=== PATIENT | female | born 1960 | race African-American/Black ===

== ENCOUNTER → 2017-04-01 | Outpatient (CLI) | payer MEDICARE, OTHER ==
--- NOTE | 2017-04-01 13:44 | US ---
EXAMINATION TYPE: US venous doppler duplex LE RT DATE OF EXAM: 04/01/2017 1:20 PM COMPARISON: NONE CLINICAL HISTORY: I82.49 DVT. Right leg cellulitis and swelling, no h/o dvt SIDE PERFORMED: Right TECHNIQUE: The lower extremity deep venous system is examined utilizing real time linear array sonog [place] with graded compression, doppler sonography and color-flow sonography. VESSELS IMAGED: External Iliac Vein (EIV) Common Femoral Vein Deep Femoral Vein Greater Saphenous Vein * Femoral Vein- unable to visualize vessels w/o color Popliteal Vein Small Saphenous Vein * Proximal Calf Veins (* superficial vessels) Right Leg: Appears negative for DVT Grayscale, color doppler, spectral doppler imaging performed of the deep veins of the lower extremiti es. There is normal flow, compressibility, vascular waveforms. tech impression given to office at 1325 IMPRESSION: 1. No sonographic evidence of right lower extremity venous thrombosis with slight limitation of the f emoral vein. 2. Superficial right inguinal adenopathy and lower extremity generalized subcutaneous edema compatibl e with the patient's known history of cellulitis.
== END | disposition home or self-care (01) ==
LOC: RADUSWWP 12:47
PROVIDERS: ATTEND Internal Medicine Infectious Disease
DX: L03.115 Cellulitis of right lower limb (principal); R59.0 Localized enlarged lymph nodes; Z00.00 Encounter for general adult medical examination without abnormal findings

== ENCOUNTER → 2017-05-08 | Outpatient (CLI) | payer MEDICARE, OTHER ==
--- NOTE | 2017-05-14 11:54 | P.ARTDOP ---
Arterial Doppler LOWER EXTREMITY ARTERIAL DOPPLER: DATE OF SERVICE: 05/08/2017 Reason for study: Right leg ulcer. Doppler waveforms: Multiphasic bilaterally throughout. Pulse volume recording: Normal configuration. Pressure gradients: None. Ankle-brachial indices: Greater than 1 bilaterally. Toe pressures: 130 on the right, 130 on the left Impression: normal study.
== END | disposition home or self-care (01) ==
LOC: RADUSWWP 13:07
PROVIDERS: ATTEND Internal Medicine Infectious Disease
DX: I73.9 Peripheral vascular disease, unspecified (principal)
CPT/HCPCS: 93923

== ENCOUNTER → 2017-09-02 | Outpatient (CLI) | payer MEDICARE, OTHER ==
--- NOTE | 2017-09-02 15:02 | MM ---
Reason for exam: clinical finding. Last mammogram was performed 2 years and 10 months ago. History: Patient is postmenopausal. Took hormonal contraceptives for 10 years beginning at age 15. Physical Findings: Nurse did not find any significant physical abnormalities on exam. MG 3D Diag Mammo W/Cad STAN Bilateral CC and MLO view(s) were taken. Prior study comparison: November 01, 2014, bilateral MG screening mammo w CAD. September 17, 2012, bilateral digital screening mammo w/CAD. There are scattered fibroglandular densities. There is no discrete abnormality. No significant new findings when compared with previous films. These results were verbally communicated with the patient and result sheet given to the patient on 09/02/17. ASSESSMENT: Negative, BI-RAD 1 RECOMMENDATION: Routine screening mammogram of both breasts in 1 year.
== END | disposition home or self-care (01) ==
LOC: RADMAMWWP 13:33
PROVIDERS: ATTEND Surgery
DX: N63.0 Unspecified lump in unspecified breast (principal)
CPT/HCPCS: 77066; G0279

== ENCOUNTER 2019-06-28 15:18 | Inpatient (IN) | payer MEDICARE, OTHER ==
[2019-06-28 17:15] LABS: Basophils % (A) 0 %; Eosinophils # (A) 0.1 k/uL (0-0.7); Eosinophils % (A) 2 %; HCT 36.2 % (34.0-46.0); HGB 11.5 gm/dL (11.4-16.0); Hypochromasia Slight; Lymphocytes # (A) 1.7 k/uL (1.0-4.8); Lymphocytes % (A) 22 %; MCHC 31.9 g/dL (31.0-37.0); MCV 81.5 fL (80.0-100.0); Mean Platelet Volume 7.2; Monocytes # (A) 0.3 k/uL (0-1.0); Monocytes % (A) 4 %; Neutrophils # (A) 5.2 k/uL (1.3-7.7); Neutrophils % (A) 69 %; Platelet Count 275 k/uL (150-450); RBC 4.44 m/uL (3.80-5.40); RDW 14.8 % (11.5-15.5); WBC 7.5 k/uL (3.8-10.6)
--- NOTE | 2019-06-28 17:20 | XR ---
EXAMINATION TYPE: XR foot complete LT DATE OF EXAM: 06/28/2019 COMPARISON: NONE HISTORY: Ulcer at the first metatarsal TECHNIQUE: 3 views FINDINGS: There is moderately severe hallux valgus. There is multiple hammertoe deformity. There is p lantar and Achilles calcaneal spurring. There is large 2 cm soft tissue ulcer crater at the medial pl malgorzata aspect of the proximal phalanx of the big toe. I see no fracture nor dislocation. There is no f ocal bone destruction. IMPRESSION: Hallux valgus. Ulcer defect. No sign of osteomyelitis. Soft tissue swelling.
[2019-06-28 17:27] LABS: Albumin 4.2 g/dL (3.5-5.0); C Reactive Protein 14.4 mg/L (<10.0); Calcium 9.6 mg/dL (8.4-10.2); Potassium 4.1 mmol/L (3.5-5.1); Total Bilirubin 0.7 mg/dL (0.2-1.3); Total Protein 8.4 g/dL (6.3-8.2)
[2019-06-28] MEDS ORDERED: MORPHINE SULFATE 4 MG/ML SYRINGE IVP STA (17:47)
[2019-06-28] MEDS ORDERED: ONDANSETRON 4 MG/2 ML VIAL IVP STA (17:47)
--- NOTE | 2019-06-28 17:48 | ED ---
Lower Extremity Injury HPI - General Source: patient, EMS, RN notes reviewed Mode of arrival: EMS Limitations: physical limitation <Thony Valiente - Last Filed: 06/28/19 19:07> <Chris Guo - Last Filed: 06/28/19 19:17> - General Chief Complaint: Extremity Injury, Lower Stated Complaint: Foot/knee pain Time Seen by Provider: 06/28/19 15:43 - History of Present Illness Initial Comments: 58-year-old female presents emergency Department with chief complaint of left knee pain, left foot pain. Patient states that she injured her leg a few months ago but states that the pain is unbearable feels like a lump in the backs of her leg. Patient states that her legs have an extremely red and she has recurrent cellulitis type issues. Patient also states that she has a wound that is very extensive to her left foot which is now painful. He states that it was debrided by home health care provider. Patient denies any known fever or chills states that she felt that she did. Patient denies other complaints at this time. (Thony Valiente) - Related Data Home Medications Medication Instructions Recorded Confirmed Lisinopril 40 mg PO DAILY 02/16/16 10/30/18 amLODIPine [Norvasc] 10 mg PO DAILY 02/16/16 10/30/18 traMADol HCL [Ultram] 50 mg PO Q6H PRN 02/16/16 10/30/18 Clopidogrel [Plavix] 75 mg PO DAILY 03/01/17 10/30/18 Furosemide [Lasix] 40 mg PO DAILY 03/01/17 10/30/18 Hydrochlorothiazide 25 mg PO DAILY 03/01/17 10/30/18 Latanoprost [Xalatan 0.005%] 1 drop BOTH EYES HS 03/01/17 10/30/18 [place]-3 Fatty Acids/Fish Oil [Fish 1 cap PO DAILY 03/01/17 10/30/18 Oil 1,000 mg Softgel] Pravastatin Sodium [Pravachol] 40 mg PO DAILY 03/01/17 10/30/18 Ranitidine HCl [Zantac] 150 mg PO DAILY 03/01/17 10/30/18 Cyanocobalamin [Vitamin B-12] 500 mcg PO DAILY 05/20/17 10/30/18 Ergocalciferol [Vitamin D2 50,000 unit PO MO 05/20/17 10/30/18 (DRISDOL)] metFORMIN HCL 1,000 mg PO BID 05/20/17 10/30/18 Albuterol Inhaler [Ventolin Hfa 2 puff INHALATION RT-Q6H PRN 10/30/18 10/30/18 Inhaler] Cyclobenzaprine [Flexeril] 10 mg PO HS 10/30/18 10/30/18 Insuln Asp Prt/Insulin Aspart 25 unit SQ AC-SUPPER 10/30/18 10/30/18 [NovoLOG MIX 70-30 VIAL] Insuln Asp Prt/Insulin Aspart 35 unit SQ AC-BRKFST 10/30/18 10/30/18 [NovoLOG MIX 70-30 VIAL] Potassium Chloride [Klor-Con 20] 20 meq PO DAILY 10/30/18 10/30/18 Pregabalin [Lyrica] 75 mg PO BID 10/30/18 10/30/18 Previous Rx's Medication Instructions Recorded Ammonium Lactate Lotion 1 applic TOPICAL BID 7 Days applic 03/06/17 [Lac-Hydrin 12% Lotion] Ferrous Sulfate [Slow Release Iron] 250 mg PO DAILY #30 tablet.er 10/31/18 oxyCODONE-APAP 7.5-325MG [Percocet 2 tab PO Q6HR PRN 3 Days #24 tab 10/31/18 7.5-325 mg] Allergies Allergy/AdvReac Type Severity Reaction Status Date / Time methylprednisolone Allergy Anaphylaxis Verified 10/30/18 08:19 [From Solu-Medrol] venom-honey bee Allergy Anaphylaxis Verified 10/30/18 08:19 [bee venom (honey bee)] Review of Systems ROS Other: All systems not noted in ROS Statement are negative. <Thony Valiente - Last Filed: 06/28/19 19:07> ROS Other: All systems not noted in ROS Statement are negative. <Chris Guo - Last Filed: 06/28/19 19:17> ROS Statement: Those systems with pertinent positive or pertinent negative responses have been documented in the HPI. Past Medical History Past Medical History: Asthma, COPD, Diabetes Mellitus, Eye Disorder, GERD/Reflux, Hyperlipidemia, Hypertension, Neurologic Disorder, Osteoarthritis (OA) Additional Past Medical History / Comment(s): wounds rt leg,multiple sclerosis, glaucoma History of Any Multi-Drug Resistant Organisms: None Reported Past Surgical History: Section, Joint Replacement, Tubal Ligation Additional Past Surgical History / Comment(s): lt hip replacement,rectal surgery,eye proc Past Anesthesia/Blood Transfusion Reactions: No Reported Reaction Past Psychological History: Depression Smoking Status: Former smoker Past Alcohol Use History: None Reported Past Drug Use History: Marijuana - Past Family History Father Family Medical History: Cancer <Thony Valiente - Last Filed: 06/28/19 19:07> General Exam Limitations: physical limitation General appearance: alert, in no apparent distress Head exam: Present: atraumatic, normocephalic, normal inspection Eye exam: Present: normal appearance, PERRL, EOMI. Absent: scleral icterus, conjunctival injection, periorbital swelling ENT exam: Present: normal exam, mucous membranes moist Respiratory exam: Present: normal lung sounds bilaterally. Absent: respiratory distress, wheezes, rales, rhonchi, stridor Cardiovascular Exam: Present: regular rate, normal rhythm, normal heart sounds. Absent: systolic murmur, diastolic murmur, rubs, gallop, clicks Extremities exam: Present: other (Bilateral lower extremity swelling, erythema noted, there is some blistering. Left foot there is a large diabetic foot ulcer noted there is mild surrounding edema there is minimal purulent drainage pulses are 1+ bilaterally) Skin exam: Present: warm, dry, intact, normal color. Absent: rash <Thony Valiente - Last Filed: 06/28/19 19:07> Course <Chris Guo - Last Filed: 06/28/19 19:17> Vital Signs 06/28/19 06/28/19 06/28/19 15:24 18:16 18:45 Temperature 97.4 F L Pulse Rate 78 86 81 Respiratory 19 19 19 Rate Blood Pressure 189/99 177/102 170/95 O2 Sat by Pulse 93 L 96 96 Oximetry - Reevaluation(s) Reevaluation #1: 06/28/19 19:16 PA supervision: I proceeded chat-um-bobe evaluation the patient did discuss the findings with her and her caregiver. Also with Dr. Chappell. H will be admitted with consultation by infectious disease. She does demonstrate a rather deep ulcer to the left first metatarsal phalangeal joint with ascending erythema bi laterally with increased localized temperature also stasis dermatitis noted to both lower extremities. Some blister formation is noted. She does clinically however not appear to be toxic at this time. (Chris Guo) Medical Decision Making - Lab Data Result diagrams: 06/28/19 16:46 06/28/19 16:46 <Thony Valiente - Last Filed: 06/28/19 19:07> - Lab Data Result diagrams: 06/28/19 16:46 06/28/19 16:46 <Chris Guo - Last Filed: 06/28/19 19:17> - Medical Decision Making THE LEG IS NEGATIVE FOR ANY OBVIOUS DVT. PATIENT HAS A LARGE DIABETIC FOOT ULCER, CELLULITIS OF HER LOWER EXTREMITIES. PATIENT WILL BE ADMITTED FOR IV ANTIBIOTICS, INFECTIOUS DISEASE CONSULT AND FURTHER TREATMENT. (Thony Valiente) - Lab Data Lab Results 06/28/19 06/28/19 Range/Units 16:46 16:46 WBC 7.5 (3.8-10.6) k/uL RBC 4.44 (3.80-5.40) m/uL Hgb 11.5 (11.4-16.0) gm/dL Hct 36.2 (34.0-46.0) % MCV 81.5 (80.0-100.0) fL MCH 26.0 (25.0-35.0) pg MCHC 31.9 (31.0-37.0) g/dL RDW 14.8 (11.5-15.5) % Plt Count 275 (150-450) k/uL Neutrophils % 69 % Lymphocytes % 22 % Monocytes % 4 % Eosinophils % 2 % Basophils % 0 % Neutrophils # 5.2 (1.3-7.7) k/uL Lymphocytes # 1.7 (1.0-4.8) k/uL Monocytes # 0.3 (0-1.0) k/uL Eosinophils # 0.1 (0-0.7) k/uL Basophils # 0.0 (0-0.2) k/uL Hypochromasia Slight Sodium 140 (137-145) mmol/L Potassium 4.1 (3.5-5.1) mmol/L Chloride 101 (98-107) mmol/L Carbon Dioxide 31 H (22-30) mmol/L Anion Gap 8 mmol/L BUN 21 H (7-17) mg/dL Creatinine 0.92 (0.52-1.04) mg/dL Est GFR (CKD-EPI)AfAm 80 (>60 ml/min/1.73 sqM) Est GFR (CKD-EPI)NonAf 69 (>60 ml/min/1.73 sqM) Glucose 122 H (74-99) mg/dL Calcium 9.6 (8.4-10.2) mg/dL Total Bilirubin 0.7 (0.2-1.3) mg/dL AST 29 (14-36) U/L ALT 17 (4-34) U/L Alkaline Phosphatase 133 H (38-126) U/L C-Reactive Protein 14.4 H (<10.0) mg/L Total Protein 8.4 H (6.3-8.2) g/dL Albumin 4.2 (3.5-5.0) g/dL Disposition <Thony Valiente - Last Filed: 06/28/19 19:07> <Chris Guo - Last Filed: 06/28/19 19:17> Clinical Impression: Diabetic ulcer of left foot, Bilateral lower leg cellulitis Disposition: ADMITTED IP TO THIS HOSP Condition: Fair Referrals: Mariely Bradford MD [Primary Care Provider] - 1-2 days
--- NOTE | 2019-06-28 18:28 | US ---
EXAMINATION TYPE: US venous doppler duplex LE LT DATE OF EXAM: 06/28/2019 6:10 PM COMPARISON: NONE CLINICAL HISTORY: pain. SIDE PERFORMED: Left TECHNIQUE: The lower extremity deep venous system is examined utilizing real time linear array sonog [place] with graded compression, doppler sonography and color-flow sonography. VESSELS IMAGED: External Iliac Vein (EIV) Common Femoral Vein Deep Femoral Vein Greater Saphenous Vein * Femoral Vein Popliteal Vein Small Saphenous Vein * Proximal Calf Veins (* superficial vessels) Patient of very large body habitus, technically difficult and limited study. Left Leg: Appears negative for DVT in this somewhat limited study, distal femoral vein not seen, pro ximal calf veins not seen due to extensive edema and patient body habitus. IMPRESSION: There is subcutaneous edema. No deep vein thrombosis seen in the left leg.
[2019-06-28] MEDS ORDERED: VANCOMYCIN IV PER PHARMACY 1 EACH MISC MISCELLANE PRN (19:07)
[2019-06-28] MEDS ORDERED: PIPERACILLIN-TAZOBACTAM 3.375 GM in SODIUM CHLORIDE 0.9% 100 ML IVPB STA (19:07)
[2019-06-28] MEDS ORDERED: HYDROcodone/APAP 5-325MG 1 EACH TAB PO PRN (19:08)
[2019-06-28] MEDS ORDERED: ONDANSETRON 4 MG/2 ML VIAL IVP PRN (19:08)
[2019-06-28] MEDS ORDERED: NALOXONE 0.4 MG/ML 1 ML VIAL IV PRN (19:08)
[2019-06-28] MEDS ORDERED: VANCOMYCIN 1,750 MG in SODIUM CHLORIDE 0.9% 500 ML 500 ML IVPB STA (19:10)
[2019-06-28] MEDS: MORPHINE SULFATE 4 MG/ML SYRINGE IV PRN (20:50)
[2019-06-28] MEDS ORDERED: oxyCODONE-APAP 7.5-325MG 1 EACH TAB PO PRN (22:00)
[2019-06-28] MEDS ORDERED: ALBUTEROL NEBULIZED 2.5 MG/3 ML INHALATION PRN (22:00)
[2019-06-28] MEDS: LISINOPRIL 20 MG TAB PO SCH (22:16)
[2019-06-28] MEDS: hydrOXYzine HCL 25 MG TAB PO SCH (22:19)
[2019-06-28] MEDS: LATANOPROST 0.005% OPHTH DROPS 2.5 ML BTL BOTH EYES SCH (22:19)
[2019-06-28] MEDS: ACETAMINOPHEN TAB 325 MG TAB PO PRN (23:43)
[2019-06-28] MEDS: amLODIPine 10 MG TAB PO SCH (23:44)
[2019-06-29] MEDS: PREGABALIN 100 MG CAP PO SCH ×3 (00:58→22:34)
[2019-06-29] MEDS: MORPHINE SULFATE 4 MG/ML SYRINGE IV PRN ×4 (06:33→19:24)
[2019-06-29 07:24] LABS: Glucose,Whole Blood 193 mg/dL (75-99)
[2019-06-29] MEDS: IPRATROPIUM-ALBUTEROL 3 ML NEB INHALATION SCH ×4 (07:58→19:54)
[2019-06-29] MEDS ORDERED: PANTOPRAZOLE 40 MG/10 ML VIAL IV SCH (09:00)
[2019-06-29] MEDS: amLODIPine 10 MG TAB PO SCH (09:30)
[2019-06-29] MEDS: CLOPIDOGREL 75 MG TAB PO SCH (09:30)
[2019-06-29] MEDS: LISINOPRIL 20 MG TAB PO SCH (09:31)
[2019-06-29] MEDS: HYDROCHLOROTHIAZIDE 25 MG TAB PO SCH (09:31)
[2019-06-29] MEDS: INSULN ASP PRT/INSULIN ASPART 100 UNIT/ML 10 ML VIAL SQ SCH ×2 (09:31→22:35)
[2019-06-29] MEDS: FUROSEMIDE 40 MG TAB PO SCH (09:31)
[2019-06-29] MEDS: hydrOXYzine HCL 25 MG TAB PO SCH ×3 (09:31→22:34)
[2019-06-29] MEDS: VANCOMYCIN 1,750 MG in SODIUM CHLORIDE 0.9% 500 ML 500 ML IVPB SCH (09:32)
[2019-06-29] MEDS: PRAVASTATIN SODIUM 20 MG TAB PO SCH (09:32)
[2019-06-29] MEDS: metFORMIN 500 MG TAB PO SCH ×2 (09:32→22:35)
[2019-06-29] MEDS: POTASSIUM CHLORIDE ER 20 MEQ TAB.ER PO SCH (09:32)
[2019-06-29 12:00] LABS: Glucose,Whole Blood 194 mg/dL (75-99)
[2019-06-29 14:36] VITALS: BMI 39.5
[2019-06-29 17:15] LABS: Glucose,Whole Blood 166 mg/dL (75-99)
--- NOTE | 2019-06-29 18:18 | P.CONS ---
History of Present Illness - Reason for Consult Consult date: 06/29/19 Left diabetic foot ulcer and cellulitis Requesting physician: Rey Chappell - Chief Complaint Left foot pain and nonhealing ulcer x days - History of Present Illness Patient is a 58-year-old female who apparently did develop a callus on her left foot that has been debridement by Dr. Ricci from [facility] few weeks ago, patient had been complaining of pain to her left foot since a debridement patient describing the pain to be sharp that has increased in intensity over the last few days to be as high as 10 out of 10, patient did complain of some drainage from her left foot wound, the patient did have some chills but denies high-grade fever with these symptoms the patient was evaluated by the ER physician on arrival to the area the patient has been afebrile, patient white count was normal she did have x-rays of the foot that did not show any bony changes suggestive of Osteomyelitis, patient received her dose of Zosyn in the ER vancomycin was started and continued patient has been admitted to the hospital infectious disease was consulted for further recommendation regarding antibiotic therapy Review of Systems CONSTITUTIONAL: Positive for weakness. Denies high-grade Fever EYES: No complaint. ENT:No complaint. RESPIRATORY: No complaint. CARDIOVASCULAR: No complaint. GENITOURINARY: No complaint. GASTROINTESTINAL: No complaint. MUSCULOSKELETAL: As per history of present illness. INTEGUMENTARY: As per history of present illness. PSYCHOLOGICAL: No complaint. ENDOCRINE: No complaint. NEUROLOGIC: No complaint. Past Medical History Past Medical History: Asthma, COPD, Diabetes Mellitus, Eye Disorder, GERD/Reflux, Hyperlipidemia, Hypertension, Neurologic Disorder, Osteoarthritis (OA) Additional Past Medical History / Comment(s): wounds rt leg,multiple sclerosis, glaucoma History of Any Multi-Drug Resistant Organisms: None Reported Past Surgical History: Section, Joint Replacement, Tubal Ligation Additional Past Surgical History / Comment(s): lt hip replacement,rectal surgery,eye proc Past Anesthesia/Blood Transfusion Reactions: No Reported Reaction Past Psychological History: Depression Additional Psychological History / Comment(s): Stop smoking Jan. No cigarette or alcohol use. Does not work outside of the home. No international travel. No experience. No animal exposures Smoking Status: Never smoker Past Alcohol Use History: None Reported Additional Past Alcohol Use History / Comment(s): smoker 20 years 1ppd Past Drug Use History: Marijuana Additional Drug Use History / Comment(s): daily - Past Family History Father Family Medical History: Cancer Medications and Allergies Home Medications Medication Instructions Recorded Confirmed Type Lisinopril 40 mg PO DAILY 02/16/16 06/28/19 History amLODIPine [Norvasc] 10 mg PO DAILY 02/16/16 06/28/19 History Clopidogrel [Plavix] 75 mg PO DAILY 03/01/17 06/28/19 History Furosemide [Lasix] 40 mg PO DAILY 03/01/17 06/28/19 History Hydrochlorothiazide 25 mg PO DAILY 03/01/17 06/28/19 History Latanoprost [Xalatan 0.005%] 1 drop BOTH EYES HS 03/01/17 06/28/19 History Ergocalciferol [Vitamin D2 50,000 unit PO Q7D 05/20/17 06/28/19 History (DRISDOL)] metFORMIN HCL 1,000 mg PO BID 05/20/17 06/28/19 History Albuterol Inhaler [Ventolin Hfa 2 puff INHALATION RT-Q6H PRN 10/30/18 06/28/19 History Inhaler] Insuln Asp Prt/Insulin Aspart 22 unit SQ HS 10/30/18 06/28/19 History [NovoLOG MIX 70-30 VIAL] Insuln Asp Prt/Insulin Aspart 32 unit SQ DAILY 10/30/18 06/28/19 History [NovoLOG MIX 70-30 VIAL] Potassium Chloride [Klor-Con 20] 20 meq PO DAILY 10/30/18 06/28/19 History Ipratropium-Albuterol Nebulize 3 ml INHALATION RT-QID 06/28/19 06/28/19 History [Duoneb 0.5 mg-3 mg/3 ml Soln] Pravastatin Sodium [Pravachol] 10 mg PO DAILY 06/28/19 06/28/19 History Pregabalin [Lyrica] 100 mg PO BID 06/28/19 06/28/19 History SILVER sulfADIAZINE Cream 1 applic TOPICAL DAILY 06/28/19 06/28/19 History [Silvadene 1% Cream] hydrOXYzine HCL [Atarax] 50 mg PO TID 06/28/19 06/28/19 History oxyCODONE-APAP 7.5-325MG [Percocet 1 tab PO Q6HR PRN 06/28/19 06/28/19 History 7.5-325 mg] Allergies Allergy/AdvReac Type Severity Reaction Status Date / Time methylprednisolone Allergy Anaphylaxis Verified 10/30/18 08:19 [From Solu-Medrol] venom-honey bee Allergy Anaphylaxis Verified 10/30/18 08:19 [bee venom (honey bee)] Physical Exam Vitals: Vital Signs Temp Pulse Pulse Resp BP BP Pulse Ox 06/29/19 16:00 96 18 06/29/19 15:00 98.5 F 96 18 169/81 92 L 06/29/19 08:25 86 16 06/29/19 08:11 84 06/29/19 08:01 88 06/29/19 07:00 98.2 F 86 16 189/83 91 L 06/29/19 04:28 88 18 92 L 06/29/19 03:13 78 20 161/83 95 06/28/19 22:14 90 18 176/95 94 L 06/28/19 20:55 97.4 F L 80 18 181/94 94 L 06/28/19 18:45 81 19 170/95 96 06/28/19 18:16 86 19 177/102 96 Intake and Output 06/29/19 06/29/19 06/29/19 06:59 14:59 22:59 Output Total 500 550 850 Balance -500 -550 -850 Output: Urine 500 550 850 Other: Voiding Method Indwelling Catheter Indwelling Catheter Indwelling Catheter Weight 111.13 kg 111.13 kg GENERAL DESCRIPTION: Middle-aged female lying in bed, no distress. No tachypnea or accessory muscle of respiration use. HEENT: Shows Pallor , no scleral icterus. Oral mucous membrane is dry. No pharyngeal erythema or thrush NECK: Trachea central, no thyromegaly. LUNGS: Unlabored breathing. Clear to auscultation anteriorly. No wheeze or crackle. HEART: S1, S2, regular rate and rhythm. No loud murmur ABDOMEN: Soft, no tenderness , guarding or rigidity, no organomegaly EXTREMITIES: Left foot plantar wound at the base of first metatarsal head no significant slough tissue did some surrounding swelling and minimal drainage was noticed SKIN: No rash, no masses palpable. NEUROLOGICAL: The patient is awake, alert, oriented x3, mood and affect normal. Results CBC & Chem 7: 06/28/19 16:46 06/29/19 06:26 Labs: Abnormal Lab Results - Last 24 Hours (Table) 06/29/19 06/29/19 06/29/19 Range/Units 07:19 11:58 17:13 POC Glucose (mg/dL) 193 H 194 H 166 H (75-99) mg/dL Microbiology - Last 24 Hours (Table) 06/28/19 18:19 Gram Stain - Preliminary Foot - Left Wound Culture - Preliminary Assessment and Plan Assessment: 1-patient with left diabetic foot ulcer with secondary infection in this patient who did have a wound on the plantar aspect of the left foot started a fter patient did have left foot callus debridement now with worsening pain swelling and drainage will need to cover for both gram-positive as well as gram- negative pathogen in view of patient underlying diabetes mellitus (1) Cellulitis of left foot Current Visit: Yes Status: Acute Code(s): L03.116 - CELLULITIS OF LEFT LOWER LIMB SNOMED Code(s): 917182361 (2) Diabetic ulcer of left foot Current Visit: Yes Status: Acute Code(s): E11.621 - TYPE 2 DIABETES MELLITUS WITH FOOT ULCER; L97.529 - NON-PRESSURE CHRONIC ULCER OTH PRT LEFT FOOT W UNSP SEVERITY SNOMED Code(s): 059684905 Plan: 1-Vancomycin pharmacy to dose target trough of 15 while watching his kidney function and Vanco trough closely 2- cefepime 2 g every 12 hours to cover for the gram-negative seen on the Gram stain 3-local wound care to the left foot plantar wound with Aquacel silver dressing to be changed daily 4-we'll check a sed rate and also check a bone scan to rule out Osteomyelitis We will follow on clinical condition and cultures to further adjust medication if needed Thank you for this consultation will follow this patient with you Time with Patient: Greater than 30
[2019-06-29] MEDS: ACETAMINOPHEN TAB 325 MG TAB PO PRN (19:58)
[2019-06-29 20:22] LABS: Glucose,Whole Blood 196 mg/dL (75-99)
[2019-06-29] MEDS: CEFEPIME 2 GM in SODIUM CHLORIDE 0.9% 100 ML IVPB SCH (22:35)
[2019-06-30] MEDS: VANCOMYCIN 1,750 MG in SODIUM CHLORIDE 0.9% 500 ML 500 ML IVPB SCH ×2 (00:29→17:01)
[2019-06-30] MEDS: LATANOPROST 0.005% OPHTH DROPS 2.5 ML BTL BOTH EYES SCH ×2 (00:30→20:59)
[2019-06-30] MEDS: IPRATROPIUM-ALBUTEROL 3 ML NEB INHALATION SCH ×4 (07:28→20:24)
[2019-06-30 07:59] LABS: Glucose,Whole Blood 161 mg/dL (75-99)
[2019-06-30] MEDS: PRAVASTATIN SODIUM 20 MG TAB PO SCH (09:33)
[2019-06-30] MEDS: CLOPIDOGREL 75 MG TAB PO SCH (09:34)
[2019-06-30] MEDS: amLODIPine 10 MG TAB PO SCH (09:34)
[2019-06-30] MEDS: metFORMIN 500 MG TAB PO SCH ×2 (09:34→20:56)
[2019-06-30] MEDS: POTASSIUM CHLORIDE ER 20 MEQ TAB.ER PO SCH (09:34)
[2019-06-30] MEDS: FUROSEMIDE 40 MG TAB PO SCH (09:35)
[2019-06-30] MEDS: PREGABALIN 100 MG CAP PO SCH ×2 (09:35→20:56)
[2019-06-30] MEDS: INSULN ASP PRT/INSULIN ASPART 100 UNIT/ML 10 ML VIAL SQ SCH ×2 (09:35→20:53)
[2019-06-30] MEDS: HYDROCHLOROTHIAZIDE 25 MG TAB PO SCH (09:35)
[2019-06-30] MEDS: PANTOPRAZOLE 40 MG TABLET PO SCH (09:35)
[2019-06-30] MEDS: hydrOXYzine HCL 25 MG TAB PO SCH ×3 (09:36→20:56)
[2019-06-30] MEDS: CEFEPIME 2 GM in SODIUM CHLORIDE 0.9% 100 ML IVPB SCH ×2 (09:37→20:57)
[2019-06-30 09:41] LABS: Basophils % (A) 0 %; Eosinophils # (A) 0.1 k/uL (0-0.7); Eosinophils % (A) 1 %; HCT 37.4 % (34.0-46.0); HGB 12.3 gm/dL (11.4-16.0); Lymphocytes # (A) 1.4 k/uL (1.0-4.8); Lymphocytes % (A) 21 %; MCH 26.4 pg (25.0-35.0); MCHC 32.9 g/dL (31.0-37.0); MCV 80.3 fL (80.0-100.0); Mean Platelet Volume 7.4; Monocytes # (A) 0.4 k/uL (0-1.0); Monocytes % (A) 6 %; Neutrophils # (A) 4.9 k/uL (1.3-7.7); Neutrophils % (A) 70 %; Platelet Count 249 k/uL (150-450); RBC 4.65 m/uL (3.80-5.40); RDW 14.7 % (11.5-15.5)
[2019-06-30 09:54] LABS: Albumin 3.8 g/dL (3.5-5.0); Calcium 9.5 mg/dL (8.4-10.2); Potassium 3.7 mmol/L (3.5-5.1); Total Bilirubin 0.7 mg/dL (0.2-1.3); Total Protein 7.6 g/dL (6.3-8.2)
[2019-06-30 11:51] LABS: Glucose,Whole Blood 172 mg/dL (75-99)
[2019-06-30] MEDS: LISINOPRIL 20 MG TAB PO SCH (11:56)
[2019-06-30] MEDS: MORPHINE SULFATE 4 MG/ML SYRINGE IV PRN (11:56)
--- NOTE | 2019-06-30 13:46 | P.HPPUL ---
History of Present Illness H&P Date: 06/29/19 Chief Complaint: Pain and some drainage in the left foot This is a 58-year-old female seen eval reexamined, patient has a callus in her left foot developed some discharge posterior fragment has been progressive for several weeks started having pain pain to be sharp that has increased in intensity over the last few days to be as high as 10 out of 10, patient did complain of some drainage from her left foot wound, the patient did have some chills but denies high-grade fever with these symptoms the patient was evaluated by the ER physician on arrival to the area the patient has been afebrile, patient white count was normal she did have x-rays of the foot that did not show any bony changes suggestive of Osteomyelitis, patient received her dose of Zosyn in the ER vancomycin was started and continued patient has been admitted to the hospital, patient has seen Dr. Hamm from infectious disease was consulted for further recommendation regarding Review of Systems All systems: negative Past Medical History Past Medical History: Asthma, COPD, Diabetes Mellitus, Eye Disorder, GERD/Reflux, Hyperlipidemia, Hypertension, Neurologic Disorder, Osteoarthritis (OA) Additional Past Medical History / Comment(s): wounds rt leg,multiple sclerosis, glaucoma History of Any Multi-Drug Resistant Organisms: None Reported Past Surgical History: Section, Joint Replacement, Tubal Ligation Additional Past Surgical History / Comment(s): lt hip replacement,rectal surgery,eye proc Past Anesthesia/Blood Transfusion Reactions: No Reported Reaction Past Psychological History: Depression Additional Psychological History / Comment(s): Stop smoking Jan. No cigarette or alcohol use. Does not work outside of the home. No international travel. No experience. No animal exposures Smoking Status: Never smoker Past Alcohol Use History: None Reported Additional Past Alcohol Use History / Comment(s): smoker 20 years 1ppd Past Drug Use History: Marijuana Additional Drug Use History / Comment(s): daily - Past Family History Father Family Medical History: Cancer Medications and Allergies Home Medications Medication Instructions Recorded Confirmed Type Lisinopril 40 mg PO DAILY 02/16/16 06/28/19 History amLODIPine [Norvasc] 10 mg PO DAILY 02/16/16 06/28/19 History Clopidogrel [Plavix] 75 mg PO DAILY 03/01/17 06/28/19 History Furosemide [Lasix] 40 mg PO DAILY 03/01/17 06/28/19 History Hydrochlorothiazide 25 mg PO DAILY 03/01/17 06/28/19 History Latanoprost [Xalatan 0.005%] 1 drop BOTH EYES HS 03/01/17 06/28/19 History Ergocalciferol [Vitamin D2 50,000 unit PO Q7D 05/20/17 06/28/19 History (DRISDOL)] metFORMIN HCL 1,000 mg PO BID 05/20/17 06/28/19 History Albuterol Inhaler [Ventolin Hfa 2 puff INHALATION RT-Q6H PRN 10/30/18 06/28/19 History Inhaler] Insuln Asp Prt/Insulin Aspart 22 unit SQ HS 10/30/18 06/28/19 History [NovoLOG MIX 70-30 VIAL] Insuln Asp Prt/Insulin Aspart 32 unit SQ DAILY 10/30/18 06/28/19 History [NovoLOG MIX 70-30 VIAL] Potassium Chloride [Klor-Con 20] 20 meq PO DAILY 10/30/18 06/28/19 History Ipratropium-Albuterol Nebulize 3 ml INHALATION RT-QID 06/28/19 06/28/19 History [Duoneb 0.5 mg-3 mg/3 ml Soln] Pravastatin Sodium [Pravachol] 10 mg PO DAILY 06/28/19 06/28/19 History Pregabalin [Lyrica] 100 mg PO BID 06/28/19 06/28/19 History SILVER sulfADIAZINE Cream 1 applic TOPICAL DAILY 06/28/19 06/28/19 History [Silvadene 1% Cream] hydrOXYzine HCL [Atarax] 50 mg PO TID 06/28/19 06/28/19 History oxyCODONE-APAP 7.5-325MG [Percocet 1 tab PO Q6HR PRN 06/28/19 06/28/19 History 7.5-325 mg] Allergies Allergy/AdvReac Type Severity Reaction Status Date / Time methylprednisolone Allergy Anaphylaxis Verified 10/30/18 08:19 [From Solu-Medrol] venom-honey bee Allergy Anaphylaxis Verified 10/30/18 08:19 [bee venom (honey bee)] Physical Examination Vital signs: Vital Signs Temp Pulse Resp BP Pulse Ox 97.4 F L 78 19 189/99 93 L 06/28/19 15:24 06/28/19 15:24 06/28/19 15:24 06/28/19 15:24 06/28/19 15:24 Vital Signs Comment(s): GENERAL DESCRIPTION: Middle-aged female lying in bed, no distress. No tachypnea or accessory muscle of respiration use. HEENT: Shows Pallor , no scleral icterus. Oral mucous membrane is dry. No pharyngeal erythema or thrush NECK: Trachea central, no thyromegaly. LUNGS: Unlabored breathing. Clear to auscultation anteriorly. No wheeze or crackle. HEART: S1, S2, regular rate and rhythm. No loud murmur ABDOMEN: Soft, no tenderness , guarding or rigidity, no organomegaly EXTREMITIES: Left foot plantar wound at the base of first metatarsal head no significant slough tissue did some surrounding swelling and minimal drainage was noticed SKIN: No rash, no masses palpable. NEUROLOGICAL: The patient is awake, alert, oriented x3, mood and affect normal. Results - Laboratory Findings CBC and BMP: 06/30/19 09:15 06/30/19 09:15 Abnormal lab findings: Abnormal Labs 06/28/19 06/29/19 06/29/19 16:46 07:19 11:58 Carbon Dioxide 31 H BUN 21 H Glucose 122 H POC Glucose (mg/dL) 193 H 194 H Alkaline Phosphatase 133 H C-Reactive Protein 14.4 H Total Protein 8.4 H Assessment and Plan Assessment: Cellulitis of the left foot Left foot pain Diabetic foot ulcer COPD Hypertension hypertensive cardiovascular disease Peripheral vascular disease Congestive heart failure diastolic heart failure Insulin-dependent/requiring diabetes mellitus Dyslipidemia Peripheral neuropathy Plan: Continue home medications Infectious disease recommendation reviewed recommendation appreciated Patient is being started on broad-spectrum antibiotics Further recommendations pending plan of care as per clinical response of patient Time with Patient: Greater than 30
--- NOTE | 2019-06-30 15:24 | P.PN ---
Subjective Progress Note Date: 06/30/19 This is a 58-year-old female seen eval reexamined, patient has a callus in her left foot developed some discharge posterior fragment has been progressive for several weeks started having pain pain to be sharp that has increased in intensity over the last few days to be as high as 10 out of 10, patient did complain of some drainage from her left foot wound, the patient did have some chills but denies high-grade fever with these symptoms the patient was evaluated by the ER physician on arrival to the area the patient has been afebrile, patient white count was normal she did have x-rays of the foot that did not show any bony changes suggestive of Osteomyelitis, patient received her dose of Zosyn in the ER vancomycin was started and continued patient has been admitted to the hospital, patient has seen Dr. Hamm from infectious disease was consulted for further recommendation regarding Dr. Chappell covering for 06/29/2019 On 06/30/2019 patient is alert and oriented 3. Patient remains on vancomycin and cefepime per infectious disease. One cultures are currently pending growing gram-negative bacilli strep group B. Bone scan has been completed results pending per ID. Discharge planning in progress to possible rehab. At this time patient denies chest pain or shortness breath. Patient denies nausea vomiting or diarrhea. Patient denies any urinary burning or frequency Objective - Vital Signs Vital signs: Vital Signs Temp 98.2 F 06/30/19 07:00 Pulse 82 06/30/19 07:00 Resp 18 06/30/19 07:00 BP 181/81 06/30/19 07:00 Pulse Ox 93 L 06/30/19 07:00 Intake & Output 06/29/19 06/30/19 06/30/19 18:59 06:59 18:59 Output Total 1400 1550 Balance -1400 -1550 Weight 111.13 kg Output: Urine 1400 1550 Other: Voiding Method Indwelling Catheter Indwelling Catheter Indwelling Catheter - Exam Head normocephalic Neck supple Lungs clear to auscultation bilaterally no wheezing or crackles Heart regular rate and rhythm S1-S2, no rub or gallop Abdomen is soft nontender nondistended positive bowel sounds no hepatosplenomegaly Extremities no edema. Left foot dressing is clean dry and intact Neuro alert and orientated to 3 - Labs CBC & Chem 7: 06/30/19 09:15 06/30/19 09:15 Labs: Abnormal Lab Results - Last 24 Hours (Table) 06/29/19 06/29/19 06/30/19 Range/Units 17:13 20:21 07:56 Carbon Dioxide (22-30) mmol/L BUN (7-17) mg/dL Glucose (74-99) mg/dL POC Glucose (mg/dL) 166 H 196 H 161 H (75-99) mg/dL 06/30/19 06/30/19 Range/Units 09:15 11:49 Carbon Dioxide 31 H (22-30) mmol/L BUN 20 H (7-17) mg/dL Glucose 216 H (74-99) mg/dL POC Glucose (mg/dL) 172 H (75-99) mg/dL Microbiology - Last 24 Hours (Table) 06/28/19 16:46 Blood Culture - Preliminary Blood No Growth after 24 hours 06/28/19 18:19 Gram Stain - Preliminary Foot - Left Wound Culture - Preliminary Gram Neg Bacilli Strep agalactiae - (group b) Assessment and Plan Assessment: 1. Cellulitis to left foot secondary to diabetic foot ulcer with prior history of debridement. Venous Doppler negative for DVT. Dr. Majano is following for infectious disease bone scan has been ordered. Patient remains on vancomycin and cefepime cultures pending 2. History of COPD. No exacerbation at this time 3. Essential hypertension. Home meds resumed 4. Diabetes mellitus type 2. Home meds resumed hemoglobin A1c will be ordered 5. History of peripheral vascular disease 6. History of chronic diastolic congestive heart failure 7. History of peripheral neuropathy DVT prophylaxis Lovenox. GI prophylaxis Pepcid Patient will likely need ECF upon discharge social work consulted I performed an examination of the patient and discussed their management with the Nurse Practitioner. I have reviewed the Nurse Practitioner's notes and agree with the documented findings and plan of care
--- NOTE | 2019-06-30 15:28 | NM ---
EXAMINATION TYPE: NM bone 3 phase DATE OF EXAM: 06/30/2019 COMPARISON: NONE HISTORY: Left foot plantar wound Triple phase bone scintigraphy was performed following the injection of 24.4 mCi Tc 99m MDP. Immedia te images and 3.75 hours post injection images acquired. FINDINGS: Blood flow: There is symmetrical blood flow to the lower extremities. Blood pool: There is slight increased radiotracer within the distal left first digit region compared to the right. Static images: There is increased radiotracer accumulation within the first right metatarsal phalange al joint region. Slightly less radiotracer is within the left first metatarsophalangeal joint space. There is increased radiotracer accumulation within the bilateral ankles. Increased radiotracer is wit hin the distal interphalangeal joint spaces of the bilateral feet. IMPRESSION: 1. No triple phase uptake to suggest acute osteomyelitis. 2. Degenerative changes are present bilaterally. 3. Some mild cellulitis is not excluded within the distal medial left foot. Correlate with location o f the patient's plantar wound.
[2019-06-30] MEDS: oxyCODONE-APAP 7.5-325MG 1 EACH TAB PO SCH ×2 (17:00→23:17)
[2019-06-30 17:42] LABS: Glucose,Whole Blood 168 mg/dL (75-99)
--- NOTE | 2019-06-30 18:27 | PN ---
PROGRESS NOTE DATE OF SERVICE: 06/30/2019 REASON FOR FOLLOWUP: Left diabetic foot infection. INTERVAL HISTORY: The patient is currently afebrile. She has been breathing comfortably. The patient denies having any chest pain or shortness of breath or cough. No nausea. No abdominal pain or any worsening pain to the left foot area. PHYSICAL EXAMINATION: Blood pressure is 151/90 with a pulse of 90, temperature 98.2. She is 95% on room air. General description is a middle-aged female up in the bed in no distress. Respiratory system: Unlabored breathing. Clear to auscultation anteriorly. Heart S1, S2. Regular rate and rhythm. Abdomen soft, no tenderness. Left foot is currently dressed up. LABS: Wound culture with Pseudomonas and gram-negative. Bone scan has been completed which shows no osteomyelitis. DIAGNOSTIC IMPRESSION AND PLAN: Patient with left diabetic foot infection, wound culture predominantly . Continue cefepime. If no Gram positive, vancomycin will be discontinued. Local wound care with dry Aquacel silver dressing to keep the area off the pressure. Continue supportive care. MMODL / IJN: [id number] /
[2019-06-30 18:30] LABS: Hemoglobin A1C 7.3 % (4.0-6.0)
[2019-06-30 20:28] LABS: Glucose,Whole Blood 196 mg/dL (75-99)
[2019-06-30] MEDS: ACETAMINOPHEN TAB 325 MG TAB PO PRN (20:55)
[2019-07-01] MEDS: oxyCODONE-APAP 7.5-325MG 1 EACH TAB PO SCH ×4 (05:35→23:51)
[2019-07-01 07:12] LABS: Glucose,Whole Blood 191 mg/dL (75-99)
[2019-07-01 07:19] LABS: Basophils % (A) 0 %; Eosinophils # (A) 0.1 k/uL (0-0.7); Eosinophils % (A) 1 %; HCT 38.6 % (34.0-46.0); HGB 12.4 gm/dL (11.4-16.0); Lymphocytes # (A) 1.6 k/uL (1.0-4.8); Lymphocytes % (A) 22 %; MCH 25.7 pg (25.0-35.0); MCHC 32.1 g/dL (31.0-37.0); Mean Platelet Volume 7.3; Monocytes # (A) 0.5 k/uL (0-1.0); Monocytes % (A) 6 %; Neutrophils % (A) 68 %; Platelet Count 281 k/uL (150-450); RBC 4.82 m/uL (3.80-5.40); RDW 14.7 % (11.5-15.5); WBC 7.4 k/uL (3.8-10.6)
[2019-07-01 07:36] LABS: Albumin 3.8 g/dL (3.5-5.0); Calcium 9.5 mg/dL (8.4-10.2); Potassium 3.4 mmol/L (3.5-5.1); Total Bilirubin 0.7 mg/dL (0.2-1.3); Total Protein 7.6 g/dL (6.3-8.2)
[2019-07-01] MEDS ORDERED: Potassium Replacement Protocol 1 EACH MISC MISCELLANE PRN (08:47)
[2019-07-01] MEDS: IPRATROPIUM-ALBUTEROL 3 ML NEB INHALATION SCH ×4 (08:55→21:49)
[2019-07-01] MEDS ORDERED: ERGOCALCIFEROL 50,000 UNIT CAP PO SCH (09:00)
[2019-07-01] MEDS: CEFEPIME 2 GM in SODIUM CHLORIDE 0.9% 100 ML IVPB SCH ×2 (09:30→20:41)
[2019-07-01] MEDS: MORPHINE SULFATE 4 MG/ML SYRINGE IV PRN ×2 (09:30→20:41)
[2019-07-01] MEDS: ENOXAPARIN 40 MG/0.4 ML SYRINGE SQ SCH (09:30)
[2019-07-01] MEDS: PREGABALIN 100 MG CAP PO SCH ×2 (09:31→20:42)
[2019-07-01] MEDS: PRAVASTATIN SODIUM 20 MG TAB PO SCH (09:31)
[2019-07-01] MEDS: POTASSIUM CHLORIDE ER 20 MEQ TAB.ER PO SCH ×3 (09:31→11:06)
[2019-07-01] MEDS: hydrOXYzine HCL 25 MG TAB PO SCH ×3 (09:31→22:52)
[2019-07-01] MEDS: PANTOPRAZOLE 40 MG TABLET PO SCH (09:31)
[2019-07-01] MEDS: CLOPIDOGREL 75 MG TAB PO SCH (09:32)
[2019-07-01] MEDS: FUROSEMIDE 40 MG TAB PO SCH (09:32)
[2019-07-01] MEDS: metFORMIN 500 MG TAB PO SCH ×2 (09:32→20:42)
[2019-07-01] MEDS: amLODIPine 10 MG TAB PO SCH (09:32)
[2019-07-01] MEDS: HYDROCHLOROTHIAZIDE 25 MG TAB PO SCH (09:32)
[2019-07-01] MEDS: INSULN ASP PRT/INSULIN ASPART 100 UNIT/ML 10 ML VIAL SQ SCH ×2 (09:32→20:42)
[2019-07-01] MEDS: LISINOPRIL 20 MG TAB PO SCH (09:33)
--- NOTE | 2019-07-01 11:04 | P.PN ---
Subjective Progress Note Date: 07/01/19 This is a 58-year-old female seen eval reexamined, patient has a callus in her left foot developed some discharge posterior fragment has been progressive for several weeks started having pain pain to be sharp that has increased in intensity over the last few days to be as high as 10 out of 10, patient did complain of some drainage from her left foot wound, the patient did have some chills but denies high-grade fever with these symptoms the patient was evaluated by the ER physician on arrival to the area the patient has been afebrile, patient white count was normal she did have x-rays of the foot that did not show any bony changes suggestive of Osteomyelitis, patient received her dose of Zosyn in the ER vancomycin was started and continued patient has been admitted to the hospital, patient has seen Dr. Hamm from infectious disease was consulted for further recommendation regarding Dr. Chappell covering for 06/29/2019 On 06/30/2019 patient is alert and oriented 3. Patient remains on vancomycin and cefepime per infectious disease. One cultures are currently pending growing gram-negative bacilli strep group B. Bone scan has been completed results pending per ID. Discharge planning in progress to possible rehab. At this time patient denies chest pain or shortness breath. Patient denies nausea vomiting or diarrhea. Patient denies any urinary burning or frequency On 07/01/2019 patient is alert and oriented 3. Bone scan completed showing no triple phase uptake to suggest acute osteomyelitis. Wound cultures to finalize. Patient remains on IV vancomycin and cefepime infectious disease following. Patient having increased pain. Percocets changed to schedule plus morphine for breakthrough pain. Patient denies chest pain. Patient denies nausea vomiting or diarrhea. Patient denies any urinary burning or frequency Objective - Vital Signs Vital signs: Vital Signs Temp 97.9 F 07/01/19 07:00 Pulse 79 07/01/19 07:00 Resp 16 07/01/19 07:00 BP 149/88 07/01/19 07:00 Pulse Ox 95 07/01/19 07:00 Intake & Output 06/30/19 07/01/19 07/01/19 18:59 06:59 18:59 Intake Total 200 Output Total 2600 1400 Balance -2600 -1200 Intake: Oral 200 Output: Urine 2600 1400 Other: Voiding Method Indwelling Catheter Indwelling Catheter - Exam Head normocephalic Neck supple Lungs clear to auscultation bilaterally no wheezing or crackles Heart regular rate and rhythm S1-S2, no rub or gallop Abdomen is soft nontender nondistended positive bowel sounds no hepatosplenomegaly Extremities no edema. Left foot dressing is clean dry and intact Neuro alert and orientated to 3 - Labs CBC & Chem 7: 07/01/19 06:19 07/01/19 06:19 Labs: Abnormal Lab Results - Last 24 Hours (Table) 06/30/19 06/30/19 06/30/19 Range/Units 09:15 11:49 17:37 Potassium (3.5-5.1) mmol/L Carbon Dioxide (22-30) mmol/L BUN (7-17) mg/dL Glucose (74-99) mg/dL POC Glucose (mg/dL) 172 H 168 H (75-99) mg/dL Hemoglobin A1c 7.3 H (4.0-6.0) % 06/30/19 07/01/19 07/01/19 Range/Units 20:25 06:19 07:10 Potassium 3.4 L (3.5-5.1) mmol/L Carbon Dioxide 32 H (22-30) mmol/L BUN 23 H (7-17) mg/dL Glucose 144 H (74-99) mg/dL POC Glucose (mg/dL) 196 H 191 H (75-99) mg/dL Hemoglobin A1c (4.0-6.0) % Microbiology - Last 24 Hours (Table) 06/28/19 16:46 Blood Culture - Preliminary Blood No Growth after 48 hours 06/28/19 18:19 Gram Stain - Preliminary Foot - Left Wound Culture - Preliminary Pseudomonas aeruginosa Strep agalactiae - (group b) Gram Neg Bacilli Assessment and Plan Assessment: 1. Cellulitis to left foot secondary to diabetic foot ulcer with prior history of debridement. Venous Doppler negative for DVT. Dr. Majano is following for infectious disease bone scan has been ordered. Patient remains on vancomycin and cefepime cultures pending. Bone scan completed showing phase uptake to suggest acute posterior mellitus. Degenerative changes are present bilaterally some mild cellulitis is not excluded within the distal medial left foot. 2. History of COPD. No exacerbation at this time 3. Essential hypertension. Home meds resumed 4. Diabetes mellitus type 2. Home meds resumed. A1c 7.3 5. History of peripheral vascular disease 6. History of chronic diastolic congestive heart failure 7. History of peripheral neuropathy 8. Hypokalemia. Replace per protocol DVT prophylaxis Lovenox. GI prophylaxis Pepcid Patient will likely need ECF upon discharge social work consulted I performed an examination of the patient and discussed their management with deena orozco Nurse Practitioner. I have reviewed the Nurse Practitioner's notes and agree with the documented findings and plan of care
[2019-07-01] MEDS: VANCOMYCIN 1,750 MG in SODIUM CHLORIDE 0.9% 500 ML 500 ML IVPB SCH (11:06)
[2019-07-01 12:04] LABS: Glucose,Whole Blood 180 mg/dL (75-99)
[2019-07-01 17:14] LABS: Glucose,Whole Blood 190 mg/dL (75-99)
[2019-07-01 20:24] LABS: Glucose,Whole Blood 140 mg/dL (75-99)
[2019-07-01] MEDS ORDERED: POTASSIUM CHLORIDE ER 20 MEQ TAB.ER PO STA (20:33)
[2019-07-01] MEDS: LATANOPROST 0.005% OPHTH DROPS 2.5 ML BTL BOTH EYES SCH (20:43)
--- NOTE | 2019-07-01 23:57 | PN ---
PROGRESS NOTE DATE OF SERVICE: 07/01/2019. REASON FOR FOLLOWUP: Left diabetic foot wound with secondary cellulitis. INTERVAL HISTORY: The patient is currently afebrile, has been breathing comfortably. The patient denies having any chest pain or shortness of breath or cough. No nausea, no vomiting. No abdominal pain. No worsening pain to the left foot. PHYSICAL EXAMINATION: Blood pressure 145/72 with a pulse of 89, temperature 99.2. She is 95% on room air. General description is a middle-aged female up in the chair in no distress. RESPIRATORY SYSTEM: Unlabored breathing. Clear to auscultation anteriorly. HEART: S1, S2. Regular rate and rhythm. ABDOMEN: Soft. No tenderness. Left foot is currently dressed up. No obvious drainage on the dressing. LABS: BUN of 23, creatinine 0.98. Wound culture with Streptococcus agalactiae, enterobacter and Pseudomonas aeruginosa. DIAGNOSTIC IMPRESSION AND PLAN: Patient with left diabetic foot wound and secondary cellulitis. Bone scan negative for any osteomyelitis. Culture has been predominantly strep and Gram-negative, sensitive to ciprofloxacin, which can be used for discharge as long as the patient is not on Atarax, which is interacting with this medication. Keep the patient on cefepime while inpatient. Local care with Aquacel Silver packing of the wound and discontinue the vancomycin. MMODL / IJN: [id number] /
[2019-07-02] MEDS ORDERED: VANCOMYCIN TROUGH DUE 1 EACH MISC MISCELLANE ONE
[2019-07-02] MEDS: oxyCODONE-APAP 7.5-325MG 1 EACH TAB PO SCH ×3 (05:39→17:28)
[2019-07-02 06:27] LABS: Basophils % (A) 1 %; Eosinophils # (A) 0.2 k/uL (0-0.7); Eosinophils % (A) 2 %; HGB 12.7 gm/dL (11.4-16.0); Lymphocytes # (A) 1.9 k/uL (1.0-4.8); Lymphocytes % (A) 25 %; MCH 25.7 pg (25.0-35.0); MCHC 31.8 g/dL (31.0-37.0); Mean Platelet Volume 7.1; Monocytes # (A) 0.5 k/uL (0-1.0); Monocytes % (A) 7 %; Neutrophils # (A) 4.7 k/uL (1.3-7.7); Neutrophils % (A) 63 %; Platelet Count 251 k/uL (150-450); RBC 4.94 m/uL (3.80-5.40); RDW 14.9 % (11.5-15.5); WBC 7.4 k/uL (3.8-10.6)
[2019-07-02 06:36] LABS: Albumin 3.9 g/dL (3.5-5.0); Calcium 9.8 mg/dL (8.4-10.2); Potassium 3.6 mmol/L (3.5-5.1); Total Bilirubin 0.7 mg/dL (0.2-1.3); Total Protein 7.8 g/dL (6.3-8.2)
[2019-07-02 06:57] LABS: Glucose,Whole Blood 144 mg/dL (75-99)
[2019-07-02] MEDS: IPRATROPIUM-ALBUTEROL 3 ML NEB INHALATION SCH ×4 (08:20→20:46)
[2019-07-02] MEDS: ENOXAPARIN 40 MG/0.4 ML SYRINGE SQ SCH (09:31)
[2019-07-02] MEDS: FUROSEMIDE 40 MG TAB PO SCH (09:31)
[2019-07-02] MEDS: PRAVASTATIN SODIUM 20 MG TAB PO SCH (09:32)
[2019-07-02] MEDS: POTASSIUM CHLORIDE ER 20 MEQ TAB.ER PO SCH (09:32)
[2019-07-02] MEDS: metFORMIN 500 MG TAB PO SCH ×2 (09:32→21:11)
[2019-07-02] MEDS: PANTOPRAZOLE 40 MG TABLET PO SCH (09:32)
[2019-07-02] MEDS: amLODIPine 10 MG TAB PO SCH (09:33)
[2019-07-02] MEDS: PREGABALIN 100 MG CAP PO SCH ×2 (09:33→21:11)
[2019-07-02] MEDS: CLOPIDOGREL 75 MG TAB PO SCH (09:33)
[2019-07-02] MEDS: hydrOXYzine HCL 25 MG TAB PO SCH ×3 (09:34→21:23)
[2019-07-02] MEDS: INSULN ASP PRT/INSULIN ASPART 100 UNIT/ML 10 ML VIAL SQ SCH ×2 (09:36→21:12)
[2019-07-02] MEDS: CEFEPIME 2 GM in SODIUM CHLORIDE 0.9% 100 ML IVPB SCH (10:12)
--- NOTE | 2019-07-02 11:25 | P.PN ---
Subjective Progress Note Date: 07/02/19 This is a 58-year-old female seen eval reexamined, patient has a callus in her left foot developed some discharge posterior fragment has been progressive for several weeks started having pain pain to be sharp that has increased in intensity over the last few days to be as high as 10 out of 10, patient did complain of some drainage from her left foot wound, the patient did have some chills but denies high-grade fever with these symptoms the patient was evaluated by the ER physician on arrival to the area the patient has been afebrile, patient white count was normal she did have x-rays of the foot that did not show any bony changes suggestive of Osteomyelitis, patient received her dose of Zosyn in the ER vancomycin was started and continued patient has been admitted to the hospital, patient has seen Dr. Hamm from infectious disease was consulted for further recommendation regarding Dr. Chappell covering for 06/29/2019 On 06/30/2019 patient is alert and oriented 3. Patient remains on vancomycin and cefepime per infectious disease. One cultures are currently pending growing gram-negative bacilli strep group B. Bone scan has been completed results pending per ID. Discharge planning in progress to possible rehab. At this time patient denies chest pain or shortness breath. Patient denies nausea vomiting or diarrhea. Patient denies any urinary burning or frequency On 07/01/2019 patient is alert and oriented 3. Bone scan completed showing no triple phase uptake to suggest acute osteomyelitis. Wound cultures to finalize. Patient remains on IV vancomycin and cefepime infectious disease following. Patient having increased pain. Percocets changed to schedule plus morphine for breakthrough pain. Patient denies chest pain. Patient denies nausea vomiting or diarrhea. Patient denies any urinary burning or frequency On 07/02/2019 patient is alert and oriented 3. Patient is currently up to chair. Complains of left knee swelling orthopedic services have been consulted for possible aspiration. Per infectious disease patient remains on cefepime wound cultures finalizing. Vancomycin has been DC'd. Patient's creatinine this a.m. 1.22 and bun 31. Patient's lisinopril and hydrochlorothiazide currently on hold. We'll continue to monitor. This time patient denies chest pain or shortness of breath. Patient denies nausea vomiting or diarrhea. Patient denies any urinary burning or frequency Objective - Vital Signs Vital signs: Vital Signs Temp 97.8 F 07/02/19 07:20 Pulse 82 07/02/19 07:20 Resp 16 07/02/19 07:20 BP 115/77 07/02/19 07:20 Pulse Ox 99 07/02/19 07:20 Intake & Output 07/01/19 07/02/19 07/02/19 18:59 06:59 18:59 Intake Total 200 Output Total 950 Balance 200 -950 Intake: Oral 200 Output: Urine 950 Other: Voiding Method Indwelling Catheter Indwelling Catheter # Voids 3 - Exam Head normocephalic Neck supple Lungs clear to auscultation bilaterally no wheezing or crackles Heart regular rate and rhythm S1-S2, no rub or gallop Abdomen is soft nontender nondistended positive bowel sounds no hepatosplenomegaly Extremities no edema. Left foot dressing is clean dry and intact Neuro alert and orientated to 3 - Labs CBC & Chem 7: 07/02/19 06:06 07/02/19 06:06 Labs: Abnormal Lab Results - Last 24 Hours (Table) 07/01/19 07/01/19 07/01/19 Range/Units 12:03 17:13 20:22 Carbon Dioxide (22-30) mmol/L BUN (7-17) mg/dL Creatinine (0.52-1.04) mg/dL Glucose (74-99) mg/dL POC Glucose (mg/dL) 180 H 190 H 140 H (75-99) mg/dL 07/02/19 07/02/19 Range/Units 06:06 06:55 Carbon Dioxide 32 H (22-30) mmol/L BUN 31 H (7-17) mg/dL Creatinine 1.22 H (0.52-1.04) mg/dL Glucose 123 H (74-99) mg/dL POC Glucose (mg/dL) 144 H (75-99) mg/dL Microbiology - Last 24 Hours (Table) 06/28/19 16:46 Blood Culture - Preliminary Blood No Growth after 72 hours 06/28/19 18:19 Gram Stain - Final Foot - Left Wound Culture - Final Pseudomonas aeruginosa Strep agalactiae - (group b) Enterobacter cloacae Assessment and Plan Assessment: 1. Cellulitis to left foot secondary to diabetic foot ulcer with prior history of debridement. Venous Doppler negative for DVT. Dr. Majano is following for infectious disease bone scan has been ordered. Patient remains on vancomycin and cefepime cultures pending. Bone scan completed showing phase uptake to suggest acute posterior mellitus. Degenerative changes are present bilaterally some mild cellulitis is not excluded within the distal medial left foot. Per infectious disease patient remains on cefepime vancomycin has been DC'd. Wound cultures finalize 2. History of COPD. No exacerbation at this time 3. Essential hypertension. Home meds resumed 4. Diabetes mellitus type 2. Home meds resumed. A1c 7.3 5. History of peripheral vascular disease 6. History of chronic diastolic congestive heart failure 7. History of peripheral neuropathy 8. Hypokalemia. Replace per protocol 9. Acute kidney injury. Creatinine slightly elevated at 1.2 and bun 31. Patient's lisinopril and hydrochlorothiazide currently on hold. We'll continue to monitor 10. Increased edema to left knee. Orthopedic services have been consulted DVT prophylaxis Lovenox. GI prophylaxis Pepcid Patient will likely need ECF upon discharge social work consulted I performed an examination of the patient and discussed their management with the Nurse Practitioner. I have reviewed the Nurse Practitioner's notes and agree with the documented findings and plan of care
--- NOTE | 2019-07-02 11:49 | XR ---
Left knee HISTORY: Knee effusion 2 views of the left knee correlated to prior left knee dated 10/30/2018 Soft tissue swelling is suspected. Bone mineralization is reduced. Joint space loss is present tricom partmentally with marginal spurring. Suprapatellar increased attenuation is present. Probable vascula r calcifications noted. IMPRESSION: Osteoarthritis, joint effusion, osteopenia, soft tissue swelling
[2019-07-02 12:21] LABS: Glucose,Whole Blood 137 mg/dL (75-99)
[2019-07-02 16:58] LABS: Glucose,Whole Blood 162 mg/dL (75-99)
--- NOTE | 2019-07-02 17:49 | P.CNOR ---
<Mekhi Arora - Last Filed: 07/02/19 17:49> History of Present Illness - HPI Consult date: 07/02/19 History of present illness: This patient is a 58-year-old female with past medical history of diabetes, obesity, hypertension, and hyperlipidemia that presented to [facility] emergency department on 06/28/19 with complaints of left foot pain. The patient was found to have a diabetic foot ulcer and bilateral lower extremity cellulitis. Therefore, the patient was admitted under the care of internal medicine with a consult placed to infectious disease for IV antibiotics. Orthopedics was consulted this morning due to left knee pain and effusion. Patient states she's been experiencing left knee pain since October or November. She states there was an injury in October, when she fell and twisted her knee. She states she was admitted to this hospital at that time. The patient was examined by Dr. Dior during this admission, the patient was diagnosed with a left knee sprain and osteoarthritis at that time. Patient states she has noticed increasing knee pain for the past 2 months. There is no recent injury. She denies significant swelling or erythema of the knee. The pain is exacerbated with ambulation, she uses a walker at baseline. She denies hip pain. Patient has a history of a left hip hemiarthroplasty by Dr. Herbert. There are no additional complaints at the time of my exam. Vital signs stable. Past Medical History Past Medical History: Asthma, COPD, Diabetes Mellitus, Eye Disorder, GERD/Reflux, Hyperlipidemia, Hypertension, Neurologic Disorder, Osteoarthritis (OA) Additional Past Medical History / Comment(s): wounds rt leg,multiple sclerosis, glaucoma History of Any Multi-Drug Resistant Organisms: None Reported Past Surgical History: Section, Joint Replacement, Tubal Ligation Additional Past Surgical History / Comment(s): lt hip replacement,rectal surgery,eye proc Past Anesthesia/Blood Transfusion Reactions: No Reported Reaction Past Psychological History: Depression Additional Psychological History / Comment(s): Stop smoking Jan. No cigarette or alcohol use. Does not work outside of the home. No international travel. No experience. No animal exposures Smoking Status: Never smoker Past Alcohol Use History: None Reported Additional Past Alcohol Use History / Comment(s): smoker 20 years 1ppd Past Drug Use History: Marijuana Additional Drug Use History / Comment(s): daily - Past Family History Father Family Medical History: Cancer Medications and Allergies Home Medications Medication Instructions Recorded Confirmed Type amLODIPine [Norvasc] 10 mg PO DAILY 02/16/16 06/28/19 History Clopidogrel [Plavix] 75 mg PO DAILY 03/01/17 06/28/19 History Furosemide [Lasix] 40 mg PO DAILY 03/01/17 06/28/19 History Latanoprost [Xalatan 0.005%] 1 drop BOTH EYES HS 03/01/17 06/28/19 History Ergocalciferol [Vitamin D2 50,000 unit PO Q7D 05/20/17 06/28/19 History (DRISDOL)] metFORMIN HCL 1,000 mg PO BID 05/20/17 06/28/19 History Albuterol Inhaler [Ventolin Hfa 2 puff INHALATION RT-Q6H PRN 10/30/18 06/28/19 History Inhaler] Insuln Asp Prt/Insulin Aspart 22 unit SQ HS 10/30/18 06/28/19 History [NovoLOG MIX 70-30 VIAL] Insuln Asp Prt/Insulin Aspart 32 unit SQ DAILY 10/30/18 06/28/19 History [NovoLOG MIX 70-30 VIAL] Potassium Chloride [Klor-Con 20] 20 meq PO DAILY 10/30/18 06/28/19 History Ipratropium-Albuterol Nebulize 3 ml INHALATION RT-QID 06/28/19 06/28/19 History [Duoneb 0.5 mg-3 mg/3 ml Soln] Pravastatin Sodium [Pravachol] 10 mg PO DAILY 06/28/19 06/28/19 History SILVER sulfADIAZINE Cream 1 applic TOPICAL DAILY 06/28/19 06/28/19 History [Silvadene 1% Cream] oxyCODONE-APAP 7.5-325MG [Percocet 1 tab PO Q6HR PRN 06/28/19 06/28/19 History 7.5-325 mg] Ciprofloxacin HCl [Cipro] 500 mg PO Q12H 14 Days #28 tab 07/05/19 Rx Enoxaparin [Lovenox] 40 mg SQ DAILY syringe 07/05/19 Rx Pregabalin [Lyrica] 100 mg PO BID 30 Days #60 cap 07/05/19 Rx traMADol HCl [Ultram] 50 mg PO QID PRN tab 07/05/19 Rx Allergies Allergy/AdvReac Type Severity Reaction Status Date / Time methylprednisolone Allergy Anaphylaxis Verified 10/30/18 08:19 [From Solu-Medrol] venom-honey bee Allergy Anaphylaxis Verified 10/30/18 08:19 [bee venom (honey bee)] Physical Examination On examination, the patient is lying in bed in no apparent distress. She is alert and oriented 3. Patient is obese. Her head appears normocephalic and atraumatic. Her breathing appears nonlabored. On inspection of the left lower extremity, there is stasis dermatitis of the lower leg present. There is an Isaías bandage around the left foot. On inspection of the left knee, there is no overlying erythema, warmth, skin discoloration. There are no open wounds or lacerations. There is trace knee effusion. There is diffuse tenderness to palpation of the lateral joint line, medial joint line, anterior knee. There is mild pain with passive range of motion of the knee. No instability noted. Crepitus on motion of the knee. There is no pain with log rolling of the hip. Calf is soft and nontender to palpation. Motor and sensory function appear intact of the left lower extremity. Results Left knee x-ray 07/02/2019: There is evidence of osteoarthritis, most advanced at the medial compartment and the patellofemoral joint. No acute fractures or dislocations. - Labs Labs: Abnormal Lab Results - Last 24 Hours (Table) 07/01/19 07/01/19 07/02/19 Range/Units 17:13 20:22 06:06 Carbon Dioxide 32 H (22-30) mmol/L BUN 31 H (7-17) mg/dL Creatinine 1.22 H (0.52-1.04) mg/dL Glucose 123 H (74-99) mg/dL POC Glucose (mg/dL) 190 H 140 H (75-99) mg/dL 07/02/19 07/02/19 07/02/19 Range/Units 06:55 12:07 16:57 Carbon Dioxide (22-30) mmol/L BUN (7-17) mg/dL Creatinine (0.52-1.04) mg/dL Glucose (74-99) mg/dL POC Glucose (mg/dL) 144 H 137 H 162 H (75-99) mg/dL Microbiology - Last 24 Hours (Table) 06/28/19 16:46 Blood Culture - Preliminary Blood No Growth after 72 hours 06/28/19 18:19 Gram Stain - Final Foot - Left Wound Culture - Final Pseudomonas aeruginosa Strep agalactiae - (group b) Enterobacter cloacae H & H 06/28/19 06/30/19 07/01/19 Range/Units 16:46 09:15 06:19 Hgb 11.5 12.3 12.4 (11.4-16.0) gm/dL Hct 36.2 37.4 38.6 (34.0-46.0) % 07/02/19 Range/Units 06:06 Hgb 12.7 (11.4-16.0) gm/dL Hct 40.0 (34.0-46.0) % Result Diagrams: 07/02/19 06:06 07/02/19 06:06 Assessment and Plan Assessment: Chronic left knee pain. Osteoarthritis left knee. Obesity. Plan: I discussed the clinical and imaging findings with the patient. The patient was discussed with Dr. Dior. I explained to patient that her pain is most likely related to her underlying osteoarthritis. We do not recommend an aspiration of the left knee at this time. I explained she may be experiencing an acute exacerbation of her osteoarthritis, as the patient has had issues with ambulating due to her plantar left foot diabetic ulcer. At this time, we are recommending conservative treatment. Recommended starting physical therapy and progressing weightbearing as tolerated with the use of her walker. She may benefit from rehab placement on discharge, per her admitting team. We will follow this patient and make recommendations as needed. <Prasanna Dior - Last Filed: 07/06/19 11:09> Results - Labs Labs: Abnormal Lab Results - Last 24 Hours (Table) 07/05/19 Range/Units 11:44 POC Glucose (mg/dL) 127 H (75-99) mg/dL H & H 06/28/19 06/30/19 07/01/19 Range/Units 16:46 09:15 06:19 Hgb 11.5 12.3 12.4 (11.4-16.0) gm/dL Hct 36.2 37.4 38.6 (34.0-46.0) % 02/21/20 02/22/20 02/24/20 Range/Units 06:06 06:27 06:39 Hgb 12.7 12.1 11.7 (11.4-16.0) gm/dL Hct 40.0 38.8 37.4 (34.0-46.0) % Result Diagrams: 07/05/19 06:39 07/05/19 06:39 Assessment and Plan Plan: Discussed with RUBIA Arora. Reviewed and agree with above (add itions/amendments/corrections noted below). I saw and examined the patient as well. S: The knee has been hurting for about two months. She denies any recent injuries. She has been having progressive difficulty ambulating due to the ulcer on her foot. O: No erythema or focal edema around the left knee or leg. Chronic venous stasis changes are noted. Diffuse tenderness to palpation, most prominent on the joint lines. She demonstrates some discomfort with passive motion, which is quite limited. A: Acute on chronic left knee pain with underlying osteoarthritis Morbid obesity P: The exacerbation of her knee pain is likely the result of her attempting to modify her ambulation to avoid pressure on the ulcer. I recommended symptomatic treatment with topical or oral analgesics and weightbearing as tolerated. We will have therapy work with her as well. Further recommendations to follow. Parsanna Dior D.O. [facility]
--- NOTE | 2019-07-02 18:34 | PN ---
PROGRESS NOTE DATE OF SERVICE: 07/02/2019 REASON FOR FOLLOWUP: Left diabetic foot infection. INTERVAL HISTORY: The patient is currently afebrile. She is breathing comfortably. The patient denies having any chest pain or shortness of breath or cough. No nausea, vomiting, abdominal pain or any worsening pain to the left foot area. PHYSICAL EXAMINATION: Blood pressure 115/77 with a pulse of 82, temperature 97.8. She is 99% on room air. General description is a middle-aged female up in the chair in no distress. RESPIRATORY SYSTEM: Unlabored breathing. Clear to auscultation anteriorly. HEART: S1, S2. Regular rate and rhythm. ABDOMEN: Soft. No tenderness. LABS: Hemoglobin is 12.7, white count 7.4 with a BUN of 31, creatinine 1.22. DIAGNOSTIC IMPRESSION AND PLAN: Patient with left diabetic foot infection in this patient whose wound cultures have been positive, mostly Gram-negative. Bone scan was negative for any osteomyelitis. Patient is currently covered with cefepime. Plan will be to finish therapy with oral Cipro, local wound care with Aquacel Silver dressing and offloading. Continue with supportive care. MMODL / IJN: [id number] /
[2019-07-02 20:28] LABS: Glucose,Whole Blood 203 mg/dL (75-99)
[2019-07-02] MEDS: MORPHINE SULFATE 4 MG/ML SYRINGE IV PRN (21:12)
[2019-07-02] MEDS: LATANOPROST 0.005% OPHTH DROPS 2.5 ML BTL BOTH EYES SCH (21:52)
[2019-07-03] MEDS: oxyCODONE-APAP 7.5-325MG 1 EACH TAB PO SCH ×4 (00:17→17:15)
[2019-07-03 06:51] LABS: Glucose,Whole Blood 152 mg/dL (75-99)
[2019-07-03 07:15] LABS: Basophils % (A) 1 %; Eosinophils # (A) 0.1 k/uL (0-0.7); Eosinophils % (A) 2 %; HCT 38.8 % (34.0-46.0); HGB 12.1 gm/dL (11.4-16.0); Lymphocytes # (A) 1.9 k/uL (1.0-4.8); Lymphocytes % (A) 28 %; MCH 25.3 pg (25.0-35.0); MCHC 31.2 g/dL (31.0-37.0); MCV 81.1 fL (80.0-100.0); Mean Platelet Volume 6.8; Monocytes # (A) 0.5 k/uL (0-1.0); Monocytes % (A) 7 %; Neutrophils % (A) 59 %; Platelet Count 263 k/uL (150-450); RBC 4.79 m/uL (3.80-5.40); WBC 6.8 k/uL (3.8-10.6)
[2019-07-03 07:29] LABS: Albumin 3.8 g/dL (3.5-5.0); Calcium 9.6 mg/dL (8.4-10.2); Potassium 3.9 mmol/L (3.5-5.1); Total Bilirubin 0.5 mg/dL (0.2-1.3); Total Protein 7.5 g/dL (6.3-8.2)
[2019-07-03] MEDS: INSULN ASP PRT/INSULIN ASPART 100 UNIT/ML 10 ML VIAL SQ SCH ×2 (08:32→20:23)
[2019-07-03] MEDS: ENOXAPARIN 40 MG/0.4 ML SYRINGE SQ SCH (08:32)
[2019-07-03] MEDS: CEFEPIME 2 GM in SODIUM CHLORIDE 0.9% 100 ML IVPB SCH (08:33)
[2019-07-03] MEDS: MORPHINE SULFATE 4 MG/ML SYRINGE IV PRN ×3 (08:34→20:22)
[2019-07-03] MEDS: PRAVASTATIN SODIUM 20 MG TAB PO SCH (08:39)
[2019-07-03] MEDS: hydrOXYzine HCL 25 MG TAB PO SCH ×3 (08:39→20:20)
[2019-07-03] MEDS: PREGABALIN 100 MG CAP PO SCH ×2 (08:39→20:49)
[2019-07-03] MEDS: CLOPIDOGREL 75 MG TAB PO SCH (08:39)
[2019-07-03] MEDS: PANTOPRAZOLE 40 MG TABLET PO SCH (08:39)
[2019-07-03] MEDS: FUROSEMIDE 40 MG TAB PO SCH (08:39)
[2019-07-03] MEDS: POTASSIUM CHLORIDE ER 20 MEQ TAB.ER PO SCH (08:39)
[2019-07-03] MEDS: amLODIPine 10 MG TAB PO SCH (08:39)
[2019-07-03] MEDS: metFORMIN 500 MG TAB PO SCH ×2 (08:41→20:20)
[2019-07-03] MEDS: IPRATROPIUM-ALBUTEROL 3 ML NEB INHALATION SCH ×4 (09:17→19:16)
[2019-07-03 11:20] LABS: Glucose,Whole Blood 147 mg/dL (75-99)
--- NOTE | 2019-07-03 13:14 | P.PN ---
Subjective Progress Note Date: 07/03/19 This is a 58-year-old female seen eval reexamined, patient has a callus in her left foot developed some discharge posterior fragment has been progressive for several weeks started having pain pain to be sharp that has increased in intensity over the last few days to be as high as 10 out of 10, patient did complain of some drainage from her left foot wound, the patient did have some chills but denies high-grade fever with these symptoms the patient was evaluated by the ER physician on arrival to the area the patient has been afebrile, patient white count was normal she did have x-rays of the foot that did not show any bony changes suggestive of Osteomyelitis, patient received her dose of Zosyn in the ER vancomycin was started and continued patient has been admitted to the hospital, patient has seen Dr. Hamm from infectious disease was consulted for further recommendation regarding Dr. Chappell covering for 06/29/2019 On 06/30/2019 patient is alert and oriented 3. Patient remains on vancomycin and cefepime per infectious disease. One cultures are currently pending growing gram-negative bacilli strep group B. Bone scan has been completed results pending per ID. Discharge planning in progress to possible rehab. At this time patient denies chest pain or shortness breath. Patient denies nausea vomiting or diarrhea. Patient denies any urinary burning or frequency On 07/01/2019 patient is alert and oriented 3. Bone scan completed showing no triple phase uptake to suggest acute osteomyelitis. Wound cultures to finalize. Patient remains on IV vancomycin and cefepime infectious disease following. Patient having increased pain. Percocets changed to schedule plus morphine for breakthrough pain. Patient denies chest pain. Patient denies nausea vomiting or diarrhea. Patient denies any urinary burning or frequency On 07/02/2019 patient is alert and oriented 3. Patient is currently up to chair. Complains of left knee swelling orthopedic services have been consulted for possible aspiration. Per infectious disease patient remains on cefepime wound cultures finalizing. Vancomycin has been DC'd. Patient's creatinine this a.m. 1.22 and bun 31. Patient's lisinopril and hydrochlorothiazide currently on hold. We'll continue to monitor. This time patient denies chest pain or shortness of breath. Patient denies nausea vomiting or diarrhea. Patient denies any urinary burning or frequency On 07/03/2019 patient was seen and examined on the medical floor is alert and oriented 3 in no apparent distress she is complaining of left knee pain and swelling otherwise she denies any complaints at this time there is no fever or chills no headache or dizziness no chest pain no shortness of breath no cough no nausea or vomiting no abdominal pain no diarrhea no burning with urination no frequency or urgency and no hematuria Objective - Vital Signs Vital signs: Vital Signs Temp 98.3 F 07/03/19 07:00 Pulse 80 07/03/19 08:00 Resp 12 07/03/19 08:00 BP 111/69 07/03/19 07:00 Pulse Ox 93 L 07/03/19 07:00 Intake & Output 07/02/19 07/03/19 07/03/19 18:59 06:59 18:59 Intake Total 960 Output Total 850 1500 Balance -850 -540 Intake: Oral 960 Output: Urine 850 1500 Other: Voiding Method Indwelling Catheter Indwelling Catheter - Exam HEENT head normocephalic and atraumatic Neck is supple no JVD no goiter no lymphadenopathy Chest exam reveals a few scattered crackles bilaterally no wheezing Cardiac exam reveals regular heart sounds no gallops no murmurs Abdomen is soft nontender no organomegaly with normal bowel sounds Extremity exam reveals mild edema bilaterally there is erythema and 2 open ulcers on the left lower extremity Neurological examination reveals no gross focal deficit patient is alert and oriented 3 - Labs CBC & Chem 7: 07/03/19 06:27 07/03/19 06:27 Labs: Abnormal Lab Results - Last 24 Hours (Table) 07/02/19 07/02/19 07/03/19 Range/Units 16:57 20:26 06:27 BUN 39 H (7-17) mg/dL Creatinine 1.34 H (0.52-1.04) mg/dL Glucose 132 H (74-99) mg/dL POC Glucose (mg/dL) 162 H 203 H (75-99) mg/dL 07/03/19 07/03/19 Range/Units 06:50 11:19 BUN (7-17) mg/dL Creatinine (0.52-1.04) mg/dL Glucose (74-99) mg/dL POC Glucose (mg/dL) 152 H 147 H (75-99) mg/dL Microbiology - Last 24 Hours (Table) 06/28/19 16:46 Blood Culture - Preliminary Blood No Growth after 96 hours Assessment and Plan Plan: 1. Cellulitis to left foot secondary to diabetic foot ulcer with prior history of debridement. Venous Doppler negative for DVT. Dr. Majano is following for infectious disease bone scan has been ordered. Patient remains on vancomycin and cefepime cultures pending. Bone scan completed showing phase uptake to suggest acute posterior mellitus. Degenerative changes are present bilaterally some mild cellulitis is not excluded within the distal medial left foot. Per infectious disease patient remains on cefepime vancomycin has been DC'd. Wound cultures finalize 2. History of COPD. No exacerbation at this time 3. Essential hypertension. Home meds resumed 4. Diabetes mellitus type 2. Home meds resumed. A1c 7.3 5. History of peripheral vascular disease 6. History of chronic diastolic congestive heart failure 7. History of peripheral neuropathy 8. Hypokalemia. Replace per protocol 9. Acute kidney injury. Creatinine slightly elevated at 1.2 and bun 31. Patient's lisinopril and hydrochlorothiazide currently on hold. We'll continue to monitor 10. Increased edema to left knee. Orthopedic services have been consulted DVT prophylaxis Lovenox. GI prophylaxis Pepcid Patient will likely need ECF upon discharge social work consulted
--- NOTE | 2019-07-03 16:31 | PN ---
PROGRESS NOTE DATE OF SERVICE: 07/03/2019 REASON FOR FOLLOWUP: Left foot wound with secondary cellulitis. INTERVAL HISTORY: The patient is currently afebrile. She has been breathing comfortably. The patient denies having any chest pain or shortness of breath or cough. Denies pain to the left foot wound area and no diarrhea. PHYSICAL EXAMINATION: Blood pressure is 111/69 with pulse of 80, temperature 98.3. She is 93% on room air. General description is a middle-aged female up in the bed in no distress. RESPIRATORY SYSTEM: Unlabored breathing. Clear to auscultation anteriorly. HEART: S1, S2. Regular rate and rhythm. ABDOMEN: Soft. No tenderness. LABS: Hemoglobin is 12.1, white count 6.8 with BUN of 39, creatinine 1.34. DIAGNOSTIC IMPRESSION AND PLAN: Patient with a left foot diabetic foot infection with secondary cellulitis. Culture has been positive for Pseudomonas, strep, enterobacter. The patient is covered with cefepime, finishing therapy with oral Cipro. Local wound care with Aquacel Silver dressing and monitor clinical course closely. MMODL / IJN: [id number] /
[2019-07-03 17:02] LABS: Glucose,Whole Blood 126 mg/dL (75-99)
[2019-07-03] MEDS: traMADol 50 MG TAB PO PRN (17:58)
[2019-07-03 20:17] LABS: Glucose,Whole Blood 205 mg/dL (75-99)
[2019-07-03] MEDS: LATANOPROST 0.005% OPHTH DROPS 2.5 ML BTL BOTH EYES SCH (20:24)
[2019-07-04] MEDS: oxyCODONE-APAP 7.5-325MG 1 EACH TAB PO SCH ×4 (01:05→18:18)
[2019-07-04] MEDS: MORPHINE SULFATE 4 MG/ML SYRINGE IV PRN ×2 (03:02→21:51)
[2019-07-04] MEDS: IPRATROPIUM-ALBUTEROL 3 ML NEB INHALATION SCH ×4 (06:55→21:48)
[2019-07-04 07:00] LABS: Glucose,Whole Blood 180 mg/dL (75-99)
[2019-07-04] MEDS: ENOXAPARIN 40 MG/0.4 ML SYRINGE SQ SCH (08:51)
[2019-07-04] MEDS: amLODIPine 10 MG TAB PO SCH (08:52)
[2019-07-04] MEDS: POTASSIUM CHLORIDE ER 20 MEQ TAB.ER PO SCH (08:52)
[2019-07-04] MEDS: PREGABALIN 100 MG CAP PO SCH ×2 (08:52→21:12)
[2019-07-04] MEDS: CEFEPIME 2 GM in SODIUM CHLORIDE 0.9% 100 ML IVPB SCH (08:52)
[2019-07-04] MEDS: CLOPIDOGREL 75 MG TAB PO SCH (08:52)
[2019-07-04] MEDS: hydrOXYzine HCL 25 MG TAB PO SCH ×3 (08:52→21:05)
[2019-07-04] MEDS: FUROSEMIDE 40 MG TAB PO SCH (08:52)
[2019-07-04] MEDS: metFORMIN 500 MG TAB PO SCH ×2 (08:52→21:04)
[2019-07-04] MEDS: PANTOPRAZOLE 40 MG TABLET PO SCH (08:53)
[2019-07-04] MEDS: PRAVASTATIN SODIUM 20 MG TAB PO SCH (08:53)
[2019-07-04] MEDS: INSULN ASP PRT/INSULIN ASPART 100 UNIT/ML 10 ML VIAL SQ SCH ×2 (08:53→21:06)
--- NOTE | 2019-07-04 10:18 | P.PN ---
Subjective Progress Note Date: 07/04/19 This patient is a 58-year-old female with past medical history of diabetes, obesity, hypertension, and hyperlipidemia that presented to [facility] emergency department on 06/28/19 with complaints of left foot pain. The patient was found to have a diabetic foot ulcer and bilateral lower extremity ce llulitis. Therefore, the patient was admitted under the care of internal medicine with a consult placed to infectious disease for IV antibiotics. Orthopedics was consulted this morning due to left knee pain and effusion. Patient states she's been experiencing left knee pain since October or November. She states there was an injury in October, when she fell and twisted her knee. She states she was admitted to this hospital at that time. The patient was examined by Dr. Dior during this admission, the patient was diagnosed with a left knee sprain and osteoarthritis at that time. Patient states she has noticed increasing knee pain for the past 2 months. There is no recent injury. She denies significant swelling or erythema of the knee. The pain is exacerbated with ambulation, she uses a walker at baseline. She denies hip pain. Patient has a history of a left hip hemiarthroplasty by Dr. Herbert. 07/04/19: Patient is examined bedside this morning. She states her left knee feels about the same as Friday. She states the pain has not worsened. Patient has been working with physical therapy. She believes she has improved her mobilization while working with physical therapy. Per nursing, her transfers have been improving. No additional complaints today. Objective - Vital Signs Vital signs: Vital Signs Temp 98.2 F 07/04/19 07:00 Pulse 83 07/04/19 07:00 Resp 16 07/04/19 07:00 BP 127/90 07/04/19 07:00 Pulse Ox 93 L 07/04/19 07:00 Intake & Output 07/03/19 07/04/19 07/04/19 18:59 06:59 18:59 Intake Total 1060 Output Total 400 500 Balance -400 560 Intake: Intake, IV Titration 100 Amount Cefepime 2 gm In Sodium 100 Chloride 0.9% 100 ml @ 200 mls/hr IVPB Q24HR [facility] Rx#:[id number] Oral 960 Output: Urine 400 500 Other: Voiding Method Indwelling Catheter - Exam On examination, the patient is lying in bed in no apparent distress. She is alert and oriented 3. Patient is obese. On inspection of the left lower extremity, there is stasis dermatitis of the lower leg present. There is an Isaías bandage around the left foot. On inspection of the left knee, there is no o verlying erythema, warmth, skin discoloration. There are no open wounds or lacerations. There is trace knee effusion. There is mild tenderness to palpation of the medial joint line. No tenderness to palpation of the lateral joint line. There is no pain with passive range of motion of the knee or hip. No instability noted. Crepitus on motion of the knee. There is no pain with log rolling of the hip. Calf is soft and nontender to palpation. Motor and sensory function appear intact of the left lower extremity. - Labs CBC & Chem 7: 07/03/19 06:27 07/03/19 06:27 Labs: Abnormal Lab Results - Last 24 Hours (Table) 07/03/19 07/03/19 07/03/19 Range/Units 11:19 17:01 20:16 POC Glucose (mg/dL) 147 H 126 H 205 H (75-99) mg/dL 07/04/19 Range/Units 06:59 POC Glucose (mg/dL) 180 H (75-99) mg/dL Microbiology - Last 24 Hours (Table) 06/28/19 16:46 Blood Culture - Preliminary Blood No Growth after 120 hours Assessment and Plan Assessment: Chronic left knee pain. Osteoarthritis left knee. Obesity. Plan: Recommended continuing conservative treatment at this time. Recommended continuing physical therapy and progressing weightbearing as tolerated with the use of her walker. Increase mobilization as tolerated. Patient is planning to discharge to rehab tomorrow. Patient may follow-up in the office on an as-needed basis.
--- NOTE | 2019-07-04 10:37 | P.PN ---
Subjective Progress Note Date: 07/04/19 This is a 58-year-old female seen eval reexamined, patient has a callus in her left foot developed some discharge posterior fragment has been progressive for several weeks started having pain pain to be sharp that has increased in intensity over the last few days to be as high as 10 out of 10, patient did complain of some drainage from her left foot wound, the patient did have some chills but denies high-grade fever with these symptoms the patient was evaluated by the ER physician on arrival to the area the patient has been afebrile, patient white count was normal she did have x-rays of the foot that did not show any bony changes suggestive of Osteomyelitis, patient received her dose of Zosyn in the ER vancomycin was started and continued patient has been admitted to the hospital, patient has seen Dr. Hamm from infectious disease was consulted for further recommendation regarding Dr. Chappell covering for 06/29/2019 On 06/30/2019 patient is alert and oriented 3. Patient remains on vancomycin and cefepime per infectious disease. One cultures are currently pending growing gram-negative bacilli strep group B. Bone scan has been completed results pending per ID. Discharge planning in progress to possible rehab. At this time patient denies chest pain or shortness breath. Patient denies nausea vomiting or diarrhea. Patient denies any urinary burning or frequency On 07/01/2019 patient is alert and oriented 3. Bone scan completed showing no triple phase uptake to suggest acute osteomyelitis. Wound cultures to finalize. Patient remains on IV vancomycin and cefepime infectious disease following. Patient having increased pain. Percocets changed to schedule plus morphine for breakthrough pain. Patient denies chest pain. Patient denies nausea vomiting or diarrhea. Patient denies any urinary burning or frequency On 07/02/2019 patient is alert and oriented 3. Patient is currently up to chair. Complains of left knee swelling orthopedic services have been consulted for possible aspiration. Per infectious disease patient remains on cefepime wound cultures finalizing. Vancomycin has been DC'd. Patient's creatinine this a.m. 1.22 and bun 31. Patient's lisinopril and hydrochlorothiazide currently on hold. We'll continue to monitor. This time patient denies chest pain or shortness of breath. Patient denies nausea vomiting or diarrhea. Patient denies any urinary burning or frequency On 07/03/2019 patient was seen and examined on the medical floor is alert and oriented 3 in no apparent distress she is complaining of left knee pain and swelling otherwise she denies any complaints at this time there is no fever or chills no headache or dizziness no chest pain no shortness of breath no cough no nausea or vomiting no abdominal pain no diarrhea no burning with urination no frequency or urgency and no hematuria On 07/04/2019 patient is alert and oriented 3 in no apparent distress she is still complaining of pain in her left foot and her left knee otherwise she denies any complaints there is no fever or chills no headache or dizziness no chest pain no shortness of breath no cough no nausea or vomiting no abdominal pain no diarrhea no burning with urination no frequency or urgency and no hematuria Objective - Vital Signs Vital signs: Vital Signs Temp 98.0 F 07/04/19 01:32 Pulse 84 07/04/19 01:32 Resp 16 07/04/19 01:32 BP 129/71 07/04/19 01:32 Pulse Ox 94 L 07/04/19 01:32 Intake & Output 07/03/19 07/04/19 07/04/19 18:59 06:59 18:59 Intake Total 1060 Output Total 400 500 Balance -400 560 Intake: Intake, IV Titration 100 Amount Cefepime 2 gm In Sodium 100 Chloride 0.9% 100 ml @ 200 mls/hr IVPB Q24HR [facility] Rx#:[id number] Oral 960 Output: Urine 400 500 Other: Voiding Method Indwelling Catheter - Exam HEENT head normocephalic and atraumatic Neck is supple no JVD no goiter no lymphadenopathy Chest exam reveals a few scattered crackles bilaterally no wheezing Cardiac exam reveals regular heart sounds no gallops no murmurs Abdomen is soft nontender no organomegaly with normal bowel sounds Extremity exam reveals mild edema bilaterally there is erythema and 2 open ulcers on the left lower extremity Neurological examination reveals no gross focal deficit patient is alert and oriented 3 - Labs CBC & Chem 7: 07/03/19 06:27 07/03/19 06:27 Labs: Abnormal Lab Results - Last 24 Hours (Table) 07/03/19 07/03/19 07/03/19 Range/Units 06:27 11:19 17:01 BUN 39 H (7-17) mg/dL Creatinine 1.34 H (0.52-1.04) mg/dL Glucose 132 H (74-99) mg/dL POC Glucose (mg/dL) 147 H 126 H (75-99) mg/dL 07/03/19 07/04/19 Range/Units 20:16 06:59 BUN (7-17) mg/dL Creatinine (0.52-1.04) mg/dL Glucose (74-99) mg/dL POC Glucose (mg/dL) 205 H 180 H (75-99) mg/dL Microbiology - Last 24 Hours (Table) 06/28/19 16:46 Blood Culture - Preliminary Blood No Growth after 120 hours Assessment and Plan Plan: 1. Cellulitis to left foot secondary to diabetic foot ulcer with prior history of debridement. Venous Doppler negative for DVT. Dr. Majano is following for infectious disease bone scan has been ordered. Patient remains on vancomycin and cefepime cultures pending. Bone scan completed showing phase uptake to suggest acute posterior mellitus. Degenerative changes are present bilaterally some mild cellulitis is not excluded within the distal medial left foot. Per infectious disease patient remains on cefepime vancomycin has been DC'd. Wound cultures finalize 2. History of COPD. No exacerbation at this time 3. Essential hypertension. Home meds resumed 4. Diabetes mellitus type 2. Home meds resumed. A1c 7.3 5. History of peripheral vascular disease 6. History of chronic diastolic congestive heart failure 7. History of peripheral neuropathy 8. Hypokalemia. Replace per protocol 9. Acute kidney injury. Creatinine slightly elevated at 1.2 and bun 31. Patient's lisinopril and hydrochlorothiazide currently on hold. We'll continue to monitor 10. Increased edema to left knee. Orthopedic services have been consulted DVT prophylaxis Lovenox. GI prophylaxis Pepcid Patient will likely need ECF upon discharge social work consulted
[2019-07-04 11:14] LABS: Glucose,Whole Blood 163 mg/dL (75-99)
[2019-07-04 16:57] LABS: Glucose,Whole Blood 173 mg/dL (75-99)
--- NOTE | 2019-07-04 17:12 | PN ---
PROGRESS NOTE DATE OF SERVICE: 07/04/2019 REASON FOR FOLLOWUP: Left diabetic foot wound with cellulitis. INTERVAL HISTORY: The patient is currently afebrile. She has been breathing comfortably. Denies any chest pain, shortness of breath. No cough. No nausea, vomiting, abdominal pain, or any worsening pain to the left foot area. PHYSICAL EXAMINATION: Blood pressure 127/90 with a pulse of 83, temperature 98.2. She is 93% on room air. General description is a middle-aged female up in the chair in no distress. Respiratory system: Unlabored breathing, clear to auscultation anteriorly. Heart S1, S2. Regular rate and rhythm. Abdomen soft, no tenderness. Left foot is currently dressed up. No obvious drainage on the dressing. LABS: No new labs have been obtained today. DIAGNOSTIC IMPRESSION AND PLAN: Patient with left foot wound with secondary cellulitis culture been mostly Pseudomonas, Enterobacter and Strep. The patient is currently on cefepime to finish therapy with oral Cipro 500 mg twice a day for 2 weeks. Local wound care with dry Aquacel dressing. Follow up with [facility]. MMODL / IJN: [id number] /
[2019-07-04 20:05] LABS: Glucose,Whole Blood 184 mg/dL (75-99)
[2019-07-04] MEDS: LATANOPROST 0.005% OPHTH DROPS 2.5 ML BTL BOTH EYES SCH (21:08)
[2019-07-05] MEDS: oxyCODONE-APAP 7.5-325MG 1 EACH TAB PO SCH ×3 (00:28→11:58)
[2019-07-05 07:17] LABS: Basophils % (A) 1 %; Eosinophils # (A) 0.2 k/uL (0-0.7); Eosinophils % (A) 3 %; HCT 37.4 % (34.0-46.0); HGB 11.7 gm/dL (11.4-16.0); Lymphocytes # (A) 1.8 k/uL (1.0-4.8); Lymphocytes % (A) 33 %; MCH 25.3 pg (25.0-35.0); MCHC 31.3 g/dL (31.0-37.0); Mean Platelet Volume 7.1; Monocytes # (A) 0.4 k/uL (0-1.0); Monocytes % (A) 7 %; Neutrophils % (A) 54 %; Platelet Count 244 k/uL (150-450); RBC 4.62 m/uL (3.80-5.40); RDW 14.9 % (11.5-15.5); WBC 5.7 k/uL (3.8-10.6)
[2019-07-05 07:24] LABS: Glucose,Whole Blood 190 mg/dL (75-99)
[2019-07-05 07:32] VITALS: BP 130/75; PULSE 71; RESP 18; TEMP 97.6
[2019-07-05 07:33] LABS: Albumin 3.8 g/dL (3.5-5.0); Calcium 9.5 mg/dL (8.4-10.2); Potassium 4.4 mmol/L (3.5-5.1); Total Bilirubin 0.5 mg/dL (0.2-1.3); Total Protein 7.6 g/dL (6.3-8.2)
[2019-07-05] MEDS: IPRATROPIUM-ALBUTEROL 3 ML NEB INHALATION SCH ×3 (08:39→16:45)
[2019-07-05] MEDS: CEFEPIME 2 GM in SODIUM CHLORIDE 0.9% 100 ML IVPB SCH (09:10)
[2019-07-05] MEDS: ENOXAPARIN 40 MG/0.4 ML SYRINGE SQ SCH (09:10)
[2019-07-05] MEDS: FUROSEMIDE 40 MG TAB PO SCH (09:11)
[2019-07-05] MEDS: POTASSIUM CHLORIDE ER 20 MEQ TAB.ER PO SCH (09:11)
[2019-07-05] MEDS: hydrOXYzine HCL 25 MG TAB PO SCH (09:11)
[2019-07-05] MEDS: amLODIPine 10 MG TAB PO SCH (09:11)
[2019-07-05] MEDS: PRAVASTATIN SODIUM 20 MG TAB PO SCH (09:11)
[2019-07-05] MEDS: metFORMIN 500 MG TAB PO SCH (09:11)
[2019-07-05] MEDS: PREGABALIN 100 MG CAP PO SCH (09:11)
[2019-07-05] MEDS: PANTOPRAZOLE 40 MG TABLET PO SCH (09:11)
[2019-07-05] MEDS: INSULN ASP PRT/INSULIN ASPART 100 UNIT/ML 10 ML VIAL SQ SCH (09:12)
[2019-07-05] MEDS: CLOPIDOGREL 75 MG TAB PO SCH (09:12)
[2019-07-05] MEDS: traMADol 50 MG TAB PO PRN (11:20)
[2019-07-05 11:47] LABS: Glucose,Whole Blood 127 mg/dL (75-99)
--- NOTE | 2019-07-05 13:59 | PN ---
PROGRESS NOTE DATE OF SERVICE: 07/05/2019 REASON FOR FOLLOWUP: Left diabetic foot infection. INTERVAL HISTORY: The patient is currently afebrile. Patient is breathing comfortably. Denies having any chest pain, shortness of breath. No cough. No nausea, no vomiting, no abdominal pain, or pain to the left foot area. PHYSICAL EXAMINATION: Blood pressure 130/75 with a pulse of 71, temperature 97.6, 96% on room air. General description is a middle-aged female up in the chair, in no distress. RESPIRATORY SYSTEM: Unlabored breathing, clear to auscultation anteriorly. HEART: S1, S2. Regular rate and rhythm. ABDOMEN: Soft, no tenderness. Left foot is currently dressed, no obvious drainage on the dressing. LABS: The hemoglobin 11.5 with white count of 5.6, BUN of 45, creatinine 1.12. DIAGNOSTIC IMPRESSION AND PLAN: Patient with left diabetic foot infection. The patient at this time on cefepime, transition antibiotic to Cipro 500 mg 1 twice a day for 2 weeks. Local care with Aquacel dressing. Follow up in the [facility]. The patient also need for off load issues to any worsening of her wound. MMODL / IJN: [id number] /
--- NOTE | 2019-07-05 15:02 | P.DS ---
Providers Date of admission: 06/28/19 19:15 Expected date of discharge: 07/05/19 Attending physician: Mariely Bradford Consults: 06/28/19 19:09 Consult Physician Urgent Consulting Provider: Ishan Majano Consult Reason/Comments: Diabetic foot ulcer Do you want consulting provider notified?: Yes 07/02/19 09:28 Consult Physician Routine Consulting Provider: Prasanna Dior Consult Reason/Comments: left knee edema Do you want consulting provider notified?: Yes Primary care physician: Mariely Bradford [facility] Hospital Course: Discharge diagnosis 1. Cellulitis to left foot secondary to diabetic foot ulcer with prior history of debridement. Venous Doppler negative for DVT. Dr. Majano is following for infectious disease bone scan has been ordered. Patient remains on vancomycin and cefepime cultures pending. Bone scan completed showing phase uptake to suggest acute posterior mellitus. Degenerative changes are present bilaterally some mild cellulitis is not excluded within the distal medial left foot. Per infectious disease patient remains on cefepime vancomycin has been DC'd. Wound cultures finalize. Per infectious disease patient to be discharged on Cipro 500 twice a day for 2 weeks and follow-up with wound care center continue local care with Aquasol dressing 2. History of COPD. No exacerbation at this time 3. Essential hypertension. Home meds resumed 4. Diabetes mellitus type 2. Home meds resumed. A1c 7.3 5. History of peripheral vascular disease 6. History of chronic diastolic congestive heart failure 7. History of peripheral neuropathy 8. Hypokalemia. Replace per protocol 9. Acute kidney injury. Creatinine slightly elevated at 1.2 and bun 31. Patient's lisinopril and hydrochlorothiazide currently on hold. We'll continue to monitor. Patient's lisinopril and hydrochlorothiazide to be held for discharge 10. Increased edema to left knee. Per orthopedic services continuing conservative treatment at this time weightbearing as tolerated with use of walker Hospital course This is a 58-year-old female seen eval reexamined, patient has a callus in her left foot developed some discharge posterior fragment has been progressive for several weeks started having pain pain to be sharp that has increased in intensity over the last few days to be as high as 10 out of 10, patient did complain of some drainage from her left foot wound, the patient did have some chills but denies high-grade fever with these symptoms the patient was evaluated by the ER physician on arrival to the area the patient has been afebrile, patient white count was normal she did have x-rays of the foot that did not show any bony changes suggestive of Osteomyelitis, patient received her dose of Zosyn in the ER vancomycin was started and continued patient has been admitted to the hospital, patient has seen Dr. Hamm from infectious disease was consulted for further recommendation regarding Dr. Chappell covering for 06/29/2019 On 06/30/2019 patient is alert and oriented 3. Patient remains on vancomycin and cefepime per infectious disease. One cultures are currently pending growing gram-negative bacilli strep group B. Bone scan has been completed results pending per ID. Discharge planning in progress to possible rehab. At this time patient denies chest pain or shortness breath. Patient denies nausea vomiting or diarrhea. Patient denies any urinary burning or frequency On 07/01/2019 patient is alert and oriented 3. Bone scan completed showing no triple phase uptake to suggest acute osteomyelitis. Wound cultures to finalize. Patient remains on IV vancomycin and cefepime infectious disease following. Patient having increased pain. Percocets changed to schedule plus morphine for breakthrough pain. Patient denies chest pain. Patient denies nausea vomiting or diarrhea. Patient denies any urinary burning or frequency On 07/02/2019 patient is alert and oriented 3. Patient is currently up to chair. Complains of left knee swelling orthopedic services have been consulted for possible aspiration. Per infectious disease patient remains on cefepime wound cultures finalizing. Vancomycin has been DC'd. Patient's creatinine this a.m. 1.22 and bun 31. Patient's lisinopril and hydrochlorothiazide currently on hold. We'll continue to monitor. This time patient denies chest pain or shortness of breath. Patient denies nausea vomiting or diarrhea. Patient denies any urinary burning or frequency On 07/03/2019 patient was seen and examined on the medical floor is alert and oriented 3 in no apparent distress she is complaining of left knee pain and swelling otherwise she denies any complaints at this time there is no fever or chills no headache or dizziness no chest pain no shortness of breath no cough no nausea or vomiting no abdominal pain no diarrhea no burning with urination no frequency or urgency and no hematuria On 07/04/2019 patient is alert and oriented 3 in no apparent distress she is still complaining of pain in her left foot and her left knee otherwise she denies any complaints there is no fever or chills no headache or dizziness no chest pain no shortness of breath no cough no nausea or vomiting no abdominal pain no diarrhea no burning with urination no frequency or urgency and no hematuria On 07/05/2019 patient is alert and oriented 3. Patient has been cleared for discharge from orthopedic and infectious disease standpoint. Patient will be DC'd on Cipro for 2 weeks. Patient's Atarax will be held while on Cipro due to interaction. Lisinopril and hydrochlorothiazide to also be held at discharge for acute kidney injury. Patient will be DC'd to [facility]. Patient to follow-up with wound care clinic. Patient will also be DC'd on Lovenox for DVT prophylaxis due to limited mobility. I performed an examination of the patient and discussed their management with the Nurse Practitioner. I have reviewed the Nurse Practitioner's notes and agree with the documented findings and plan of care Patient Condition at Discharge: Stable Plan - Discharge Summary Discharge Rx Participant: Yes New Discharge Prescriptions: New Enoxaparin [Lovenox] 40 mg SQ DAILY syringe traMADol HCl [Ultram] 50 mg PO QID PRN tab PRN Reason: Pain Ciprofloxacin HCl [Cipro] 500 mg PO Q12H 14 Days #28 tab Continue amLODIPine [Norvasc] 10 mg PO DAILY Latanoprost [Xalatan 0.005%] 1 drop BOTH EYES HS Furosemide [Lasix] 40 mg PO DAILY Clopidogrel [Plavix] 75 mg PO DAILY Ergocalciferol [Vitamin D2 (DRISDOL)] 50,000 unit PO Q7D metFORMIN HCL 1,000 mg PO BID Albuterol Inhaler [Ventolin Hfa Inhaler] 2 puff INHALATION RT-Q6H PRN PRN Reason: Shortness Of Breath Potassium Chloride [Klor-Con 20] 20 meq PO DAILY Insuln Asp Prt/Insulin Aspart [NovoLOG MIX 70-30 VIAL] 32 unit SQ DAILY Insuln Asp Prt/Insulin Aspart [NovoLOG MIX 70-30 VIAL] 22 unit SQ HS Ipratropium-Albuterol Nebulize [Duoneb 0.5 mg-3 mg/3 ml Soln] 3 ml INHALATION RT-QID Pravastatin Sodium [Pravachol] 10 mg PO DAILY SILVER sulfADIAZINE Cream [Silvadene 1% Cream] 1 applic TOPICAL DAILY Pregabalin [Lyrica] 100 mg PO BID oxyCODONE-APAP 7.5-325MG [Percocet 7.5-325 mg] 1 tab PO Q6HR PRN PRN Reason: Pain Discontinued Lisinopril 40 mg PO DAILY Hydrochlorothiazide 25 mg PO DAILY hydrOXYzine HCL [Atarax] 50 mg PO TID Discharge Medication List amLODIPine [Norvasc] 10 mg PO DAILY 02/16/16 [History] Clopidogrel [Plavix] 75 mg PO DAILY 03/01/17 [History] Furosemide [Lasix] 40 mg PO DAILY 03/01/17 [History] Latanoprost [Xalatan 0.005%] 1 drop BOTH EYES HS 03/01/17 [History] Ergocalciferol [Vitamin D2 (DRISDOL)] 50,000 unit PO Q7D 05/20/17 [History] metFORMIN HCL 1,000 mg PO BID 05/20/17 [History] Albuterol Inhaler [Ventolin Hfa Inhaler] 2 puff INHALATION RT-Q6H PRN 10/30/18 [History] Insuln Asp Prt/Insulin Aspart [NovoLOG MIX 70-30 VIAL] 22 unit SQ HS 10/30/18 [History] Insuln Asp Prt/Insulin Aspart [NovoLOG MIX 70-30 VIAL] 32 unit SQ DAILY 10/30/18 [History] Potassium Chloride [Klor-Con 20] 20 meq PO DAILY 10/30/18 [History] Ipratropium-Albuterol Nebulize [Duoneb 0.5 mg-3 mg/3 ml Soln] 3 ml INHALATION RT-QID 06/28/19 [History] Pravastatin Sodium [Pravachol] 10 mg PO DAILY 06/28/19 [History] Pregabalin [Lyrica] 100 mg PO BID 06/28/19 [History] SILVER sulfADIAZINE Cream [Silvadene 1% Cream] 1 applic TOPICAL DAILY 06/28/19 [History] oxyCODONE-APAP 7.5-325MG [Percocet 7.5-325 mg] 1 tab PO Q6HR PRN 06/28/19 [History] Ciprofloxacin HCl [Cipro] 500 mg PO Q12H 14 Days #28 tab 02/24/20 [Rx] Enoxaparin [Lovenox] 40 mg SQ DAILY syringe 07/05/19 [Rx] traMADol HCl [Ultram] 50 mg PO QID PRN tab 07/05/19 [Rx] Follow up Appointment(s)/Referral(s): Prasanna Dior DO [Medical Doctor] - As Needed Mariely Bradford MD [Primary Care Provider] - 1-2 days Ishan Majano MD [STAFF PHYSICIAN] - 2 Weeks [facility] [NON-STAFF] - 1 Week Activity/Diet/Wound Care/Special Instructions: Patient to be discharged to [facility] Activity as tolerated Diet heart healthy consistent carb Patient's Atarax to be DC'd while on Cipro antibiotic Per ID local wound care with Aquacel dressing follow-up with wound care center Discharge Disposition: TRANSFER TO SNF/ECF
== END 2019-07-05 16:52 | DRG 638 ==
LOC: EC 15:18 → 6NMEDSUR 19:15 → 4SSUR 06-29 03:17
PROVIDERS: ADMIT Internal Medicine; ATTEND Internal Medicine
DX: E11.69 Type 2 diabetes mellitus with other specified complication (principal); M86.172 Other acute osteomyelitis, left ankle and foot; I50.32 Chronic diastolic (congestive) heart failure; L03.115 Cellulitis of right lower limb; L03.116 Cellulitis of left lower limb; B96.5 Pseudomonas (aeruginosa) (mallei) (pseudomallei) as the cause of diseases classified elsewhere; B95.1 Streptococcus, group B, as the cause of diseases classified elsewhere; Z79.4 Long term (current) use of insulin; E11.51 Type 2 diabetes mellitus with diabetic peripheral angiopathy without gangrene; E11.621 Type 2 diabetes mellitus with foot ulcer; E11.628 Type 2 diabetes mellitus with other skin complications; E66.9 Obesity, unspecified; Z68.39 Body mass index [BMI] 39.0-39.9, adult; E78.5 Hyperlipidemia, unspecified; E87.6 Hypokalemia; F32.9 Major depressive disorder, single episode, unspecified; G35 Multiple sclerosis; G89.29 Other chronic pain; E11.42 Type 2 diabetes mellitus with diabetic polyneuropathy; I11.0 Hypertensive heart disease with heart failure; J44.9 Chronic obstructive pulmonary disease, unspecified; L84 Corns and callosities; L97.529 Non-pressure chronic ulcer of other part of left foot with unspecified severity; M17.12 Unilateral primary osteoarthritis, left knee; N17.9 Acute kidney failure, unspecified; Z79.02 Long term (current) use of antithrombotics/antiplatelets; Z79.899 Other long term (current) drug therapy; Z87.891 Personal history of nicotine dependence; Z96.642 Presence of left artificial hip joint; H40.9 Unspecified glaucoma; Z91.81 History of falling; M25.462 Effusion, left knee; Z98.51 Tubal ligation status
CPT/HCPCS: 36415; 78315; 80053; 80202; 82565; 83036; 84132; 85025; 86140; 87040; 87070; 87077; 87186; 87205; 94640; 96365; 96366; 96368; 96375; 96376; 99285

== ENCOUNTER 2019-08-05 10:55 | Inpatient (IN) | payer MEDICARE, OTHER ==
[2019-08-05] MEDS ORDERED: SODIUM CHLORIDE 0.9% 1,000 ML IV STA (11:20)
[2019-08-05] MEDS ORDERED: ACETAMINOPHEN TAB 500 MG TAB PO STA (11:20)
--- NOTE | 2019-08-05 11:32 | ED ---
Weakness HPI - General Chief complaint: Weakness Stated complaint: weakness Time Seen by Provider: 08/05/19 11:00 Source: patient, EMS Mode of arrival: EMS Limitations: no limitations - History of Present Illness Initial comments: Patient is a 58-year-old female, with history of MS, hypertension, diabetes, presenting to the emergency department via EMS for weakness. Patient states that since yesterday evening she has not been able to stand up and move around on her own. She states she normally uses a walker for assistance but states she has not been able to lift herself up from a seated position. She admits to recently being admitted for bilateral lower leg cellulitis. She is not currently on antibiotics and gets dressing changes every other day from a visiting nurse. Patient denies chest pain, shortness of breath, cough, abdominal pain, nausea, and diarrhea. She denies any urinary complaints. Her last bowel movement was yesterday. She states she has been eating and drinking a little bit less today. She denies any fevers, chills. She has no other complaints at this time. Upon arrival to the ER, patient is febrile at 102.6, pulse is 101, BP is 190/101, 99% on room air. - Related Data Home Medications Medication Instructions Recorded Confirmed amLODIPine [Norvasc] 10 mg PO DAILY 02/16/16 08/05/19 Clopidogrel [Plavix] 75 mg PO DAILY 03/01/17 08/05/19 Furosemide [Lasix] 40 mg PO DAILY 03/01/17 08/05/19 Latanoprost [Xalatan 0.005%] 1 drop BOTH EYES HS 03/01/17 08/05/19 metFORMIN HCL 1,000 mg PO BID 05/20/17 08/05/19 Albuterol Inhaler [Ventolin Hfa 2 puff INHALATION RT-Q6H PRN 10/30/18 08/05/19 Inhaler] Insuln Asp Prt/Insulin Aspart 25 unit SQ HS 10/30/18 08/05/19 [NovoLOG MIX 70-30 VIAL] Insuln Asp Prt/Insulin Aspart 35 unit SQ DAILY 10/30/18 08/05/19 [NovoLOG MIX 70-30 VIAL] Potassium Chloride [Klor-Con 20] 20 meq PO DAILY 10/30/18 08/05/19 Ipratropium-Albuterol Nebulize 3 ml INHALATION RT-QID 06/28/19 08/05/19 [Duoneb 0.5 mg-3 mg/3 ml Soln] Pravastatin Sodium [Pravachol] 10 mg PO DAILY 06/28/19 08/05/19 SILVER sulfADIAZINE Cream 1 applic TOPICAL DAILY 06/28/19 08/05/19 [Silvadene 1% Cream] Cyanocobalamin (Vitamin B-12) 1,000 mcg PO DAILY 08/05/19 08/05/19 [Vitamin B-12] Fish Oil/Dha/Epa [Fish Oil 1,200 1 cap PO DAILY 08/05/19 08/05/19 mg Fish Oil] Ibuprofen 400 mg PO TID PRN 08/05/19 08/05/19 Liraglutide [Victoza 2-[place]] 0.6 mg SQ DAILY 08/05/19 08/05/19 Pregabalin 150 mg PO BID 08/05/19 08/05/19 oxyCODONE HCL/ACETAMINOPHEN 1 tab PO Q6H 08/05/19 08/05/19 [Percocet 10-325 mg] traMADol HCl [Ultram] 50 mg PO Q6H PRN 08/05/19 08/05/19 Allergies Allergy/AdvReac Type Severity Reaction Status Date / Time methylprednisolone Allergy Anaphylaxis Verified 08/05/19 14:22 [From Solu-Medrol] venom-honey bee Allergy Anaphylaxis Verified 08/05/19 14:22 [bee venom (honey bee)] Review of Systems ROS Statement: Those systems with pertinent positive or pertinent negative responses have been documented in the HPI. ROS Other: All systems not noted in ROS Statement are negative. Past Medical History Past Medical History: Asthma, COPD, Diabetes Mellitus, Eye Disorder, GERD/Reflux, Hyperlipidemia, Hypertension, Neurologic Disorder, Osteoarthritis (OA) Additional Past Medical History / Comment(s): wounds rt leg,multiple sclerosis, glaucoma History of Any Multi-Drug Resistant Organisms: None Reported Past Surgical History: Section, Joint Replacement, Tubal Ligation Additional Past Surgical History / Comment(s): lt hip replacement,rectal s urgery,eye proc Past Anesthesia/Blood Transfusion Reactions: No Reported Reaction Past Psychological History: Depression Smoking Status: Never smoker Past Alcohol Use History: None Reported Past Drug Use History: Marijuana - Past Family History Father Family Medical History: Cancer General Exam - General Exam Comments Initial Comments: GENERAL: Patient looks disheveled, fatigued. HEAD: Atraumatic, normocephalic. EYES: Pupils equal round and reactive to light, extraocular movements intact, sclera anicteric, conjunctiva are normal. ENT: TMs normal, nares patent, oropharynx clear without exudates. Moist mucous membranes. NECK: Normal range of motion, supple without lymphadenopathy or JVD. LUNGS: Breath sounds clear to auscultation bilaterally and equal. No wheezes rales or rhonchi. HEART: Slightly tachycardia rate and rhythm without murmurs, rubs or gallops. ABDOMEN: Soft, nontender, normoactive bowel sounds. No guarding, no rebound. No masses appreciated. : Deferred EXTREMITIES: Patient has bilateral lower leg edema, venous insufficiency. Patient has increase in warmth on the left lower extremity compared to the right extremity. Bilateral dorsal pedis are equal and bilateral. NEUROLOGICAL: Cranial nerves II through XII grossly intact. Normal speech. PSYCH: Normal mood, normal affect. SKIN: Warm, Dry, normal turgor. Patient has a healing open ulcer on the plantar surface of the right foot, under first MTP joint. Limitations: no limitations Course Vital Signs 08/05/19 08/05/19 08/05/19 10:58 11:47 12:40 Temperature 102.6 F H 100.8 F H Pulse Rate 101 H Pulse Rate [ Right Radial] Respiratory 20 18 Rate Blood Pressure 190/101 O2 Sat by Pulse 99 Oximetry 08/05/19 08/05/19 13:35 13:49 Temperature 100.3 F H Pulse Rate 86 Pulse Rate [ 94 Right Radial] Respiratory 16 18 Rate Blood Pressure 146/78 O2 Sat by Pulse 97 94 L Oximetry EKG Findings - EKG Comments: EKG Findings:: Ventricular rate 99, ME interval 156, QTc 451. Normal sinus rhythm. No acute ST segment changes. No signs of ischemia. Medical Decision Making - Medical Decision Making Patient is a 58-year-old female presenting for weakness 2 days. Patient a rrived febrile. Patient was recently admitted for bilateral lower leg cellulitis. On exam patient has cellulitis of the left lower leg, open wound on the plantar surface of the first MTP joint. Labs reveal leukocytosis, ESR 65, CRP is 87, lactic acid 2.3. Patient was given fluids, Rocephin, Tylenol. Chest x-ray shows no acute findings. EKG normal. Discussed patient with Dr. Moreno. Patient will be admitted for IV antibiotics, ID consult, wound care. Dr. Bradford is admitting provider. They are in agreement with this plan of care. - Lab Data Result diagrams: 08/05/19 12:25 08/05/19 12:25 Lab Results 08/05/19 08/05/19 08/05/19 Range/Units 12:25 12:25 12:25 WBC 13.2 H (3.8-10.6) k/uL RBC 4.16 (3.80-5.40) m/uL Hgb 11.3 L (11.4-16.0) gm/dL Hct 33.4 L (34.0-46.0) % MCV 80.4 (80.0-100.0) fL MCH 27.2 (25.0-35.0) pg MCHC 33.8 (31.0-37.0) g/dL RDW 15.5 (11.5-15.5) % Plt Count 239 (150-450) k/uL Neutrophils % 87 % Lymphocytes % 7 % Monocytes % 4 % Eosinophils % 1 % Basophils % 0 % Neutrophils # 11.5 H (1.3-7.7) k/uL Lymphocytes # 0.9 L (1.0-4.8) k/uL Monocytes # 0.5 (0-1.0) k/uL Eosinophils # 0.1 (0-0.7) k/uL Basophils # 0.0 (0-0.2) k/uL ESR 55 H (0-20) mm/hr PT (9.0-12.0) sec INR (<1.2) APTT (22.0-30.0) sec Sodium 137 (137-145) mmol/L Potassium 3.9 (3.5-5.1) mmol/L Chloride 99 (98-107) mmol/L Carbon Dioxide 28 (22-30) mmol/L Anion Gap 10 mmol/L BUN 17 (7-17) mg/dL Creatinine 0.94 (0.52-1.04) mg/dL Est GFR (CKD-EPI)AfAm 78 (>60 ml/min/1.73 sqM) Est GFR (CKD-EPI)NonAf 67 (>60 ml/min/1.73 sqM) Glucose 180 H (74-99) mg/dL Lactic Ac Sepsis Rflx Plasma Lactic Acid Daren 2.3 H* (0.7-2.0) mmol/L Calcium 9.1 (8.4-10.2) mg/dL Magnesium 1.6 (1.6-2.3) mg/dL Total Bilirubin 0.4 (0.2-1.3) mg/dL AST 21 (14-36) U/L ALT 15 (4-34) U/L Alkaline Phosphatase 128 H (38-126) U/L C-Reactive Protein 87.0 H (<10.0) mg/L Total Protein 7.9 (6.3-8.2) g/dL Albumin 4.1 (3.5-5.0) g/dL Urine Color Urine Appearance (Clear) Urine pH (5.0-8.0) Ur Specific [place] (1.001-1.035) Urine Protein (Negative) Urine Glucose (UA) (Negative) Urine Ketones (Negative) Urine Blood (Negative) Urine Nitrite (Negative) Urine Bilirubin (Negative) Urine Urobilinogen (<2.0) mg/dL Ur Leukocyte Esterase (Negative) Urine RBC (0-5) /hpf Urine WBC (0-5) /hpf Ur Squamous Epith Cells (0-4) /hpf Urine Mucus (None) /hpf 08/05/19 08/05/19 08/05/19 Range/Units 12:25 12:37 12:58 WBC (3.8-10.6) k/uL RBC (3.80-5.40) m/uL Hgb (11.4-16.0) gm/dL Hct (34.0-46.0) % MCV (80.0-100.0) fL MCH (25.0-35.0) pg MCHC (31.0-37.0) g/dL RDW (11.5-15.5) % Plt Count (150-450) k/uL Neutrophils % % Lymphocytes % % Monocytes % % Eosinophils % % Basophils % % Neutrophils # (1.3-7.7) k/uL Lymphocytes # (1.0-4.8) k/uL Monocytes # (0-1.0) k/uL Eosinophils # (0-0.7) k/uL Basophils # (0-0.2) k/uL ESR (0-20) mm/hr PT 10.2 (9.0-12.0) sec INR 1.0 (<1.2) APTT 26.7 (22.0-30.0) sec Sodium (137-145) mmol/L Potassium (3.5-5.1) mmol/L Chloride (98-107) mmol/L Carbon Dioxide (22-30) mmol/L Anion Gap mmol/L BUN (7-17) mg/dL Creatinine (0.52-1.04) mg/dL Est GFR (CKD-EPI)AfAm (>60 ml/min/1.73 sqM) Est GFR (CKD-EPI)NonAf (>60 ml/min/1.73 sqM) Glucose (74-99) mg/dL Lactic Ac Sepsis Rflx Y Plasma Lactic Acid Daren (0.7-2.0) mmol/L Calcium (8.4-10.2) mg/dL Magnesium (1.6-2.3) mg/dL Total Bilirubin (0.2-1.3) mg/dL AST (14-36) U/L ALT (4-34) U/L Alkaline Phosphatase (38-126) U/L C-Reactive Protein (<10.0) mg/L Total Protein (6.3-8.2) g/dL Albumin (3.5-5.0) g/dL Urine Color Light Yellow Urine Appearance Clear (Clear) Urine pH 6.5 (5.0-8.0) Ur Specific [place] 1.012 (1.001-1.035) Urine Protein Trace H (Negative) Urine Glucose (UA) Negative (Negative) Urine Ketones Negative (Negative) Urine Blood Moderate H (Negative) Urine Nitrite Negative (Negative) Urine Bilirubin Negative (Negative) Urine Urobilinogen <2.0 (<2.0) mg/dL Ur Leukocyte Esterase Negative (Negative) Urine RBC 12 H (0-5) /hpf Urine WBC 1 (0-5) /hpf Ur Squamous Epith Cells 1 (0-4) /hpf Urine Mucus Rare H (None) /hpf Disposition Clinical Impression: Weakness, Cellulitis of left lower leg, Febrile Disposition: ADMITTED IP TO THIS HOSP Condition: Stable Is patient prescribed a controlled substance at d/c from ED?: No Decision Date: 08/05/19 Decision Time: 13:26
[2019-08-05 12:37] LABS: Basophils % (A) 0 %; Eosinophils # (A) 0.1 k/uL (0-0.7); Eosinophils % (A) 1 %; HCT 33.4 % (34.0-46.0); HGB 11.3 gm/dL (11.4-16.0); Lymphocytes # (A) 0.9 k/uL (1.0-4.8); Lymphocytes % (A) 7 %; MCH 27.2 pg (25.0-35.0); MCHC 33.8 g/dL (31.0-37.0); MCV 80.4 fL (80.0-100.0); Mean Platelet Volume 6.8; Monocytes # (A) 0.5 k/uL (0-1.0); Monocytes % (A) 4 %; Neutrophils # (A) 11.5 k/uL (1.3-7.7); Neutrophils % (A) 87 %; Platelet Count 239 k/uL (150-450); RBC 4.16 m/uL (3.80-5.40); RDW 15.5 % (11.5-15.5); WBC 13.2 k/uL (3.8-10.6)
[2019-08-05 12:50] LABS: Albumin 4.1 g/dL (3.5-5.0); Calcium 9.1 mg/dL (8.4-10.2); Magnesium 1.6 mg/dL (1.6-2.3); Potassium 3.9 mmol/L (3.5-5.1); Total Bilirubin 0.4 mg/dL (0.2-1.3); Total Protein 7.9 g/dL (6.3-8.2)
[2019-08-05 12:51] LABS: Partial Thromboplastin Time 26.7 sec (22.0-30.0); Prothrombin Time 10.2 sec (9.0-12.0)
[2019-08-05 12:54] LABS: Appearance,Urine Clear (Clear); Bilirubin,Urine Negative (Negative); Blood,Urine Moderate (Negative); Color,Urine Light Yellow; Glucose,Urine (UA) Negative (Negative); Ketones,Urine Negative (Negative); Leukocyte Esterase,Urine Negative (Negative); Mucus,Urine Rare /hpf; Nitrite,Urine Negative (Negative); PH, Urine 6.5 (5.0-8.0); Protein,Urine Trace (Negative); RBC,Urine 12 /hpf (0-5); Specific Gravity,Urine 1.012 (1.001-1.035); Squamous Epithelial Cell,Urine 1 /hpf (0-4); Urobilinogen,Urine <2.0 mg/dL (<2.0); WBC,Urine 1 /hpf (0-5)
--- NOTE | 2019-08-05 12:55 | XR ---
EXAMINATION TYPE: XR chest 2V DATE OF EXAM: 08/05/2019 COMPARISON: Chest x-ray February 10, 2012. HISTORY: Weakness and fever. TECHNIQUE: Frontal and lateral views of the chest are obtained. FINDINGS: Exam slightly suboptimal due to patient's large body habitus. There is chronic parenchymal change without suspicious focal air space opacity, pleural effusion, or pneumothorax seen. The card iac silhouette size is stable and enlarged. Lateral view suboptimal due to overlying upper extremiti es and underpenetration. Degenerative change right glenohumeral joint. IMPRESSION: Chronic changes and cardiomegaly without acute pulmonary process.
[2019-08-05] MEDS ORDERED: NALOXONE 0.4 MG/ML 1 ML VIAL IV PRN (13:21)
[2019-08-05 13:23] LABS: Erythrocyte Sedimentation Rate 55 mm/hr (0-20)
[2019-08-05] MEDS ORDERED: VANCOMYCIN IV PER PHARMACY 1 EACH MISC MISCELLANE PRN (13:25)
[2019-08-05] MEDS ORDERED: VANCOMYCIN 1,750 MG in SODIUM CHLORIDE 0.9% 500 ML 500 ML IVPB STA (13:32)
[2019-08-05] MEDS: SODIUM CHLORIDE 0.9% 1,000 ML IV SCH (13:38)
[2019-08-05] MEDS ORDERED: IBUPROFEN 200 MG TAB PO PRN (14:29)
[2019-08-05] MEDS ORDERED: traMADol 50 MG TAB PO PRN (14:29)
[2019-08-05] MEDS ORDERED: ALBUTEROL NEBULIZED 2.5 MG/3 ML INHALATION PRN (14:29)
[2019-08-05] MEDS ORDERED: amLODIPine 10 MG TAB PO STA (14:39)
--- NOTE | 2019-08-05 14:54 | P.HPIM ---
History of Present Illness H&P Date: 08/05/19 Rika Quan is a 58-year-old female who presented to [facility] emergency room brought in by EMS due to severe weakness. Patient stated that she has not been able to stand up and walk at her residence due to severe weakness, at baseline she moves slowly with the use of a wheeled walker however she has not been able to stand up for at least 2 days, EMS personnel reports very poor condition at her residence. Patient was evaluated in the emergency room she was febrile with a temperature of 102.6 she has evidence of lower extremity cellulitis with large open ulcer she was started on IV antibiotics and was admitted to medical floor. Infectious disease consultation was requested. Patient has been receiving treatment for her lower extremity cellulitis with oral antibiotics and dressing change done by visiting nurses however her condition continued to worsen. Patient has a known history of insulin-dependent diabetes mellitus, history of hypertension, history of COPD, history of hyperlipidemia, and history of chronic pain syndrome maintained on narcotics at home. Past Medical History Past Medical History: Asthma, COPD, Diabetes Mellitus, Eye Disorder, GERD/Reflux, Hyperlipidemia, Hypertension, Neurologic Disorder, Osteoarthritis (OA) Additional Past Medical History / Comment(s): wounds rt leg,multiple sclerosis, glaucoma History of Any Multi-Drug Resistant Organisms: None Reported Past Surgical History: Section, Joint Replacement, Tubal Ligation Additional Past Surgical History / Comment(s): lt hip replacement,rectal surgery,eye proc Past Anesthesia/Blood Transfusion Reactions: No Reported Reaction Past Psychological History: Depression Smoking Status: Never smoker Past Alcohol Use History: None Reported Past Drug Use History: Marijuana - Past Family History Father Family Medical History: Cancer Medications and Allergies Home Medications Medication Instructions Recorded Confirmed Type amLODIPine [Norvasc] 10 mg PO DAILY 02/16/16 08/05/19 History Clopidogrel [Plavix] 75 mg PO DAILY 03/01/17 08/05/19 History Furosemide [Lasix] 40 mg PO DAILY 03/01/17 08/05/19 History Latanoprost [Xalatan 0.005%] 1 drop BOTH EYES HS 03/01/17 08/05/19 History metFORMIN HCL 1,000 mg PO BID 05/20/17 08/05/19 History Albuterol Inhaler [Ventolin Hfa 2 puff INHALATION RT-Q6H PRN 10/30/18 08/05/19 History Inhaler] Insuln Asp Prt/Insulin Aspart 25 unit SQ HS 10/30/18 08/05/19 History [NovoLOG MIX 70-30 VIAL] Insuln Asp Prt/Insulin Aspart 35 unit SQ DAILY 10/30/18 08/05/19 History [NovoLOG MIX 70-30 VIAL] Potassium Chloride [Klor-Con 20] 20 meq PO DAILY 10/30/18 08/05/19 History Ipratropium-Albuterol Nebulize 3 ml INHALATION RT-QID 06/28/19 08/05/19 History [Duoneb 0.5 mg-3 mg/3 ml Soln] Pravastatin Sodium [Pravachol] 10 mg PO DAILY 06/28/19 08/05/19 History SILVER sulfADIAZINE Cream 1 applic TOPICAL DAILY 06/28/19 08/05/19 History [Silvadene 1% Cream] Cyanocobalamin (Vitamin B-12) 1,000 mcg PO DAILY 08/05/19 08/05/19 History [Vitamin B-12] Fish Oil/Dha/Epa [Fish Oil 1,200 1 cap PO DAILY 08/05/19 08/05/19 History mg Fish Oil] Ibuprofen 400 mg PO TID PRN 08/05/19 08/05/19 History Liraglutide [Victoza 2-[place]] 0.6 mg SQ DAILY 08/05/19 08/05/19 History Pregabalin 150 mg PO BID 08/05/19 08/05/19 History oxyCODONE HCL/ACETAMINOPHEN 1 tab PO Q6H 08/05/19 08/05/19 History [Percocet 10-325 mg] traMADol HCl [Ultram] 50 mg PO Q6H PRN 08/05/19 08/05/19 History Allergies Allergy/AdvReac Type Severity Reaction Status Date / Time methylprednisolone Allergy Anaphylaxis Verified 08/05/19 14:22 [From Solu-Medrol] venom-honey bee Allergy Anaphylaxis Verified 08/05/19 14:22 [bee venom (honey bee)] Physical Exam Vitals: Vital Signs Temp Pulse Resp BP Pulse Ox 08/05/19 13:35 86 16 146/78 97 08/05/19 12:40 100.8 F H 08/05/19 11:47 18 08/05/19 10:58 102.6 F H 101 H 20 190/101 99 Intake and Output 08/04/19 08/05/19 08/05/19 22:59 06:59 14:59 Other: Weight 113.398 kg In general patient is alert, responsive in no apparent distress HEENT head normocephalic and atraumatic Neck is supple no JVD no goiter no lymphadenopathy Chest exam reveals a scattered crackles bilaterally no wheezing Cardiac exam reveals regular heart sounds no gallops no murmurs Abdomen is soft nontender no organomegaly with normal bowel sounds Extremity exam reveals bilateral pretibial erythema and edema there is large open ulcer on the left foot Neurological examination reveals no gross focal deficit Results CBC & Chem 7: 08/05/19 12:25 08/05/19 12:25 Labs: Abnormal Lab Results - Last 24 Hours (Table) 08/05/19 08/05/19 08/05/19 Range/Units 12:25 12:25 12:25 WBC 13.2 H (3.8-10.6) k/uL Hgb 11.3 L (11.4-16.0) gm/dL Hct 33.4 L (34.0-46.0) % Neutrophils # 11.5 H (1.3-7.7) k/uL Lymphocytes # 0.9 L (1.0-4.8) k/uL ESR 55 H (0-20) mm/hr Glucose 180 H (74-99) mg/dL Plasma Lactic Acid Daren 2.3 H* (0.7-2.0) mmol/L Alkaline Phosphatase 128 H (38-126) U/L C-Reactive Protein 87.0 H (<10.0) mg/L Urine Protein (Negative) Urine Blood (Negative) Urine RBC (0-5) /hpf Urine Mucus (None) /hpf 08/05/19 Range/Units 12:37 WBC (3.8-10.6) k/uL Hgb (11.4-16.0) gm/dL Hct (34.0-46.0) % Neutrophils # (1.3-7.7) k/uL Lymphocytes # (1.0-4.8) k/uL ESR (0-20) mm/hr Glucose (74-99) mg/dL Plasma Lactic Acid Daren (0.7-2.0) mmol/L Alkaline Phosphatase (38-126) U/L C-Reactive Protein (<10.0) mg/L Urine Protein Trace H (Negative) Urine Blood Moderate H (Negative) Urine RBC 12 H (0-5) /hpf Urine Mucus Rare H (None) /hpf Assessment and Plan Plan: #1 lower extremity cellulitis failed outpatient treatment with oral antibiotics, started on IV antibiotic in emergency room, infectious disease consultation requested #2 sepsis as evidenced by fever, leukocytosis, and elevated lactic acid, will check blood cultures #3 hypertension was hypertensive emergency, will resume home medications and add hydralazine IV when necessary #4 underlying history of insulin-dependent diabetes mellitus home medication resumed #5 underlying history of hyperlipidemia #6 severe weakness likely related to sepsis patient most likely will need rehab prior to going home #7 poor living conditions further EMS personnel social worker masters consult will be initiated Plan as above Prognosis guarded will follow closely
[2019-08-05] MEDS ORDERED: hydrALAZINE HCL 20 MG/ML 1 ML VIAL IVP PRN (14:55)
[2019-08-05] MEDS: ACETAMINOPHEN TAB 325 MG TAB PO PRN ×2 (15:05→19:07)
--- NOTE | 2019-08-05 15:15 | P.CONS ---
History of Present Illness - Reason for Consult Consult date: 08/05/19 Wound care - History of Present Illness This is an 58-year-old pleasant female who is known to the wound care center being seen on 4 S. for nonhealing ulcer to the left plantar aspect of forefoot. Patient has been applying silver collagen to the site without any difficulties. She has been minimal weightbearing to the left lower extremity however she utilizes her left side more than her right. Patient presented to the emergency room due to weakness and was found to have redness to the bilateral lower extremities. However the ulceration shows minimal slough with granulation throughout the wound bed. She had no tunneling and previous x-rays were negative for osteomyelitis. Review of Systems Review Of Systems: Constitutional: No fever, no chills, no night sweats. No weight change. No weakness, fatigue or lethargy. No daytime sleepiness. Integumentary:reports wounds, no lesions. No rash or pruritus. No unusual bruising. No change in hair or nails. Past Medical History Past Medical History: Asthma, COPD, Diabetes Mellitus, Eye Disorder, GERD/Reflux, Hyperlipidemia, Hypertension, Neurologic Disorder, Osteoarthritis (OA) Additional Past Medical History / Comment(s): wounds rt leg,multiple sclerosis, glaucoma History of Any Multi-Drug Resistant Organisms: None Reported Past Surgical History: Section, Joint Replacement, Tubal Ligation Additional Past Surgical History / Comment(s): lt hip replacement,rectal surgery,eye proc Past Anesthesia/Blood Transfusion Reactions: No Reported Reaction Past Psychological History: Depression Smoking Status: Never smoker Past Alcohol Use History: None Reported Past Drug Use History: Marijuana - Past Family History Father Family Medical History: Cancer Medications and Allergies Home Medications Medication Instructions Recorded Confirmed Type amLODIPine [Norvasc] 10 mg PO DAILY 02/16/16 06/28/19 History Clopidogrel [Plavix] 75 mg PO DAILY 03/01/17 06/28/19 History Furosemide [Lasix] 40 mg PO DAILY 03/01/17 06/28/19 History Latanoprost [Xalatan 0.005%] 1 drop BOTH EYES HS 03/01/17 06/28/19 History metFORMIN HCL 1,000 mg PO BID 05/20/17 06/28/19 History Albuterol Inhaler [Ventolin Hfa 2 puff INHALATION RT-Q6H PRN 10/30/18 06/28/19 History Inhaler] Insuln Asp Prt/Insulin Aspart 22 unit SQ HS 10/30/18 06/28/19 History [NovoLOG MIX 70-30 VIAL] Insuln Asp Prt/Insulin Aspart 32 unit SQ DAILY 10/30/18 06/28/19 History [NovoLOG MIX 70-30 VIAL] Potassium Chloride [Klor-Con 20] 20 meq PO DAILY 10/30/18 06/28/19 History Ipratropium-Albuterol Nebulize 3 ml INHALATION RT-QID 06/28/19 06/28/19 History [Duoneb 0.5 mg-3 mg/3 ml Soln] Pravastatin Sodium [Pravachol] 10 mg PO DAILY 06/28/19 06/28/19 History SILVER sulfADIAZINE Cream 1 applic TOPICAL DAILY 06/28/19 06/28/19 History [Silvadene 1% Cream] Cyanocobalamin (Vitamin B-12) 1,000 mcg PO DAILY 08/05/19 08/05/19 History [Vitamin B-12] Fish Oil/Dha/Epa [Fish Oil 1,200 1 cap PO DAILY 08/05/19 08/05/19 History mg Fish Oil] Ibuprofen 400 mg PO TID PRN 08/05/19 08/05/19 History Liraglutide [Victoza 2-[place]] 0.6 mg SQ DAILY 08/05/19 08/05/19 History Pregabalin 150 mg PO BID 08/05/19 08/05/19 History oxyCODONE HCL/ACETAMINOPHEN 1 tab PO Q6H 08/05/19 08/05/19 History [Percocet 10-325 mg] traMADol HCl [Ultram] 50 mg PO Q6H PRN 08/05/19 08/05/19 History Allergies Allergy/AdvReac Type Severity Reaction Status Date / Time methylprednisolone Allergy Anaphylaxis Verified 08/05/19 14:22 [From Solu-Medrol] venom-honey bee Allergy Anaphylaxis Verified 08/05/19 14:22 [bee venom (honey bee)] Physical Exam Vitals: Vital Signs Temp Pulse Pulse Resp BP Pulse Ox 08/05/19 13:49 100.3 F H 94 18 94 L 08/05/19 13:35 86 16 146/78 97 08/05/19 12:40 100.8 F H 08/05/19 11:47 18 08/05/19 10:58 102.6 F H 101 H 20 190/101 99 Intake and Output 08/05/19 08/05/19 08/05/19 06:59 14:59 22:59 Other: Weight 113.398 kg Physical exam: General Appearance: Alert, cooperative, no distress, appears stated age. Skin: See HPI ulceration is measuring 2 x 1.9 x 0.5 cm with fat layer exposure, no tunneling or undermining, small amount of serous drainage, wound margin is well-defined and not attached to the wound bed. all other Skin color, texture, tugor normal, no rashes or lesions. Neurologic: Alert oriented x3 Results CBC & Chem 7: 08/05/19 12:25 08/05/19 12:25 Labs: Abnormal Lab Results - Last 24 Hours (Table) 08/05/19 08/05/19 08/05/19 Range/Units 12:25 12:25 12:25 WBC 13.2 H (3.8-10.6) k/uL Hgb 11.3 L (11.4-16.0) gm/dL Hct 33.4 L (34.0-46.0) % Neutrophils # 11.5 H (1.3-7.7) k/uL Lymphocytes # 0.9 L (1.0-4.8) k/uL ESR 55 H (0-20) mm/hr Glucose 180 H (74-99) mg/dL Plasma Lactic Acid Daren 2.3 H* (0.7-2.0) mmol/L Alkaline Phosphatase 128 H (38-126) U/L C-Reactive Protein 87.0 H (<10.0) mg/L Urine Protein (Negative) Urine Blood (Negative) Urine RBC (0-5) /hpf Urine Mucus (None) /hpf 08/05/19 Range/Units 12:37 WBC (3.8-10.6) k/uL Hgb (11.4-16.0) gm/dL Hct (34.0-46.0) % Neutrophils # (1.3-7.7) k/uL Lymphocytes # (1.0-4.8) k/uL ESR (0-20) mm/hr Glucose (74-99) mg/dL Plasma Lactic Acid Daren (0.7-2.0) mmol/L Alkaline Phosphatase (38-126) U/L C-Reactive Protein (<10.0) mg/L Urine Protein Trace H (Negative) Urine Blood Moderate H (Negative) Urine RBC 12 H (0-5) /hpf Urine Mucus Rare H (None) /hpf Assessment and Plan (1) Diabetic ulcer of left foot Current Visit: No Status: Acute Code(s): E11.621 - TYPE 2 DIABETES MELLITUS WITH FOOT ULCER; L97.529 - NON-PRESSURE CHRONIC ULCER OTH PRT LEFT FOOT W UNSP SEVERITY SNOMED Code(s): 822508496 Plan: Apply observed to silver to the ulceration, dry, gauze, wrap with rolled gauze. Secure with paper tape. Change Friday. Minimal weightbearing to the left lower extremity. Patient will continue with her appointments in the wound care center. Wound care center will call to set up an appointment. Thank you kindly for the consultation any questions please contact the wound care center DNP note has been reviewed and discussed with Dr. Us and the impression and plan of care has been directed as dictated.
[2019-08-05] MEDS: FUROSEMIDE 40 MG TAB PO SCH (15:19)
[2019-08-05] MEDS: POTASSIUM CHLORIDE ER 20 MEQ TAB.ER PO SCH (15:20)
[2019-08-05] MEDS: oxyCODONE-APAP 10-325MG 1 EACH TAB PO SCH ×2 (15:20→20:34)
[2019-08-05] MEDS: CEFEPIME 2 GM in SODIUM CHLORIDE 0.9% 100 ML IVPB SCH ×2 (15:21→21:07)
[2019-08-05] MEDS: CLOPIDOGREL 75 MG TAB PO SCH (15:21)
[2019-08-05 16:51] LABS: Glucose,Whole Blood 165 mg/dL (75-99)
[2019-08-05] MEDS: IPRATROPIUM-ALBUTEROL 3 ML NEB INHALATION SCH ×2 (16:53→20:23)
[2019-08-05 20:11] LABS: Glucose,Whole Blood 242 mg/dL (75-99)
[2019-08-05] MEDS: INSULIN ASPART (NovoLOG) 100 UNIT/ML VIAL SQ SCH (20:35)
[2019-08-05] MEDS: PREGABALIN 75 MG CAP PO SCH (20:35)
[2019-08-05] MEDS: LATANOPROST 0.005% OPHTH DROPS 2.5 ML BTL BOTH EYES SCH (20:35)
[2019-08-05] MEDS: metFORMIN 500 MG TAB PO SCH (20:35)
[2019-08-05] MEDS: INSULN ASP PRT/INSULIN ASPART 100 UNIT/ML 10 ML VIAL SQ SCH (21:25)
[2019-08-06] MEDS: ACETAMINOPHEN TAB 325 MG TAB PO PRN ×2 (00:04→19:31)
[2019-08-06] MEDS: oxyCODONE-APAP 10-325MG 1 EACH TAB PO SCH ×4 (03:11→20:34)
[2019-08-06] MEDS: SODIUM CHLORIDE 0.9% 1,000 ML IV SCH ×2 (03:13→19:09)
[2019-08-06] MEDS: VANCOMYCIN 1,750 MG in SODIUM CHLORIDE 0.9% 500 ML 500 ML IVPB SCH ×2 (05:00→22:27)
--- NOTE | 2019-08-06 05:33 | CONS ---
CONSULTATION DATE OF SERVICE: 08/05/2019 REASON FOR CONSULTATION: Fever. HISTORY OF PRESENT ILLNESS: The patient is a 58-year-old female with a past medical history significant for left big toe wound with secondary cellulitis. Culture positive for Pseudomonas for which the patient was treated with IV and subsequently with oral antibiotic and rehab. The patient is now being brought to the hospital. Apparently the patient says she was feeling weak, unable to stand up and move on her wound. She apparently did have a fall and not able to get up. The patient denies having any headache or URI symptoms. No chest pain, shortness of breath or cough. No nausea, vomiting. No abdominal pain or any diarrhea. On arrival to the ER, the patient noticed to be febrile with temperature of 102.6 degrees Fahrenheit. The patient did have elevated white count of 13,000, did have a normal white count. Lactic acid was 2.3. CRP of 87. The patient's UA has not been significantly positive. The patient did have a chest x-ray which shows chronic changes and cardiomegaly without acute pulmonary process. The patient has been admitted to the hospital. Infectious Disease was consulted for further recommendations regarding antibiotic therapy. REVIEW OF SYSTEMS: Positive points that have been mentioned in HPI. Rest of the systems are negative. PAST MEDICAL HISTORY: COPD, diabetes mellitus, gastroesophageal reflux disease, asthma, osteoarthritis, hypertension, hyperlipidemia, left big toe wound with secondary cellulitis possibility of , tubal ligation and left hip replacement. SOCIAL HISTORY: The patient denies smoking, drinking or drug use. FAMILY HISTORY: Father with history of cancer. ALLERGIES: Allergies to METHYLPREDNISOLONE, MEDICATIONS: Medications include the patient is currently on Tylenol, Ventolin, Norvasc, Plavix, vancomycin and Rocephin. PHYSICAL EXAMINATION: On examination, her blood pressure is 178/83 with a pulse of 105, temperature 100.9. She is 93% on room air. General description is a middle-aged female lying in bed in no distress. HEENT: Examination shows slight pallor. No scleral icterus. Oral mucous membrane is dry. No pharyngeal erythema or thrush. NECK: Trachea central. No thyromegaly. LUNGS: Unlabored breathing. Clear to auscultation anteriorly. No wheeze or crackles. HEART: S1, S2. Regular rate and rhythm. ABDOMEN: Soft, no tenderness. Patient did have evidence of right leg swelling and redness. She is more warm to touch. Left big toe wound looks clean with no slough tissue or any purulent drainage. NEUROLOGICALLY: The patient is awake, alert, oriented x3. Mood and affect normal. LABS: Hemoglobin is 11.3, white count 13.2. BUN of 17, creatinine 0.94. Lactic acid 2.3. CRP is 87. UA not significantly positive. negative. DIAGNOSTIC IMPRESSION AND PLAN: Patient presented to the hospital with sepsis in this patient who did have a fever, elevated white count source is likely a right lower extremity cellulitis in this patient who did have diffuse swelling and redness, could be a streptococcal disease however with recent pseudomonal infection we will need to cover for both resistant gram- positive and gram-negative pathogen. In view of significant swelling, underlying deep venous thrombosis needs to be ruled out as well. Patient's abdomen was soft on clinical examination and UA was negative. Chest x-ray reported negative and no respiratory symptoms. PLAN: 1. We will check influenza A and B PCR . 2. Check the bilateral lower extremity Doppler to make sure no evidence of any DVT. 3. We will keep the patient on vancomycin pharmacy to dose target of 15. However, discontinue Rocephin and add cefepime 2 grams q.12. 4. Aquacel silver dressing to the left big toe wound. 5. We will follow on clinical condition and culture to further adjust medication if needed. Thank you for this consultation. Will follow this patient along with you. MMODL / IJN: [id number] /
[2019-08-06 06:57] LABS: Glucose,Whole Blood 120 mg/dL (75-99)
[2019-08-06] MEDS: IPRATROPIUM-ALBUTEROL 3 ML NEB INHALATION SCH ×2 (07:41→11:02)
[2019-08-06 07:46] LABS: Basophils % (A) 0 %; Eosinophils % (A) 0 %; HCT 36.9 % (34.0-46.0); HGB 11.9 gm/dL (11.4-16.0); Lymphocytes # (A) 1.5 k/uL (1.0-4.8); Lymphocytes % (A) 15 %; MCH 26.3 pg (25.0-35.0); MCHC 32.2 g/dL (31.0-37.0); MCV 81.4 fL (80.0-100.0); Monocytes # (A) 0.5 k/uL (0-1.0); Monocytes % (A) 5 %; Neutrophils # (A) 7.4 k/uL (1.3-7.7); Neutrophils % (A) 77 %; Platelet Count 268 k/uL (150-450); RBC 4.54 m/uL (3.80-5.40); RDW 15.3 % (11.5-15.5); WBC 9.7 k/uL (3.8-10.6)
[2019-08-06] MEDS: INSULIN ASPART (NovoLOG) 100 UNIT/ML VIAL SQ SCH ×4 (07:51→20:31)
[2019-08-06] MEDS: CEFEPIME 2 GM in SODIUM CHLORIDE 0.9% 100 ML IVPB SCH ×2 (07:52→20:39)
[2019-08-06] MEDS: PREGABALIN 75 MG CAP PO SCH ×2 (07:53→20:35)
[2019-08-06] MEDS: CLOPIDOGREL 75 MG TAB PO SCH (07:54)
[2019-08-06] MEDS: POTASSIUM CHLORIDE ER 20 MEQ TAB.ER PO SCH (07:54)
[2019-08-06] MEDS: CYANOCOBALAMIN 500 MCG TAB PO SCH (07:54)
[2019-08-06] MEDS: metFORMIN 500 MG TAB PO SCH ×2 (07:54→20:34)
[2019-08-06] MEDS: FUROSEMIDE 40 MG TAB PO SCH (07:55)
[2019-08-06] MEDS: amLODIPine 10 MG TAB PO SCH (07:55)
[2019-08-06] MEDS: PRAVASTATIN SODIUM 20 MG TAB PO SCH (07:55)
[2019-08-06 08:06] LABS: Albumin 3.7 g/dL (3.5-5.0); Potassium 3.6 mmol/L (3.5-5.1); Total Bilirubin 0.5 mg/dL (0.2-1.3); Total Protein 7.5 g/dL (6.3-8.2)
--- NOTE | 2019-08-06 08:23 | US ---
EXAMINATION TYPE: US venous doppler duplex LE DATE OF EXAM: 08/06/2019 7:53 AM COMPARISON: NONE CLINICAL HISTORY: swelling righ > left. Edema and pain bilateral legs. Patient on Plavix, history of stroke SIDE PERFORMED: bilateral TECHNIQUE: The lower extremity deep venous system is examined utilizing real time linear array sonog [place] with graded compression, doppler sonography and color-flow sonography. VESSELS IMAGED: External Iliac Vein (EIV) Common Femoral Vein Deep Femoral Vein Greater Saphenous Vein * Femoral Vein Popliteal Vein Small Saphenous Vein * Proximal Calf Veins (* superficial vessels) Right Leg: No evidence of DVT as visualized Technical limitations due to patient's body habitus an d large amount of soft tissue edema. Unable to visualize distal femoral vein or popliteal vein, patie nt unable to rotate leg into adequate position Left Leg: No evidence of DVT as visualized. *Technical limitations due to patient's body habitus and large amount of soft tissue edema, unable to visualize distal femoral vein. Multiple lymph nodes lef t groin, largest = 4.5 x 1.4 x 4.6cm IMPRESSION: 1. Subcutaneous edema throughout with no gross evidence of deep venous thrombosis in the visualized b ilateral lower extremities however limitations as detailed above. 2. Multiple mildly enlarged left superficial inguinal lymph nodes. These are nonspecific and could be reactive, infectious, or neoplastic. Short-term follow-up 3 month targeted ultrasound is recommended to assess for interval resolution or persistence. If persistent, CT pelvis and/or percutaneous biops y could be considered.
--- NOTE | 2019-08-06 08:57 | CDI ---
Documentation Clarification Form Date: 08/06/2019 08:31:00 AM From: Ema Dao RN CCDS Admit Date: 08/05/2019 01:20:00 PM Patient Name: Rika Quan Visit Number: [id number] Discharge Date: ATTENTION: The Clinical Documentation Specialists (CDI) and [facility] Coding Staff appreciate your assistance in clarifying documentation. Please respond to the clarification below the line at the bottom and electronically sign. The CDI & [facility] Coding staff will review the response and follow-up if needed. Please note: Queries are made part of the Legal Health Record. If you have any questions, please contact the author of this message via ITS. Dr. Mariely Bradford The patient has a known history of insulin dependent diabetes mellitus is documented in the H&P 08/04 History/Risk Factors: 58 year-female presents to the ED via EMS due to severe weakness with a Temperature of 102.6 she has evidence of lower extremity cellulitis with large open ulcer. Clinical Indicators: Infectious Disease Consult 08/04 Patient presented to the hospital with sepsis in this patient who did have a fever, elevated white count source is likely a right lower extremity cellulitis in this patient who did have diffuse swelling and redness VSS 190/101 101 102.6 20 99% RA Treatment: 08/04 Ceftriaxone Ivpb x1, Cefepime Ivpb Q 12Hrs, Vancomycin Ivpb Q 16Hrs Please document any body system complications or specific manifestations related to the diabetes: Right Lower extremity Cellulitis Associated with Diabetes No association with Diabetes Other condition Unable to Determine (Last Revision: February 2017) right lower extremity cellulitis associated with diabetes MTDD
[2019-08-06] MEDS ORDERED: CLOPIDOGREL 75 MG TAB PO SCH (09:00)
[2019-08-06] MEDS ORDERED: FUROSEMIDE 40 MG TAB PO SCH (09:00)
[2019-08-06] MEDS ORDERED: NON FORMULARY DRUG (Fish Oil/Dha/Epa [Fish Oil 1,200 Mg Fish Oil] 1 CAP) PO SCH (09:00)
[2019-08-06] MEDS ORDERED: POTASSIUM CHLORIDE ER 20 MEQ TAB.ER PO SCH (09:00)
[2019-08-06] MEDS: VICTOZA (Liraglutide) 0.6 MG SQ SCH (09:28)
[2019-08-06] MEDS: SILVER sulfADIAZINE Cream 400 GM 1 APPLIC APPLIC TOPICAL SCH (09:29)
--- NOTE | 2019-08-06 09:56 | CDI ---
Documentation Clarification Form Date: 08/06/2019 09:01:52 AM From: Ema Dao RN CCDS Admit Date: 08/05/2019 01:20:00 PM Patient Name: Rika Quan Visit Number: [id number] Discharge Date: ATTENTION: The Clinical Documentation Specialists (CDI) and [facility] Coding Staff appreciate your assistance in clarifying documentation. Please respond to the clarification below the line at the bottom and electronically sign. The CDI & [facility] Coding staff will review the response and follow-up if needed. Please note: Queries are made part of the Legal Health Record. If you have any questions, please contact the author of this message via ITS. Dr. Mariely Bradford Documentation states: elevated lactic acid in the H&P 08/04 History/Risk Factors: 58 year-female presents to the ED via EMS due to severe weakness with a Temperature of 102.6 she has evidence of lower extremity cellulitis with large open ulcer. Medical History Asthma, COPD, DM, HLD, HTN, OA Clinical indicators: VSS 190/101 101 102.6 20 99% RA Admitted with Sepsis and lower extremity cellulitis failed outpatient treatment with oral antibiotics. 08/04 Abnormal Lactic Acid: 2.3 Treatment: 08/04 0.9ns 1L bolus followed by 75cchr Clinical significance of diagnostic testing and treatment CANNOT be assumed or coded without physician documentation of significance if any. Please clarify what abnormal laboratory signifies: Lactic Acidosis Abnormal Lab Value Unable to determine Other, please specify (Last Revision: February 2017) lactic acidosis secondary to sepsis MTDD
[2019-08-06] MEDS: INSULN ASP PRT/INSULIN ASPART 100 UNIT/ML 10 ML VIAL SQ SCH ×2 (09:58→20:31)
[2019-08-06 11:47] LABS: Glucose,Whole Blood 84 mg/dL (75-99)
--- NOTE | 2019-08-06 12:52 | P.PN ---
Subjective Progress Note Date: 08/06/19 Rika Quan is a 58-year-old female who presented to [facility] emergency room brought in by EMS due to severe weakness. Patient stated that she has not been able to stand up and walk at her residence due to severe weakness, at baseline she moves slowly with the use of a wheeled walker however she has not been able to stand up for at least 2 days, EMS personnel reports very poor condition at her residence. Patient was evaluated in the emergency room she was febrile with a temperature of 102.6 she has evidence of lower extremity cellulitis with large open ulcer she was started on IV antibiotics and was admitted to medical floor. Infectious disease consultation was requested. Patient has been receiving treatment for her lower extremity cellulitis with oral antibiotics and dressing change done by visiting nurses however her condition continued to worsen. Patient has a known history of insulin-dependent diabetes mellitus, history of hypertension, history of COPD, history of hyperlipidemia, and history of chronic pain syndrome maintained on narcotics at home. On 08/06/2019 patient was seen and examined on the medical floor she is alert and oriented 3 in no apparent distress, she is still having spikes of low- grade temperature this morning at 99.9 last evening at 100.4 she is having tachycardia was heart rate of 102 labs are improving was white blood count down to 9.7 clinically patient is complaining of back pain and lower extremity pain otherwise she denies any complaints there is no chest pain or shortness of breath no cough no nausea or vomiting no abdominal pain no diarrhea no burning was urination no frequency or urgency no hematuria Objective - Vital Signs Vital signs: Vital Signs Temp 99.9 F H 08/06/19 03:22 Pulse 101 H 08/06/19 00:58 Resp 18 08/06/19 00:58 BP 159/88 08/06/19 00:58 Pulse Ox 94 L 08/06/19 00:58 Intake & Output 08/05/19 08/06/19 08/06/19 18:59 06:59 18:59 Intake Total 200 262.5 Output Total 2900 3925 850 Balance -2700 -3662.5 -850 Weight 113.398 kg Intake: Intake, IV Titration 200 262.5 Amount Cefepime 2 gm In Sodium 200 Chloride 0.9% 100 ml @ 200 mls/hr IVPB Q12HR [facility] Rx#:[id number] Sodium Chloride 0.9% 1, 262.5 000 ml @ 75 mls/hr IV . [id number] [facility] Rx#:[id number] Output: Urine 2900 3925 850 Other: Voiding Method Indwelling Catheter Indwelling Catheter Indwelling Catheter - Exam In general patient is alert, responsive in no apparent distress HEENT head normocephalic and atraumatic Neck is supple no JVD no goiter no lymphadenopathy Chest exam reveals a scattered crackles bilaterally no wheezing Cardiac exam reveals regular heart sounds no gallops no murmurs Abdomen is soft nontender no organomegaly with normal bowel sounds Extremity exam reveals bilateral pretibial erythema and edema there is large open ulcer on the left foot Neurological examination reveals no gross focal deficit - Labs CBC & Chem 7: 08/06/19 06:52 08/06/19 06:52 Labs: Abnormal Lab Results - Last 24 Hours (Table) 08/05/19 08/05/19 08/05/19 Range/Units 12:25 12:25 12:25 ESR 55 H (0-20) mm/hr Glucose 180 H (74-99) mg/dL POC Glucose (mg/dL) (75-99) mg/dL Plasma Lactic Acid Daren 2.3 H* (0.7-2.0) mmol/L Alkaline Phosphatase 128 H (38-126) U/L C-Reactive Protein 87.0 H (<10.0) mg/L Urine Protein (Negative) Urine Blood (Negative) Urine RBC (0-5) /hpf Urine Mucus (None) /hpf 08/05/19 08/05/19 08/05/19 Range/Units 12:37 16:49 20:10 ESR (0-20) mm/hr Glucose (74-99) mg/dL POC Glucose (mg/dL) 165 H 242 H (75-99) mg/dL Plasma Lactic Acid Daren (0.7-2.0) mmol/L Alkaline Phosphatase (38-126) U/L C-Reactive Protein (<10.0) mg/L Urine Protein Trace H (Negative) Urine Blood Moderate H (Negative) Urine RBC 12 H (0-5) /hpf Urine Mucus Rare H (None) /hpf 08/06/19 08/06/19 Range/Units 06:52 06:56 ESR (0-20) mm/hr Glucose 117 H (74-99) mg/dL POC Glucose (mg/dL) 120 H (75-99) mg/dL Plasma Lactic Acid Daren (0.7-2.0) mmol/L Alkaline Phosphatase (38-126) U/L C-Reactive Protein (<10.0) mg/L Urine Protein (Negative) Urine Blood (Negative) Urine RBC (0-5) /hpf Urine Mucus (None) /hpf Assessment and Plan Plan: #1 lower extremity cellulitis failed outpatient treatment with oral antibiotics, started on IV antibiotic in emergency room, infectious disease consultation requested #2 sepsis as evidenced by fever, leukocytosis, and elevated lactic acid, will check blood cultures #3 hypertension was hypertensive emergency, will resume home medications and add hydralazine IV when necessary #4 underlying history of insulin-dependent diabetes mellitus home medication resumed #5 underlying history of hyperlipidemia #6 severe weakness likely related to sepsis patient most likely will need rehab prior to going home #7 poor living conditions further EMS personnel social sciences department chair consult will be initiated Plan as above Prognosis guarded will follow closely
[2019-08-06] MEDS ORDERED: ALBUTEROL INHALER 60 PUFF/8 GM INHALER (BULK) INHALATION PRN (14:52)
[2019-08-06] MEDS: ALBUTEROL INHALER 60 PUFF/8 GM INHALER (BULK) INHALATION SCH ×2 (16:28→19:59)
[2019-08-06 16:39] LABS: Glucose,Whole Blood 112 mg/dL (75-99)
[2019-08-06 16:58] LABS: Hemoglobin A1C 7.4 % (4.0-6.0)
--- NOTE | 2019-08-06 17:18 | PN ---
PROGRESS NOTE DATE OF SERVICE: 08/06/2019 REASON FOR FOLLOWUP: Bilateral lower extremity cellulitis, right greater than left. INTERVAL HISTORY: The patient's overall fever pattern has improved. The patient is breathing comfortably. The patient denies having any chest pain or cough. No nausea, no vomiting, no abdominal pain or any diarrhea. PHYSICAL EXAMINATION: Blood pressure 177/87, pulse of 94, temperature 99.4. She is 94% on room air. General description is a middle-aged female lying in bed in no distress. RESPIRATORY SYSTEM: Unlabored breathing. Clear to auscultation anteriorly. HEART: S1, S2. Regular rate and rhythm. ABDOMEN: Soft. No tenderness. Right leg swelling and redness slightly decreased. LABS: Hemoglobin 11.9, white count 9.7, BUN of 13, creatinine 0.94. DIAGNOSTIC IMPRESSION AND PLAN: Patient with fever. Source is likely bilateral lower extremity cellulitis, especially in the right leg, in this patient who has diffuse swelling and redness with evidence of lymphadenopathy on ultrasound. Keep the patient on vancomycin and cefepime while waiting for the blood culture to finalize and monitor clinical course closely. MMODL / IJN: [id number] /
[2019-08-06] MEDS: traMADol 50 MG TAB PO PRN ×2 (17:23→22:33)
[2019-08-06 20:04] LABS: Glucose,Whole Blood 154 mg/dL (75-99)
[2019-08-06] MEDS: LATANOPROST 0.005% OPHTH DROPS 2.5 ML BTL BOTH EYES SCH (20:55)
[2019-08-07] MEDS: oxyCODONE-APAP 10-325MG 1 EACH TAB PO SCH ×4 (02:08→20:43)
[2019-08-07] MEDS: SODIUM CHLORIDE 0.9% 1,000 ML IV SCH (04:53)
[2019-08-07] MEDS: traMADol 50 MG TAB PO PRN ×3 (05:41→19:44)
[2019-08-07 06:46] LABS: Glucose,Whole Blood 118 mg/dL (75-99)
[2019-08-07] MEDS: INSULIN ASPART (NovoLOG) 100 UNIT/ML VIAL SQ SCH ×4 (07:50→21:00)
[2019-08-07] MEDS: POTASSIUM CHLORIDE ER 20 MEQ TAB.ER PO SCH (07:52)
[2019-08-07] MEDS: PREGABALIN 75 MG CAP PO SCH ×2 (07:52→20:43)
[2019-08-07] MEDS: CEFEPIME 2 GM in SODIUM CHLORIDE 0.9% 100 ML IVPB SCH ×2 (07:52→20:44)
[2019-08-07] MEDS: CYANOCOBALAMIN 500 MCG TAB PO SCH (07:53)
[2019-08-07] MEDS: CLOPIDOGREL 75 MG TAB PO SCH (07:53)
[2019-08-07] MEDS: metFORMIN 500 MG TAB PO SCH ×2 (07:53→20:44)
[2019-08-07] MEDS: PRAVASTATIN SODIUM 20 MG TAB PO SCH (07:53)
[2019-08-07] MEDS: FUROSEMIDE 40 MG TAB PO SCH (07:53)
[2019-08-07] MEDS: amLODIPine 10 MG TAB PO SCH (07:54)
[2019-08-07 08:16] LABS: Albumin 3.7 g/dL (3.5-5.0); Potassium 3.4 mmol/L (3.5-5.1); Total Bilirubin 0.5 mg/dL (0.2-1.3); Total Protein 7.6 g/dL (6.3-8.2)
[2019-08-07] MEDS: TIOTROPIUM 18 MCG/PUFF INHALER INHALATION SCH (08:24)
[2019-08-07] MEDS: ALBUTEROL INHALER 60 PUFF/8 GM INHALER (BULK) INHALATION SCH ×4 (08:24→19:05)
[2019-08-07 08:28] LABS: Basophils % (A) 0 %; Eosinophils # (A) 0.1 k/uL (0-0.7); Eosinophils % (A) 1 %; HCT 36.1 % (34.0-46.0); HGB 11.5 gm/dL (11.4-16.0); Lymphocytes # (A) 1.4 k/uL (1.0-4.8); Lymphocytes % (A) 19 %; MCH 25.8 pg (25.0-35.0); MCHC 31.9 g/dL (31.0-37.0); Monocytes # (A) 0.4 k/uL (0-1.0); Monocytes % (A) 6 %; Neutrophils # (A) 5.4 k/uL (1.3-7.7); Neutrophils % (A) 71 %; Platelet Count 250 k/uL (150-450); RBC 4.46 m/uL (3.80-5.40); RDW 15.2 % (11.5-15.5); WBC 7.6 k/uL (3.8-10.6)
[2019-08-07] MEDS: INSULN ASP PRT/INSULIN ASPART 100 UNIT/ML 10 ML VIAL SQ SCH ×2 (08:29→20:59)
[2019-08-07] MEDS: VICTOZA (Liraglutide) 0.6 MG SQ SCH (09:21)
[2019-08-07] MEDS: SILVER sulfADIAZINE Cream 400 GM 1 APPLIC APPLIC TOPICAL SCH (10:30)
[2019-08-07 11:25] LABS: Glucose,Whole Blood 106 mg/dL (75-99)
[2019-08-07] MEDS ORDERED: Potassium Replacement Protocol 1 EACH MISC MISCELLANE PRN (13:16)
--- NOTE | 2019-08-07 13:28 | P.PN ---
Subjective Progress Note Date: 08/07/19 Rika Quan is a 58-year-old female who presented to [facility] emergency room brought in by EMS due to severe weakness. Patient stated that she has not been able to stand up and walk at her residence due to severe weakness, at baseline she moves slowly with the use of a wheeled walker however she has not been able to stand up for at least 2 days, EMS personnel reports very poor condition at her residence. Patient was evaluated in the emergency room she was febrile with a temperature of 102.6 she has evidence of lower extremity cellulitis with large open ulcer she was started on IV antibiotics and was admitted to medical floor. Infectious disease consultation was requested. Patient has been receiving treatment for her lower extremity cellulitis with oral antibiotics and dressing change done by visiting nurses however her condition continued to worsen. Patient has a known history of insulin-dependent diabetes mellitus, history of hypertension, history of COPD, history of hyperlipidemia, and history of chronic pain syndrome maintained on narcotics at home. On 08/06/2019 patient was seen and examined on the medical floor she is alert and oriented 3 in no apparent distress, she is still having spikes of low- grade temperature this morning at 99.9 last evening at 100.4 she is having tachycardia was heart rate of 102 labs are improving was white blood count down to 9.7 clinically patient is complaining of back pain and lower extremity pain otherwise she denies any complaints there is no chest pain or shortness of breath no cough no nausea or vomiting no abdominal pain no diarrhea no burning was urination no frequency or urgency no hematuria. On 08/07/2019 patient was seen and examined on the medical floor she is alert and oriented 3 in no apparent distress she is complaining of generalized weakness, otherwise no complaints at this time T-max was 99.2 blood pressure is elevated, and at this time I am going to add hydralazine 25 mg 3 times daily Will consult physical therapy and occupational therapy will consult social work associate as her home condition were very poor there EMS personnel that brought her to emergency room. Objective - Vital Signs Vital signs: Vital Signs Temp 98.8 F 08/07/19 11:17 Pulse 83 08/07/19 11:17 Resp 18 08/07/19 11:17 BP 154/85 08/07/19 11:17 Pulse Ox 93 L 08/07/19 11:17 Intake & Output 08/06/19 08/07/19 08/07/19 18:59 06:59 18:59 Intake Total 200 Output Total 850 350 350 Balance -850 -150 -350 Intake: Intake, IV Titration 200 Amount Cefepime 2 gm In Sodium 200 Chloride 0.9% 100 ml @ 200 mls/hr IVPB Q12HR [facility] Rx#:[id number] Output: Urine 850 350 350 Other: Voiding Method Indwelling Catheter Indwelling Catheter Indwelling Catheter - Exam In general patient is alert, responsive in no apparent distress HEENT head normocephalic and atraumatic Neck is supple no JVD no goiter no lymphadenopathy Chest exam reveals a scattered crackles bilaterally no wheezing Cardiac exam reveals regular heart sounds no gallops no murmurs Abdomen is soft nontender no organomegaly with normal bowel sounds Extremity exam reveals bilateral pretibial erythema and edema there is large open ulcer on the left foot Neurological examination reveals no gross focal deficit - Labs CBC & Chem 7: 08/07/19 07:32 08/07/19 07:32 Labs: Abnormal Lab Results - Last 24 Hours (Table) 08/06/19 08/06/19 08/06/19 Range/Units 06:52 16:35 20:01 Potassium (3.5-5.1) mmol/L Carbon Dioxide (22-30) mmol/L Glucose (74-99) mg/dL POC Glucose (mg/dL) 112 H 154 H (75-99) mg/dL Hemoglobin A1c 7.4 H (4.0-6.0) % 08/07/19 08/07/19 08/07/19 Range/Units 06:43 07:32 11:24 Potassium 3.4 L (3.5-5.1) mmol/L Carbon Dioxide 32 H (22-30) mmol/L Glucose 147 H (74-99) mg/dL POC Glucose (mg/dL) 118 H 106 H (75-99) mg/dL Hemoglobin A1c (4.0-6.0) % Microbiology - Last 24 Hours (Table) 08/05/19 12:25 Blood Culture - Preliminary Blood No Growth after 24 hours Assessment and Plan Plan: #1 lower extremity cellulitis failed outpatient treatment with oral antibiotics, started on IV antibiotic in emergency room, infectious disease consultation requested #2 sepsis as evidenced by fever, leukocytosis, and elevated lactic acid, will check blood cultures #3 hypertension was hypertensive emergency, will resume home medications and add hydralazine IV when necessary #4 underlying history of insulin-dependent diabetes mellitus home medication resumed #5 underlying history of hyperlipidemia #6 severe weakness likely related to sepsis patient most likely will need rehab prior to going home #7 poor living conditions further EMS personnel social work associate consult will be initiated Plan as above Prognosis guarded will follow closely
[2019-08-07] MEDS: hydrALAZINE HCL 25 MG TAB PO SCH ×2 (15:53→20:47)
[2019-08-07] MEDS: VANCOMYCIN 1,750 MG in SODIUM CHLORIDE 0.9% 500 ML 500 ML IVPB SCH (15:54)
[2019-08-07 16:28] LABS: Glucose,Whole Blood 123 mg/dL (75-99)
[2019-08-07 20:43] LABS: Glucose,Whole Blood 155 mg/dL (75-99)
[2019-08-07] MEDS: LATANOPROST 0.005% OPHTH DROPS 2.5 ML BTL BOTH EYES SCH (20:46)
[2019-08-08] MEDS: oxyCODONE-APAP 10-325MG 1 EACH TAB PO SCH ×4 (02:18→20:46)
[2019-08-08] MEDS: SODIUM CHLORIDE 0.9% 1,000 ML IV SCH ×3 (06:03→23:28)
[2019-08-08] MEDS: VANCOMYCIN 1,750 MG in SODIUM CHLORIDE 0.9% 500 ML 500 ML IVPB SCH ×2 (06:03→23:48)
[2019-08-08 06:43] LABS: Glucose,Whole Blood 122 mg/dL (75-99)
[2019-08-08] MEDS: INSULIN ASPART (NovoLOG) 100 UNIT/ML VIAL SQ SCH ×4 (06:45→23:15)
[2019-08-08] MEDS: VICTOZA (Liraglutide) 0.6 MG SQ SCH (06:46)
--- NOTE | 2019-08-08 06:55 | PN ---
PROGRESS NOTE DATE OF SERVICE: 08/07/2019. REASON FOR FOLLOWUP: 1. Left foot plantar wound. 2. Bilateral lower extremity cellulitis, right greater than left. INTERVAL HISTORY: The patient is currently afebrile. The patient is breathing comfortably. Patient denies having any chest pain, shortness of breath or cough. No abdominal pain. Overall redness of the leg has improved and no pain to the leg. PHYSICAL EXAMINATION: Blood pressure 147/84 with a pulse of 85, temperature 98.5. She is 94% on room air. General description: The patient is a middle-aged female lying in bed in no distress. Respiratory system: Unlabored breathing. Clear to auscultation anteriorly. Heart S1, S2. Regular rate and rhythm. Abdomen soft, no tenderness. Leg swelling persists. Redness has improved. LABS: Hemoglobin is 11.5, white count 7.6, BUN of 15, creatinine 0.94. Blood culture has been negative. DIAGNOSTIC IMPRESSION AND PLAN: 1. Patient with fever, source likely bilateral lower extremity cellulitis, right greater than left. This patient is currently covered with cefepime and vancomycin, to continue. 2. Left foot plantar wound. Local wound care to continue with Aquacel Silver dressing. 3. Continue supportive care. MMODL / IJN: [id number] /
[2019-08-08] MEDS: CEFEPIME 2 GM in SODIUM CHLORIDE 0.9% 100 ML IVPB SCH ×2 (07:06→20:45)
[2019-08-08] MEDS: PRAVASTATIN SODIUM 20 MG TAB PO SCH (07:06)
[2019-08-08] MEDS: amLODIPine 10 MG TAB PO SCH (07:07)
[2019-08-08] MEDS: CYANOCOBALAMIN 500 MCG TAB PO SCH (07:07)
[2019-08-08] MEDS: CLOPIDOGREL 75 MG TAB PO SCH (07:07)
[2019-08-08] MEDS: POTASSIUM CHLORIDE ER 20 MEQ TAB.ER PO SCH (07:07)
[2019-08-08] MEDS: PREGABALIN 75 MG CAP PO SCH ×2 (07:07→20:46)
[2019-08-08] MEDS: FUROSEMIDE 40 MG TAB PO SCH (07:07)
[2019-08-08] MEDS: hydrALAZINE HCL 25 MG TAB PO SCH ×3 (07:07→20:46)
[2019-08-08] MEDS: metFORMIN 500 MG TAB PO SCH ×2 (07:08→20:46)
[2019-08-08 07:42] LABS: Basophils % (A) 0 %; Eosinophils # (A) 0.1 k/uL (0-0.7); Eosinophils % (A) 2 %; HCT 36.3 % (34.0-46.0); HGB 11.7 gm/dL (11.4-16.0); Lymphocytes # (A) 1.9 k/uL (1.0-4.8); Lymphocytes % (A) 27 %; MCH 26.1 pg (25.0-35.0); MCHC 32.3 g/dL (31.0-37.0); MCV 80.9 fL (80.0-100.0); Mean Platelet Volume 6.8; Monocytes # (A) 0.5 k/uL (0-1.0); Monocytes % (A) 7 %; Neutrophils # (A) 4.2 k/uL (1.3-7.7); Neutrophils % (A) 60 %; Platelet Count 273 k/uL (150-450); RBC 4.49 m/uL (3.80-5.40); RDW 15.1 % (11.5-15.5)
[2019-08-08 07:46] LABS: Albumin 3.7 g/dL (3.5-5.0); Calcium 8.8 mg/dL (8.4-10.2); Potassium 3.6 mmol/L (3.5-5.1); Total Bilirubin 0.5 mg/dL (0.2-1.3); Total Protein 7.6 g/dL (6.3-8.2)
[2019-08-08] MEDS: SILVER sulfADIAZINE Cream 400 GM 1 APPLIC APPLIC TOPICAL SCH (08:34)
[2019-08-08] MEDS: INSULN ASP PRT/INSULIN ASPART 100 UNIT/ML 10 ML VIAL SQ SCH ×2 (08:34→20:51)
[2019-08-08] MEDS: ALBUTEROL INHALER 60 PUFF/8 GM INHALER (BULK) INHALATION SCH ×4 (08:59→21:53)
[2019-08-08] MEDS: TIOTROPIUM 18 MCG/PUFF INHALER INHALATION SCH (08:59)
[2019-08-08 11:23] LABS: Glucose,Whole Blood 69 mg/dL (75-99)
[2019-08-08 11:46] LABS: Glucose,Whole Blood 73 mg/dL (75-99)
[2019-08-08 16:28] LABS: Glucose,Whole Blood 112 mg/dL (75-99)
--- NOTE | 2019-08-08 16:51 | P.PN ---
Subjective Progress Note Date: 08/08/19 Rika Quan is a 58-year-old female who presented to [facility] emergency room brought in by EMS due to severe weakness. Patient stated that she has not been able to stand up and walk at her residence due to severe weakness, at baseline she moves slowly with the use of a wheeled walker however she has not been able to stand up for at least 2 days, EMS personnel reports very poor condition at her residence. Patient was evaluated in the emergency room she was febrile with a temperature of 102.6 she has evidence of lower extremity cellulitis with large open ulcer she was started on IV antibiotics and was admitted to medical floor. Infectious disease consultation was requested. Patient has been receiving treatment for her lower extremity cellulitis with oral antibiotics and dressing change done by visiting nurses however her condition continued to worsen. Patient has a known history of insulin-dependent diabetes mellitus, history of hypertension, history of COPD, history of hyperlipidemia, and history of chronic pain syndrome maintained on narcotics at home. On 08/06/2019 patient was seen and examined on the medical floor she is alert and oriented 3 in no apparent distress, she is still having spikes of low- grade temperature this morning at 99.9 last evening at 100.4 she is having tachycardia was heart rate of 102 labs are improving was white blood count down to 9.7 clinically patient is complaining of back pain and lower extremity pain otherwise she denies any complaints there is no chest pain or shortness of breath no cough no nausea or vomiting no abdominal pain no diarrhea no burning was urination no frequency or urgency no hematuria. On 08/07/2019 patient was seen and examined on the medical floor she is alert and oriented 3 in no apparent distress she is complaining of generalized weakness, otherwise no complaints at this time T-max was 99.2 blood pressure is elevated, and at this time I am going to add hydralazine 25 mg 3 times daily Will consult physical therapy and occupational therapy will consult clinical social work therapist as her home condition were very poor there EMS personnel that brought her to emergency room. On 08/08/2019 patient was seen and examined on the medical floor she is alert and oriented in no apparent distress she is still complaining of weakness otherwise she denies any complaints, temperature normalized today, cough with 19 testing still pending, patient is maintained on IV antibiotic for lower extremity cellulitis, there is no chest pain or shortness of breath no cough no nausea or vomiting no abdominal pain no diarrhea no burning was urination no frequency or urgency no hematuria Objective - Vital Signs Vital signs: Vital Signs Temp 98.7 F 08/08/19 14:49 Pulse 80 08/08/19 14:49 Resp 16 08/08/19 14:49 BP 148/79 08/08/19 14:49 Pulse Ox 96 08/08/19 14:49 Intake & Output 08/07/19 08/08/19 08/08/19 18:59 06:59 18:59 Intake Total 600 350 Output Total 950 1200 2400 Balance -350 -850 -2400 Intake: Intake, IV Titration 600 Amount Cefepime 2 gm In Sodium 100 Chloride 0.9% 100 ml @ 200 mls/hr IVPB Q12HR HERMANN Rx#:[id number] Sodium Chloride 0.9% 1, 500 000 ml @ 75 mls/hr IV . [id number] HERMANN Rx#:[id number] Oral 350 Output: Urine 950 1200 2400 Other: Voiding Method Indwelling Catheter Indwelling Catheter Indwelling Catheter # Bowel Movements 1 1 - Exam In general patient is alert, responsive in no apparent distress HEENT head normocephalic and atraumatic Neck is supple no JVD no goiter no lymphadenopathy Chest exam reveals a scattered crackles bilaterally no wheezing Cardiac exam reveals regular heart sounds no gallops no murmurs Abdomen is soft nontender no organomegaly with normal bowel sounds Extremity exam reveals bilateral pretibial erythema and edema there is large open ulcer on the left foot Neurological examination reveals no gross focal deficit - Labs CBC & Chem 7: 08/08/19 06:39 08/08/19 06:39 Labs: Abnormal Lab Results - Last 24 Hours (Table) 08/07/19 08/08/19 08/08/19 Range/Units 20:41 06:39 06:41 BUN 18 H (7-17) mg/dL Glucose 100 H (74-99) mg/dL POC Glucose (mg/dL) 155 H 122 H (75-99) mg/dL 08/08/19 08/08/19 08/08/19 Range/Units 11:22 11:39 16:26 BUN (7-17) mg/dL Glucose (74-99) mg/dL POC Glucose (mg/dL) 69 L 73 L 112 H (75-99) mg/dL Microbiology - Last 24 Hours (Table) 08/05/19 12:25 Blood Culture - Preliminary Blood No Growth after 72 hours Assessment and Plan Plan: #1 lower extremity cellulitis failed outpatient treatment with oral antibiotics, started on IV antibiotic in emergency room, infectious disease consultation requested #2 sepsis as evidenced by fever, leukocytosis, and elevated lactic acid, will check blood cultures #3 hypertension was hypertensive emergency, will resume home medications and add hydralazine IV when necessary #4 underlying history of insulin-dependent diabetes mellitus home medication resumed #5 underlying history of hyperlipidemia #6 severe weakness likely related to sepsis patient most likely will need rehab prior to going home #7 poor living conditions further EMS personnel clinical social work therapist consult will be initiated Plan as above Prognosis guarded will follow closely
[2019-08-08] MEDS: traMADol 50 MG TAB PO PRN (19:08)
[2019-08-08 20:32] LABS: Glucose,Whole Blood 124 mg/dL (75-99)
[2019-08-08] MEDS: LATANOPROST 0.005% OPHTH DROPS 2.5 ML BTL BOTH EYES SCH (20:45)
[2019-08-08] MEDS ORDERED: VANCOMYCIN TROUGH DUE 1 EACH MISC MISCELLANE ONE (23:00)
[2019-08-09] MEDS: oxyCODONE-APAP 10-325MG 1 EACH TAB PO SCH ×3 (02:16→13:59)
--- NOTE | 2019-08-09 06:02 | PN ---
PROGRESS NOTE DATE OF SERVICE: 08/08/2019 REASON FOR FOLLOWUP: 1. Bilateral lower extremity cellulitis. 2. Left foot wound. INTERVAL HISTORY: The patient is currently afebrile. The patient is feeling better. Breathing comfortably. The patient denies having any chest pain or cough. No nausea, no vomiting. No abdominal pain, no diarrhea. PHYSICAL EXAMINATION: Blood pressure 118/72 with a pulse of 79, temperature 98.8. She is 94% on room air. General description is a middle-aged female lying in bed in no distress. RESPIRATORY SYSTEM: Unlabored breathing, clear to auscultation anteriorly. HEART: S1, S2. Regular rate and rhythm. ABDOMEN: Soft. No tenderness. LABS: Hemoglobin is 11.7, white count 7.0. BUN of 18, creatinine 0.89. Blood culture has been negative. DIAGNOSTIC IMPRESSION AND PLAN: 1. Patient with fever, source likely bilateral lower extremity cellulitis, right greater than left. Clinically responded to cefepime and vancomycin, finish therapy with oral antibiotic. 2. Left foot wound. Local wound care with Aquacel Silver dressing and follow up in the [facility]. Continue supportive care. MMODL / IJN: [id number] /
[2019-08-09 06:39] LABS: Glucose,Whole Blood 134 mg/dL (75-99)
[2019-08-09 06:40] LABS: ALT 13 U/L (4-34); AST 19 U/L (14-36); African American GFR (CKD) >90 (>60 ml/min/1.73 sqM); Albumin 3.7 g/dL (3.5-5.0); Alkaline Phosphatase 93 U/L (38-126); Anion Gap 7 mmol/L; Blood Urea Nitrogen 18 mg/dL (7-17); Calcium 9.2 mg/dL (8.4-10.2); Carbon Dioxide 31 mmol/L (22-30); Chloride 101 mmol/L (98-107); Glucose 120 mg/dL (74-99); Non-African American GFR(CKD) 79 (>60 ml/min/1.73 sqM); Potassium 3.7 mmol/L (3.5-5.1); Sodium 139 mmol/L (137-145); Total Bilirubin 0.4 mg/dL (0.2-1.3); Total Protein 7.3 g/dL (6.3-8.2)
[2019-08-09 07:05] LABS: HCT 35.6 % (34.0-46.0); HGB 11.3 gm/dL (11.4-16.0); MCH 25.8 pg (25.0-35.0); MCHC 31.7 g/dL (31.0-37.0); MCV 81.3 fL (80.0-100.0); Mean Platelet Volume 7.1; Platelet Count 307 k/uL (150-450); RBC 4.38 m/uL (3.80-5.40); RDW 14.8 % (11.5-15.5); WBC 6.1 k/uL (3.8-10.6)
[2019-08-09] MEDS: TIOTROPIUM 18 MCG/PUFF INHALER INHALATION SCH (07:25)
[2019-08-09] MEDS: ALBUTEROL INHALER 60 PUFF/8 GM INHALER (BULK) INHALATION SCH ×3 (07:25→16:35)
[2019-08-09] MEDS: POTASSIUM CHLORIDE ER 20 MEQ TAB.ER PO SCH (07:44)
[2019-08-09] MEDS: FUROSEMIDE 40 MG TAB PO SCH (07:44)
[2019-08-09] MEDS: amLODIPine 10 MG TAB PO SCH (07:44)
[2019-08-09] MEDS: PREGABALIN 75 MG CAP PO SCH (07:45)
[2019-08-09] MEDS: CYANOCOBALAMIN 500 MCG TAB PO SCH (07:45)
[2019-08-09] MEDS: PRAVASTATIN SODIUM 20 MG TAB PO SCH (07:46)
[2019-08-09] MEDS: CLOPIDOGREL 75 MG TAB PO SCH (07:49)
[2019-08-09] MEDS: hydrALAZINE HCL 25 MG TAB PO SCH ×2 (07:51→15:25)
[2019-08-09] MEDS: metFORMIN 500 MG TAB PO SCH (07:51)
[2019-08-09] MEDS: CEFEPIME 2 GM in SODIUM CHLORIDE 0.9% 100 ML IVPB SCH (07:52)
[2019-08-09] MEDS: INSULN ASP PRT/INSULIN ASPART 100 UNIT/ML 10 ML VIAL SQ SCH (07:53)
[2019-08-09] MEDS: SILVER sulfADIAZINE Cream 400 GM 1 APPLIC APPLIC TOPICAL SCH (08:00)
[2019-08-09] MEDS: INSULIN ASPART (NovoLOG) 100 UNIT/ML VIAL SQ SCH ×2 (08:04→12:14)
[2019-08-09] MEDS: VICTOZA (Liraglutide) 0.6 MG SQ SCH (08:04)
[2019-08-09 08:27] LABS: Anisocytosis (M) Present; Eosinophils # (M) 0.18 k/uL (0-0.7); Lymphocytes # (M) 2.56 k/uL (1.0-4.8); Monocytes # (M) 0.31 k/uL (0-1.0); Neutrophils # (M) 3.05 k/uL (1.3-7.7); Neutrophils % (M) 50 %; Nucleated Red Blood Cells 0 /100 WBC (0-0); Poikilocytosis (M) Present; Polychromasia Present; Total Cells Counted 100
[2019-08-09 11:40] LABS: Glucose,Whole Blood 124 mg/dL (75-99)
[2019-08-09] MEDS: traMADol 50 MG TAB PO PRN (13:07)
--- NOTE | 2019-08-09 13:52 | PN ---
PROGRESS NOTE DATE OF SERVICE: 08/09/2019 REASON FOR FOLLOWUP: 1. Bilateral lower extremity cellulitis, right greater than left. 2. Left foot wound. INTERVAL HISTORY: The patient is currently afebrile. The patient is feeling better. Breathing comfortably. Denies having any chest pain. No cough. No nausea. No vomiting. No abdominal pain or pain to the leg. PHYSICAL EXAMINATION: Blood pressure 140/80 with a pulse of 84, temperature 98.7. She is on room air. General description is a middle-aged female up in the chair in no distress. RESPIRATORY SYSTEM: Unlabored breathing. Clear to auscultation anteriorly. HEART: S1, S2. Regular rate and rhythm. ABDOMEN: Soft. No tenderness. Legs reveal swelling but redness has improved. LABS: Hemoglobin is 11.4, white count 6.1. BUN of 18, creatinine 0.82. DIAGNOSTIC IMPRESSION AND PLAN: Patient with fever, source is likely cellulitis of the lower extremities, right greater than left, likely streptococcal disease. The patient showed clinical improvement on cefepime and vancomycin. Antibiotic will be switched to cefazolin and if patient continues to improve to continue therapy with oral Keflex. Continue supportive care. MMODL / IJN: [id number] /
[2019-08-09 14:38] VITALS: BP 151/80; PULSE 89; RESP 18; TEMP 98.6
[2019-08-09 16:36] LABS: Glucose,Whole Blood 92 mg/dL (75-99)
--- NOTE | 2019-08-09 16:43 | P.DS ---
Providers Date of admission: 08/05/19 13:20 Expected date of discharge: 08/09/19 Attending physician: Mariely Bradford Consults: 08/05/19 13:24 Consult Physician Stat Consulting Provider: Ishan Majano Consult Reason/Comments: Left lower leg cellulitis, febrile Do you want consulting provider notified?: Yes 08/05/19 14:26 Consult Physician Routine Consulting Provider: Ishan Majano Consult Reason/Comments: cellulitis Do you want consulting provider notified?: Yes Primary care physician: Mariely Bradford [facility] Course: Diagnoses on discharge: #1 lower extremity cellulitis failed outpatient treatment with oral antibiotics, started on IV antibiotic in emergency room, infectious disease consultation requested #2 sepsis as evidenced by fever, leukocytosis, and elevated lactic acid, will check blood cultures #3 hypertension was hypertensive emergency, will resume home medications and add hydralazine IV when necessary #4 underlying history of insulin-dependent diabetes mellitus home medication resumed #5 underlying history of hyperlipidemia #6 severe weakness likely related to sepsis patient most likely will need rehab prior to going home #7 poor living conditions further EMS personnel social studies department chair consult will be initiated Hospital course: Rika Quan is a 58-year-old female who presented to [facility] emergency room brought in by EMS due to severe weakness. Patient stated that she has not been able to stand up and walk at her residence due to severe weakness, at baseline she moves slowly with the use of a wheeled walker however she has not been able to stand up for at least 2 days, EMS personnel reports very poor condition at her residence. Patient was evaluated in the emergency room she was febrile with a temperature of 102.6 she has evidence of lower extremity cellulitis with large open ulcer she was started on IV antibiotics and was admitted to medical floor. Infectious disease consultation was requested. Patient has been receiving treatment for her lower extremity cellulitis with oral antibiotics and dressing change done by visiting nurses however her condition continued to worsen. Patient has a known history of insulin-dependent diabetes mellitus, history of hypertension, history of COPD, history of hyperlipidemia, and history of chronic pain syndrome maintained on narcotics at home. On 08/06/2019 patient was seen and examined on the medical floor she is alert and oriented 3 in no apparent distress, she is still having spikes of low- grade temperature this morning at 99.9 last evening at 100.4 she is having tachycardia was heart rate of 102 labs are improving was white blood count down to 9.7 clinically patient is complaining of back pain and lower extremity pain otherwise she denies any complaints there is no chest pain or shortness of breath no cough no nausea or vomiting no abdominal pain no diarrhea no burning was urination no frequency or urgency no hematuria. On 08/07/2019 patient was seen and examined on the medical floor she is alert and oriented 3 in no apparent distress she is complaining of generalized wea kness, otherwise no complaints at this time T-max was 99.2 blood pressure is elevated, and at this time I am going to add hydralazine 25 mg 3 times daily Will consult physical therapy and occupational therapy will consult social studies department chair as her home condition were very poor there EMS personnel that brought her to emergency room. On 08/08/2019 patient was seen and examined on the medical floor she is alert and oriented in no apparent distress she is still complaining of weakness otherwise she denies any complaints, temperature normalized today, cough with 19 testing still pending, patient is maintained on IV antibiotic for lower extremity cellulitis, there is no chest pain or shortness of breath no cough no nausea or vomiting no abdominal pain no diarrhea no burning was urination no frequency or urgency no hematuria Patient Condition at Discharge: Stable Plan - Discharge Summary Discharge Rx Participant: Yes New Discharge Prescriptions: New hydrALAZINE HCL [Apresoline] 25 mg PO TID tab Cephalexin [Keflex] 500 mg PO Q8HR 7 Days #21 cap traMADol HCl [Ultram] 50 mg PO Q6H PRN tab PRN Reason: Moderate Pain Continue amLODIPine [Norvasc] 10 mg PO DAILY Latanoprost [Xalatan 0.005%] 1 drop BOTH EYES HS Furosemide [Lasix] 40 mg PO DAILY Clopidogrel [Plavix] 75 mg PO DAILY metFORMIN HCL 1,000 mg PO BID Albuterol Inhaler [Ventolin Hfa Inhaler] 2 puff INHALATION RT-Q6H PRN PRN Reason: Shortness Of Breath Potassium Chloride [Klor-Con 20] 20 meq PO DAILY Insuln Asp Prt/Insulin Aspart [NovoLOG MIX 70-30 VIAL] 35 unit SQ DAILY Insuln Asp Prt/Insulin Aspart [NovoLOG MIX 70-30 VIAL] 25 unit SQ HS Ipratropium-Albuterol Nebulize [Duoneb 0.5 mg-3 mg/3 ml Soln] 3 ml INHALATION RT-QID Pravastatin Sodium [Pravachol] 10 mg PO DAILY SILVER sulfADIAZINE Cream [Silvadene 1% Cream] 1 applic TOPICAL DAILY Fish Oil/Dha/Epa [Fish Oil 1,200 mg Fish Oil] 1 cap PO DAILY Cyanocobalamin (Vitamin B-12) [Vitamin B-12] 1,000 mcg PO DAILY oxyCODONE HCL/ACETAMINOPHEN [Percocet 10-325 mg] 1 tab PO Q6H Pregabalin 150 mg PO BID traMADol HCl [Ultram] 50 mg PO Q6H PRN PRN Reason: Pain Liraglutide [Victoza 2-[place]] 0.6 mg SQ DAILY Discontinued Ibuprofen 400 mg PO TID PRN PRN Reason: pain/fever Discharge Medication List amLODIPine [Norvasc] 10 mg PO DAILY 02/16/16 [History] Clopidogrel [Plavix] 75 mg PO DAILY 03/01/17 [History] Furosemide [Lasix] 40 mg PO DAILY 03/01/17 [History] Latanoprost [Xalatan 0.005%] 1 drop BOTH EYES HS 03/01/17 [History] metFORMIN HCL 1,000 mg PO BID 05/20/17 [History] Albuterol Inhaler [Ventolin Hfa Inhaler] 2 puff INHALATION RT-Q6H PRN 10/30/18 [History] Insuln Asp Prt/Insulin Aspart [NovoLOG MIX 70-30 VIAL] 25 unit SQ HS 10/30/18 [History] Insuln Asp Prt/Insulin Aspart [NovoLOG MIX 70-30 VIAL] 35 unit SQ DAILY 10/30/18 [History] Potassium Chloride [Klor-Con 20] 20 meq PO DAILY 10/30/18 [History] Ipratropium-Albuterol Nebulize [Duoneb 0.5 mg-3 mg/3 ml Soln] 3 ml INHALATION RT-QID 06/28/19 [History] Pravastatin Sodium [Pravachol] 10 mg PO DAILY 06/28/19 [History] SILVER sulfADIAZINE Cream [Silvadene 1% Cream] 1 applic TOPICAL DAILY 06/28/19 [History] Cyanocobalamin (Vitamin B-12) [Vitamin B-12] 1,000 mcg PO DAILY 03/26/20 [History] Fish Oil/Dha/Epa [Fish Oil 1,200 mg Fish Oil] 1 cap PO DAILY 08/05/19 [History] Liraglutide [Victoza 2-[place]] 0.6 mg SQ DAILY 08/05/19 [History] Pregabalin 150 mg PO BID 08/05/19 [History] oxyCODONE HCL/ACETAMINOPHEN [Percocet 10-325 mg] 1 tab PO Q6H 08/05/19 [History] traMADol HCl [Ultram] 50 mg PO Q6H PRN 08/05/19 [History] Cephalexin [Keflex] 500 mg PO Q8HR 7 Days #21 cap 08/09/19 [Rx] hydrALAZINE HCL [Apresoline] 25 mg PO TID tab 08/09/19 [Rx] traMADol HCl [Ultram] 50 mg PO Q6H PRN tab 08/09/19 [Rx] Follow up Appointment(s)/Referral(s): [facility], [NON-STAFF] - Mariely Bradford MD [Primary Care Provider] - 1-2 days Patient Instructions/Handouts: Cellulitis (DC), Cellulitis (GEN) Activity/Diet/Wound Care/Special Instructions: Patient will need a prescription for wound care supplies at discharge Free glucometer given to patient. Patient can get new test strips and lancets from [employer] or [employer].
--- NOTE | 2019-08-19 16:10 | CDI ---
Documentation Clarification Form Date: 08/19/2019 03:42:36 PM From: Ema Dao RN CCDS Admit Date: 08/05/2019 01:20:00 PM Patient Name: Rika Quan Visit Number: [id number] Discharge Date: 08/09/2019 05:30:00 PM ATTENTION: The Clinical Documentation Specialists (CDI) and [employer] Coding Staff appreciate your assistance in clarifying documentation. Please respond to the clarification below the line at the bottom and electronically sign. The CDI & [employer] Coding staff will review the response and follow-up if needed. Please note: Queries are made part of the Legal Health Record. If you have any questions, please contact the author of this message via ITS. Dr. Mariely Bradford Coding guidelines do not allow coding professionals to code based on laboratory results; therefore, your input is requested. The COVID-19 test obtained on 08/04 was reported as Negative on 08/07 cough with 19 testing still pending is documented in your Progress note 08/07 and Discharge summary 08/08 Patient history/risk factors: 58-year-old female with a medical history of MS, HTN, DM, Asthma, COPD and lower extremity cellulitis. Clinical Indicators Patient reported weakness and eating and drinking a little bit less 08/04 CXR: Chronic changes and cardiomegaly without acute pulmonary process. 08/04 VS in ED Triage: 102.6 F, 190/101 101 20 99% ra 08/04 Labs: Wbc 13.2, Neutrophils 11.5, Lymphocytes 0.9, ESR 55, Lactic Acid 2.3, Alk Phos 128, CRP 87.9 Treatment: 08/04 Rocephin Ivpb daily d/c 08/04, Cefepime Ivpb Q 12Hr, 0.9ns 1L bolus followed by 75cchr, Vancomycin Ivpb Q 16H d/c 08/05 In order to capture the severity of condition, please clarify the COVID-19 status: COVID-19 ruled out False negative, treating for COVID-19 based on these clinical indicators: Other, please specify Unable to determine (Last Form Revision: July 2019) COVID-19 ruled out MTDD
== END 2019-08-09 17:30 | disposition home health service (06) | DRG 872 ==
LOC: EC 10:55 → 4SSUR 13:20
PROVIDERS: ADMIT Internal Medicine; ATTEND Internal Medicine
DX: A41.9 Sepsis, unspecified organism (principal); L03.115 Cellulitis of right lower limb; L03.116 Cellulitis of left lower limb; I16.1 Hypertensive emergency; E87.2 Acidosis; G89.4 Chronic pain syndrome; J44.9 Chronic obstructive pulmonary disease, unspecified; Z20.828 Contact with and (suspected) exposure to other viral communicable diseases; K21.9 Gastro-esophageal reflux disease without esophagitis; E78.5 Hyperlipidemia, unspecified; E11.628 Type 2 diabetes mellitus with other skin complications; M19.90 Unspecified osteoarthritis, unspecified site; G35 Multiple sclerosis; Z96.642 Presence of left artificial hip joint; F32.9 Major depressive disorder, single episode, unspecified; I11.9 Hypertensive heart disease without heart failure; E11.621 Type 2 diabetes mellitus with foot ulcer; Z98.891 History of uterine scar from previous surgery; Z79.02 Long term (current) use of antithrombotics/antiplatelets; Z79.891 Long term (current) use of opiate analgesic; Z79.4 Long term (current) use of insulin; Z79.899 Other long term (current) drug therapy; Z88.8 Allergy status to other drugs, medicaments and biological substances; Z91.030 Bee allergy status; Z98.890 Other specified postprocedural states; Z98.51 Tubal ligation status; Z80.9 Family history of malignant neoplasm, unspecified
CPT/HCPCS: 36415; 71046; 80053; 80202; 81001; 83036; 83605; 83735; 85025; 85610; 85652; 85730; 86140; 87040; 87502; 93005; 93970; 94640; 96361; 96365; 99285

== ENCOUNTER 2019-09-06 02:13 | Inpatient (IN) | payer MEDICARE, OTHER ==
[2019-09-06] MEDS ORDERED: SODIUM CHLORIDE 0.9% 500 ML 500 ML IV STA (02:30)
--- NOTE | 2019-09-06 02:47 | ED ---
Weakness HPI - General Chief complaint: Weakness Stated complaint: Weakness Time Seen by Provider: 09/06/19 02:15 Source: patient, EMS Mode of arrival: EMS Limitations: no limitations - History of Present Illness Initial comments: The patient is a 58-year-old morbidly obese female with past medical history of diabetes, hypertension, hyperlipidemia and MS who presents to the emergency department for decreased mobility. The patient reports that over the past 2 days she has become increasingly weak. She has had a poor appetite. She normally ambulates with a walker however states that this evening she was unable to get up from her chair and called EMS for a lift assist. The patient has had similar episodes in the past which have been secondary to cellulitis in her lower extremities. Patient was hospitalized 3 weeks ago for similar complaints. She has had a home care nurse which has been dressing her wounds. She does have an appointment tomorrow with the wound care clinic. She reports to increasing redness and swelling proximal in the left leg. She has not been on any antibiotics in the past one week. Denies any pain in her lower extremities. Denies chest pain or shortness of breath. No cough. Denies unilateral numbness or weakness. No abdominal pain or changes in her bowel or bladder habits. EMS found the patient to have a fever of 100.7 and provided her with 650 mg of Tylenol. Denies headaches. No recent falls. There are no other alleviating, precipitating or modifying factors - Related Data Home Medications Medication Instructions Recorded Confirmed amLODIPine [Norvasc] 10 mg PO DAILY 02/16/16 09/06/19 Clopidogrel [Plavix] 75 mg PO DAILY 03/01/17 09/06/19 Furosemide [Lasix] 40 mg PO DAILY 03/01/17 09/06/19 Latanoprost [Xalatan 0.005%] 1 drop BOTH EYES HS 03/01/17 09/06/19 metFORMIN HCL 1,000 mg PO BID 05/20/17 09/06/19 Albuterol Inhaler (Mhu) [Ventolin 2 puff INHALATION RT-Q6H PRN 10/30/18 09/06/19 Hfa Inhaler (Mhu)] Insuln Asp Prt/Insulin Aspart 25 unit SQ HS 10/30/18 09/06/19 [NovoLOG MIX 70-30 VIAL] Insuln Asp Prt/Insulin Aspart 35 unit SQ DAILY 10/30/18 09/06/19 [NovoLOG MIX 70-30 VIAL] Potassium Chloride [Klor-Con 20] 20 meq PO DAILY 10/30/18 09/06/19 Ipratropium-Albuterol Nebulize 3 ml INHALATION RT-QID 06/28/19 09/06/19 [Duoneb 0.5 mg-3 mg/3 ml Soln] Pravastatin Sodium [Pravachol] 10 mg PO DAILY 06/28/19 09/06/19 SILVER sulfADIAZINE Cream 1 applic TOPICAL DAILY 06/28/19 09/06/19 [Silvadene 1% Cream] Cyanocobalamin (Vitamin B-12) 1,000 mcg PO DAILY 08/05/19 09/06/19 [Vitamin B-12] Fish Oil/Dha/Epa [Fish Oil 1,200 1 cap PO DAILY 08/05/19 09/06/19 mg Fish Oil] Liraglutide [Victoza 2-[place]] 0.6 mg SQ DAILY 08/05/19 09/06/19 Pregabalin 150 mg PO BID 08/05/19 09/06/19 oxyCODONE HCL/ACETAMINOPHEN 1 tab PO Q6H 08/05/19 09/06/19 [Percocet 10-325 mg] Ergocalciferol [Vitamin D2 50,000 unit PO MO 09/06/19 09/06/19 (DRISDOL)] hydrALAZINE HCL [Apresoline] 25 mg PO TID 09/06/19 09/06/19 hydrOXYzine PAMOATE 50 mg PO QID 09/06/19 09/06/19 Previous Rx's Medication Instructions Recorded traMADol HCl [Ultram] 50 mg PO Q6H PRN tab 08/09/19 Cephalexin [Keflex] 500 mg PO Q8HR 10 Days #30 cap 09/10/19 Losartan [Cozaar] 50 mg PO DAILY tab 09/10/19 Allergies Allergy/AdvReac Type Severity Reaction Status Date / Time methylprednisolone Allergy Anaphylaxis Verified 09/06/19 08:39 [From Solu-Medrol] venom-honey bee Allergy Anaphylaxis Verified 09/06/19 08:39 [bee venom (honey bee)] Review of Systems ROS Statement: Those systems with pertinent positive or pertinent negative responses have been documented in the HPI. ROS Other: All systems not noted in ROS Statement are negative. Past Medical History Past Medical History: Asthma, COPD, Diabetes Mellitus, Eye Disorder, GERD/Reflux, Hyperlipidemia, Hypertension, Neurologic Disorder, Osteoarthritis (OA) Additional Past Medical History / Comment(s): wounds rt leg,multiple sclerosis, glaucoma History of Any Multi-Drug Resistant Organisms: None Reported Past Surgical History: Section, Joint Replacement, Tubal Ligation Additional Past Surgical History / Comment(s): lt hip replacement,rectal surgery,eye proc Past Anesthesia/Blood Transfusion Reactions: No Reported Reaction Past Psychological History: Depression Smoking Status: Never smoker Past Alcohol Use History: None Reported Past Drug Use History: Marijuana - Past Family History Father Family Medical History: Cancer General Exam Limitations: no limitations General appearance: alert, in no apparent distress Head exam: Present: atraumatic, normocephalic, normal inspection Eye exam: Present: normal appearance, PERRL, EOMI. Absent: scleral icterus, conjunctival injection, periorbital swelling ENT exam: Present: normal exam, mucous membranes dry Respiratory exam: Present: normal lung sounds bilaterally. Absent: respiratory distress, wheezes, rales, rhonchi, stridor Cardiovascular Exam: Present: regular rate, normal rhythm, normal heart sounds. Absent: systolic murmur, diastolic murmur, rubs, gallop, clicks GI/Abdominal exam: Present: soft, normal bowel sounds. Absent: distended, tenderness, guarding, rebound, rigid Extremities exam: Present: other (brawny edema b/l lower extremities with redness to left lower extremity. Wound on plantar aspect left foot near first and second digits. mild purulent drainage. weak b/l le - 4/5 muscle strength) Course Vital Signs 09/06/19 09/06/19 09/06/19 02:15 03:48 04:07 Temperature 100.7 F H 99.1 F Pulse Rate 96 90 Respiratory 19 20 Rate Blood Pressure 186/91 156/93 O2 Sat by Pulse 96 97 Oximetry 09/06/19 05:31 Temperature 100 F H Pulse Rate 91 Respiratory 18 Rate Blood Pressure 183/99 O2 Sat by Pulse 93 L Oximetry EKG Findings - EKG Comments: EKG Findings:: EKG demonstrates normal sinus rhythm with ventricular rate of 94. OH interval 150. QRS 92. QTC of 465. No acute ST segment elevations or depressions concerning for ischemic changes Medical Decision Making - Medical Decision Making Upon arrival the patient is placed into room 11. A thorough history and physi elian exam was performed. Patient's wounds are unwrapped and she does have an ulcer to the left great toe. Peripheral IV was established. The patient had been given Tylenol by EMS. Laboratory studies are remarkable for a glucose of 151. Lactic acid 2.1. C-reactive protein 55. Urinalysis shows trace blood, positive nitrates and few bacteria. Covid is negative. I did review the patient's previous cultures. UTI and foot ulcer were sensitive to Zosyn. Blood cultures were obtained and the patient was initiated on Zosyn. She was admitted to Dr. Bradford who accepted the admission. I will consult wound care. Patient was then transferred to the floor in stable condition - Lab Data Result diagrams: 09/09/19 08:44 09/09/19 08:44 Lab Results 09/06/19 09/06/19 09/06/19 Range/Units 03:08 03:08 03:08 WBC 10.8 H (3.8-10.6) k/uL RBC 4.27 (3.80-5.40) m/uL Hgb 11.6 (11.4-16.0) gm/dL Hct 35.2 (34.0-46.0) % MCV 82.4 (80.0-100.0) fL MCH 27.1 (25.0-35.0) pg MCHC 32.8 (31.0-37.0) g/dL RDW 16.2 H (11.5-15.5) % Plt Count 239 (150-450) k/uL Neutrophils % 83 % Lymphocytes % 11 % Monocytes % 4 % Eosinophils % 2 % Basophils % 0 % Neutrophils # 8.9 H (1.3-7.7) k/uL Lymphocytes # 1.2 (1.0-4.8) k/uL Monocytes # 0.4 (0-1.0) k/uL Eosinophils # 0.2 (0-0.7) k/uL Basophils # 0.0 (0-0.2) k/uL Hypochromasia Slight Anisocytosis Slight PT 9.7 (9.0-12.0) sec INR 0.9 (<1.2) APTT 23.3 (22.0-30.0) sec Sodium 140 (137-145) mmol/L Potassium 3.8 (3.5-5.1) mmol/L Chloride 103 (98-107) mmol/L Carbon Dioxide 29 (22-30) mmol/L Anion Gap 8 mmol/L BUN 18 H (7-17) mg/dL Creatinine 1.08 H (0.52-1.04) mg/dL Est GFR (CKD-EPI)AfAm 66 (>60 ml/min/1.73 sqM) Est GFR (CKD-EPI)NonAf 57 (>60 ml/min/1.73 sqM) Glucose 151 H (74-99) mg/dL Lactic Ac Sepsis Rflx Plasma Lactic Acid Daren (0.7-2.0) mmol/L Calcium 9.8 (8.4-10.2) mg/dL Total Bilirubin 0.3 (0.2-1.3) mg/dL AST 17 (14-36) U/L ALT 15 (4-34) U/L Alkaline Phosphatase 115 (38-126) U/L Creatine Kinase 115 (30-135) U/L C-Reactive Protein 55.0 H (<10.0) mg/L NT-Pro-B Natriuret Pep pg/mL Total Protein 8.0 (6.3-8.2) g/dL Albumin 4.2 (3.5-5.0) g/dL Urine Color Urine Appearance (Clear) Urine pH (5.0-8.0) Ur Specific [place] (1.001-1.035) Urine Protein (Negative) Urine Glucose (UA) (Negative) Urine Ketones (Negative) Urine Blood (Negative) Urine Nitrite (Negative) Urine Bilirubin (Negative) Urine Urobilinogen (<2.0) mg/dL Ur Leukocyte Esterase (Negative) Urine RBC (0-5) /hpf Urine WBC (0-5) /hpf Ur Squamous Epith Cells (0-4) /hpf Urine Bacteria (None) /hpf Urine Mucus (None) /hpf Coronavirus (PCR) (Not Detectd) 09/06/19 09/06/19 09/06/19 Range/Units 03:08 03:08 03:30 WBC (3.8-10.6) k/uL RBC (3.80-5.40) m/uL Hgb (11.4-16.0) gm/dL Hct (34.0-46.0) % MCV (80.0-100.0) fL MCH (25.0-35.0) pg MCHC (31.0-37.0) g/dL RDW (11.5-15.5) % Plt Count (150-450) k/uL Neutrophils % % Lymphocytes % % Monocytes % % Eosinophils % % Basophils % % Neutrophils # (1.3-7.7) k/uL Lymphocytes # (1.0-4.8) k/uL Monocytes # (0-1.0) k/uL Eosinophils # (0-0.7) k/uL Basophils # (0-0.2) k/uL Hypochromasia Anisocytosis PT (9.0-12.0) sec INR (<1.2) APTT (22.0-30.0) sec Sodium (137-145) mmol/L Potassium (3.5-5.1) mmol/L Chloride (98-107) mmol/L Carbon Dioxide (22-30) mmol/L Anion Gap mmol/L BUN (7-17) mg/dL Creatinine (0.52-1.04) mg/dL Est GFR (CKD-EPI)AfAm (>60 ml/min/1.73 sqM) Est GFR (CKD-EPI)NonAf (>60 ml/min/1.73 sqM) Glucose (74-99) mg/dL Lactic Ac Sepsis Rflx Y Plasma Lactic Acid Daren 2.1 H* (0.7-2.0) mmol/L Calcium (8.4-10.2) mg/dL Total Bilirubin (0.2-1.3) mg/dL AST (14-36) U/L ALT (4-34) U/L Alkaline Phosphatase (38-126) U/L Creatine Kinase (30-135) U/L C-Reactive Protein (<10.0) mg/L NT-Pro-B Natriuret Pep 79 pg/mL Total Protein (6.3-8.2) g/dL Albumin (3.5-5.0) g/dL Urine Color Urine Appearance (Clear) Urine pH (5.0-8.0) Ur Specific [place] (1.001-1.035) Urine Protein (Negative) Urine Glucose (UA) (Negative) Urine Ketones (Negative) Urine Blood (Negative) Urine Nitrite (Negative) Urine Bilirubin (Negative) Urine Urobilinogen (<2.0) mg/dL Ur Leukocyte Esterase (Negative) Urine RBC (0-5) /hpf Urine WBC (0-5) /hpf Ur Squamous Epith Cells (0-4) /hpf Urine Bacteria (None) /hpf Urine Mucus (None) /hpf Coronavirus (PCR) (Not Detectd) 09/06/19 09/06/19 Range/Units 03:38 03:51 WBC (3.8-10.6) k/uL RBC (3.80-5.40) m/uL Hgb (11.4-16.0) gm/dL Hct (34.0-46.0) % MCV (80.0-100.0) fL MCH (25.0-35.0) pg MCHC (31.0-37.0) g/dL RDW (11.5-15.5) % Plt Count (150-450) k/uL Neutrophils % % Lymphocytes % % Monocytes % % Eosinophils % % Basophils % % Neutrophils # (1.3-7.7) k/uL Lymphocytes # (1.0-4.8) k/uL Monocytes # (0-1.0) k/uL Eosinophils # (0-0.7) k/uL Basophils # (0-0.2) k/uL Hypochromasia Anisocytosis PT (9.0-12.0) sec INR (<1.2) APTT (22.0-30.0) sec Sodium (137-145) mmol/L Potassium (3.5-5.1) mmol/L Chloride (98-107) mmol/L Carbon Dioxide (22-30) mmol/L Anion Gap mmol/L BUN (7-17) mg/dL Creatinine (0.52-1.04) mg/dL Est GFR (CKD-EPI)AfAm (>60 ml/min/1.73 sqM) Est GFR (CKD-EPI)NonAf (>60 ml/min/1.73 sqM) Glucose (74-99) mg/dL Lactic Ac Sepsis Rflx Plasma Lactic Acid Daren (0.7-2.0) mmol/L Calcium (8.4-10.2) mg/dL Total Bilirubin (0.2-1.3) mg/dL AST (14-36) U/L ALT (4-34) U/L Alkaline Phosphatase (38-126) U/L Creatine Kinase (30-135) U/L C-Reactive Protein (<10.0) mg/L NT-Pro-B Natriuret Pep pg/mL Total Protein (6.3-8.2) g/dL Albumin (3.5-5.0) g/dL Urine Color Yellow Urine Appearance Cloudy H (Clear) Urine pH 5.5 (5.0-8.0) Ur Specific [place] 1.019 (1.001-1.035) Urine Protein Trace H (Negative) Urine Glucose (UA) Negative (Negative) Urine Ketones Negative (Negative) Urine Blood Trace H (Negative) Urine Nitrite Positive H (Negative) Urine Bilirubin Negative (Negative) Urine Urobilinogen <2.0 (<2.0) mg/dL Ur Leukocyte Esterase Negative (Negative) Urine RBC <1 (0-5) /hpf Urine WBC 2 (0-5) /hpf Ur Squamous Epith Cells 1 (0-4) /hpf Urine Bacteria Few H (None) /hpf Urine Mucus Rare H (None) /hpf Coronavirus (PCR) Not Detected (Not Detectd) Disposition Clinical Impression: Cellulitis of left foot, Weakness, Diabetes mellitus type 2, uncontrolled, with complications, Elevated C-reactive protein (CRP), UTI (urinary tract infection), Cellulitis of left lower leg Disposition: ADMITTED IP TO THIS [facility] Condition: Stable Is patient prescribed a controlled substance at d/c from ED?: No Decision to Admit Reason: Admit from EC Decision Date: 09/06/19 Decision Time: 04:43
[2019-09-06 03:17] LABS: Anisocytosis Slight; Basophils % (A) 0 %; Eosinophils # (A) 0.2 k/uL (0-0.7); Eosinophils % (A) 2 %; HCT 35.2 % (34.0-46.0); HGB 11.6 gm/dL (11.4-16.0); Hypochromasia Slight; Lymphocytes # (A) 1.2 k/uL (1.0-4.8); Lymphocytes % (A) 11 %; MCH 27.1 pg (25.0-35.0); MCHC 32.8 g/dL (31.0-37.0); MCV 82.4 fL (80.0-100.0); Monocytes # (A) 0.4 k/uL (0-1.0); Monocytes % (A) 4 %; Neutrophils # (A) 8.9 k/uL (1.3-7.7); Neutrophils % (A) 83 %; Platelet Count 239 k/uL (150-450); RBC 4.27 m/uL (3.80-5.40); RDW 16.2 % (11.5-15.5); WBC 10.8 k/uL (3.8-10.6)
[2019-09-06 03:27] LABS: Albumin 4.2 g/dL (3.5-5.0); Calcium 9.8 mg/dL (8.4-10.2); Potassium 3.8 mmol/L (3.5-5.1); Total Bilirubin 0.3 mg/dL (0.2-1.3)
[2019-09-06 03:35] LABS: INR 0.9 (<1.2); Partial Thromboplastin Time 23.3 sec (22.0-30.0); Prothrombin Time 9.7 sec (9.0-12.0)
[2019-09-06] MEDS ORDERED: PIPERACILLIN-TAZOBACTAM 3.375 GM in SODIUM CHLORIDE 0.9% 100 ML IVPB STA (03:51)
[2019-09-06 04:09] LABS: Appearance,Urine Cloudy (Clear); Bacteria,Urine Few /hpf; Bilirubin,Urine Negative (Negative); Blood,Urine Trace (Negative); Color,Urine Yellow; Glucose,Urine (UA) Negative (Negative); Ketones,Urine Negative (Negative); Leukocyte Esterase,Urine Negative (Negative); Mucus,Urine Rare /hpf; Nitrite,Urine Positive (Negative); PH, Urine 5.5 (5.0-8.0); Protein,Urine Trace (Negative); RBC,Urine <1 /hpf (0-5); Specific Gravity,Urine 1.019 (1.001-1.035); Squamous Epithelial Cell,Urine 1 /hpf (0-4); Urobilinogen,Urine <2.0 mg/dL (<2.0); WBC,Urine 2 /hpf (0-5)
[2019-09-06] MEDS ORDERED: NALOXONE 0.4 MG/ML 1 ML VIAL IV PRN (04:43)
[2019-09-06] MEDS ORDERED: ACETAMINOPHEN TAB 325 MG TAB PO PRN (04:43)
[2019-09-06 06:49] LABS: Glucose,Whole Blood 161 mg/dL (75-99)
[2019-09-06 11:24] LABS: Glucose,Whole Blood 186 mg/dL (75-99)
[2019-09-06] MEDS ORDERED: ALBUTEROL NEBULIZED 2.5 MG/3 ML INHALATION PRN (12:07)
[2019-09-06] MEDS: hydrOXYzine PAMOATE 25 MG CAP PO SCH ×3 (12:40→23:00)
[2019-09-06] MEDS: oxyCODONE-APAP 10-325MG 1 EACH TAB PO SCH ×2 (12:40→19:28)
[2019-09-06] MEDS: INSULIN ASPART (NovoLOG) 100 UNIT/ML VIAL SQ SCH ×3 (12:41→20:35)
[2019-09-06] MEDS: PIPERACILLIN-TAZOBACTAM 3.375 GM in SODIUM CHLORIDE 0.9% 100 ML IVPB SCH ×2 (12:41→19:28)
[2019-09-06] MEDS ORDERED: ERGOCALCIFEROL 50,000 UNIT CAP PO SCH (13:00)
--- NOTE | 2019-09-06 13:21 | P.CONS ---
History of Present Illness - Reason for Consult Consult date: 09/06/19 wound care - History of Present Illness This is a 58-year-old pleasant female who is known to the wound care center being seen on 4 S. for nonhealing ulcer to the left plantar aspect of the forefoot. Patient has been applying silver collagen to the site without any difficulties. She has been utilizing minimal weightbearing to the left lower extremity. Patient presents to the emergency room due to weakness and fever and was found to have redness to the left lower extremity. The ulceration shows minimal slough with granulation throughout to the wound bed. No tunneling or undermining. Previous x-rays were negative for osteomyelitis. Review of Systems Review Of Systems: Constitutional: No fever, no chills, no night sweats. No weight change. No weakness, fatigue or lethargy. No daytime sleepiness. Integumentary:reports wounds, no lesions. No rash or pruritus. No unusual b ruising. No change in hair or nails. Past Medical History Past Medical History: Asthma, COPD, Diabetes Mellitus, Eye Disorder, GERD/Reflux, Hyperlipidemia, Hypertension, Neurologic Disorder, Osteoarthritis (OA) Additional Past Medical History / Comment(s): wounds rt leg,multiple sclerosis, glaucoma History of Any Multi-Drug Resistant Organisms: None Reported Past Surgical History: Section, Joint Replacement, Tubal Ligation Additional Past Surgical History / Comment(s): lt hip replacement,rectal surgery,eye proc Past Anesthesia/Blood Transfusion Reactions: No Reported Reaction Past Psychological History: Depression Smoking Status: Never smoker Past Alcohol Use History: None Reported Past Drug Use History: Marijuana - Past Family History Father Family Medical History: Cancer Medications and Allergies Home Medications Medication Instructions Recorded Confirmed Type amLODIPine [Norvasc] 10 mg PO DAILY 02/16/16 09/06/19 History Clopidogrel [Plavix] 75 mg PO DAILY 03/01/17 09/06/19 History Furosemide [Lasix] 40 mg PO DAILY 03/01/17 09/06/19 History Latanoprost [Xalatan 0.005%] 1 drop BOTH EYES HS 03/01/17 09/06/19 History metFORMIN HCL 1,000 mg PO BID 05/20/17 09/06/19 History Albuterol Inhaler (Bulk) [Ventolin 2 puff INHALATION RT-Q6H PRN 10/30/18 09/06/19 History Hfa Inhaler (Bulk)] Insuln Asp Prt/Insulin Aspart 25 unit SQ HS 10/30/18 09/06/19 History [NovoLOG MIX 70-30 VIAL] Insuln Asp Prt/Insulin Aspart 35 unit SQ DAILY 10/30/18 09/06/19 History [NovoLOG MIX 70-30 VIAL] Potassium Chloride [Klor-Con 20] 20 meq PO DAILY 10/30/18 09/06/19 History Ipratropium-Albuterol Nebulize 3 ml INHALATION RT-QID 06/28/19 09/06/19 History [Duoneb 0.5 mg-3 mg/3 ml Soln] Pravastatin Sodium [Pravachol] 10 mg PO DAILY 06/28/19 09/06/19 History SILVER sulfADIAZINE Cream 1 applic TOPICAL DAILY 06/28/19 09/06/19 History [Silvadene 1% Cream] Cyanocobalamin (Vitamin B-12) 1,000 mcg PO DAILY 08/05/19 09/06/19 History [Vitamin B-12] Fish Oil/Dha/Epa [Fish Oil 1,200 1 cap PO DAILY 08/05/19 09/06/19 History mg Fish Oil] Liraglutide [Victoza 2-[place]] 0.6 mg SQ DAILY 08/05/19 09/06/19 History Pregabalin 150 mg PO BID 08/05/19 09/06/19 History oxyCODONE HCL/ACETAMINOPHEN 1 tab PO Q6H 08/05/19 09/06/19 History [Percocet 10-325 mg] traMADol HCl [Ultram] 50 mg PO Q6H PRN tab 08/09/19 09/06/19 Rx Ergocalciferol [Vitamin D2] 50,000 unit PO MO 09/06/19 09/06/19 History hydrALAZINE HCL [Apresoline] 25 mg PO TID 09/06/19 09/06/19 History hydrOXYzine PAMOATE 50 mg PO QID 09/06/19 09/06/19 History Allergies Allergy/AdvReac Type Severity Reaction Status Date / Time methylprednisolone Allergy Anaphylaxis Verified 09/06/19 08:39 [From Solu-Medrol] venom-honey bee Allergy Anaphylaxis Verified 09/06/19 08:39 [bee venom (honey bee)] Physical Exam Vitals: Vital Signs Temp Pulse Pulse Resp BP BP Pulse Ox 04/27/20 08:30 91 22 09/06/19 07:00 99.4 F 91 22 177/96 95 09/06/19 06:21 99.3 F 92 16 175/94 97 09/06/19 05:31 100 F H 91 18 183/99 93 L 09/06/19 04:07 90 20 156/93 97 09/06/19 03:48 99.1 F 09/06/19 02:15 100.7 F H 96 19 186/91 96 Intake and Output 09/05/19 09/06/19 09/06/19 22:59 06:59 14:59 Other: Voiding Method Diaper Weight 113.398 kg Physical exam: General Appearance: Alert, cooperative, no distress, appears stated age. Skin: Patient was seen approximately month ago the ulceration shows improvement from that time in size and morphology. Increase granulation to wound bed noted, minimal slough serosanguineous scant amount of drainage noted no purulent drainage non-odiferous, no tunneling or undermining noted wound edge does show rolled skin and callus built up around the ulceration. all other Skin color, texture, tugor normal, no rashes or lesions. Neurologic: Alert oriented x3 Results CBC & Chem 7: 09/06/19 03:08 09/06/19 03:08 Labs: Abnormal Lab Results - Last 24 Hours (Table) 09/06/19 09/06/19 09/06/19 Range/Units 03:08 03:08 03:08 WBC 10.8 H (3.8-10.6) k/uL RDW 16.2 H (11.5-15.5) % Neutrophils # 8.9 H (1.3-7.7) k/uL BUN 18 H (7-17) mg/dL Creatinine 1.08 H (0.52-1.04) mg/dL Glucose 151 H (74-99) mg/dL POC Glucose (mg/dL) (75-99) mg/dL Plasma Lactic Acid Daren 2.1 H* (0.7-2.0) mmol/L C-Reactive Protein 55.0 H (<10.0) mg/L Urine Appearance (Clear) Urine Protein (Negative) Urine Blood (Negative) Urine Nitrite (Negative) Urine Bacteria (None) /hpf Urine Mucus (None) /hpf 09/06/19 09/06/19 09/06/19 Range/Units 03:51 06:48 11:23 WBC (3.8-10.6) k/uL RDW (11.5-15.5) % Neutrophils # (1.3-7.7) k/uL BUN (7-17) mg/dL Creatinine (0.52-1.04) mg/dL Glucose (74-99) mg/dL POC Glucose (mg/dL) 161 H 186 H (75-99) mg/dL Plasma Lactic Acid Daren (0.7-2.0) mmol/L C-Reactive Protein (<10.0) mg/L Urine Appearance Cloudy H (Clear) Urine Protein Trace H (Negative) Urine Blood Trace H (Negative) Urine Nitrite Positive H (Negative) Urine Bacteria Few H (None) /hpf Urine Mucus Rare H (None) /hpf Assessment and Plan (1) Diabetic ulcer of left foot Current Visit: No Status: Acute Code(s): E11.621 - TYPE 2 DIABETES MELLITUS WITH FOOT ULCER; L97.529 - NON-PRESSURE CHRONIC ULCER OTH PRT LEFT FOOT W UNSP SEVERITY SNOMED Code(s): 177056644 Plan: Apply absorptive silver to the ulceration, saline moistened gauze, dry gauze, rolled gauze and secure with paper tape. Change Friday and Friday. Minimal weightbearing to left lower extremity. Patient to continue her appointments to the wound care center. Next appointment will be September 12 at 10:30. May utilize an elastic wrap for edema control to the left lower extremity. Thank you kindly for the consultation any questions please contact the wound care center. DNP note has been reviewed and discussed with Dr. Us and the impression and plan of care has been directed as dictated.
--- NOTE | 2019-09-06 14:50 | P.HPIM ---
History of Present Illness H&P Date: 09/06/19 Rika Quan is a 58-year-old female who presented to [facility] emergency room with a chief complaint of febrile illness, and generalized weakness, patient has evidence of urinary tract infection, she also has evidence of lower extremity cellulitis bilateral, left worse than right, extending up to the thigh on the left lower extremity, patient has a known history of nonhealing ulcer on the plantar aspect of the left foot. She was evaluated in the emergency room Jeanine eyes started on IV antibiotic and admitted to medical floor infectious disease consultation was requested. Patient has a known history of diabetes Brandon's is maintained on insulin. COVID 19 testing in the emergency room was negative Past Medical History Past Medical History: Asthma, COPD, Diabetes Mellitus, Eye Disorder, GERD/Reflux, Hyperlipidemia, Hypertension, Neurologic Disorder, Osteoarthritis (OA) Additional Past Medical History / Comment(s): wounds rt leg,multiple sclerosis, glaucoma History of Any Multi-Drug Resistant Organisms: None Reported Past Surgical History: Section, Joint Replacement, Tubal Ligation Additional Past Surgical History / Comment(s): lt hip replacement,rectal surgery,eye proc Past Anesthesia/Blood Transfusion Reactions: No Reported Reaction Past Psychological History: Depression Smoking Status: Never smoker Past Alcohol Use History: None Reported Past Drug Use History: Marijuana - Past Family History Father Family Medical History: Cancer Medications and Allergies Home Medications Medication Instructions Recorded Confirmed Type amLODIPine [Norvasc] 10 mg PO DAILY 02/16/16 09/06/19 History Clopidogrel [Plavix] 75 mg PO DAILY 03/01/17 09/06/19 History Furosemide [Lasix] 40 mg PO DAILY 03/01/17 09/06/19 History Latanoprost [Xalatan 0.005%] 1 drop BOTH EYES HS 03/01/17 09/06/19 History metFORMIN HCL 1,000 mg PO BID 05/20/17 09/06/19 History Albuterol Inhaler (Bulk) [Ventolin 2 puff INHALATION RT-Q6H PRN 10/30/18 09/06/19 History Hfa Inhaler (Bulk)] Insuln Asp Prt/Insulin Aspart 25 unit SQ HS 10/30/18 09/06/19 History [NovoLOG MIX 70-30 VIAL] Insuln Asp Prt/Insulin Aspart 35 unit SQ DAILY 10/30/18 09/06/19 History [NovoLOG MIX 70-30 VIAL] Potassium Chloride [Klor-Con 20] 20 meq PO DAILY 10/30/18 09/06/19 History Ipratropium-Albuterol Nebulize 3 ml INHALATION RT-QID 06/28/19 09/06/19 History [Duoneb 0.5 mg-3 mg/3 ml Soln] Pravastatin Sodium [Pravachol] 10 mg PO DAILY 06/28/19 09/06/19 History SILVER sulfADIAZINE Cream 1 applic TOPICAL DAILY 06/28/19 09/06/19 History [Silvadene 1% Cream] Cyanocobalamin (Vitamin B-12) 1,000 mcg PO DAILY 08/05/19 09/06/19 History [Vitamin B-12] Fish Oil/Dha/Epa [Fish Oil 1,200 1 cap PO DAILY 08/05/19 09/06/19 History mg Fish Oil] Liraglutide [Victoza 2-[place]] 0.6 mg SQ DAILY 08/05/19 09/06/19 History Pregabalin 150 mg PO BID 08/05/19 09/06/19 History oxyCODONE HCL/ACETAMINOPHEN 1 tab PO Q6H 08/05/19 09/06/19 History [Percocet 10-325 mg] traMADol HCl [Ultram] 50 mg PO Q6H PRN tab 08/09/19 09/06/19 Rx Ergocalciferol [Vitamin D2] 50,000 unit PO MO 09/06/19 09/06/19 History hydrALAZINE HCL [Apresoline] 25 mg PO TID 09/06/19 09/06/19 History hydrOXYzine PAMOATE 50 mg PO QID 09/06/19 09/06/19 History Allergies Allergy/AdvReac Type Severity Reaction Status Date / Time methylprednisolone Allergy Anaphylaxis Verified 09/06/19 08:39 [From Solu-Medrol] venom-honey bee Allergy Anaphylaxis Verified 09/06/19 08:39 [bee venom (honey bee)] Physical Exam Vitals: Vital Signs Temp Pulse Pulse Resp BP BP Pulse Ox 09/06/19 08:30 91 22 09/06/19 07:00 99.4 F 91 22 177/96 95 09/06/19 06:21 99.3 F 92 16 175/94 97 09/06/19 05:31 100 F H 91 18 183/99 93 L 09/06/19 04:07 90 20 156/93 97 09/06/19 03:48 99.1 F 09/06/19 02:15 100.7 F H 96 19 186/91 96 Intake and Output 09/05/19 09/06/19 09/06/19 22:59 06:59 14:59 Output Total 600 Balance -600 Output: Urine 600 Other: Voiding Method Diaper # Bowel Movements 3 Weight 113.398 kg In general patient is alert and oriented 3 in no apparent distress HEENT head normocephalic and atraumatic Neck is supple no JVD no goiter no lymphadenopathy Chest exam reveals a few scattered crackles no wheezing Cardiac exam reveals regular heart sounds S1 and S2 no gallops no murmurs Abdomen is soft nontender no organomegaly with normal bowel sounds Extremity exam reveals erythema extending from the ankle up to the thigh area on the left there is around quarter size nonhealing ulcer on the plantar aspect of the left foot just below the base of the big toe. Neurological examination reveals no gross focal deficit Results CBC & Chem 7: 09/06/19 03:08 09/06/19 03:08 Labs: Abnormal Lab Results - Last 24 Hours (Table) 09/06/19 09/06/19 09/06/19 Range/Units 03:08 03:08 03:08 WBC 10.8 H (3.8-10.6) k/uL RDW 16.2 H (11.5-15.5) % Neutrophils # 8.9 H (1.3-7.7) k/uL BUN 18 H (7-17) mg/dL Creatinine 1.08 H (0.52-1.04) mg/dL Glucose 151 H (74-99) mg/dL POC Glucose (mg/dL) (75-99) mg/dL Plasma Lactic Acid Daren 2.1 H* (0.7-2.0) mmol/L C-Reactive Protein 55.0 H (<10.0) mg/L Urine Appearance (Clear) Urine Protein (Negative) Urine Blood (Negative) Urine Nitrite (Negative) Urine Bacteria (None) /hpf Urine Mucus (None) /hpf 09/06/19 09/06/19 09/06/19 Range/Units 03:51 06:48 11:23 WBC (3.8-10.6) k/uL RDW (11.5-15.5) % Neutrophils # (1.3-7.7) k/uL BUN (7-17) mg/dL Creatinine (0.52-1.04) mg/dL Glucose (74-99) mg/dL POC Glucose (mg/dL) 161 H 186 H (75-99) mg/dL Plasma Lactic Acid Daren (0.7-2.0) mmol/L C-Reactive Protein (<10.0) mg/L Urine Appearance Cloudy H (Clear) Urine Protein Trace H (Negative) Urine Blood Trace H (Negative) Urine Nitrite Positive H (Negative) Urine Bacteria Few H (None) /hpf Urine Mucus Rare H (None) /hpf Thrombosis Risk Factor Assmnt - Choose All That Apply Any of the Below Risk Factors Present?: Yes Each Factor Represents 1 point: Age 41-60 years, Swollen legs (current) Other Risk Factors: No Thrombosis Risk Factor Assessment Total Risk Factor Score: 2 Thrombosis Risk Factor Assessment Level: Low Risk Assessment and Plan Plan: 1. Febrile illness with evidence of sepsis as evidenced by fever and elevated lactic acid of 2.1 and leukocytosis 2. bilateral lower extremity cellulitis. 3. Chronic nonhealing ulcer on the left foot. 4. urinary tract infection 5. dehydration with acute kidney injury was elevated BUN and creatinine 6. Insulin-dependent diabetes mellitus 7. Degenerative disc disease with Chronic back pain maintained on narcotics for pain management At this time patient was started on IV antibiotics, Zosyn She was restarted on insulin, she was given IV fluid normal saline Will recheck labs in a.m. clinically she is stable Consultation for infectious disease was initiated
[2019-09-06] MEDS: IPRATROPIUM-ALBUTEROL 3 ML NEB INHALATION SCH ×2 (16:09→20:06)
[2019-09-06] MEDS: metFORMIN 500 MG TAB PO SCH (16:45)
[2019-09-06] MEDS: hydrALAZINE HCL 25 MG TAB PO SCH ×2 (16:45→20:31)
[2019-09-06] MEDS: traMADol 50 MG TAB PO PRN (16:45)
[2019-09-06 16:51] LABS: Glucose,Whole Blood 153 mg/dL (75-99)
[2019-09-06 20:26] LABS: Glucose,Whole Blood 126 mg/dL (75-99)
[2019-09-06] MEDS: PREGABALIN 50 MG CAP PO SCH (20:31)
[2019-09-06] MEDS: INSULN ASP PRT/INSULIN ASPART 100 UNIT/ML 10 ML VIAL SQ SCH (20:31)
[2019-09-06] MEDS: LATANOPROST 0.005% OPHTH DROPS 2.5 ML BTL BOTH EYES SCH (20:32)
[2019-09-06] MEDS: IBUPROFEN 400 MG TAB PO PRN (20:37)
[2019-09-07] MEDS: oxyCODONE-APAP 10-325MG 1 EACH TAB PO SCH ×4 (00:31→18:27)
--- NOTE | 2019-09-07 00:35 | CONS ---
CONSULTATION DATE OF SERVICE: 09/06/2019 REASON FOR CONSULTATION: Left lower extremity cellulitis. HISTORY OF PRESENT ILLNESS: The patient is a 58-year-old female with a past medical history significant for diabetes, chronic nonhealing wound to the left plantar foot with the patient workup . She was recently admitted to this hospital and was treated for lower extremity cellulitis. The patient subsequently stabilized and was discharged home on oral Keflex. Patient says she was doing well. However, she started getting progressively weaker, did have poor appetite and did have difficulty walking around with her walker. The patient was able to get up from her chair and called EMS for lift assist. The patient was evaluated by the home care nurse noticed to have more swelling and redness to the left leg with concern for cellulitis. The patient has been brought into the ER. On arrival in the ER, the patient noticed to have a temperature of 100.7. This facility on arrival the patient also had a temperature of 100.7 degrees Fahrenheit. The patient did have white count of 10.8, creatinine 1.08. Urine has been negative. Clay PCR was negative. The patient did not have a chest x-ray. She has been started on Zosyn and admitted to the hospital. Infectious disease was consulted for further recommendations regarding antibiotic therapy. REVIEW OF SYSTEMS: Positive points have been mentioned in HPI. Rest of systems are negative. PAST MEDICAL HISTORY: Asthma, COPD, diabetes mellitus, gastroesophageal reflux disease, hypertension, hyperlipidemia, chronic nonhealing wound to the left foot, multiple sclerosis, lower extremity cellulitis. PAST SURGICAL HISTORY: , left hip placement, tubal ligation. SOCIAL HISTORY: No history of smoking or drinking. Admit to marijuana use. FAMILY HISTORY: Father had history of cancer. ALLERGIES: Allergies to METHYLPREDNISOLONE. MEDICATIONS: Medications include the patient is currently on Tylenol, Ventolin, DuoNeb, Norvasc, Zosyn, Plavix, vitamin B12, Lasix, hydralazine, Vistaril, Motrin, NovoLog, Glucophage, Narcan, Percocet, Lyrica, and Ultram. PHYSICAL EXAMINATION: Blood pressure is 181/93 with a pulse of 95, temperature 98.8. She is 94% on room air. General description is a middle-aged female lying in bed in no distress. No tachypnea or accessory muscle of respiration use. HEENT: Examination shows no pallor or scleral icterus. Oral mucous membrane is dry. No pharyngeal erythema or thrush. NECK: Trachea central. No thyromegaly. LUNGS: Unlabored breathing, clear to auscultation anteriorly. No wheeze or crackle. HEART: S1, S2. Regular rate and rhythm. ABDOMEN: Soft, no tenderness. No guarding or rigidity. EXTREMITIES: Left leg is swollen and red, warm to touch. Wound on the plantar aspect with no slough tissue or any foul-smelling drainage. NEUROLOGICAL: Patient is awake, alert, oriented x3. Mood and affect normal. LABS: Hemoglobin is 11.8, white count 10.8 with a BUN of 18, creatinine 1.08. Lactic acid 2.1. Liver enzymes normal. CRP is 55. Urine is negative. DIAGNOSTIC IMPRESSION AND PLAN: Patient admitted to the hospital with fever, generalized weakness, which is likely multifactorial in this patient who did have a component of left lower extremity cellulitis with diffuse swelling and redness likely streptococcal disease. The source of injury could have been chronic nonhealing wound to the left plantar foot. PLAN: 1. Discontinue Zosyn. 2. Start the patient on cefazolin 2 grams q.8 hours. 3. We will follow on clinical condition and culture to further adjust medication if needed. Thank you for this consultation. Will follow this patient along with you. ALEXIS / LUCASN: [id number] /
[2019-09-07 06:57] LABS: Glucose,Whole Blood 129 mg/dL (75-99)
[2019-09-07] MEDS: INSULIN ASPART (NovoLOG) 100 UNIT/ML VIAL SQ SCH ×4 (07:02→20:31)
[2019-09-07] MEDS: POTASSIUM CHLORIDE ER 20 MEQ TAB.ER PO SCH (07:40)
[2019-09-07] MEDS: CLOPIDOGREL 75 MG TAB PO SCH (07:40)
[2019-09-07 07:41] LABS: Calcium 9.3 mg/dL (8.4-10.2); Potassium 3.7 mmol/L (3.5-5.1)
[2019-09-07] MEDS: CYANOCOBALAMIN 500 MCG TAB PO SCH (07:41)
[2019-09-07] MEDS: hydrOXYzine PAMOATE 25 MG CAP PO SCH ×4 (07:41→21:41)
[2019-09-07] MEDS: FUROSEMIDE 40 MG TAB PO SCH (07:41)
[2019-09-07] MEDS: PREGABALIN 50 MG CAP PO SCH ×2 (07:41→20:36)
[2019-09-07] MEDS: amLODIPine 10 MG TAB PO SCH (07:41)
[2019-09-07] MEDS: metFORMIN 500 MG TAB PO SCH ×2 (07:41→18:27)
[2019-09-07] MEDS: hydrALAZINE HCL 25 MG TAB PO SCH ×3 (07:42→21:42)
[2019-09-07] MEDS: PRAVASTATIN SODIUM 20 MG TAB PO SCH (07:42)
[2019-09-07] MEDS: IPRATROPIUM-ALBUTEROL 3 ML NEB INHALATION SCH ×4 (07:50→20:06)
[2019-09-07 08:02] LABS: Anisocytosis Slight; Basophils % (A) 0 %; Eosinophils # (A) 0.1 k/uL (0-0.7); Eosinophils % (A) 1 %; HCT 35.7 % (34.0-46.0); HGB 11.2 gm/dL (11.4-16.0); Hypochromasia Slight; Lymphocytes # (A) 1.8 k/uL (1.0-4.8); Lymphocytes % (A) 21 %; MCH 26.4 pg (25.0-35.0); MCHC 31.4 g/dL (31.0-37.0); MCV 84.1 fL (80.0-100.0); Mean Platelet Volume 7.2; Monocytes # (A) 0.5 k/uL (0-1.0); Monocytes % (A) 6 %; Neutrophils # (A) 5.8 k/uL (1.3-7.7); Neutrophils % (A) 69 %; Platelet Count 245 k/uL (150-450); RBC 4.24 m/uL (3.80-5.40); RDW 16.3 % (11.5-15.5); WBC 8.3 k/uL (3.8-10.6)
[2019-09-07] MEDS ORDERED: NON FORMULARY DRUG (Liraglutide [Victoza 2-Pak] 0.6 MG) SQ SCH (09:00)
[2019-09-07] MEDS ORDERED: NON FORMULARY DRUG (Fish Oil/Dha/Epa [Fish Oil 1,200 Mg Fish Oil] 1 CAP) PO SCH (09:00)
[2019-09-07 11:58] LABS: Glucose,Whole Blood 123 mg/dL (75-99)
[2019-09-07 14:44] LABS: Hemoglobin A1C 7.7 % (4.0-6.0)
[2019-09-07] MEDS: traMADol 50 MG TAB PO PRN (15:43)
[2019-09-07 16:45] LABS: Glucose,Whole Blood 125 mg/dL (75-99)
--- NOTE | 2019-09-07 17:46 | P.PN ---
Subjective Progress Note Date: 09/07/19 Rika Quan is a 58-year-old female who presented to [facility] emergency room with a chief complaint of febrile illness, and generalized weakness, patient has evidence of urinary tract infection, she also has evidence of lower extremity cellulitis bilateral, left worse than right, extending up to the thigh on the left lower extremity, patient has a known history of nonhealing ulcer on the plantar aspect of the left foot. She was evaluated in the emergency room Jeanine eyes started on IV antibiotic and admitted to medical floor infectious disease consultation was requested. Tete padilla has a known history of diabetes Brandon's is maintained on insulin. COVID 19 testing in the emergency room was negative On 09/07/2019 patient was seen and examined on the medical floor she is alert and oriented 3 in no apparent distress there is no fever or chills no headache or dizziness no chest pain no shortness of breath no cough no nausea or vomiting no abdominal pain no diarrhea there is no blood in the stools. There is burning was urination and frequency no urgency no hematuria. Objective - Vital Signs Vital signs: Vital Signs Temp 98.5 F 09/07/19 15:00 Pulse 75 09/07/19 16:00 Resp 17 09/07/19 16:00 BP 166/90 09/07/19 15:00 Pulse Ox 97 09/07/19 15:00 Intake & Output 09/06/19 09/07/19 09/07/19 18:59 06:59 18:59 Intake Total 400 450 Output Total 2049 1250 5000 Balance -2049 -575 -5306 Intake: Intake, IV Titration 100 50 Amount Piperacillin-Tazobactam 3 100 .375 gm In Sodium Chloride 0.9% 100 ml @ 25 mls/hr IVPB Q8H [facility] Rx#: [id number] ceFAZolin 2 gm In Sodium 50 Chloride 0.9% 50 ml @ 100 mls/hr IVPB Q8HR [facility] Rx# :[id number] Oral 300 400 Output: Urine 2049 1250 5000 Other: Voiding Method Diaper Bedpan Bedpan Diaper Diaper # Voids 2 # Bowel Movements 3 3 - Exam In general patient is alert and oriented 3 in no apparent distress HEENT head normocephalic and atraumatic Neck is supple no JVD no goiter no lymphadenopathy Chest exam reveals a few scattered crackles no wheezing Cardiac exam reveals regular heart sounds S1 and S2 no gallops no murmurs Abdomen is soft nontender no organomegaly with normal bowel sounds Extremity exam reveals erythema extending from the ankle up to the mid thigh area on the left slightly improved since yesterday there is around quarter size nonhealing ulcer on the plantar aspect of the left foot just below the base of the big toe. Neurological examination reveals no gross focal deficit - Labs CBC & Chem 7: 09/07/19 06:32 09/07/19 06:32 Labs: Abnormal Lab Results - Last 24 Hours (Table) 09/06/19 09/07/19 09/07/19 Range/Units 20:24 06:32 06:32 Hgb 11.2 L (11.4-16.0) gm/dL RDW 16.3 H (11.5-15.5) % POC Glucose (mg/dL) 126 H (75-99) mg/dL Hemoglobin A1c 7.7 H (4.0-6.0) % 09/07/19 09/07/19 09/07/19 Range/Units 06:56 11:57 16:44 Hgb (11.4-16.0) gm/dL RDW (11.5-15.5) % POC Glucose (mg/dL) 129 H 123 H 125 H (75-99) mg/dL Hemoglobin A1c (4.0-6.0) % Microbiology - Last 24 Hours (Table) 09/06/19 04:41 Blood Culture - Final Blood Assessment and Plan Plan: 1. Febrile illness with evidence of sepsis as evidenced by fever and elevated lactic acid of 2.1 and leukocytosis 2. bilateral lower extremity cellulitis. 3. Chronic nonhealing ulcer on the left foot. 4. urinary tract infection 5. dehydration with acute kidney injury was elevated BUN and creatinine 6. Insulin-dependent diabetes mellitus 7. Degenerative disc disease with Chronic back pain maintained on narcotics for pain management At this time patient was started on IV antibiotics, Zosyn in the emergency room this was discontinued by infectious disease patient was started on cefazolin 2 g IV every 8 hours She was restarted on insulin, she is on IV fluid normal saline at [facility] Input from Dr. Majano was reviewed Will recheck labs in a.m. clinically she is stable Consultation for infectious disease was initiated
[2019-09-07 20:32] LABS: Glucose,Whole Blood 129 mg/dL (75-99)
[2019-09-07] MEDS: LATANOPROST 0.005% OPHTH DROPS 2.5 ML BTL BOTH EYES SCH (20:36)
[2019-09-07] MEDS: IBUPROFEN 400 MG TAB PO PRN (20:36)
[2019-09-07] MEDS: INSULN ASP PRT/INSULIN ASPART 100 UNIT/ML 10 ML VIAL SQ SCH (20:43)
--- NOTE | 2019-09-07 23:30 | PN ---
PROGRESS NOTE DATE OF SERVICE: 09/07/2019 REASON FOR FOLLOWUP: Left lower extremity cellulitis. INTERVAL HISTORY: The patient is currently afebrile. The patient has been breathing comfortably. The patient denies having any chest pain or shortness of breath or cough. No nausea or vomiting. No abdominal pain. Pain and discomfort to the left lower extremity has improved. The blood culture has been completed positive, gram-positive cocci. PHYSICAL EXAMINATION: Blood pressure 166/90 with a pulse of 75, temperature 98.5. She is 97% on room air. General description is a middle-aged female lying in bed in no distress. RESPIRATORY SYSTEM: Unlabored breathing, clear to auscultation anteriorly. HEART: S1, S2. Regular rate and rhythm. ABDOMEN: Soft, no tenderness. Left leg swelling and redness has decreased. LABS: Hemoglobin 11.2, white count 8.3, BUN of 14, creatinine 0.95. DIAGNOSTIC IMPRESSION AND PLAN: Patient with acute left lower extremity cellulitis, more likely streptococcal disease. However, blood culture currently positive gram-positive cocci in clusters. Blood culture will be repeated to document clearance of the bacteremia. For now, continue with cefazolin in view of clinical response and monitor clinical course closely. MMODL / IJN: [id number] /
[2019-09-08] MEDS: oxyCODONE-APAP 10-325MG 1 EACH TAB PO SCH ×4 (00:31→18:20)
[2019-09-08] MEDS: IBUPROFEN 400 MG TAB PO PRN (03:21)
[2019-09-08 07:02] LABS: Glucose,Whole Blood 137 mg/dL (75-99)
[2019-09-08] MEDS: IPRATROPIUM-ALBUTEROL 3 ML NEB INHALATION SCH ×4 (07:42→20:21)
[2019-09-08] MEDS: INSULIN ASPART (NovoLOG) 100 UNIT/ML VIAL SQ SCH ×4 (07:52→20:37)
[2019-09-08] MEDS: metFORMIN 500 MG TAB PO SCH ×2 (07:52→17:15)
[2019-09-08] MEDS: CLOPIDOGREL 75 MG TAB PO SCH (07:52)
[2019-09-08] MEDS: amLODIPine 10 MG TAB PO SCH (07:53)
[2019-09-08] MEDS: hydrALAZINE HCL 25 MG TAB PO SCH ×3 (07:53→20:37)
[2019-09-08] MEDS: FUROSEMIDE 40 MG TAB PO SCH (07:53)
[2019-09-08] MEDS: CYANOCOBALAMIN 500 MCG TAB PO SCH (07:53)
[2019-09-08] MEDS: PREGABALIN 50 MG CAP PO SCH ×2 (07:53→20:37)
[2019-09-08] MEDS: POTASSIUM CHLORIDE ER 20 MEQ TAB.ER PO SCH (07:53)
[2019-09-08] MEDS: hydrOXYzine PAMOATE 25 MG CAP PO SCH ×4 (07:53→22:54)
[2019-09-08] MEDS: PRAVASTATIN SODIUM 20 MG TAB PO SCH (07:53)
[2019-09-08 07:57] LABS: Basophils % (A) 0 %; Eosinophils # (A) 0.1 k/uL (0-0.7); Eosinophils % (A) 2 %; HCT 37.4 % (34.0-46.0); Hypochromasia Slight; Lymphocytes # (A) 1.7 k/uL (1.0-4.8); Lymphocytes % (A) 25 %; MCH 26.6 pg (25.0-35.0); MCHC 32.1 g/dL (31.0-37.0); Monocytes # (A) 0.4 k/uL (0-1.0); Monocytes % (A) 6 %; Neutrophils # (A) 4.4 k/uL (1.3-7.7); Neutrophils % (A) 64 %; Platelet Count 264 k/uL (150-450); RDW 15.7 % (11.5-15.5); WBC 6.9 k/uL (3.8-10.6)
[2019-09-08 08:05] LABS: Albumin 3.8 g/dL (3.5-5.0); Calcium 9.2 mg/dL (8.4-10.2); Potassium 3.5 mmol/L (3.5-5.1); Total Bilirubin 0.4 mg/dL (0.2-1.3); Total Protein 7.5 g/dL (6.3-8.2)
[2019-09-08] MEDS: traMADol 50 MG TAB PO PRN ×2 (08:10→20:38)
[2019-09-08 11:30] VITALS: BMI 40.3
[2019-09-08 12:01] LABS: Glucose,Whole Blood 147 mg/dL (75-99)
--- NOTE | 2019-09-08 14:46 | P.PN ---
Subjective Progress Note Date: 09/08/19 Rika Quan is a 58-year-old female who presented to [facility] emergency room with a chief complaint of febrile illness, and generalized weakness, patient has evidence of urinary tract infection, she also has evidence of lower extremity cellulitis bilateral, left worse than right, extending up to the thigh on the left lower extremity, patient has a known history of nonhealing ulcer on the plantar aspect of the left foot. She was evaluated in the emergency room Jeanine eyes started on IV antibiotic and admitted to medical floor infectious disease consultation was requested. Tete padilla has a known history of diabetes Brandon's is maintained on insulin. COVID 19 testing in the emergency room was negative On 09/07/2019 patient was seen and examined on the medical floor she is alert and oriented 3 in no apparent distress there is no fever or chills no headache or dizziness no chest pain no shortness of breath no cough no nausea or vomiting no abdominal pain no diarrhea there is no blood in the stools. There is burning was urination and frequency no urgency no hematuria. On 09/08/2019 patient was seen and examined on the medical floor she is alert and oriented, she is complaining of some discomfort in her left lower extremity otherwise no complaints at this time there is no fever or chills no headache or dizziness no chest pain no shortness of breath no cough no nausea or vomiting no abdominal pain no diarrhea and no urinary symptoms. Blood culture results are positive for gram-positive cocci in clusters, infectious disease following. Objective - Vital Signs Vital signs: Vital Signs Temp 98.0 F 09/08/19 07:00 Pulse 75 09/08/19 07:00 Resp 18 09/08/19 07:00 BP 164/82 09/08/19 07:00 Pulse Ox 94 L 09/08/19 07:00 Intake & Output 09/07/19 09/08/19 09/08/19 18:59 06:59 18:59 Intake Total 450 100 Output Total 5000 1200 1800 Balance -4550 -1100 -1800 Weight 113.398 kg Intake: Intake, IV Titration 50 Amount ceFAZolin 2 gm In Sodium 50 Chloride 0.9% 50 ml @ 100 mls/hr IVPB Q8HR [facility] Rx# :[id number] Oral 400 100 Output: Urine 5000 1200 1800 Other: Voiding Method Bedpan Bedpan Diaper Diaper # Voids 2 2 # Bowel Movements 3 1 - Exam In general patient is alert and oriented 3 in no apparent distress HEENT head normocephalic and atraumatic Neck is supple no JVD no goiter no lymphadenopathy Chest exam reveals a few scattered crackles no wheezing Cardiac exam reveals regular heart sounds S1 and S2 no gallops no murmurs Abdomen is soft nontender no organomegaly with normal bowel sounds Extremity exam reveals erythema extending from the ankle up to the mid thigh area on the left slightly improved since yesterday there is around quarter size nonhealing ulcer on the plantar aspect of the left foot just below the base of the big toe. Neurological examination reveals no gross focal deficit - Labs CBC & Chem 7: 09/08/19 07:12 09/08/19 07:12 Labs: Abnormal Lab Results - Last 24 Hours (Table) 09/07/19 09/07/19 09/07/19 Range/Units 06:32 16:44 20:29 RDW (11.5-15.5) % Glucose (74-99) mg/dL POC Glucose (mg/dL) 125 H 129 H (75-99) mg/dL Hemoglobin A1c 7.7 H (4.0-6.0) % 09/08/19 09/08/19 09/08/19 Range/Units 06:59 07:12 07:12 RDW 15.7 H (11.5-15.5) % Glucose 136 H (74-99) mg/dL POC Glucose (mg/dL) 137 H (75-99) mg/dL Hemoglobin A1c (4.0-6.0) % 09/08/19 Range/Units 11:59 RDW (11.5-15.5) % Glucose (74-99) mg/dL POC Glucose (mg/dL) 147 H (75-99) mg/dL Hemoglobin A1c (4.0-6.0) % Microbiology - Last 24 Hours (Table) 09/06/19 04:41 Blood Culture - Final Blood Assessment and Plan Plan: 1. Febrile illness with evidence of sepsis as evidenced by fever and elevated lactic acid of 2.1 and leukocytosis 2. bilateral lower extremity cellulitis. 3. Chronic nonhealing ulcer on the left foot. 4. urinary tract infection 5. dehydration with acute kidney injury was elevated BUN and creatinine 6. Insulin-dependent diabetes mellitus 7. Degenerative disc disease with Chronic back pain maintained on narcotics for pain management At this time patient was started on IV antibiotics, Zosyn in the emergency room this was discontinued by infectious disease patient was started on cefazolin 2 g IV every 8 hours She was restarted on insulin, she is on IV fluid normal saline at [facility] Input from Dr. Majano was reviewed Will recheck labs in a.m. clinically she is stable Consultation for infectious disease was initiated
[2019-09-08 16:53] LABS: Glucose,Whole Blood 134 mg/dL (75-99)
[2019-09-08 20:29] LABS: Glucose,Whole Blood 201 mg/dL (75-99)
[2019-09-08] MEDS: LATANOPROST 0.005% OPHTH DROPS 2.5 ML BTL BOTH EYES SCH (20:37)
[2019-09-08] MEDS: INSULN ASP PRT/INSULIN ASPART 100 UNIT/ML 10 ML VIAL SQ SCH (20:37)
[2019-09-09] MEDS: oxyCODONE-APAP 10-325MG 1 EACH TAB PO SCH ×4 (00:16→17:08)
--- NOTE | 2019-09-09 02:24 | PN ---
PROGRESS NOTE DATE OF SERVICE: 09/08/2019 REASON FOR FOLLOWUP: 1. Left lower extremity cellulitis. 2. Positive blood culture. INTERVAL HISTORY: The patient is currently afebrile. She is breathing comfortably. Patient denies having any chest pain or cough. No nausea, vomiting. No abdominal pain. Pain and redness to the left leg has improved. PHYSICAL EXAMINATION: Blood pressure 119/59, pulse of 89, temperature 99. She is 95% on room air. General description: The patient is a middle-aged female lying in bed in no distress. Respiratory system: Unlabored breathing. Clear to auscultation anteriorly. Heart S1, S2. Regular rate and rhythm. Abdomen soft. No tenderness. Left leg swelling and redness has improved. LABS: Hemoglobin is 12, white count 6.9, BUN of 13, creatinine 0.96. Blood culture with micrococcus species. Repeat is so far negative. DIAGNOSTIC IMPRESSION AND PLAN: 1. Patient admitted to the hospital with fever, source is left lower extremity cellulitis with diffuse swelling and redness likely streptococcal disease. The patient is currently responding to cefazolin to continue with the plan to finish therapy with oral antibiotics. 2. The patient with positive blood culture micrococcus likely skin contamination and no need for any therapy for the same. MMODL / IJN: [id number] /
[2019-09-09 06:47] LABS: Glucose,Whole Blood 138 mg/dL (75-99)
[2019-09-09] MEDS: INSULIN ASPART (NovoLOG) 100 UNIT/ML VIAL SQ SCH ×4 (07:00→20:54)
[2019-09-09] MEDS: hydrALAZINE HCL 25 MG TAB PO SCH ×3 (08:02→20:29)
[2019-09-09] MEDS: PREGABALIN 50 MG CAP PO SCH ×2 (08:02→20:29)
[2019-09-09] MEDS: CLOPIDOGREL 75 MG TAB PO SCH (08:02)
[2019-09-09] MEDS: FUROSEMIDE 40 MG TAB PO SCH (08:02)
[2019-09-09] MEDS: POTASSIUM CHLORIDE ER 20 MEQ TAB.ER PO SCH (08:02)
[2019-09-09] MEDS: amLODIPine 10 MG TAB PO SCH (08:02)
[2019-09-09] MEDS: CYANOCOBALAMIN 500 MCG TAB PO SCH (08:02)
[2019-09-09] MEDS: metFORMIN 500 MG TAB PO SCH ×2 (08:02→17:08)
[2019-09-09] MEDS: PRAVASTATIN SODIUM 20 MG TAB PO SCH (08:03)
[2019-09-09] MEDS: hydrOXYzine PAMOATE 25 MG CAP PO SCH ×4 (08:03→20:29)
[2019-09-09] MEDS: IPRATROPIUM-ALBUTEROL 3 ML NEB INHALATION SCH ×4 (08:20→19:04)
[2019-09-09 09:10] LABS: Basophils % (A) 0 %; Eosinophils # (A) 0.2 k/uL (0-0.7); Eosinophils % (A) 2 %; HCT 42.9 % (34.0-46.0); HGB 13.6 gm/dL (11.4-16.0); Hypochromasia Slight; Lymphocytes # (A) 2.3 k/uL (1.0-4.8); Lymphocytes % (A) 31 %; MCH 26.7 pg (25.0-35.0); MCHC 31.6 g/dL (31.0-37.0); MCV 84.5 fL (80.0-100.0); Mean Platelet Volume 6.8; Monocytes # (A) 0.4 k/uL (0-1.0); Monocytes % (A) 5 %; Neutrophils # (A) 4.4 k/uL (1.3-7.7); Neutrophils % (A) 59 %; Platelet Count 331 k/uL (150-450); RBC 5.08 m/uL (3.80-5.40); RDW 15.6 % (11.5-15.5); WBC 7.5 k/uL (3.8-10.6)
[2019-09-09 09:54] LABS: Albumin 4.4 g/dL (3.5-5.0); Calcium 9.9 mg/dL (8.4-10.2); Potassium 4.1 mmol/L (3.5-5.1); Total Bilirubin 0.5 mg/dL (0.2-1.3); Total Protein 8.6 g/dL (6.3-8.2)
[2019-09-09 11:48] LABS: Glucose,Whole Blood 143 mg/dL (75-99)
--- NOTE | 2019-09-09 14:33 | P.PN ---
Subjective Progress Note Date: 09/09/19 Rika Quan is a 58-year-old female who presented to [facility] emergency room with a chief complaint of febrile illness, and generalized weakness, patient has evidence of urinary tract infection, she also has evidence of lower extremity cellulitis bilateral, left worse than right, extending up to the thigh on the left lower extremity, patient has a known history of nonhealing ulcer on the plantar aspect of the left foot. She was evaluated in the emergency room Jeanine eyes started on IV antibiotic and admitted to medical floor infectious disease consultation was requested. Tete padilla has a known history of diabetes Brandon's is maintained on insulin. COVID 19 testing in the emergency room was negative On 09/07/2019 patient was seen and examined on the medical floor she is alert and oriented 3 in no apparent distress there is no fever or chills no headache or dizziness no chest pain no shortness of breath no cough no nausea or vomiting no abdominal pain no diarrhea there is no blood in the stools. There is burning was urination and frequency no urgency no hematuria. On 09/08/2019 patient was seen and examined on the medical floor she is alert and oriented, she is complaining of some discomfort in her left lower extremity otherwise no complaints at this time there is no fever or chills no headache or dizziness no chest pain no shortness of breath no cough no nausea or vomiting no abdominal pain no diarrhea and no urinary symptoms. Blood culture results are positive for gram-positive cocci in clusters, infectious disease following. On 09/09/2019 patient was seen and examined on the medical floor she is doing better redness and induration in the left thigh are receding there is no fever or chills no headache or dizziness no chest pain no shortness of breath no cough no nausea or vomiting no abdominal pain no diarrhea and no urinary symptoms Objective - Vital Signs Vital signs: Vital Signs Temp 98.4 F 09/09/19 07:00 Pulse 80 09/09/19 07:00 Resp 18 09/09/19 07:00 BP 155/87 09/09/19 07:00 Pulse Ox 93 L 09/09/19 07:00 Intake & Output 09/08/19 09/09/19 09/09/19 18:59 06:59 18:59 Output Total 1800 400 900 Balance -1800 -400 -900 Weight 113.398 kg Output: Urine 1800 400 900 Other: Voiding Method Bedpan Bedpan Bedpan Diaper Diaper Diaper # Voids 1 # Bowel Movements 1 1 - Exam In general patient is alert and oriented 3 in no apparent distress HEENT head normocephalic and atraumatic Neck is supple no JVD no goiter no lymphadenopathy Chest exam reveals a few scattered crackles no wheezing Cardiac exam reveals regular heart sounds S1 and S2 no gallops no murmurs Abdomen is soft nontender no organomegaly with normal bowel sounds Extremity exam reveals erythema extending from the ankle up to the mid thigh area on the left slightly improved since yesterday there is around quarter size nonhealing ulcer on the plantar aspect of the left foot just below the base of the big toe. Neurological examination reveals no gross focal deficit - Labs CBC & Chem 7: 09/09/19 08:44 09/09/19 08:44 Labs: Abnormal Lab Results - Last 24 Hours (Table) 09/08/19 09/08/19 09/09/19 Range/Units 16:52 20:28 06:45 RDW (11.5-15.5) % BUN (7-17) mg/dL Glucose (74-99) mg/dL POC Glucose (mg/dL) 134 H 201 H 138 H (75-99) mg/dL Total Protein (6.3-8.2) g/dL 09/09/19 09/09/19 09/09/19 Range/Units 08:44 08:44 11:44 RDW 15.6 H (11.5-15.5) % BUN 19 H (7-17) mg/dL Glucose 149 H (74-99) mg/dL POC Glucose (mg/dL) 143 H (75-99) mg/dL Total Protein 8.6 H (6.3-8.2) g/dL Microbiology - Last 24 Hours (Table) 09/06/19 04:41 Blood Culture Gram Stain - Final Blood Blood Culture - Final Micrococcus species Assessment and Plan Plan: 1. Febrile illness with evidence of sepsis as evidenced by fever and elevated lactic acid of 2.1 and leukocytosis 2. bilateral lower extremity cellulitis. 3. Chronic nonhealing ulcer on the left foot. 4. urinary tract infection 5. dehydration with acute kidney injury was elevated BUN and creatinine 6. Insulin-dependent diabetes mellitus 7. Degenerative disc disease with Chronic back pain maintained on narcotics for pain management At this time patient was started on IV antibiotics, Zosyn in the emergency room this was discontinued by infectious disease patient was started on cefazolin 2 g IV every 8 hours She was restarted on insulin, she is on IV fluid normal saline at [facility] Input from Dr. Majano was reviewed Will recheck labs in a.m. clinically she is stable Consultation for infectious disease was initiated
--- NOTE | 2019-09-09 18:18 | PN ---
PROGRESS NOTE DATE OF SERVICE: 09/09/2019 REASON FOR FOLLOWUP: Left lower extremity cellulitis. INTERVAL HISTORY: The patient is currently afebrile. The patient is breathing comfortably. The patient denies having any chest pain or any cough. No nausea, no vomiting. No abdominal pain. Pain and discomfort to the left leg have improved. PHYSICAL EXAMINATION: Blood pressure is 136/77 with a pulse of 89, temperature 98. She is 96% on room air. General description is a middle-aged female lying in bed in no distress. RESPIRATORY SYSTEM: Unlabored breathing. Clear to auscultation anteriorly. HEART: S1, S2. Regular rate and rhythm. ABDOMEN: Soft. No tenderness. Left leg swelling and redness have improved. LABS: Hemoglobin is 13.6, white count 7.5. BUN of 19, creatinine 0.91. DIAGNOSTIC IMPRESSION AND PLAN: 1. Patient with acute left lower extremity cellulitis in this patient who has clinically responded to the cefazolin; to continue with a plan to finish therapy with oral Keflex. 2. Positive blood culture with micrococcus which is likely contaminant. No need for further therapy for the same. MMODL / IJN: [id number] /
[2019-09-09] MEDS: LATANOPROST 0.005% OPHTH DROPS 2.5 ML BTL BOTH EYES SCH (20:29)
[2019-09-09] MEDS: INSULN ASP PRT/INSULIN ASPART 100 UNIT/ML 10 ML VIAL SQ SCH (20:29)
[2019-09-10] MEDS: oxyCODONE-APAP 10-325MG 1 EACH TAB PO SCH ×3 (00:03→12:48)
[2019-09-10] MEDS: IPRATROPIUM-ALBUTEROL 3 ML NEB INHALATION SCH ×3 (07:30→16:55)
[2019-09-10 07:53] LABS: Glucose,Whole Blood 150 mg/dL (75-99)
[2019-09-10 07:54] LABS: Glucose,Whole Blood 110 mg/dL (75-99)
[2019-09-10 07:54] LABS: Glucose,Whole Blood 133 mg/dL (75-99)
[2019-09-10] MEDS: INSULIN ASPART (NovoLOG) 100 UNIT/ML VIAL SQ SCH ×2 (08:09→11:58)
[2019-09-10] MEDS: metFORMIN 500 MG TAB PO SCH (08:10)
[2019-09-10] MEDS: CLOPIDOGREL 75 MG TAB PO SCH (08:10)
[2019-09-10] MEDS: POTASSIUM CHLORIDE ER 20 MEQ TAB.ER PO SCH (08:10)
[2019-09-10] MEDS: PREGABALIN 50 MG CAP PO SCH (08:10)
[2019-09-10] MEDS: hydrALAZINE HCL 25 MG TAB PO SCH (08:10)
[2019-09-10] MEDS: FUROSEMIDE 40 MG TAB PO SCH (08:10)
[2019-09-10] MEDS: PRAVASTATIN SODIUM 20 MG TAB PO SCH (08:10)
[2019-09-10] MEDS: amLODIPine 10 MG TAB PO SCH (08:10)
[2019-09-10] MEDS: hydrOXYzine PAMOATE 25 MG CAP PO SCH ×2 (08:11→12:47)
[2019-09-10] MEDS: CYANOCOBALAMIN 500 MCG TAB PO SCH (08:11)
[2019-09-10 11:22] LABS: Glucose,Whole Blood 132 mg/dL (75-99)
[2019-09-10] MEDS ORDERED: LOSARTAN 50 MG TAB PO SCH (12:00)
--- NOTE | 2019-09-10 13:00 | P.PN ---
Subjective Progress Note Date: 09/10/19 Rika Quan is a 58-year-old female who presented to [facility] emergency room with a chief complaint of febrile illness, and generalized weakness, patient has evidence of urinary tract infection, she also has evidence of lower extremity cellulitis bilateral, left worse than right, extending up to the thigh on the left lower extremity, patient has a known history of nonhealing ulcer on the plantar aspect of the left foot. She was evaluated in the emergency room Jeanine eyes started on IV antibiotic and admitted to medical floor infectious disease consultation was requested. Tete padilla has a known history of diabetes Brandon's is maintained on insulin. COVID 19 testing in the emergency room was negative On 09/07/2019 patient was seen and examined on the medical floor she is alert and oriented 3 in no apparent distress there is no fever or chills no headache or dizziness no chest pain no shortness of breath no cough no nausea or vomiting no abdominal pain no diarrhea there is no blood in the stools. There is burning was urination and frequency no urgency no hematuria. On 09/08/2019 patient was seen and examined on the medical floor she is alert and oriented, she is complaining of some discomfort in her left lower extremity otherwise no complaints at this time there is no fever or chills no headache or dizziness no chest pain no shortness of breath no cough no nausea or vomiting no abdominal pain no diarrhea and no urinary symptoms. Blood culture results are positive for gram-positive cocci in clusters, infectious disease following. On 09/09/2019 patient was seen and examined on the medical floor she is doing better redness and induration in the left thigh are receding there is no fever or chills no headache or dizziness no chest pain no shortness of breath no cough no nausea or vomiting no abdominal pain no diarrhea and no urinary symptoms on 09/10/2019 patient was seen and examined on the medical floor she is alert and oriented in no apparent distress there is improvement in swelling induration and erythema in the left thigh there is no fever or chills no headache or dizziness no chest pain no shortness of breath no cough no nausea or vomiting no abdominal pain no diarrhea no burning with urination no frequency or urgency and no hematuria Objective - Vital Signs Vital signs: Vital Signs Temp 98.2 F 09/10/19 07:00 Pulse 89 09/10/19 07:10 Resp 18 09/10/19 07:10 BP 158/87 09/10/19 07:00 Pulse Ox 94 L 09/10/19 07:00 Intake & Output 09/09/19 09/10/19 09/10/19 18:59 06:59 18:59 Intake Total 50 Output Total 8916 392 5660 Balance -1750 400 -1200 Intake: Intake, IV Titration 50 Amount ceFAZolin 2 gm In Sodium 50 Chloride 0.9% 50 ml @ 100 mls/hr IVPB Q8HR [facility] Rx# :[id number] Output: Urine 0609 [id number] Other: Voiding Method Bedpan Bedpan Bedpan Diaper Diaper Diaper # Voids 1 # Bowel Movements 1 - Exam In general patient is alert and oriented 3 in no apparent distress HEENT head normocephalic and atraumatic Neck is supple no JVD no goiter no lymphadenopathy Chest exam reveals a few scattered crackles no wheezing Cardiac exam reveals regular heart sounds S1 and S2 no gallops no murmurs Abdomen is soft nontender no organomegaly with normal bowel sounds Extremity exam reveals erythema extending from the ankle up to the mid thigh area on the left slightly improved since yesterday there is around quarter size nonhealing ulcer on the plantar aspect of the left foot just below the base of the big toe. Neurological examination reveals no gross focal deficit - Labs CBC & Chem 7: 09/09/19 08:44 09/09/19 08:44 Labs: Abnormal Lab Results - Last 24 Hours (Table) 09/09/19 09/09/19 09/10/19 Range/Units 16:41 20:22 06:58 POC Glucose (mg/dL) 110 H 133 H 150 H (75-99) mg/dL 09/10/19 Range/Units 11:20 POC Glucose (mg/dL) 132 H (75-99) mg/dL Assessment and Plan Plan: 1. Febrile illness with evidence of sepsis as evidenced by fever and elevated lactic acid of 2.1 and leukocytosis 2. bilateral lower extremity cellulitis. 3. Chronic nonhealing ulcer on the left foot. 4. urinary tract infection 5. dehydration with acute kidney injury was elevated BUN and creatinine 6. Insulin-dependent diabetes mellitus 7. Degenerative disc disease with Chronic back pain maintained on narcotics for pain management At this time patient was started on IV antibiotics, Zosyn in the emergency room this was discontinued by infectious disease patient was started on cefazolin 2 g IV every 8 hours She was restarted on insulin, she is on IV fluid normal saline at [facility] Input from Dr. Majano was reviewed Will recheck labs in a.m. clinically she is stable Consultation for infectious disease was initiated
[2019-09-10 15:38] VITALS: BP 123/77; PULSE 96; RESP 17; TEMP 99
--- NOTE | 2019-09-10 16:00 | P.DS ---
Providers Date of admission: 09/06/19 04:43 Expected date of discharge: 09/10/19 Attending physician: Mariely Bradford Consults: 09/06/19 12:06 Consult Physician Urgent Consulting Provider: Ishan Majano Consult Reason/Comments: Lower ext cellulitis/L great toe wound Do you want consulting provider notified?: Yes Primary care physician: Mariely Bradford [facility] Course: Diagnoses on discharge: 1. Febrile illness with evidence of sepsis as evidenced by fever and elevated lactic acid of 2.1 and leukocytosis 2. bilateral lower extremity cellulitis. 3. Chronic nonhealing ulcer on the left foot. 4. urinary tract infection 5. dehydration with acute kidney injury was elevated BUN and creatinine 6. Insulin-dependent diabetes mellitus 7. Degenerative disc disease with Chronic back pain maintained on narcotics for pain management Hospital course: Rika Quan is a 58-year-old female who presented to [facility] emergency room with a chief complaint of febrile illness, and generalized weakness, patient has evidence of urinary tract infection, she also has evidence of lower extremity cellulitis bilateral, left worse than right, extending up to the thigh on the left lower extremity, patient has a known history of nonhealing ulcer on the plantar aspect of the left foot. She was evaluated in the emergency room Jeanine eyes started on IV antibiotic and admitted to medical floor infectious disease consultation was requested. Patient has a known history of diabetes Brandon's is maintained on insulin. COVID 19 testing in the emergency room was negative On 09/07/2019 patient was seen and examined on the medical floor she is alert and oriented 3 in no apparent distress there is no fever or chills no headache or dizziness no chest pain no shortness of breath no cough no nausea or vomiting no abdominal pain no diarrhea there is no blood in the stools. There is burning was urination and frequency no urgency no hematuria. On 09/08/2019 patient was seen and examined on the medical floor she is alert and oriented, she is complaining of some discomfort in her left lower extremity otherwise no complaints at this time there is no fever or chills no headache or dizziness no chest pain no shortness of breath no cough no nausea or vomiting no abdominal pain no diarrhea and no urinary symptoms. Blood culture results are positive for gram-positive cocci in clusters, infectious disease following. On 09/09/2019 patient was seen and examined on the medical floor she is doing better redness and induration in the left thigh are receding there is no fever or chills no headache or dizziness no chest pain no shortness of breath no cough no nausea or vomiting no abdominal pain no diarrhea and no urinary symptoms on 09/10/2019 patient was seen and examined on the medical floor she is alert and oriented in no apparent distress there is improvement in swelling induration and erythema in the left thigh there is no fever or chills no headache or dizziness no chest pain no shortness of breath no cough no nausea or vomiting no abdominal pain no diarrhea no burning with urination no frequency or urgency and no hematuria. Patient has improved significantly since admission she was evaluated by infectious disease and was cleared for discharge to home today she would receive a course of oral Keflex 500 mg 3 times a day for 10 more days she will be followed in our office within one week for further evaluation and treatment Patient Condition at Discharge: Stable Plan - Discharge Summary Discharge Rx Participant: Yes New Discharge Prescriptions: New Losartan [Cozaar] 50 mg PO DAILY tab Cephalexin [Keflex] 500 mg PO Q8HR 10 Days #30 cap Continue amLODIPine [Norvasc] 10 mg PO DAILY Latanoprost [Xalatan 0.005%] 1 drop BOTH EYES HS Furosemide [Lasix] 40 mg PO DAILY Clopidogrel [Plavix] 75 mg PO DAILY metFORMIN HCL 1,000 mg PO BID Albuterol Inhaler (Mhu) [Ventolin Hfa Inhaler (Mhu)] 2 puff INHALATION RT-Q6H PRN PRN Reason: Shortness Of Breath Potassium Chloride [Klor-Con 20] 20 meq PO DAILY Insuln Asp Prt/Insulin Aspart [NovoLOG MIX 70-30 VIAL] 35 unit SQ DAILY Insuln Asp Prt/Insulin Aspart [NovoLOG MIX 70-30 VIAL] 25 unit SQ HS Ipratropium-Albuterol Nebulize [Duoneb 0.5 mg-3 mg/3 ml Soln] 3 ml INHALATION RT-QID Pravastatin Sodium [Pravachol] 10 mg PO DAILY SILVER sulfADIAZINE Cream [Silvadene 1% Cream] 1 applic TOPICAL DAILY Fish Oil/Dha/Epa [Fish Oil 1,200 mg Fish Oil] 1 cap PO DAILY Cyanocobalamin (Vitamin B-12) [Vitamin B-12] 1,000 mcg PO DAILY oxyCODONE HCL/ACETAMINOPHEN [Percocet 10-325 mg] 1 tab PO Q6H Pregabalin 150 mg PO BID Liraglutide [Victoza 2-[place]] 0.6 mg SQ DAILY traMADol HCl [Ultram] 50 mg PO Q6H PRN tab PRN Reason: Moderate Pain Ergocalciferol [Vitamin D2 (DRISDOL)] 50,000 unit PO MO hydrALAZINE HCL [Apresoline] 25 mg PO TID hydrOXYzine PAMOATE 50 mg PO QID Discharge Medication List amLODIPine [Norvasc] 10 mg PO DAILY 02/16/16 [History] Clopidogrel [Plavix] 75 mg PO DAILY 03/01/17 [History] Furosemide [Lasix] 40 mg PO DAILY 03/01/17 [History] Latanoprost [Xalatan 0.005%] 1 drop BOTH EYES HS 03/01/17 [History] metFORMIN HCL 1,000 mg PO BID 05/20/17 [History] Albuterol Inhaler (Mhu) [Ventolin Hfa Inhaler (Mhu)] 2 puff INHALATION RT-Q6H PRN 10/30/18 [History] Insuln Asp Prt/Insulin Aspart [NovoLOG MIX 70-30 VIAL] 25 unit SQ HS 10/30/18 [History] Insuln Asp Prt/Insulin Aspart [NovoLOG MIX 70-30 VIAL] 35 unit SQ DAILY 10/30/18 [History] Potassium Chloride [Klor-Con 20] 20 meq PO DAILY 10/30/18 [History] Ipratropium-Albuterol Nebulize [Duoneb 0.5 mg-3 mg/3 ml Soln] 3 ml INHALATION RT-QID 06/28/19 [History] Pravastatin Sodium [Pravachol] 10 mg PO DAILY 06/28/19 [History] SILVER sulfADIAZINE Cream [Silvadene 1% Cream] 1 applic TOPICAL DAILY 06/28/19 [History] Cyanocobalamin (Vitamin B-12) [Vitamin B-12] 1,000 mcg PO DAILY 08/05/19 [History] Fish Oil/Dha/Epa [Fish Oil 1,200 mg Fish Oil] 1 cap PO DAILY 08/05/19 [History] Liraglutide [Victoza 2-[place]] 0.6 mg SQ DAILY 08/05/19 [History] Pregabalin 150 mg PO BID 08/05/19 [History] oxyCODONE HCL/ACETAMINOPHEN [Percocet 10-325 mg] 1 tab PO Q6H 08/05/19 [History] traMADol HCl [Ultram] 50 mg PO Q6H PRN tab 08/09/19 [Rx] Ergocalciferol [Vitamin D2 (DRISDOL)] 50,000 unit PO MO 09/06/19 [History] hydrALAZINE HCL [Apresoline] 25 mg PO TID 09/06/19 [History] hydrOXYzine PAMOATE 50 mg PO QID 09/06/19 [History] Cephalexin [Keflex] 500 mg PO Q8HR 10 Days #30 cap 09/10/19 [Rx] Losartan [Cozaar] 50 mg PO DAILY tab 09/10/19 [Rx] Follow up Appointment(s)/Referral(s): [facility], [NON-STAFF] - Wound Healing,Center [NON-STAFF] - 1 Week Mariely Bradford MD [Primary Care Provider] - 1-2 days
--- NOTE | 2019-09-10 16:48 | PN ---
PROGRESS NOTE DATE OF SERVICE: 09/10/2019 REASON FOR FOLLOWUP: Left lower extremity cellulitis. INTERVAL HISTORY: The patient is currently afebrile. The patient is breathing comfortably. Denies having any chest pain or any cough. No nausea, vomiting, abdominal pain or pain to the left lower extremity. PHYSICAL EXAMINATION: Blood pressure 123/77 with a pulse of 93, temperature 99. She is 97% on room air. General description is a middle-aged female lying in bed in no distress. RESPIRATORY SYSTEM: Unlabored breathing. Clear to auscultation anteriorly. HEART: S1, S2. Regular rate and rhythm. ABDOMEN: Soft. No tenderness. Left leg swelling and redness have improved. LABS: No new labs have been obtained today. DIAGNOSTIC IMPRESSION AND PLAN: Patient with acute left lower extremity cellulitis, likely streptococcal disease. Source of infection is more likely plantar wound on the left foot. That could be the source of recurrent cellulitis. She will finish therapy with oral Keflex. Local care to continue per the wound care nurse and monitor her clinical course closely. MMODL / IJN: [id number] /
== END 2019-09-10 17:20 | disposition home or self-care (01) | DRG 872 ==
LOC: EC 02:13 → 4SSUR 04:43
PROVIDERS: ADMIT Internal Medicine; ATTEND Internal Medicine
DX: A41.9 Sepsis, unspecified organism (principal); Z68.41 Body mass index [BMI] 40.0-44.9, adult; L03.115 Cellulitis of right lower limb; L03.116 Cellulitis of left lower limb; N17.9 Acute kidney failure, unspecified; N39.0 Urinary tract infection, site not specified; E11.621 Type 2 diabetes mellitus with foot ulcer; E11.65 Type 2 diabetes mellitus with hyperglycemia; E66.01 Morbid (severe) obesity due to excess calories; E78.5 Hyperlipidemia, unspecified; E86.0 Dehydration; F32.9 Major depressive disorder, single episode, unspecified; G35 Multiple sclerosis; G89.29 Other chronic pain; Z20.828 Contact with and (suspected) exposure to other viral communicable diseases; I10 Essential (primary) hypertension; J44.9 Chronic obstructive pulmonary disease, unspecified; L97.529 Non-pressure chronic ulcer of other part of left foot with unspecified severity; Z79.02 Long term (current) use of antithrombotics/antiplatelets; Z79.4 Long term (current) use of insulin; Z79.891 Long term (current) use of opiate analgesic; Z79.899 Other long term (current) drug therapy; Z80.9 Family history of malignant neoplasm, unspecified; Z96.642 Presence of left artificial hip joint; M54.9 Dorsalgia, unspecified; Z88.8 Allergy status to other drugs, medicaments and biological substances; H40.9 Unspecified glaucoma; K21.9 Gastro-esophageal reflux disease without esophagitis; M19.90 Unspecified osteoarthritis, unspecified site; Z91.030 Bee allergy status
CPT/HCPCS: 36415; 80048; 80053; 81001; 82550; 83036; 83605; 83880; 85025; 85610; 85730; 86140; 87040; 87635; 93005; 94640; 96360; 96361; 99285

== ENCOUNTER 2019-10-22 18:29 | Inpatient (IN) | payer MEDICARE, OTHER ==
[2019-10-22] MEDS ORDERED: SODIUM CHLORIDE 0.9% 1,000 ML IV STA (19:18)
[2019-10-22] MEDS ORDERED: oxyCODONE-APAP 10-325MG 1 EACH TAB PO STA (19:19)
--- NOTE | 2019-10-22 19:23 | ED ---
General Adult HPI <Chrsi Guo - Last Filed: 10/22/19 21:12> - General Source: patient, EMS Mode of arrival: EMS Limitations: no limitations <Jillian Miner - Last Filed: 10/22/19 23:31> - General Chief complaint: Weakness Stated complaint: weakness Time Seen by Provider: 10/22/19 19:08 - History of Present Illness Initial comments: Patient is a 58-year-old female presenting to the emergency department with complaints of weakness in her bilateral lower legs as well as possible cellulitis of her right leg. Patient states she has had this issue in the past. She was hospitalized about 3-4 weeks ago for same complaint. Patient states she was doing well in the last few days has noticed increase in weakness and swelling of the right leg. Patient states she did have a minor fall today ladi use of her discomfort of her right lower leg. She is complaining of some minor right shoulder pain secondary to the fall. She did not hit her head. She has no other complaints from this fall. She denies any recent fever, chills. She denies any abdominal pain, nausea, vomiting, chest pain, shortness of breath. He denies being on antibiotics recently. She has no further complaints at this time. (Jillian Miner) - Related Data Home Medications Medication Instructions Recorded Confirmed amLODIPine [Norvasc] 10 mg PO DAILY 02/16/16 09/06/19 Clopidogrel [Plavix] 75 mg PO DAILY 03/01/17 09/06/19 Furosemide [Lasix] 40 mg PO DAILY 03/01/17 09/06/19 Latanoprost [Xalatan 0.005%] 1 drop BOTH EYES HS 03/01/17 09/06/19 metFORMIN HCL 1,000 mg PO BID 05/20/17 09/06/19 Insuln Asp Prt/Insulin Aspart 25 unit SQ HS 10/30/18 09/06/19 [NovoLOG MIX 70-30 VIAL] Insuln Asp Prt/Insulin Aspart 35 unit SQ DAILY 10/30/18 09/06/19 [NovoLOG MIX 70-30 VIAL] Potassium Chloride [Klor-Con 20] 20 meq PO DAILY 10/30/18 09/06/19 Ipratropium-Albuterol Nebulize 3 ml INHALATION RT-QID 06/28/19 09/06/19 [Duoneb 0.5 mg-3 mg/3 ml Soln] Pravastatin Sodium [Pravachol] 10 mg PO DAILY 06/28/19 09/06/19 Cyanocobalamin (Vitamin B-12) 1,000 mcg PO DAILY 08/05/19 09/06/19 [Vitamin B-12] Fish Oil/Dha/Epa [Fish Oil 1,200 1 cap PO DAILY 08/05/19 09/06/19 mg Fish Oil] Liraglutide [Victoza 2-[place]] 0.6 mg SQ DAILY 08/05/19 09/06/19 Pregabalin 150 mg PO BID 08/05/19 09/06/19 oxyCODONE HCL/ACETAMINOPHEN 1 tab PO Q6H 08/05/19 09/06/19 [Percocet 10-325 mg] Ergocalciferol [Vitamin D2 50,000 unit PO MO 09/06/19 09/06/19 (DRISDOL)] hydrALAZINE HCL [Apresoline] 25 mg PO TID 09/06/19 09/06/19 hydrOXYzine PAMOATE 50 mg PO QID 09/06/19 09/06/19 Albuterol Inhaler [Ventolin Hfa 2 puff INHALATION RT-Q6H PRN 10/22/19 10/22/19 Inhaler] Losartan Potassium [Cozaar] 50 mg PO DAILY 10/22/19 10/22/19 Previous Rx's Medication Instructions Recorded traMADol HCl [Ultram] 50 mg PO Q6H PRN tab 08/09/19 Allergies Allergy/AdvReac Type Severity Reaction Status Date / Time methylprednisolone Allergy Anaphylaxis Verified 10/22/19 23:10 [From Solu-Medrol] venom-honey bee Allergy Anaphylaxis Verified 10/22/19 23:10 [bee venom (honey bee)] Review of Systems ROS Other: All systems not noted in ROS Statement are negative. <Chris Guo - Last Filed: 10/22/19 21:12> ROS Other: All systems not noted in ROS Statement are negative. <Jillian Miner - Last Filed: 10/22/19 23:31> ROS Statement: Those systems with pertinent positive or pertinent negative responses have been documented in the HPI. Past Medical History Past Medical History: Asthma, COPD, Diabetes Mellitus, Eye Disorder, GERD/Reflux, Hyperlipidemia, Hypertension, Neurologic Disorder, Osteoarthritis (OA) Additional Past Medical History / Comment(s): wounds rt leg,multiple sclerosis, glaucoma History of Any Multi-Drug Resistant Organisms: None Reported Past Surgical History: Section, Joint Replacement, Tubal Ligation Additional Past Surgical History / Comment(s): lt hip replacement,rectal surgery,eye proc Past Anesthesia/Blood Transfusion Reactions: No Reported Reaction Past Psychological History: Depression Smoking Status: Never smoker Past Alcohol Use History: None Reported Past Drug Use History: Marijuana - Past Family History Father Family Medical History: Cancer <Jillian Miner - Last Filed: 10/22/19 23:31> General Exam Limitations: no limitations <Jillian Miner - Last Filed: 10/22/19 23:31> - General Exam Comments Initial Comments: GENERAL: Well-appearing, well-nourished and in no acute distress. HEAD: Atraumatic, normocephalic. EYES: Pupils equal round and reactive to light, extraocular movements intact, sclera anicteric, conjunctiva are normal. ENT: TMs normal, nares patent, oropharynx clear without exudates. Moist mucous membranes. NECK: Normal range of motion, supple without lymphadenopathy or JVD. LUNGS: Breath sounds clear to auscultation bilaterally and equal. No wheezes rales or rhonchi. HEART: Regular rate and rhythm without murmurs, rubs or gallops. ABDOMEN: Soft, nontender, normoactive bowel sounds. No guarding, no rebound. No masses appreciated. : Deferred EXTREMITIES: Bilateral lower leg venous stasis, edema, worse in the right lower leg. Right leg is erythematous, consistent with cellulitis. She is neurovascular intact. No clubbing or cyanosis. Patient has full range of motion of her right shoulder, mild pain to palpation of the anterior aspect. NEUROLOGICAL: Normal speech. PSYCH: Normal mood, normal affect. SKIN: Warm, Dry, normal turgor, no rashes. Patient has a chronic ulcer of the left foot, underneath the first MTP joint. This looks stable,she is receiving wound care. (Jillian Miner) Course <Chris Guo - Last Filed: 10/22/19 21:12> Vital Signs 10/22/19 10/22/19 10/22/19 18:36 20:59 22:25 Temperature 98.4 F 98 F Pulse Rate 81 80 82 Respiratory 18 18 18 Rate Blood Pressure 183/88 152/92 165/97 O2 Sat by Pulse 95 98 98 Oximetry - Reevaluation(s) Reevaluation #1: 10/22/19 21:12 RUBIA supervision: I personally evaluate this case patient presenting with complaints of lower extremity weakness she does have evidence of cellulitis. Patient will be admitted the case was discussed. Dr. Bradford will be the admitting physician (Chris Guo) Medical Decision Making - Lab Data Result diagrams: 10/22/19 19:51 10/22/19 19:51 <Chris Guo - Last Filed: 10/22/19 21:12> - Lab Data Result diagrams: 10/22/19 19:51 10/22/19 19:51 <Jillian Miner - Last Filed: 10/22/19 23:31> - Medical Decision Making Patient is a 58-year-old female presenting with cellulitis and weakness of bilateral lower legs. Her vitals are stable. White count is normal, ESR is 29, CRP is 14.4, lactic acid is 2.5. Patient was given fluids, pain control and 1 g of Rocephin in the ER. She will be admitted to continue with IV antibiotics for bilateral lower leg cellulitis, R>L and wound care. Dr. Bradford did accept the patient. Discussed with Dr. Guo. (Jillian Miner) - Lab Data Lab Results 10/22/19 10/22/19 10/22/19 Range/Units 19:51 19:51 19:51 WBC 5.9 (3.8-10.6) k/uL RBC 4.31 (3.80-5.40) m/uL Hgb 10.9 L (11.4-16.0) gm/dL Hct 34.7 (34.0-46.0) % MCV 80.4 (80.0-100.0) fL MCH 25.3 (25.0-35.0) pg MCHC 31.5 (31.0-37.0) g/dL RDW 14.8 (11.5-15.5) % Plt Count 236 (150-450) k/uL Neutrophils % 70 % Lymphocytes % 21 % Monocytes % 5 % Eosinophils % 3 % Basophils % 0 % Neutrophils # 4.2 (1.3-7.7) k/uL Lymphocytes # 1.2 (1.0-4.8) k/uL Monocytes # 0.3 (0-1.0) k/uL Eosinophils # 0.2 (0-0.7) k/uL Basophils # 0.0 (0-0.2) k/uL Hypochromasia Slight ESR 29 H (0-20) mm/hr Sodium 139 (137-145) mmol/L Potassium 5.2 H (3.5-5.1) mmol/L Chloride 107 (98-107) mmol/L Carbon Dioxide 25 (22-30) mmol/L Anion Gap 7 mmol/L BUN 20 H (7-17) mg/dL Creatinine 1.00 (0.52-1.04) mg/dL Est GFR (CKD-EPI)AfAm 72 (>60 ml/min/1.73 sqM) Est GFR (CKD-EPI)NonAf 63 (>60 ml/min/1.73 sqM) Glucose 165 H (74-99) mg/dL Lactic Ac Sepsis Rflx Plasma Lactic Acid Daren 2.5 H* (0.7-2.0) mmol/L Calcium 9.2 (8.4-10.2) mg/dL Total Bilirubin 0.4 (0.2-1.3) mg/dL AST 28 (14-36) U/L ALT 19 (4-34) U/L Alkaline Phosphatase 104 (38-126) U/L C-Reactive Protein 14.4 H (<10.0) mg/L Total Protein 7.9 (6.3-8.2) g/dL Albumin 4.1 (3.5-5.0) g/dL 10/22/19 Range/Units 20:26 WBC (3.8-10.6) k/uL RBC (3.80-5.40) m/uL Hgb (11.4-16.0) gm/dL Hct (34.0-46.0) % MCV (80.0-100.0) fL MCH (25.0-35.0) pg MCHC (31.0-37.0) g/dL RDW (11.5-15.5) % Plt Count (150-450) k/uL Neutrophils % % Lymphocytes % % Monocytes % % Eosinophils % % Basophils % % Neutrophils # (1.3-7.7) k/uL Lymphocytes # (1.0-4.8) k/uL Monocytes # (0-1.0) k/uL Eosinophils # (0-0.7) k/uL Basophils # (0-0.2) k/uL Hypochromasia ESR (0-20) mm/hr Sodium (137-145) mmol/L Potassium (3.5-5.1) mmol/L Chloride (98-107) mmol/L Carbon Dioxide (22-30) mmol/L Anion Gap mmol/L BUN (7-17) mg/dL Creatinine (0.52-1.04) mg/dL Est GFR (CKD-EPI)AfAm (>60 ml/min/1.73 sqM) Est GFR (CKD-EPI)NonAf (>60 ml/min/1.73 sqM) Glucose (74-99) mg/dL Lactic Ac Sepsis Rflx Y Plasma Lactic Acid Daren (0.7-2.0) mmol/L Calcium (8.4-10.2) mg/dL Total Bilirubin (0.2-1.3) mg/dL AST (14-36) U/L ALT (4-34) U/L Alkaline Phosphatase (38-126) U/L C-Reactive Protein (<10.0) mg/L Total Protein (6.3-8.2) g/dL Albumin (3.5-5.0) g/dL Disposition <Chris Guo - Last Filed: 10/22/19 21:12> Decision Date: 10/22/19 Decision Time: 22:14 <Jillian Miner - Last Filed: 10/22/19 23:31> Clinical Impression: Bilateral lower leg cellulitis, Weakness Disposition: ADMITTED IP TO THIS [facility] Condition: Good Referrals: Mariely Bradford MD [Primary Care Provider] - 1-2 days
[2019-10-22 20:02] LABS: Basophils % (A) 0 %; Eosinophils # (A) 0.2 k/uL (0-0.7); Eosinophils % (A) 3 %; HCT 34.7 % (34.0-46.0); HGB 10.9 gm/dL (11.4-16.0); Hypochromasia Slight; Lymphocytes # (A) 1.2 k/uL (1.0-4.8); Lymphocytes % (A) 21 %; MCH 25.3 pg (25.0-35.0); MCHC 31.5 g/dL (31.0-37.0); MCV 80.4 fL (80.0-100.0); Mean Platelet Volume 7.8; Monocytes # (A) 0.3 k/uL (0-1.0); Monocytes % (A) 5 %; Neutrophils # (A) 4.2 k/uL (1.3-7.7); Neutrophils % (A) 70 %; Platelet Count 236 k/uL (150-450); RBC 4.31 m/uL (3.80-5.40); RDW 14.8 % (11.5-15.5); WBC 5.9 k/uL (3.8-10.6)
[2019-10-22 20:13] LABS: Albumin 4.1 g/dL (3.5-5.0); C Reactive Protein 14.4 mg/L (<10.0); Calcium 9.2 mg/dL (8.4-10.2); Total Bilirubin 0.4 mg/dL (0.2-1.3); Total Protein 7.9 g/dL (6.3-8.2)
[2019-10-22 20:24] LABS: Potassium 5.2 mmol/L (3.5-5.1)
[2019-10-22 21:06] LABS: Erythrocyte Sedimentation Rate 29 mm/hr (0-20)
[2019-10-22] MEDS ORDERED: ONDANSETRON 4 MG/2 ML VIAL IVP PRN (22:10)
[2019-10-22] MEDS ORDERED: NALOXONE 0.4 MG/ML 1 ML VIAL IV PRN (22:10)
[2019-10-22] MEDS ORDERED: ACETAMINOPHEN TAB 325 MG TAB PO PRN (22:10)
[2019-10-22] MEDS: MORPHINE SULFATE 4 MG/ML SYRINGE IV PRN (22:21)
[2019-10-22] MEDS: SODIUM CHLORIDE 0.9% 1,000 ML IV SCH (22:21)
[2019-10-22] MEDS ORDERED: LOSARTAN 50 MG TAB PO STA (22:28)
[2019-10-23 07:05] LABS: Glucose,Whole Blood 121 mg/dL (75-99)
[2019-10-23] MEDS: oxyCODONE-APAP 10-325MG 1 EACH TAB PO PRN ×2 (08:33→15:58)
[2019-10-23] MEDS: SODIUM CHLORIDE 0.9% 1,000 ML IV SCH (08:33)
[2019-10-23] MEDS ORDERED: ALBUTEROL NEBULIZED 2.5 MG/3 ML INHALATION PRN (08:40)
[2019-10-23] MEDS ORDERED: LOSARTAN 50 MG TAB PO SCH (09:00)
[2019-10-23] MEDS: NON FORMULARY DRUG (Fish Oil/Dha/Epa [Fish Oil 1,200 Mg Fish Oil] 1 CAP) PO SCH (09:02)
[2019-10-23] MEDS: NON FORMULARY DRUG (Liraglutide [Victoza 2-Pak] 0.6 MG) SQ SCH (09:03)
[2019-10-23] MEDS: INSULN ASP PRT/INSULIN ASPART 100 UNIT/ML 10 ML VIAL SQ SCH ×2 (09:10→21:11)
[2019-10-23] MEDS: hydrOXYzine PAMOATE 25 MG CAP PO SCH ×4 (09:10→21:12)
[2019-10-23] MEDS: FUROSEMIDE 40 MG TAB PO SCH (09:11)
[2019-10-23] MEDS: PREGABALIN 75 MG CAP PO SCH ×2 (09:11→21:15)
[2019-10-23] MEDS: CLOPIDOGREL 75 MG TAB PO SCH (09:11)
[2019-10-23] MEDS: PRAVASTATIN SODIUM 20 MG TAB PO SCH (09:11)
[2019-10-23] MEDS: amLODIPine 10 MG TAB PO SCH (09:11)
[2019-10-23] MEDS: hydrALAZINE HCL 25 MG TAB PO SCH ×3 (09:11→21:12)
[2019-10-23] MEDS: CYANOCOBALAMIN 500 MCG TAB PO SCH (09:11)
[2019-10-23] MEDS: metFORMIN 500 MG TAB PO SCH ×2 (09:11→21:12)
[2019-10-23] MEDS: POTASSIUM CHLORIDE ER 20 MEQ TAB.ER PO SCH (09:11)
[2019-10-23] MEDS: IBUPROFEN 800 MG TAB PO PRN ×2 (09:28→21:18)
[2019-10-23 11:20] LABS: Glucose,Whole Blood 94 mg/dL (75-99)
[2019-10-23] MEDS: IPRATROPIUM-ALBUTEROL 3 ML NEB INHALATION SCH ×3 (12:13→20:31)
[2019-10-23] MEDS: MORPHINE SULFATE 4 MG/ML SYRINGE IV PRN ×2 (12:36→19:37)
--- NOTE | 2019-10-23 14:34 | P.HPIM ---
History of Present Illness H&P Date: 10/23/19 Chief Complaint: lower extremity cellulitis Rika Quan is a 58 year old female, who presented to [facility] emergency room with bilateral lower extremity cellulitis with erythema swelling and tenderness extending from the foot all the way up to the mid thigh area on the right much worse than on the left, patient was evaluated in emergency room and was admitted to medical floor she was started on IV antibiotic infectious disease consultation was requested. Patient was admitted to the hospital about one month ago with similar symptoms she was given IV antibiotics she improved she was discharged home on oral antibiotics she states that her symptoms started to worsen as soon as she was done was oral antibiotics she was followed by a visiting nurse at home was advised her to return to emergency room. Patient has a known history of diabetes mellitus, she states that her sugar is well-controlled she also has a known history of hypertension with hypertensive cardiovascular disease, history of diastolic congestive heart failure, history of left foot ulcer, and history of morbid obesity. Patient was seen and examined on the medical floor she is alert and oriented 3 in no apparent distress there is no fever or chills no headache or dizziness no chest pain no shortness of breath no cough no nausea or vomiting no abdominal pain no diarrhea no burning was urination no frequency or urgency and no hematuria no weakness or numbness in any of the extremities no change in her vision speech or gait. Past Medical History Past Medical History: Asthma, COPD, Diabetes Mellitus, Eye Disorder, GERD/Reflux, Hyperlipidemia, Hypertension, Neurologic Disorder, Osteoarthritis (OA) Additional Past Medical History / Comment(s): wounds rt leg,multiple sclerosis, glaucoma History of Any Multi-Drug Resistant Organisms: None Reported Past Surgical History: Section, Joint Replacement, Tubal Ligation Additional Past Surgical History / Comment(s): lt hip replacement,rectal surgery,eye proc Past Anesthesia/Blood Transfusion Reactions: No Reported Reaction Past Psychological History: Depression Smoking Status: Never smoker Past Alcohol Use History: None Reported Past Drug Use History: Marijuana - Past Family History Father Family Medical History: Cancer Medications and Allergies Home Medications Medication Instructions Recorded Confirmed Type amLODIPine [Norvasc] 10 mg PO DAILY 02/16/16 10/22/19 History Clopidogrel [Plavix] 75 mg PO DAILY 03/01/17 10/22/19 History Furosemide [Lasix] 40 mg PO DAILY 03/01/17 10/22/19 History Latanoprost [Xalatan 0.005%] 1 drop BOTH EYES HS 03/01/17 10/22/19 History metFORMIN HCL 1,000 mg PO BID 05/20/17 10/22/19 History Insuln Asp Prt/Insulin Aspart 25 unit SQ HS 10/30/18 10/22/19 History [NovoLOG MIX 70-30 VIAL] Insuln Asp Prt/Insulin Aspart 35 unit SQ DAILY 10/30/18 10/22/19 History [NovoLOG MIX 70-30 VIAL] Potassium Chloride [Klor-Con 20] 20 meq PO DAILY 10/30/18 10/22/19 History Ipratropium-Albuterol Nebulize 3 ml INHALATION RT-QID 06/28/19 10/22/19 History [Duoneb 0.5 mg-3 mg/3 ml Soln] Pravastatin Sodium [Pravachol] 10 mg PO DAILY 06/28/19 10/22/19 History Cyanocobalamin (Vitamin B-12) 1,000 mcg PO DAILY 08/05/19 10/22/19 History [Vitamin B-12] Fish Oil/Dha/Epa [Fish Oil 1,200 1 cap PO DAILY 08/05/19 10/22/19 History mg Fish Oil] Liraglutide [Victoza 2-[place]] 0.6 mg SQ DAILY 08/05/19 10/22/19 History Pregabalin 150 mg PO BID 08/05/19 10/22/19 History oxyCODONE HCL/ACETAMINOPHEN 1 tab PO Q6H 08/05/19 10/22/19 History [Percocet 10-325 mg] traMADol HCl [Ultram] 50 mg PO Q6H PRN tab 08/09/19 10/22/19 Rx Ergocalciferol [Vitamin D2 50,000 unit PO MO 09/06/19 10/22/19 History (DRISDOL)] hydrALAZINE HCL [Apresoline] 25 mg PO TID 09/06/19 10/22/19 History hydrOXYzine PAMOATE 50 mg PO QID 09/06/19 10/22/19 History Albuterol Inhaler [Ventolin Hfa 2 puff INHALATION RT-Q6H PRN 10/22/19 10/22/19 History Inhaler] Losartan Potassium [Cozaar] 50 mg PO DAILY 10/22/19 10/22/19 History Allergies Allergy/AdvReac Type Severity Reaction Status Date / Time methylprednisolone Allergy Anaphylaxis Verified 10/22/19 23:10 [From Solu-Medrol] venom-honey bee Allergy Anaphylaxis Verified 10/22/19 23:10 [bee venom (honey bee)] Physical Exam Vitals: Vital Signs Temp Pulse Pulse Resp BP BP Pulse Ox 10/23/19 08:36 18 10/23/19 08:29 98.1 F 77 18 161/84 97 10/22/19 23:26 98.6 F 75 18 178/95 96 10/22/19 22:25 82 18 165/97 98 10/22/19 20:59 98 F 80 18 152/92 98 10/22/19 18:36 98.4 F 81 18 183/88 95 Intake and Output 10/22/19 10/23/19 10/23/19 22:59 06:59 14:59 Intake Total 480 Balance 480 Intake: Intake, IV Titration 480 Amount Sodium Chloride 0.9% 1, 480 000 ml @ 60 mls/hr IV . [id number] [facility] Rx#:[id number] Other: Voiding Method Toilet Toilet Bedside Commode Bedside Commode Bedpan Bedpan Weight 113.398 kg 113.398 kg In general patient is alert and oriented 3 HEENT head normocephalic and atraumatic Neck is supple no JVD no goiter no lymphadenopathy Chest exam reveals a few scattered rhonchi no wheezing Cardiac exam reveals regular heart sounds S1 and S2 no gallops no murmurs Abdomen is soft nontender no organomegaly was normal bowel sounds Extremity edema reveals 3+ edema bilaterally, with stasis changes in bilateral lower extremity, there is erythema and swelling and tenderness extending up the thighs bilaterally on the right is much worse than on the left there is a quar ter size healing ulcer in the bottom of the left foot Neurological examination reveals no gross focal deficit Results CBC & Chem 7: 10/22/19 19:51 10/22/19 19:51 Labs: Abnormal Lab Results - Last 24 Hours (Table) 10/22/19 10/22/19 10/22/19 Range/Units 19:51 19:51 19:51 Hgb 10.9 L (11.4-16.0) gm/dL ESR 29 H (0-20) mm/hr Potassium 5.2 H (3.5-5.1) mmol/L BUN 20 H (7-17) mg/dL Glucose 165 H (74-99) mg/dL POC Glucose (mg/dL) (75-99) mg/dL Plasma Lactic Acid Daren 2.5 H* (0.7-2.0) mmol/L C-Reactive Protein 14.4 H (<10.0) mg/L 10/22/19 10/23/19 Range/Units 23:25 07:04 Hgb (11.4-16.0) gm/dL ESR (0-20) mm/hr Potassium (3.5-5.1) mmol/L BUN (7-17) mg/dL Glucose (74-99) mg/dL POC Glucose (mg/dL) 121 H (75-99) mg/dL Plasma Lactic Acid Daren 2.7 H* (0.7-2.0) mmol/L C-Reactive Protein (<10.0) mg/L Thrombosis Risk Factor Assmnt - Choose All That Apply Any of the Below Risk Factors Present?: Yes Each Factor Represents 1 point: Age 41-60 years, Obesity (BMI >25) Thrombosis Risk Factor Assessment Total Risk Factor Score: 2 Thrombosis Risk Factor Assessment Level: Low Risk Assessment and Plan Plan: 1. Lower extremity cellulitis patient was started on IV antibiotic infectious disease consultation was requested 2. Underlying history of diabetes mellitus patient stated that her sugar has been well controlled we will check hemoglobin A1c will continue was current medications at this time 3. Underlying history of hypertension, blood pressure readings are elevated, at this time will increase losartan from 50 mg daily to 100 mg daily 4. Chronic back pain maintained on oxycodone continue 5. Underlying history of peripheral neuropathy maintained on Lyrica continue 6. Underlying history of hyperlipidemia maintained on Pravachol continue 7. For DVT prophylaxis patient was started on Lovenox for GI prophylaxis p atient was started on Protonix At this time patient was started on IV antibiotics, infectious disease consultation was requested awaiting input Will follow during this admission for medical management
[2019-10-23] MEDS: ENOXAPARIN 40 MG/0.4 ML SYRINGE SQ SCH (15:45)
[2019-10-23] MEDS: LOSARTAN 50 MG TAB PO SCH (15:46)
[2019-10-23 16:23] LABS: Glucose,Whole Blood 102 mg/dL (75-99)
[2019-10-23 21:12] LABS: Glucose,Whole Blood 96 mg/dL (75-99)
[2019-10-23] MEDS: LATANOPROST 0.005% OPHTH DROPS 2.5 ML BTL BOTH EYES SCH (21:12)
[2019-10-23 22:48] LABS: Hemoglobin A1C 7.3 % (4.0-6.0)
[2019-10-24] MEDS: oxyCODONE-APAP 10-325MG 1 EACH TAB PO PRN ×4 (00:20→23:45)
[2019-10-24] MEDS: MORPHINE SULFATE 4 MG/ML SYRINGE IV PRN ×2 (05:38→20:33)
[2019-10-24 06:55] LABS: Glucose,Whole Blood 111 mg/dL (75-99)
[2019-10-24] MEDS: NON FORMULARY DRUG (Liraglutide [Victoza 2-Pak] 0.6 MG) SQ SCH (07:40)
[2019-10-24 08:23] LABS: Basophils % (A) 0 %; Eosinophils # (A) 0.1 k/uL (0-0.7); Eosinophils % (A) 2 %; HCT 36.9 % (34.0-46.0); HGB 11.3 gm/dL (11.4-16.0); Hypochromasia Slight; Lymphocytes # (A) 1.6 k/uL (1.0-4.8); Lymphocytes % (A) 28 %; MCH 24.8 pg (25.0-35.0); MCHC 30.7 g/dL (31.0-37.0); MCV 80.9 fL (80.0-100.0); Mean Platelet Volume 6.9; Monocytes # (A) 0.4 k/uL (0-1.0); Monocytes % (A) 7 %; Neutrophils # (A) 3.3 k/uL (1.3-7.7); Neutrophils % (A) 61 %; Platelet Count 245 k/uL (150-450); RBC 4.56 m/uL (3.80-5.40); RDW 14.4 % (11.5-15.5); WBC 5.5 k/uL (3.8-10.6)
[2019-10-24 08:29] LABS: Albumin 3.6 g/dL (3.5-5.0); Potassium 3.8 mmol/L (3.5-5.1); Total Bilirubin 0.5 mg/dL (0.2-1.3); Total Protein 7.1 g/dL (6.3-8.2)
[2019-10-24] MEDS: INSULN ASP PRT/INSULIN ASPART 100 UNIT/ML 10 ML VIAL SQ SCH ×2 (08:35→20:33)
[2019-10-24] MEDS: ENOXAPARIN 40 MG/0.4 ML SYRINGE SQ SCH (08:35)
[2019-10-24] MEDS: amLODIPine 10 MG TAB PO SCH (08:36)
[2019-10-24] MEDS: LOSARTAN 50 MG TAB PO SCH (08:36)
[2019-10-24] MEDS: hydrOXYzine PAMOATE 25 MG CAP PO SCH ×4 (08:36→20:34)
[2019-10-24] MEDS: FUROSEMIDE 40 MG TAB PO SCH (08:36)
[2019-10-24] MEDS: metFORMIN 500 MG TAB PO SCH ×2 (08:36→20:34)
[2019-10-24] MEDS: PANTOPRAZOLE 40 MG TABLET PO SCH (08:36)
[2019-10-24] MEDS: PREGABALIN 75 MG CAP PO SCH ×2 (08:37→20:35)
[2019-10-24] MEDS: hydrALAZINE HCL 25 MG TAB PO SCH ×3 (08:37→20:35)
[2019-10-24] MEDS: CLOPIDOGREL 75 MG TAB PO SCH (08:37)
[2019-10-24] MEDS: CYANOCOBALAMIN 500 MCG TAB PO SCH (08:37)
[2019-10-24] MEDS: PRAVASTATIN SODIUM 20 MG TAB PO SCH (08:37)
[2019-10-24] MEDS: POTASSIUM CHLORIDE ER 20 MEQ TAB.ER PO SCH (08:37)
[2019-10-24] MEDS: SODIUM CHLORIDE 0.9% 1,000 ML IV SCH ×2 (08:40→23:47)
[2019-10-24] MEDS: NON FORMULARY DRUG (Fish Oil/Dha/Epa [Fish Oil 1,200 Mg Fish Oil] 1 CAP) PO SCH (08:40)
[2019-10-24] MEDS: IPRATROPIUM-ALBUTEROL 3 ML NEB INHALATION SCH ×4 (08:51→19:09)
--- NOTE | 2019-10-24 10:19 | P.CONS ---
History of Present Illness - Reason for Consult Consult date: 10/23/19 right leg cellulitis Requesting physician: Mariely Bradford - Chief Complaint right leg swelling and redness x few days - History of Present Illness Patient is a 58-year-old -[place] female with a past medical history significant for chronic nonhealing wound to the left foot plantar aspect and history of recurrent cellulitis patient now presenting to [facility] last evening with a chief complaints of swelling and redness of the right lower extremity patient noticing over the last few days increasing swelling and redness of the right leg patient did have some sharp pain to the right leg intensity 6-7 out of 10 and no radiation patient denies having any wound to the right lower extremity or any blister. Patient also had a fall yesterday the day of presentation to the hospital with more pain to the right leg with this weakness fall and right lower leg swelling and redness patient did present to the hospital on arrival to the ER patient has been afebrile patient had did have a normal white count sed rate was mildly elevated creatinine has been normal liver enzymes are normal baron PCR is negative blood culture obtained which are currently pending patient has been started on cefazolin admitted to hospital infectious disease was consulted for further management of antibiotic therapy. Review of Systems Positive point has been mentioned in HPI rest of the systems are negative Past Medical History Past Medical History: Asthma, COPD, Diabetes Mellitus, Eye Disorder, GERD/ Reflux, Hyperlipidemia, Hypertension, Neurologic Disorder, Osteoarthritis (OA) Additional Past Medical History / Comment(s): wounds rt leg,multiple sclerosis, glaucoma History of Any Multi-Drug Resistant Organisms: None Reported Past Surgical History: Section, Joint Replacement, Tubal Ligation Additional Past Surgical History / Comment(s): lt hip replacement,rectal surgery,eye proc Past Anesthesia/Blood Transfusion Reactions: No Reported Reaction Past Psychological History: Depression Smoking Status: Never smoker Past Alcohol Use History: None Reported Past Drug Use History: Marijuana - Past Family History Father Family Medical History: Cancer Medications and Allergies Home Medications Medication Instructions Recorded Confirmed Type amLODIPine [Norvasc] 10 mg PO DAILY 02/16/16 10/22/19 History Clopidogrel [Plavix] 75 mg PO DAILY 03/01/17 10/22/19 History Furosemide [Lasix] 40 mg PO DAILY 03/01/17 10/22/19 History Latanoprost [Xalatan 0.005%] 1 drop BOTH EYES HS 03/01/17 10/22/19 History metFORMIN HCL 1,000 mg PO BID 05/20/17 10/22/19 History Insuln Asp Prt/Insulin Aspart 25 unit SQ HS 10/30/18 10/22/19 History [NovoLOG MIX 70-30 VIAL] Insuln Asp Prt/Insulin Aspart 35 unit SQ DAILY 10/30/18 10/22/19 History [NovoLOG MIX 70-30 VIAL] Potassium Chloride [Klor-Con 20] 20 meq PO DAILY 10/30/18 10/22/19 History Ipratropium-Albuterol Nebulize 3 ml INHALATION RT-QID 06/28/19 10/22/19 History [Duoneb 0.5 mg-3 mg/3 ml Soln] Pravastatin Sodium [Pravachol] 10 mg PO DAILY 06/28/19 10/22/19 History Cyanocobalamin (Vitamin B-12) 1,000 mcg PO DAILY 08/05/19 10/22/19 History [Vitamin B-12] Fish Oil/Dha/Epa [Fish Oil 1,200 1 cap PO DAILY 08/05/19 10/22/19 History mg Fish Oil] Liraglutide [Victoza 2-[place]] 0.6 mg SQ DAILY 08/05/19 10/22/19 History Pregabalin 150 mg PO BID 08/05/19 10/22/19 History oxyCODONE HCL/ACETAMINOPHEN 1 tab PO Q6H 08/05/19 10/22/19 History [Percocet 10-325 mg] traMADol HCl [Ultram] 50 mg PO Q6H PRN tab 08/09/19 10/22/19 Rx Ergocalciferol [Vitamin D2 50,000 unit PO MO 09/06/19 10/22/19 History (DRISDOL)] hydrALAZINE HCL [Apresoline] 25 mg PO TID 09/06/19 10/22/19 History hydrOXYzine PAMOATE 50 mg PO QID 09/06/19 10/22/19 History Albuterol Inhaler [Ventolin Hfa 2 puff INHALATION RT-Q6H PRN 10/22/19 10/22/19 History Inhaler] Losartan Potassium [Cozaar] 50 mg PO DAILY 10/22/19 10/22/19 History Allergies Allergy/AdvReac Type Severity Reaction Status Date / Time methylprednisolone Allergy Anaphylaxis Verified 10/22/19 23:10 [From Solu-Medrol] venom-honey bee Allergy Anaphylaxis Verified 10/22/19 23:10 [bee venom (honey bee)] Physical Exam Vitals: Vital Signs Temp Pulse Pulse Resp BP BP Pulse Ox 10/23/19 08:36 18 10/23/19 08:29 98.1 F 77 18 161/84 97 10/22/19 23:26 98.6 F 75 18 178/95 96 10/22/19 22:25 82 18 165/97 98 10/22/19 20:59 98 F 80 18 152/92 98 10/22/19 18:36 98.4 F 81 18 183/88 95 Intake and Output 10/22/19 10/23/19 10/23/19 22:59 06:59 14:59 Intake Total 480 Output Total 2250 Balance 480 -2250 Intake: Intake, IV Titration 480 Amount Sodium Chloride 0.9% 1, 480 000 ml @ 60 mls/hr IV . [id number] [facility] Rx#:[id number] Output: Urine 2250 Other: Voiding Method Toilet Toilet Bedside Commode Bedside Commode Bedpan Bedpan # Voids 1 Weight 113.398 kg 113.398 kg GENERAL DESCRIPTION: Middle-aged female lying in bed, no distress. No tachypnea or accessory muscle of respiration use. HEENT: Shows Pallor , no scleral icterus. Oral mucous membrane is dry. NECK: Trachea central, no thyromegaly. LUNGS: Unlabored breathing. Clear to auscultation anteriorly. No wheeze or crackle. HEART: S1, S2, regular rate and rhythm. ABDOMEN: Soft, no tenderness , guarding or rigidity EXTREMITIES: Left foot plantar wound with no cellulitis right leg did have diffuse swelling and redness and warmth to touch. SKIN: No rash, no masses palpable. NEUROLOGICAL: The patient is awake, alert, oriented x3, mood and affect normal. Results CBC & Chem 7: 10/24/19 07:03 10/24/19 07:03 Labs: Abnormal Lab Results - Last 24 Hours (Table) 10/22/19 10/22/19 10/22/19 Range/Units 19:51 19:51 19:51 Hgb 10.9 L (11.4-16.0) gm/dL ESR 29 H (0-20) mm/hr Potassium 5.2 H (3.5-5.1) mmol/L BUN 20 H (7-17) mg/dL Glucose 165 H (74-99) mg/dL POC Glucose (mg/dL) (75-99) mg/dL Plasma Lactic Acid Daren 2.5 H* (0.7-2.0) mmol/L C-Reactive Protein 14.4 H (<10.0) mg/L 10/22/19 10/23/19 Range/Units 23:25 07:04 Hgb (11.4-16.0) gm/dL ESR (0-20) mm/hr Potassium (3.5-5.1) mmol/L BUN (7-17) mg/dL Glucose (74-99) mg/dL POC Glucose (mg/dL) 121 H (75-99) mg/dL Plasma Lactic Acid Daren 2.7 H* (0.7-2.0) mmol/L C-Reactive Protein (<10.0) mg/L Assessment and Plan Assessment: 1-patient presented to hospital with weakness fall and more swelling redness of the right lower extremity and this patient did have diffuse swelling redness likely streptococcal cellulitis however have a significant swelling and no fever or limited white count underlying DVT need to be ruled out 2-left foot plantar wound with no cellulitis (1) Cellulitis of right leg Current Visit: Yes Status: Acute Code(s): L03.115 - CELLULITIS OF RIGHT LOWER LIMB SNOMED Code(s): 672436430 (2) Diabetic ulcer of left foot Current Visit: No Status: Acute Code(s): E11.621 - TYPE 2 DIABETES MELLITUS WITH FOOT ULCER; L97.529 - NON-PRESSURE CHRONIC ULCER OTH PRT LEFT FOOT W UNSP SEVERITY SNOMED Code(s): 492493239 Plan: 1-we will obtain her Doppler ultrasound lower extremity rule out DVT 2-we will increase the dose of cefazolin to 2 grams every 8 hour 3-local wound care to the left foot wound with a dry Aquacel silver dressing to be changed every 48 hour We will follow on clinical condition and cultures to further adjust medication if needed Thank you for this consultation we will follow the patient along with you Time with Patient: Greater than 30
--- NOTE | 2019-10-24 11:03 | US ---
EXAMINATION TYPE: US venous doppler duplex LE RT DATE OF EXAM: 10/24/2019 10:53 AM COMPARISON: US 08/06/2019 CLINICAL HISTORY: swelling, cellulitis. Difficult and limited exam due to patient's edematous tissue and patient's inability to move her leg. SIDE PERFORMED: Right TECHNIQUE: The lower extremity deep venous system is examined utilizing real time linear array sonog [place] with graded compression, doppler sonography and color-flow sonography. VESSELS IMAGED: External Iliac Vein (EIV) Common Femoral Vein Deep Femoral Vein Greater Saphenous Vein * Femoral Vein Popliteal Vein Small Saphenous Vein * (* superficial vessels) Right Leg: Negative for DVT as visualized No popliteal fossa lesion was seen. IMPRESSION: THIS EXAMINATION IS NEGATIVE FOR DVT WITHIN THE RIGHT LEG.
[2019-10-24 11:30] LABS: Glucose,Whole Blood 60 mg/dL (75-99)
[2019-10-24 11:50] LABS: Glucose,Whole Blood 85 mg/dL (75-99)
[2019-10-24] MEDS: traMADol 50 MG TAB PO PRN (12:06)
--- NOTE | 2019-10-24 12:59 | P.PN ---
Subjective Progress Note Date: 10/24/19 Rika Quan is a 58 year old female, who presented to [facility] emergency room with bilateral lower extremity cellulitis with erythema swelling and tenderness extending from the foot all the way up to the mid thigh area on the right much worse than on the left, patient was evaluated in emergency room and was admitted to medical floor she was started on IV antibiotic infectious disease consultation was requested. Patient was admitted to the hospital about one month ago with similar symptoms she was given IV antibiotics she improved she was discharged home on oral antibiotics she states that her symptoms started to worsen as soon as she was done was oral antibiotics she was followed by a visiting nurse at home was advised her to return to emergency room. Patient has a known history of diabetes mellitus, she states that her sugar is well-controlled she also has a known history of hypertension with hypertensive cardiovascular disease, history of diastolic congestive heart failure, history of left foot ulcer, and history of morbid obesity. Patient was seen and examined on the medical floor she is alert and oriented 3 in no apparent distress there is no fever or chills no headache or dizziness no chest pain no shortness of breath no cough no nausea or vomiting no abdominal pain no diarrhea no burning was urination no frequency or urgency and no hematuria no weakness or numbness in any of the extremities no change in her vision speech or gait. On 10/24/2019 patient was seen and examined on the medical floor she is alert and oriented 3 in no apparent distress, there is no fever or chills no headache or dizziness no chest pain no shortness of breath no cough no nausea or vomiting no abdominal pain no diarrhea no blood in the stools no burning was urination no frequency or urgency and no hematuria erythema and tenderness in the right lower extremity has improved since yesterday Objective - Vital Signs Vital signs: Vital Signs Temp 98.0 F 10/24/19 06:48 Pulse 82 10/24/19 00:58 Resp 17 10/24/19 06:48 BP 167/99 10/24/19 06:48 Pulse Ox 96 10/24/19 06:48 Intake & Output 10/23/19 10/24/19 10/24/19 18:59 06:59 18:59 Intake Total 460 100 Output Total 4950 2300 Balance -4950 460 -2200 Intake: Intake, IV Titration 360 100 Amount Sodium Chloride 0.9% 1, 360 000 ml @ 60 mls/hr IV . [id number] [facility] Rx#:[id number] ceFAZolin 1,000 mg In 100 Sodium Chloride 0.9% 50 ml @ 100 mls/hr IVPB Q8HR [facility] Rx#:[id number] Oral 100 Output: Urine 4950 2300 Other: Voiding Method Toilet Bedpan Bedside Commode Bedpan # Voids 1 2 - Exam In general patient is alert and oriented 3 HEENT head normocephalic and atraumatic Neck is supple no JVD no goiter no lymphadenopathy Chest exam reveals a few scattered rhonchi no wheezing Cardiac exam reveals regular heart sounds S1 and S2 no gallops no murmurs Abdomen is soft nontender no organomegaly was normal bowel sounds Extremity edema reveals 3+ edema bilaterally, with stasis changes in bilateral lower extremity, there is erythema and swelling and tenderness extending up the thighs bilaterally on the right is much worse than on the left there is a quarter size healing ulcer in the bottom of the left foot, there is some improvement in the redness and tenderness and induration in the right thigh since yesterday Neurological examination reveals no gross focal deficit - Labs CBC & Chem 7: 10/24/19 07:03 10/24/19 07:03 Labs: Abnormal Lab Results - Last 24 Hours (Table) 10/22/19 10/23/19 10/24/19 Range/Units 19:51 16:22 06:54 Hgb (11.4-16.0) gm/dL MCH (25.0-35.0) pg MCHC (31.0-37.0) g/dL Carbon Dioxide (22-30) mmol/L POC Glucose (mg/dL) 102 H 111 H (75-99) mg/dL Hemoglobin A1c 7.3 H (4.0-6.0) % 10/24/19 10/24/19 10/24/19 Range/Units 07:03 07:03 11:29 Hgb 11.3 L (11.4-16.0) gm/dL MCH 24.8 L (25.0-35.0) pg MCHC 30.7 L (31.0-37.0) g/dL Carbon Dioxide 32 H (22-30) mmol/L POC Glucose (mg/dL) 60 L (75-99) mg/dL Hemoglobin A1c (4.0-6.0) % Microbiology - Last 24 Hours (Table) 10/22/19 19:51 Blood Culture - Preliminary Blood No Growth after 24 hours Assessment and Plan Plan: 1. Lower extremity cellulitis patient was started on IV antibiotic infectious disease consultation was requested 2. Underlying history of diabetes mellitus patient stated that her sugar has been well controlled we will check hemoglobin A1c will continue was current medications at this time 3. Underlying history of hypertension, blood pressure readings are elevated, at this time will increase losartan from 50 mg daily to 100 mg daily 4. Chronic back pain maintained on oxycodone continue 5. Underlying history of peripheral neuropathy maintained on Lyrica continue 6. Underlying history of hyperlipidemia maintained on Pravachol continue 7. For DVT prophylaxis patient was started on Lovenox for GI prophylaxis patient was started on Protonix At this time patient was started on IV antibiotics, infectious disease consultation was requested awaiting input Will follow during this admission for medical management
[2019-10-24 15:34] LABS: Glucose,Whole Blood 129 mg/dL (75-99)
[2019-10-24 16:55] LABS: Glucose,Whole Blood 96 mg/dL (75-99)
[2019-10-24 20:22] LABS: Glucose,Whole Blood 154 mg/dL (75-99)
[2019-10-24] MEDS: LATANOPROST 0.005% OPHTH DROPS 2.5 ML BTL BOTH EYES SCH (20:33)
--- NOTE | 2019-10-25 01:36 | PN ---
PROGRESS NOTE DATE OF SERVICE: 10/24/2019 REASON FOR FOLLOWUP: Right lower extremity cellulitis, left foot plantar wound. INTERVAL HISTORY: The patient is currently afebrile. The patient is feeling better. Breathing comfortably. The right leg pain and discomfort have improved. Denies having any chest pain, shortness of breath or cough. No abdominal pain. No diarrhea. PHYSICAL EXAMINATION: Blood pressure 165/82 with a pulse of 83, temperature 98.3. She is 96% on room air. General description is a middle-aged female lying in bed in no distress. RESPIRATORY SYSTEM: Unlabored breathing, clear to auscultation anteriorly. HEART: S1, S2. Regular rate and rhythm. ABDOMEN: Soft. No tenderness. Right leg swelling and redness has decreased. LABS: Doppler has been negative for DVT. Blood culture negative. DIAGNOSTIC IMPRESSION AND PLAN: 1. Patient with acute right lower extremity cellulitis. Patient clinically responded to cefazolin to continue. Lower extremity Doppler has been negative for deep venous thrombosis. 2. Left foot wound. Local care to continue with dry Aquacel Silver dressing. MMODL / IJN: [id number] /
[2019-10-25 07:28] LABS: Glucose,Whole Blood 88 mg/dL (75-99)
[2019-10-25] MEDS: PRAVASTATIN SODIUM 20 MG TAB PO SCH (07:32)
[2019-10-25] MEDS: POTASSIUM CHLORIDE ER 20 MEQ TAB.ER PO SCH (07:33)
[2019-10-25] MEDS: metFORMIN 500 MG TAB PO SCH ×2 (07:34→20:57)
[2019-10-25] MEDS: hydrOXYzine PAMOATE 25 MG CAP PO SCH ×4 (07:34→20:56)
[2019-10-25] MEDS: LOSARTAN 50 MG TAB PO SCH (07:34)
[2019-10-25] MEDS: amLODIPine 10 MG TAB PO SCH (07:35)
[2019-10-25] MEDS: PREGABALIN 75 MG CAP PO SCH ×2 (07:35→20:56)
[2019-10-25] MEDS: CYANOCOBALAMIN 500 MCG TAB PO SCH (07:35)
[2019-10-25] MEDS: CLOPIDOGREL 75 MG TAB PO SCH (07:35)
[2019-10-25] MEDS: hydrALAZINE HCL 25 MG TAB PO SCH ×3 (07:35→20:56)
[2019-10-25] MEDS: FUROSEMIDE 40 MG TAB PO SCH (07:36)
[2019-10-25] MEDS: PANTOPRAZOLE 40 MG TABLET PO SCH (07:36)
[2019-10-25] MEDS: oxyCODONE-APAP 10-325MG 1 EACH TAB PO PRN ×3 (07:36→22:47)
[2019-10-25] MEDS: ENOXAPARIN 40 MG/0.4 ML SYRINGE SQ SCH (07:37)
[2019-10-25] MEDS: IPRATROPIUM-ALBUTEROL 3 ML NEB INHALATION SCH ×4 (08:07→21:18)
[2019-10-25 08:08] LABS: Basophils % (A) 1 %; Eosinophils # (A) 0.1 k/uL (0-0.7); Eosinophils % (A) 2 %; HCT 41.5 % (34.0-46.0); HGB 12.6 gm/dL (11.4-16.0); Hypochromasia Slight; Lymphocytes % (A) 33 %; MCH 24.7 pg (25.0-35.0); MCHC 30.4 g/dL (31.0-37.0); MCV 81.2 fL (80.0-100.0); Mean Platelet Volume 6.8; Monocytes # (A) 0.4 k/uL (0-1.0); Monocytes % (A) 7 %; Neutrophils # (A) 3.5 k/uL (1.3-7.7); Neutrophils % (A) 57 %; Platelet Count 242 k/uL (150-450); RBC 5.11 m/uL (3.80-5.40); RDW 14.3 % (11.5-15.5); WBC 6.2 k/uL (3.8-10.6)
[2019-10-25 08:17] LABS: Albumin 3.8 g/dL (3.5-5.0); Calcium 9.4 mg/dL (8.4-10.2); Potassium 3.6 mmol/L (3.5-5.1); Total Bilirubin 0.5 mg/dL (0.2-1.3); Total Protein 7.6 g/dL (6.3-8.2)
[2019-10-25] MEDS: NON FORMULARY DRUG (Fish Oil/Dha/Epa [Fish Oil 1,200 Mg Fish Oil] 1 CAP) PO SCH (08:31)
[2019-10-25] MEDS: INSULN ASP PRT/INSULIN ASPART 100 UNIT/ML 10 ML VIAL SQ SCH ×2 (08:34→20:56)
[2019-10-25] MEDS ORDERED: ERGOCALCIFEROL 50,000 UNIT CAP PO SCH (09:00)
[2019-10-25] MEDS: NON FORMULARY DRUG (Liraglutide [Victoza 2-Pak] 0.6 MG) SQ SCH (09:51)
[2019-10-25] MEDS: MORPHINE SULFATE 4 MG/ML SYRINGE IV PRN ×2 (10:02→18:43)
[2019-10-25 11:39] LABS: Glucose,Whole Blood 84 mg/dL (75-99)
[2019-10-25] MEDS: SODIUM CHLORIDE 0.9% 1,000 ML IV SCH (14:35)
[2019-10-25 16:31] LABS: Glucose,Whole Blood 113 mg/dL (75-99)
--- NOTE | 2019-10-25 17:47 | P.PN ---
Subjective Progress Note Date: 10/25/19 Rika Quan is a 58 year old female, who presented to [facility] emergency room with bilateral lower extremity cellulitis with erythema swelling and tenderness extending from the foot all the way up to the mid thigh area on the right much worse than on the left, patient was evaluated in emergency room and was admitted to medical floor she was started on IV antibiotic infectious disease consultation was requested. Patient was admitted to the hospital about one month ago with similar symptoms she was given IV antibiotics she improved she was discharged home on oral antibiotics she states that her symptoms started to worsen as soon as she was done was oral antibiotics she was followed by a visiting nurse at home was advised her to return to emergency room. Patient has a known history of diabetes mellitus, she states that her sugar is well-controlled she also has a known history of hypertension with hypertensive cardiovascular disease, history of diastolic congestive heart failure, history of left foot ulcer, and history of morbid obesity. Patient was seen and examined on the medical floor she is alert and oriented 3 in no apparent distress there is no fever or chills no headache or dizziness no chest pain no shortness of breath no cough no nausea or vomiting no abdominal pain no diarrhea no burning was urination no frequency or urgency and no hematuria no weakness or numbness in any of the extremities no change in her vision speech or gait. On 10/24/2019 patient was seen and examined on the medical floor she is alert and oriented 3 in no apparent distress, there is no fever or chills no headache or dizziness no chest pain no shortness of breath no cough no nausea or vomiting no abdominal pain no diarrhea no blood in the stools no burning was urination no frequency or urgency and no hematuria erythema and tenderness in the right lower extremity has improved since yesterday On 10/25/2019 patient was seen and examined on the medical floor she is alert a nd oriented 3 in no apparent distress there is still significant erythema swelling and induration in bilateral lower extremity especially on the right otherwise patient denies any complaints there is no fever or chills no headache or dizziness no chest pain no shortness of breath no cough no nausea or vomiting no abdominal pain no diarrhea and no urinary symptoms Objective - Vital Signs Vital signs: Vital Signs Temp 98.4 F 10/25/19 15:00 Pulse 90 10/25/19 15:00 Resp 17 10/25/19 15:00 BP 141/88 10/25/19 15:00 Pulse Ox 92 L 10/25/19 15:00 Intake & Output 10/24/19 10/25/19 10/25/19 18:59 06:59 18:59 Intake Total 100 510 800 Output Total 2300 1000 Balance -2200 510 -200 Intake: IV 800 ceFAZolin 2 gm In Sodium 800 Chloride 0.9% 50 ml @ 100 mls/hr IVPB Q8HR [facility] Rx# :[id number] Intake, IV Titration 100 360 Amount Sodium Chloride 0.9% 1, 360 000 ml @ 60 mls/hr IV . [id number] [facility] Rx#:[id number] ceFAZolin 1,000 mg In 100 Sodium Chloride 0.9% 50 ml @ 100 mls/hr IVPB Q8HR [facility] Rx#:[id number] Oral 150 Output: Urine 2300 1000 Other: Voiding Method Bedside Commode # Voids 2 - Exam In general patient is alert and oriented 3 HEENT head normocephalic and atraumatic Neck is supple no JVD no goiter no lymphadenopathy Chest exam reveals a few scattered rhonchi no wheezing Cardiac exam reveals regular heart sounds S1 and S2 no gallops no murmurs Abdomen is soft nontender no organomegaly was normal bowel sounds Extremity edema reveals 3+ edema bilaterally, with stasis changes in bilateral lower extremity, there is erythema and swelling and tenderness extending up the thighs bilaterally on the right is much worse than on the left there is a quarter size healing ulcer in the bottom of the left foot, there is some im provement in the redness and tenderness and induration in the right thigh since yesterday Neurological examination reveals no gross focal deficit - Labs CBC & Chem 7: 10/25/19 07:51 10/25/19 07:51 Labs: Abnormal Lab Results - Last 24 Hours (Table) 10/24/19 10/25/19 10/25/19 Range/Units 20:12 07:51 16:30 MCH 24.7 L (25.0-35.0) pg MCHC 30.4 L (31.0-37.0) g/dL POC Glucose (mg/dL) 154 H 113 H (75-99) mg/dL Microbiology - Last 24 Hours (Table) 10/22/19 19:51 Blood Culture - Preliminary Blood No Growth after 48 hours Assessment and Plan Plan: 1. Lower extremity cellulitis patient was started on IV antibiotic infectious disease consultation was requested 2. Underlying history of diabetes mellitus patient stated that her sugar has been well controlled we will check hemoglobin A1c will continue was current medications at this time 3. Underlying history of hypertension, blood pressure readings are elevated, at this time will increase losartan from 50 mg daily to 100 mg daily 4. Chronic back pain maintained on oxycodone continue 5. Underlying history of peripheral neuropathy maintained on Lyrica continue 6. Underlying history of hyperlipidemia maintained on Pravachol continue 7. For DVT prophylaxis patient was started on Lovenox for GI prophylaxis patient was started on Protonix At this time patient was started on IV antibiotics, infectious disease consultation was requested awaiting input Will follow during this admission for medical management
[2019-10-25 20:45] LABS: Glucose,Whole Blood 126 mg/dL (75-99)
[2019-10-25] MEDS: LATANOPROST 0.005% OPHTH DROPS 2.5 ML BTL BOTH EYES SCH (20:57)
--- NOTE | 2019-10-25 23:44 | PN ---
PROGRESS NOTE DATE OF SERVICE: 10/25/2019 REASON FOR FOLLOWUP: 1. Right lower extremity cellulitis. 2. Left foot wound. INTERVAL HISTORY: The patient is currently afebrile. The patient is breathing comfortably. Denies having any chest pain or shortness of breath or cough. The right lower extremity pain and swelling have improved. No abdominal pain or diarrhea. PHYSICAL EXAMINATION: On examination, blood pressure 141/88 with a pulse of 90, temperature 98.4. She is 92% on room air. General description is a middle-aged female lying in bed in no distress. RESPIRATORY SYSTEM: Unlabored breathing, clear to auscultation anteriorly. HEART: S1, S2. Regular rate and rhythm. ABDOMEN: Soft, no tenderness. Right leg swelling persists and redness has improved. LABS: Hemoglobin is 12.6, white count 6.2, BUN of 13, creatinine 0.90. DIAGNOSTIC IMPRESSION AND PLAN: 1. Patient with acute right lower extremity cellulitis with diffuse swelling and redness likely streptococcal responding to cefazolin to continue, finish therapy with oral Keflex. 2. Left foot wound. Local wound care with dry Aquacel Silver dressing. Continue with supportive care. MMODL / IJN: [id number] /
[2019-10-26] MEDS: oxyCODONE-APAP 10-325MG 1 EACH TAB PO PRN ×3 (05:55→19:57)
[2019-10-26 07:03] LABS: Glucose,Whole Blood 96 mg/dL (75-99)
[2019-10-26] MEDS: NON FORMULARY DRUG (Liraglutide [Victoza 2-Pak] 0.6 MG) SQ SCH (07:30)
[2019-10-26 07:50] LABS: Basophils % (A) 1 %; Eosinophils # (A) 0.1 k/uL (0-0.7); Eosinophils % (A) 2 %; HCT 38.4 % (34.0-46.0); Hypochromasia Slight; Lymphocytes # (A) 1.9 k/uL (1.0-4.8); Lymphocytes % (A) 34 %; MCH 25.2 pg (25.0-35.0); MCHC 31.2 g/dL (31.0-37.0); MCV 80.8 fL (80.0-100.0); Monocytes # (A) 0.4 k/uL (0-1.0); Monocytes % (A) 7 %; Neutrophils # (A) 3.1 k/uL (1.3-7.7); Neutrophils % (A) 55 %; Platelet Count 243 k/uL (150-450); RBC 4.75 m/uL (3.80-5.40); RDW 14.3 % (11.5-15.5); WBC 5.7 k/uL (3.8-10.6)
[2019-10-26] MEDS: IPRATROPIUM-ALBUTEROL 3 ML NEB INHALATION SCH ×4 (08:00→20:52)
[2019-10-26 08:20] LABS: Albumin 3.7 g/dL (3.5-5.0); Calcium 9.1 mg/dL (8.4-10.2); Potassium 3.6 mmol/L (3.5-5.1); Total Bilirubin 0.4 mg/dL (0.2-1.3); Total Protein 7.2 g/dL (6.3-8.2)
[2019-10-26] MEDS: NON FORMULARY DRUG (Fish Oil/Dha/Epa [Fish Oil 1,200 Mg Fish Oil] 1 CAP) PO SCH (08:21)
[2019-10-26] MEDS: amLODIPine 10 MG TAB PO SCH (08:22)
[2019-10-26] MEDS: CLOPIDOGREL 75 MG TAB PO SCH (08:22)
[2019-10-26] MEDS: ENOXAPARIN 40 MG/0.4 ML SYRINGE SQ SCH (08:22)
[2019-10-26] MEDS: hydrOXYzine PAMOATE 25 MG CAP PO SCH ×4 (08:22→22:09)
[2019-10-26] MEDS: metFORMIN 500 MG TAB PO SCH ×2 (08:22→22:09)
[2019-10-26] MEDS: LOSARTAN 50 MG TAB PO SCH (08:22)
[2019-10-26] MEDS: CYANOCOBALAMIN 500 MCG TAB PO SCH (08:22)
[2019-10-26] MEDS: POTASSIUM CHLORIDE ER 20 MEQ TAB.ER PO SCH (08:22)
[2019-10-26] MEDS: hydrALAZINE HCL 25 MG TAB PO SCH ×3 (08:23→22:09)
[2019-10-26] MEDS: PREGABALIN 75 MG CAP PO SCH ×2 (08:23→22:10)
[2019-10-26] MEDS: PRAVASTATIN SODIUM 20 MG TAB PO SCH (08:23)
[2019-10-26] MEDS: PANTOPRAZOLE 40 MG TABLET PO SCH (08:23)
[2019-10-26] MEDS: FUROSEMIDE 40 MG TAB PO SCH (08:23)
[2019-10-26] MEDS: INSULN ASP PRT/INSULIN ASPART 100 UNIT/ML 10 ML VIAL SQ SCH ×2 (08:24→22:10)
[2019-10-26] MEDS: SODIUM CHLORIDE 0.9% 1,000 ML IV SCH ×2 (08:24→23:35)
[2019-10-26] MEDS: traMADol 50 MG TAB PO PRN ×3 (08:26→22:09)
[2019-10-26 11:34] LABS: Glucose,Whole Blood 76 mg/dL (75-99)
--- NOTE | 2019-10-26 15:52 | PN ---
PROGRESS NOTE DATE OF SERVICE: 10/26/2019 REASON FOR FOLLOWUP: Right lower extremity cellulitis and left foot wound. INTERVAL HISTORY: The patient is currently afebrile. The patient is breathing comfortably. Right leg swelling is improved. The patient is complaining of more swelling to the left leg and some discomfort. Denies having any chest pain or cough. No abdominal pain, no diarrhea. PHYSICAL EXAMINATION: Blood pressure 136/82 with a pulse of 86, temperature of 98.2, she is 95% on room air. General description is a middle-aged female, up in the bed in no distress. RESPIRATORY SYSTEM: Unlabored breathing, clear to auscultation anteriorly. HEART: S1, S2. Regular rate and rhythm. ABDOMEN: Soft, no tenderness. Right leg swelling persists, redness has improved. LABS: Hemoglobin is 12, white count 5.7, BUN of 14, creatinine 0.92. Blood culture has been negative so far. DIAGNOSTIC IMPRESSION AND PLAN: Patient with acute right lower extremity cellulitis with diffuse swelling, redness likely streptococcal disease. Patient has shown clinical improvement with cefazolin to continue with the swelling in both legs. Will apply Isaías wrap to get some of the swelling down and help recurrent cellulitis as well as cut down on the edema. Local care to left foot wound with Aquacel Silver dressing. Continue supportive care. MMODL / IJN: [id number] /
[2019-10-26 16:32] LABS: Glucose,Whole Blood 105 mg/dL (75-99)
--- NOTE | 2019-10-26 17:12 | P.PN ---
Subjective Progress Note Date: 10/26/19 Rika Quan is a 58 year old female, who presented to [facility] emergency room with bilateral lower extremity cellulitis with erythema swelling and tenderness extending from the foot all the way up to the mid thigh area on the right much worse than on the left, patient was evaluated in emergency room and was admitted to medical floor she was started on IV antibiotic infectious disease consultation was requested. Patient was admitted to the hospital about one month ago with similar symptoms she was given IV antibiotics she improved she was discharged home on oral antibiotics she states that her symptoms started to worsen as soon as she was done was oral antibiotics she was followed by a visiting nurse at home was advised her to return to emergency room. Patient has a known history of diabetes mellitus, she states that her sugar is well-controlled she also has a known history of hypertension with hypertensive cardiovascular disease, history of diastolic congestive heart failure, history of left foot ulcer, and history of morbid obesity. Patient was seen and examined on the medical floor she is alert and oriented 3 in no apparent distress there is no fever or chills no headache or dizziness no chest pain no shortness of breath no cough no nausea or vomiting no abdominal pain no diarrhea no burning was urination no frequency or urgency and no hematuria no weakness or numbness in any of the extremities no change in her vision speech or gait. On 10/24/2019 patient was seen and examined on the medical floor she is alert and oriented 3 in no apparent distress, there is no fever or chills no headache or dizziness no chest pain no shortness of breath no cough no nausea or vomiting no abdominal pain no diarrhea no blood in the stools no burning was urination no frequency or urgency and no hematuria erythema and tenderness in the right lower extremity has improved since yesterday On 10/25/2019 patient was seen and examined on the medical floor she is alert a nd oriented 3 in no apparent distress there is still significant erythema swelling and induration in bilateral lower extremity especially on the right otherwise patient denies any complaints there is no fever or chills no headache or dizziness no chest pain no shortness of breath no cough no nausea or vomiting no abdominal pain no diarrhea and no urinary symptoms On 10/26/2019 patient was seen and examined on the medical floor she is alert and oriented 3 in no apparent distress she is complaining of bilateral lower extremity pain otherwise she denies any complaints there is no fever or chills no headache or dizziness no chest pain no shortness of breath no cough no nausea or vomiting no abdominal pain no diarrhea no burning was urination no frequency or urgency and no hematuria Objective - Vital Signs Vital signs: Vital Signs Temp 98.2 F 10/26/19 01:30 Pulse 77 10/26/19 01:30 Resp 16 10/26/19 01:30 BP 154/84 10/26/19 01:30 Pulse Ox 93 L 10/26/19 01:30 Intake & Output 10/25/19 10/26/19 10/26/19 18:59 06:59 18:59 Intake Total 800 250 Output Total 1000 800 Balance -200 -550 Intake: IV 800 ceFAZolin 2 gm In Sodium 800 Chloride 0.9% 50 ml @ 100 mls/hr IVPB Q8HR [facility] Rx# :[id number] Oral 250 Output: Urine 1000 800 Other: Voiding Method Bedside Commode - Exam In general patient is alert and oriented 3 HEENT head normocephalic and atraumatic Neck is supple no JVD no goiter no lymphadenopathy Chest exam reveals a few scattered rhonchi no wheezing Cardiac exam reveals regular heart sounds S1 and S2 no gallops no murmurs Abdomen is soft nontender no organomegaly was normal bowel sounds Extremity edema reveals 3+ edema bilaterally, with stasis changes in bilateral lower extremity, there is erythema and swelling and tenderness extending up the thighs bilaterally on the right is much worse than on the left there is a quarter size healing ulcer in the bottom of the left foot, there is some improvement in the redness and tenderness and induration in the right thigh s moiz yesterday Neurological examination reveals no gross focal deficit - Labs CBC & Chem 7: 10/26/19 06:57 10/26/19 06:57 Labs: Abnormal Lab Results - Last 24 Hours (Table) 10/25/19 10/25/19 10/25/19 Range/Units 07:51 16:30 20:43 MCH 24.7 L (25.0-35.0) pg MCHC 30.4 L (31.0-37.0) g/dL POC Glucose (mg/dL) 113 H 126 H (75-99) mg/dL Microbiology - Last 24 Hours (Table) 10/22/19 19:51 Blood Culture - Preliminary Blood No Growth after 72 hours Assessment and Plan Plan: 1. Lower extremity cellulitis patient was started on IV antibiotic infectious disease consultation was requested 2. Underlying history of diabetes mellitus patient stated that her sugar has been well controlled we will check hemoglobin A1c will continue was current medications at this time 3. Underlying history of hypertension, blood pressure readings are elevated, at this time will increase losartan from 50 mg daily to 100 mg daily 4. Chronic back pain maintained on oxycodone continue 5. Underlying history of peripheral neuropathy maintained on Lyrica continue 6. Underlying history of hyperlipidemia maintained on Pravachol continue 7. For DVT prophylaxis patient was started on Lovenox for GI prophylaxis patient was started on Protonix At this time patient was started on IV antibiotics, infectious disease consultation was requested awaiting input Will follow during this admission for medical management
[2019-10-26 21:07] LABS: Glucose,Whole Blood 114 mg/dL (75-99)
[2019-10-26] MEDS: LATANOPROST 0.005% OPHTH DROPS 2.5 ML BTL BOTH EYES SCH (22:10)
[2019-10-27] MEDS: oxyCODONE-APAP 10-325MG 1 EACH TAB PO PRN ×2 (02:42→10:08)
[2019-10-27 06:54] LABS: Glucose,Whole Blood 73 mg/dL (75-99)
[2019-10-27] MEDS: IPRATROPIUM-ALBUTEROL 3 ML NEB INHALATION SCH ×2 (08:56→12:36)
[2019-10-27] MEDS: ENOXAPARIN 40 MG/0.4 ML SYRINGE SQ SCH (09:34)
[2019-10-27] MEDS: PRAVASTATIN SODIUM 20 MG TAB PO SCH (09:37)
[2019-10-27] MEDS: hydrALAZINE HCL 25 MG TAB PO SCH (09:37)
[2019-10-27] MEDS: LOSARTAN 50 MG TAB PO SCH (09:37)
[2019-10-27] MEDS: metFORMIN 500 MG TAB PO SCH (09:37)
[2019-10-27] MEDS: amLODIPine 10 MG TAB PO SCH (09:38)
[2019-10-27] MEDS: CLOPIDOGREL 75 MG TAB PO SCH (09:38)
[2019-10-27] MEDS: PREGABALIN 75 MG CAP PO SCH (09:38)
[2019-10-27] MEDS: POTASSIUM CHLORIDE ER 20 MEQ TAB.ER PO SCH (09:38)
[2019-10-27] MEDS: CYANOCOBALAMIN 500 MCG TAB PO SCH (09:38)
[2019-10-27] MEDS: FUROSEMIDE 40 MG TAB PO SCH (09:38)
[2019-10-27] MEDS: hydrOXYzine PAMOATE 25 MG CAP PO SCH ×2 (09:38→12:10)
[2019-10-27] MEDS: PANTOPRAZOLE 40 MG TABLET PO SCH (09:38)
[2019-10-27] MEDS: NON FORMULARY DRUG (Liraglutide [Victoza 2-Pak] 0.6 MG) SQ SCH (09:39)
[2019-10-27] MEDS: NON FORMULARY DRUG (Fish Oil/Dha/Epa [Fish Oil 1,200 Mg Fish Oil] 1 CAP) PO SCH (09:39)
[2019-10-27] MEDS: INSULN ASP PRT/INSULIN ASPART 100 UNIT/ML 10 ML VIAL SQ SCH (09:54)
[2019-10-27 09:55] VITALS: BP 151/90; PULSE 89; RESP 16; TEMP 98.3
[2019-10-27 11:57] LABS: Glucose,Whole Blood 91 mg/dL (75-99)
--- NOTE | 2019-10-27 12:17 | PN ---
PROGRESS NOTE DATE OF SERVICE: 10/27/2019. REASON FOR FOLLOWUP: Right lower extremity cellulitis and left foot wound. INTERVAL HISTORY: The patient is currently afebrile. The patient is feeling better, breathing comfortably, mentioned overall redness of the leg has resolved. No chest pain or cough. No abdominal pain, no diarrhea. PHYSICAL EXAMINATION: Her blood pressure 151/90 with a pulse of 89, temperature 98.3, she is 94% on room air. General description is a middle-aged female, up in the chair in no distress. RESPIRATORY SYSTEM: Unlabored breathing, clear to auscultation anteriorly. HEART: S1, S2. Regular rate and rhythm. ABDOMEN: Soft, no tenderness. Right leg is currently dressed up, no drainage on the dressing. LABS: Blood culture negative. DIAGNOSTIC IMPRESSION AND PLAN: Patient with right lower extremity cellulitis and left foot wound. The patient has shown clinical improvement on IV cefazolin. Plan is to finish therapy with oral Keflex 500 mg p.o. q.6 hours for 10 days along with Isaías wrap to keep the swelling down and Aquacel dressing to the left foot wound. MMODL / IJN: [id number] /
--- NOTE | 2019-10-27 13:11 | P.DS ---
Providers Date of admission: 10/22/19 21:12 Expected date of discharge: 10/27/19 Attending physician: Mariely Bradford Consults: 10/23/19 08:43 Consult Physician Routine Consulting Provider: Ishan Majano Consult Reason/Comments: lower extremity cellulitis Do you want consulting provider notified?: Yes Primary care physician: Mariely Bradford [facility] Course: diagnosis on discharge: 1. Lower extremity cellulitis patient was started on IV antibiotic infectious disease consultation was requested 2. Underlying history of diabetes mellitus patient stated that her sugar has been well controlled we will check hemoglobin A1c will continue was current medications at this time 3. Underlying history of hypertension, blood pressure readings are elevated, at this time will increase losartan from 50 mg daily to 100 mg daily 4. Chronic back pain maintained on oxycodone continue 5. Underlying history of peripheral neuropathy maintained on Lyrica continue 6. Underlying history of hyperlipidemia maintained on Pravachol continue 7. For DVT prophylaxis patient was started on Lovenox for GI prophylaxis patient was started on Protonix Hospital course: Rika Quan is a 58 year old female, who presented to [facility] emergency room with bilateral lower extremity cellulitis with erythema swelling and tenderness extending from the foot all the way up to the mid thigh area on the right much worse than on the left, patient was evaluated in emergency room and was admitted to medical floor she was started on IV antibiotic infectious disease consultation was requested. Patient was admitted to the hospital about one month ago with similar symptoms she was given IV antibiotics she improved she was discharged home on oral antibiotics she states that her symptoms started to worsen as soon as she was done was oral antibiotics she was followed by a visiting nurse at home was advised her to return to emergency room. Patient has a known history of diabetes mellitus, she states that her sugar is well-controlled she also has a known history of hypertension with hypertensive cardiovascular disease, history of diastolic congestive heart failure, history of left foot ulcer, and history of morbid obesity. Patient was seen and examined on the medical floor she is alert and oriented 3 in no apparent distress there is no fever or chills no headache or dizziness no chest pain no shortness of breath no cough no nausea or vomiting no abdominal pain no diarrhea no burning was urination no frequency or urgency and no hematuria no weakness or numbness in any of the extremities no change in her vision speech or gait. On 10/24/2019 patient was seen and examined on the medical floor she is alert and oriented 3 in no apparent distress, there is no fever or chills no headache or dizziness no chest pain no shortness of breath no cough no nausea or vomiting no abdominal pain no diarrhea no blood in the stools no burning was urination no frequency or urgency and no hematuria erythema and tenderness in the right lower extremity has improved since yesterday On 10/25/2019 patient was seen and examined on the medical floor she is alert and oriented 3 in no apparent distress there is still significant erythema swelling and induration in bilateral lower extremity especially on the right oth erwise patient denies any complaints there is no fever or chills no headache or dizziness no chest pain no shortness of breath no cough no nausea or vomiting no abdominal pain no diarrhea and no urinary symptoms On 10/26/2019 patient was seen and examined on the medical floor she is alert and oriented 3 in no apparent distress she is complaining of bilateral lower extremity pain otherwise she denies any complaints there is no fever or chills no headache or dizziness no chest pain no shortness of breath no cough no nausea or vomiting no abdominal pain no diarrhea no burning was urination no frequency or urgency and no hematuria on 10/27/2019 patient was seen and examined on the medical floor she is alert and oriented 3 in no distress there is no fever or chills no headache or dizziness no chest pain no shortness of breath no cough no nausea or vomiting no abdominal pain no diarrhea no burning was urination no frequency or urgency and no hematuria she was evaluated by and was cleared for discharge on Keflex 500 mg 1 every 6 hours for 10 days she will be followed in our office on Friday Patient Condition at Discharge: Good Plan - Discharge Summary New Discharge Prescriptions: New Cephalexin [Keflex] 500 mg PO Q6HR 10 Days #40 cap Continue amLODIPine [Norvasc] 10 mg PO DAILY Latanoprost [Xalatan 0.005%] 1 drop BOTH EYES HS Furosemide [Lasix] 40 mg PO DAILY Clopidogrel [Plavix] 75 mg PO DAILY metFORMIN HCL 1,000 mg PO BID Potassium Chloride [Klor-Con 20] 20 meq PO DAILY Insuln Asp Prt/Insulin Aspart [NovoLOG MIX 70-30 VIAL] 35 unit SQ DAILY Insuln Asp Prt/Insulin Aspart [NovoLOG MIX 70-30 VIAL] 25 unit SQ HS Ipratropium-Albuterol Nebulize [Duoneb 0.5 mg-3 mg/3 ml Soln] 3 ml INHALATION RT-QID Pravastatin Sodium [Pravachol] 10 mg PO DAILY Fish Oil/Dha/Epa [Fish Oil 1,200 mg Fish Oil] 1 cap PO DAILY Cyanocobalamin (Vitamin B-12) [Vitamin B-12] 1,000 mcg PO DAILY oxyCODONE HCL/ACETAMINOPHEN [Percocet 10-325 mg] 1 tab PO Q6H Pregabalin 150 mg PO BID Liraglutide [Victoza 2-[place]] 0.6 mg SQ DAILY traMADol HCl [Ultram] 50 mg PO Q6H PRN tab PRN Reason: Moderate Pain Ergocalciferol [Vitamin D2 (DRISDOL)] 50,000 unit PO MO hydrALAZINE HCL [Apresoline] 25 mg PO TID hydrOXYzine PAMOATE 50 mg PO QID Albuterol Inhaler [Ventolin Hfa Inhaler] 2 puff INHALATION RT-Q6H PRN PRN Reason: Shortness Of Breath Losartan Potassium [Cozaar] 50 mg PO DAILY Discharge Medication List amLODIPine [Norvasc] 10 mg PO DAILY 02/16/16 [History] Clopidogrel [Plavix] 75 mg PO DAILY 03/01/17 [History] Furosemide [Lasix] 40 mg PO DAILY 03/01/17 [History] Latanoprost [Xalatan 0.005%] 1 drop BOTH EYES HS 03/01/17 [History] metFORMIN HCL 1,000 mg PO BID 05/20/17 [History] Insuln Asp Prt/Insulin Aspart [NovoLOG MIX 70-30 VIAL] 25 unit SQ HS 10/30/18 [History] Insuln Asp Prt/Insulin Aspart [NovoLOG MIX 70-30 VIAL] 35 unit SQ DAILY 10/30/18 [History] Potassium Chloride [Klor-Con 20] 20 meq PO DAILY 10/30/18 [History] Ipratropium-Albuterol Nebulize [Duoneb 0.5 mg-3 mg/3 ml Soln] 3 ml INHALATION RT-QID 06/28/19 [History] Pravastatin Sodium [Pravachol] 10 mg PO DAILY 06/28/19 [History] Cyanocobalamin (Vitamin B-12) [Vitamin B-12] 1,000 mcg PO DAILY 08/05/19 [History] Fish Oil/Dha/Epa [Fish Oil 1,200 mg Fish Oil] 1 cap PO DAILY 08/05/19 [History] Liraglutide [Victoza 2-[place]] 0.6 mg SQ DAILY 08/05/19 [History] Pregabalin 150 mg PO BID 08/05/19 [History] oxyCODONE HCL/ACETAMINOPHEN [Percocet 10-325 mg] 1 tab PO Q6H 08/05/19 [History] traMADol HCl [Ultram] 50 mg PO Q6H PRN tab 08/09/19 [Rx] Ergocalciferol [Vitamin D2 (DRISDOL)] 50,000 unit PO MO 09/06/19 [History] hydrALAZINE HCL [Apresoline] 25 mg PO TID 09/06/19 [History] hydrOXYzine PAMOATE 50 mg PO QID 09/06/19 [History] Albuterol Inhaler [Ventolin Hfa Inhaler] 2 puff INHALATION RT-Q6H PRN 10/22/19 [History] Losartan Potassium [Cozaar] 50 mg PO DAILY 10/22/19 [History] Cephalexin [Keflex] 500 mg PO Q6HR 10 Days #40 cap 10/27/19 [Rx] Follow up Appointment(s)/Referral(s): [facility], [NON-STAFF] - Mariely Bradford MD [Primary Care Provider] - 1-2 days
[2019-10-27] MEDS: traMADol 50 MG TAB PO PRN (14:27)
== END 2019-10-27 15:48 | disposition home health service (06) | DRG 603 ==
LOC: EC 18:29 → 4SSUR 21:12
PROVIDERS: ADMIT Internal Medicine; ATTEND Internal Medicine
DX: L03.115 Cellulitis of right lower limb (principal); I50.32 Chronic diastolic (congestive) heart failure; Z68.41 Body mass index [BMI] 40.0-44.9, adult; E11.621 Type 2 diabetes mellitus with foot ulcer; L97.529 Non-pressure chronic ulcer of other part of left foot with unspecified severity; E11.42 Type 2 diabetes mellitus with diabetic polyneuropathy; I11.0 Hypertensive heart disease with heart failure; E11.39 Type 2 diabetes mellitus with other diabetic ophthalmic complication; L03.116 Cellulitis of left lower limb; G35 Multiple sclerosis; E66.01 Morbid (severe) obesity due to excess calories; J44.9 Chronic obstructive pulmonary disease, unspecified; Z79.4 Long term (current) use of insulin; Z11.59 Encounter for screening for other viral diseases; K21.9 Gastro-esophageal reflux disease without esophagitis; H40.9 Unspecified glaucoma; H42 Glaucoma in diseases classified elsewhere; E78.5 Hyperlipidemia, unspecified; I87.8 Other specified disorders of veins; M25.511 Pain in right shoulder; G89.29 Other chronic pain; M54.9 Dorsalgia, unspecified; M19.90 Unspecified osteoarthritis, unspecified site; W19.XXXA Unspecified fall, initial encounter; Z79.02 Long term (current) use of antithrombotics/antiplatelets; Z79.891 Long term (current) use of opiate analgesic; Z79.899 Other long term (current) drug therapy; Z96.642 Presence of left artificial hip joint; Z98.890 Other specified postprocedural states; Z98.891 History of uterine scar from previous surgery; Z98.51 Tubal ligation status; Z86.59 Personal history of other mental and behavioral disorders; Z88.8 Allergy status to other drugs, medicaments and biological substances; Z91.030 Bee allergy status; Z80.9 Family history of malignant neoplasm, unspecified
CPT/HCPCS: 36415; 80053; 83036; 83605; 85025; 85652; 86140; 87040; 94640; 96365; 96366; 96375; 99285

== ENCOUNTER 2019-11-23 21:43 | Inpatient (IN) | payer MEDICARE, OTHER ==
--- NOTE | 2019-11-23 22:15 | ED ---
General Adult HPI - General Chief complaint: Weakness Stated complaint: Fall, weakness Time Seen by Provider: 11/23/19 21:44 Source: patient, EMS Mode of arrival: EMS Limitations: no limitations - History of Present Illness Initial comments: Dictation was produced using [employer] dictation software. please excuse any grammatical, word or spelling errors. This patient was cared for during a federal and state declared state of emergency secondary to Covid 19 Chief Complaint: 58-year-old female with multiple comorbidities presents with g eneralized weakness, and bilateral knee pain after fall. History of Present Illness: 58-year-old female she has multiple comorbidities. Patient came via EMS. Patient states she was at home with a friend who has a lot of comorbidities. She states that nobody is able to help take care of her. Today she was trying to get around her living place when she stood up. She felt like her knees gave out. Patient states she's been feeling weak. She fell to the ground landing on her bilateral knees. Patient just completed a course of Keflex treating bilateral lower extremity cellulitis. Patient has a fever, chills or night sweats. She states that her weakness is worse especially with trying to stand up. Patient denies any chest pain. No shortness of breath no flank pain. She does not have any urinary symptoms. The ROS documented in this emergency department record has been reviewed and confirmed by me. Those systems with pertinent positive or negative responses have been documented in the HPI. All other systems are other negative and/or noncontributory. PHYSICAL EXAM: General Impression: Alert and oriented x3, not in acute distress HEENT: Normocephalic atraumatic, extra-ocular movements intact, pupils equal and reactive to light bilaterally, mucous membranes moist. Cardiovascular: Heart regular rate and rhythm Chest: Able to complete full sentences, no retractions, no tachypnea Abdomen: abdomen soft, non-tender, non-distended, no organomegaly Musculoskeletal: Pulses present and equal in all extremities, 1+ pitting edema to bilateral lower extremities, there are bandages to bilateral lower extremities that are clean dry and intact. Positive lymphedema to bilateral lower extremities. Bilateral knees: Normal external signs of injury, no gross deformities Motor: no focal deficits noted Neurological: CN II-XII grossly intact, no focal motor or sensory deficits noted Skin: Intact with no visualized rashes Psych: Normal affect and mood ED course: 58-year-old female presents with generalized weakness. Vital signs upon arrival are within acceptable limits. Patient is well-appearing at bedside. There is a component of poor social situation. Believe is part of the reason why patient decided come to the emergency department. She lives at home by herself with another individual who has significant medical problems. She states that her roommate is sick and they're unable to care for each other given each other's medical issues. Laboratory evaluation obtained. No leukocytosis. Hemoglobin stable at 10.9. Coag panel unremarkable. Metabolic panel was obtained showing slight elevation in renal markers. Patient given intravenous fluids. Patient does have potassium of 6.3 with hemolysis. Patient given intravenous fluids she'll have her potassium rechecked. Rest of labs appear to be grossly unremarkable. Bilateral x-rays shows no acute processes. Potassium re-checked is ordered. Patient care sign out to Dr. Martines for follow-up of potassium and possible treatment.. Case was discussed with Dr. Bradford who is willing to accept patient care. EKG interpretation: Ventricular rate 81, normal sinus rhythm,. Interval 164, QRS 86, QTC 476. No DC prolongation, no QTC prolongation, no ST or T-wave changes noted. Overall, this EKG is unremarkable - Related Data Home Medications Medication Instructions Recorded Confirmed amLODIPine [Norvasc] 10 mg PO DAILY 02/16/16 11/23/19 Clopidogrel [Plavix] 75 mg PO DAILY 03/01/17 11/23/19 Furosemide [Lasix] 40 mg PO DAILY 03/01/17 11/23/19 Latanoprost [Xalatan 0.005%] 1 drop BOTH EYES HS 03/01/17 11/23/19 metFORMIN HCL 1,000 mg PO BID-W/MEALS 05/20/17 11/23/19 Insuln Asp Prt/Insulin Aspart 25 unit SQ HS 10/30/18 11/23/19 [NovoLOG MIX 70-30 VIAL] Insuln Asp Prt/Insulin Aspart 35 unit SQ DAILY 10/30/18 11/23/19 [NovoLOG MIX 70-30 VIAL] Potassium Chloride [Klor-Con 20] 20 meq PO DAILY 10/30/18 11/23/19 Ipratropium-Albuterol Nebulize 3 ml INHALATION RT-QID 06/28/19 11/23/19 [Duoneb 0.5 mg-3 mg/3 ml Soln] Pravastatin Sodium [Pravachol] 10 mg PO DAILY 06/28/19 11/23/19 Cyanocobalamin (Vitamin B-12) 1,000 mcg PO DAILY 08/05/19 11/23/19 [Vitamin B-12] Fish Oil/Dha/Epa [Fish Oil 1,200 1 cap PO DAILY 08/05/19 11/23/19 mg Fish Oil] Liraglutide [Victoza 2-[place]] 0.6 mg SQ DAILY 08/05/19 11/23/19 Pregabalin 150 mg PO BID 08/05/19 11/23/19 oxyCODONE HCL/ACETAMINOPHEN 1 tab PO QID 08/05/19 11/23/19 [Percocet 10-325 mg] Ergocalciferol [Vitamin D2 50,000 unit PO MO 09/06/19 11/23/19 (DRISDOL)] hydrALAZINE HCL [Apresoline] 25 mg PO TID 09/06/19 11/23/19 hydrOXYzine PAMOATE 50 mg PO QID 09/06/19 11/23/19 Albuterol Inhaler [Ventolin Hfa 2 puff INHALATION RT-Q6H PRN 10/22/19 11/23/19 Inhaler] Losartan Potassium [Cozaar] 50 mg PO DAILY 10/22/19 11/23/19 traMADol HCl [Ultram] 50 mg PO QID PRN 11/23/19 11/23/19 Allergies Allergy/AdvReac Type Severity Reaction Status Date / Time methylprednisolone Allergy Anaphylaxis Verified 11/23/19 22:17 [From Solu-Medrol] venom-honey bee Allergy Anaphylaxis Verified 11/23/19 22:17 [bee venom (honey bee)] Review of Systems ROS Statement: Those systems with pertinent positive or pertinent negative responses have been documented in the HPI. ROS Other: All systems not noted in ROS Statement are negative. Past Medical History Past Medical History: Asthma, COPD, Diabetes Mellitus, Eye Disorder, GERD/Reflux, Hyperlipidemia, Hypertension, Neurologic Disorder, Osteoarthritis (OA) Additional Past Medical History / Comment(s): wounds rt leg,multiple sclerosis, glaucoma History of Any Multi-Drug Resistant Organisms: None Reported Past Surgical History: Section, Joint Replacement, Tubal Ligation Additional Past Surgical History / Comment(s): lt hip replacement,rectal surgery,eye proc Past Anesthesia/Blood Transfusion Reactions: No Reported Reaction Past Psychological History: Depression Past Alcohol Use History: None Reported Past Drug Use History: Marijuana - Past Family History Father Family Medical History: Cancer General Exam Limitations: no limitations Course Vital Signs 11/23/19 11/24/19 21:55 01:20 Temperature 98.1 F 98.1 F Pulse Rate 80 78 Respiratory 18 15 Rate Blood Pressure 145/94 117/68 O2 Sat by Pulse 95 94 L Oximetry Medical Decision Making - Lab Data Result diagrams: 11/26/19 07:21 11/26/19 07:21 Lab Results 11/23/19 11/23/19 11/23/19 Range/Units 22:35 22:35 22:35 WBC 8.1 (3.8-10.6) k/uL RBC 4.50 (3.80-5.40) m/uL Hgb 10.9 L (11.4-16.0) gm/dL Hct 34.9 (34.0-46.0) % MCV 77.4 L (80.0-100.0) fL MCH 24.3 L (25.0-35.0) pg MCHC 31.3 (31.0-37.0) g/dL RDW 13.9 (11.5-15.5) % Plt Count 203 (150-450) k/uL Neutrophils % 62 % Lymphocytes % 28 % Monocytes % 5 % Eosinophils % 3 % Basophils % 1 % Neutrophils # 5.0 (1.3-7.7) k/uL Lymphocytes # 2.3 (1.0-4.8) k/uL Monocytes # 0.4 (0-1.0) k/uL Eosinophils # 0.2 (0-0.7) k/uL Basophils # 0.1 (0-0.2) k/uL PT 10.5 (9.0-12.0) sec INR 1.0 (<1.2) APTT 24.0 (22.0-30.0) sec Sodium 136 L (137-145) mmol/L Potassium 6.3 H* (3.5-5.1) mmol/L Chloride 104 (98-107) mmol/L Carbon Dioxide 26 (22-30) mmol/L Anion Gap 6 mmol/L BUN 31 H (7-17) mg/dL Creatinine 1.33 H (0.52-1.04) mg/dL Est GFR (CKD-EPI)AfAm 51 (>60 ml/min/1.73 sqM) Est GFR (CKD-EPI)NonAf 44 (>60 ml/min/1.73 sqM) Glucose 151 H (74-99) mg/dL POC Glucose (mg/dL) (75-99) mg/dL POC Glu Supervisor Facepiece Line ID Plasma Lactic Acid Daren (0.7-2.0) mmol/L Calcium 9.2 (8.4-10.2) mg/dL Magnesium 1.7 (1.6-2.3) mg/dL Iron (50-170) ug/dL TIBC (228-460) ug/dL % Saturation (12.00-45.00) Total Bilirubin 1.2 (0.2-1.3) mg/dL AST 59 H (14-36) U/L ALT 22 (4-34) U/L Alkaline Phosphatase 111 (38-126) U/L Creatine Kinase (30-135) U/L Troponin I (0.000-0.034) ng/mL C-Reactive Protein <5.0 (<10.0) mg/L Total Protein 8.7 H (6.3-8.2) g/dL Albumin 4.6 (3.5-5.0) g/dL Vitamin B12 (200.0-944.0) pg/mL Folate ng/mL Procalcitonin (0.02-0.09) ng/mL Urine Color Urine Appearance (Clear) Urine pH (5.0-8.0) Ur Specific [place] (1.001-1.035) Urine Protein (Negative) Urine Glucose (UA) (Negative) Urine Ketones (Negative) Urine Blood (Negative) Urine Nitrite (Negative) Urine Bilirubin (Negative) Urine Urobilinogen (<2.0) mg/dL Ur Leukocyte Esterase (Negative) 11/23/19 11/23/19 11/23/19 Range/Units 22:35 22:35 22:35 WBC (3.8-10.6) k/uL RBC (3.80-5.40) m/uL Hgb (11.4-16.0) gm/dL Hct (34.0-46.0) % MCV (80.0-100.0) fL MCH (25.0-35.0) pg MCHC (31.0-37.0) g/dL RDW (11.5-15.5) % Plt Count (150-450) k/uL Neutrophils % % Lymphocytes % % Monocytes % % Eosinophils % % Basophils % % Neutrophils # (1.3-7.7) k/uL Lymphocytes # (1.0-4.8) k/uL Monocytes # (0-1.0) k/uL Eosinophils # (0-0.7) k/uL Basophils # (0-0.2) k/uL PT (9.0-12.0) sec INR (<1.2) APTT (22.0-30.0) sec Sodium (137-145) mmol/L Potassium (3.5-5.1) mmol/L Chloride (98-107) mmol/L Carbon Dioxide (22-30) mmol/L Anion Gap mmol/L BUN (7-17) mg/dL Creatinine (0.52-1.04) mg/dL Est GFR (CKD-EPI)AfAm (>60 ml/min/1.73 sqM) Est GFR (CKD-EPI)NonAf (>60 ml/min/1.73 sqM) Glucose (74-99) mg/dL POC Glucose (mg/dL) (75-99) mg/dL POC Glu Supervisor Facepiece Line ID Plasma Lactic Acid Daren 1.2 (0.7-2.0) mmol/L Calcium (8.4-10.2) mg/dL Magnesium (1.6-2.3) mg/dL Iron (50-170) ug/dL TIBC (228-460) ug/dL % Saturation (12.00-45.00) Total Bilirubin (0.2-1.3) mg/dL AST (14-36) U/L ALT (4-34) U/L Alkaline Phosphatase (38-126) U/L Creatine Kinase (30-135) U/L Troponin I 0.020 (0.000-0.034) ng/mL C-Reactive Protein (<10.0) mg/L Total Protein (6.3-8.2) g/dL Albumin (3.5-5.0) g/dL Vitamin B12 (200.0-944.0) pg/mL Folate ng/mL Procalcitonin 0.11 H (0.02-0.09) ng/mL Urine Color Urine Appearance (Clear) Urine pH (5.0-8.0) Ur Specific [place] (1.001-1.035) Urine Protein (Negative) Urine Glucose (UA) (Negative) Urine Ketones (Negative) Urine Blood (Negative) Urine Nitrite (Negative) Urine Bilirubin (Negative) Urine Urobilinogen (<2.0) mg/dL Ur Leukocyte Esterase (Negative) 11/23/19 11/23/19 11/24/19 Range/Units 22:37 23:33 00:13 WBC (3.8-10.6) k/uL RBC (3.80-5.40) m/uL Hgb (11.4-16.0) gm/dL Hct (34.0-46.0) % MCV (80.0-100.0) fL MCH (25.0-35.0) pg MCHC (31.0-37.0) g/dL RDW (11.5-15.5) % Plt Count (150-450) k/uL Neutrophils % % Lymphocytes % % Monocytes % % Eosinophils % % Basophils % % Neutrophils # (1.3-7.7) k/uL Lymphocytes # (1.0-4.8) k/uL Monocytes # (0-1.0) k/uL Eosinophils # (0-0.7) k/uL Basophils # (0-0.2) k/uL PT (9.0-12.0) sec INR (<1.2) APTT (22.0-30.0) sec Sodium (137-145) mmol/L Potassium 4.2 (3.5-5.1) mmol/L Chloride (98-107) mmol/L Carbon Dioxide (22-30) mmol/L Anion Gap mmol/L BUN (7-17) mg/dL Creatinine (0.52-1.04) mg/dL Est GFR (CKD-EPI)AfAm (>60 ml/min/1.73 sqM) Est GFR (CKD-EPI)NonAf (>60 ml/min/1.73 sqM) Glucose (74-99) mg/dL POC Glucose (mg/dL) 170 H (75-99) mg/dL POC Glu Supervisor Facepiece Line Bessy Mclaughlin Plasma Lactic Acid Daren (0.7-2.0) mmol/L Calcium (8.4-10.2) mg/dL Magnesium (1.6-2.3) mg/dL Iron (50-170) ug/dL TIBC (228-460) ug/dL % Saturation (12.00-45.00) Total Bilirubin (0.2-1.3) mg/dL AST (14-36) U/L ALT (4-34) U/L Alkaline Phosphatase (38-126) U/L Creatine Kinase 140 H (30-135) U/L Troponin I (0.000-0.034) ng/mL C-Reactive Protein (<10.0) mg/L Total Protein (6.3-8.2) g/dL Albumin (3.5-5.0) g/dL Vitamin B12 (200.0-944.0) pg/mL Folate ng/mL Procalcitonin (0.02-0.09) ng/mL Urine Color Light Yellow Urine Appearance Clear (Clear) Urine pH 5.0 (5.0-8.0) Ur Specific [place] 1.009 (1.001-1.035) Urine Protein Negative (Negative) Urine Glucose (UA) Negative (Negative) Urine Ketones Negative (Negative) Urine Blood Negative (Negative) Urine Nitrite Negative (Negative) Urine Bilirubin Negative (Negative) Urine Urobilinogen <2.0 (<2.0) mg/dL Ur Leukocyte Esterase Negative (Negative) 11/24/19 Range/Units 00:13 WBC (3.8-10.6) k/uL RBC (3.80-5.40) m/uL Hgb (11.4-16.0) gm/dL Hct (34.0-46.0) % MCV (80.0-100.0) fL MCH (25.0-35.0) pg MCHC (31.0-37.0) g/dL RDW (11.5-15.5) % Plt Count (150-450) k/uL Neutrophils % % Lymphocytes % % Monocytes % % Eosinophils % % Basophils % % Neutrophils # (1.3-7.7) k/uL Lymphocytes # (1.0-4.8) k/uL Monocytes # (0-1.0) k/uL Eosinophils # (0-0.7) k/uL Basophils # (0-0.2) k/uL PT (9.0-12.0) sec INR (<1.2) APTT (22.0-30.0) sec Sodium (137-145) mmol/L Potassium (3.5-5.1) mmol/L Chloride (98-107) mmol/L Carbon Dioxide (22-30) mmol/L Anion Gap mmol/L BUN (7-17) mg/dL Creatinine (0.52-1.04) mg/dL Est GFR (CKD-EPI)AfAm (>60 ml/min/1.73 sqM) Est GFR (CKD-EPI)NonAf (>60 ml/min/1.73 sqM) Glucose (74-99) mg/dL POC Glucose (mg/dL) (75-99) mg/dL POC Glu Supervisor Facepiece Line ID Plasma Lactic Acid Daren (0.7-2.0) mmol/L Calcium (8.4-10.2) mg/dL Magnesium (1.6-2.3) mg/dL Iron 74 (50-170) ug/dL TIBC 312 (228-460) ug/dL % Saturation 23.72 (12.00-45.00) Total Bilirubin (0.2-1.3) mg/dL AST (14-36) U/L ALT (4-34) U/L Alkaline Phosphatase (38-126) U/L Creatine Kinase (30-135) U/L Troponin I (0.000-0.034) ng/mL C-Reactive Protein (<10.0) mg/L Total Protein (6.3-8.2) g/dL Albumin (3.5-5.0) g/dL Vitamin B12 1538.0 H (200.0-944.0) pg/mL Folate 9.2 ng/mL Procalcitonin (0.02-0.09) ng/mL Urine Color Urine Appearance (Clear) Urine pH (5.0-8.0) Ur Specific [place] (1.001-1.035) Urine Protein (Negative) Urine Glucose (UA) (Negative) Urine Ketones (Negative) Urine Blood (Negative) Urine Nitrite (Negative) Urine Bilirubin (Negative) Urine Urobilinogen (<2.0) mg/dL Ur Leukocyte Esterase (Negative) Disposition Clinical Impression: Weakness Disposition: ADMITTED IP TO THIS HOSP Condition: Stable Decision Time: 15:01
[2019-11-23 22:44] LABS: Glucose,Whole Blood 170 mg/dL (75-99)
[2019-11-23 22:50] LABS: Basophils # (A) 0.1 k/uL (0-0.2); Basophils % (A) 1 %; Eosinophils # (A) 0.2 k/uL (0-0.7); Eosinophils % (A) 3 %; HCT 34.9 % (34.0-46.0); HGB 10.9 gm/dL (11.4-16.0); Lymphocytes # (A) 2.3 k/uL (1.0-4.8); Lymphocytes % (A) 28 %; MCH 24.3 pg (25.0-35.0); MCHC 31.3 g/dL (31.0-37.0); MCV 77.4 fL (80.0-100.0); Mean Platelet Volume 9.9; Monocytes # (A) 0.4 k/uL (0-1.0); Monocytes % (A) 5 %; Neutrophils % (A) 62 %; Platelet Count 203 k/uL (150-450); RDW 13.9 % (11.5-15.5); WBC 8.1 k/uL (3.8-10.6)
[2019-11-23] MEDS ORDERED: oxyCODONE-APAP 7.5-325MG 1 EACH TAB PO STA (23:06)
[2019-11-23 23:18] LABS: Prothrombin Time 10.5 sec (9.0-12.0)
[2019-11-23 23:19] LABS: African American GFR (CKD) 51 (>60 ml/min/1.73 sqM); Albumin 4.6 g/dL (3.5-5.0); Anion Gap 6 mmol/L; C Reactive Protein <5.0 mg/L (<10.0); Calcium 9.2 mg/dL (8.4-10.2); Carbon Dioxide 26 mmol/L (22-30); Chloride 104 mmol/L (98-107); Glucose 151 mg/dL (74-99); Magnesium 1.7 mg/dL (1.6-2.3); Non-African American GFR(CKD) 44 (>60 ml/min/1.73 sqM); Sodium 136 mmol/L (137-145); Total Bilirubin 1.2 mg/dL (0.2-1.3); Total Protein 8.7 g/dL (6.3-8.2)
[2019-11-23 23:21] LABS: ALT 22 U/L (4-34); AST 59 U/L (14-36); Alkaline Phosphatase 111 U/L (38-126); Blood Urea Nitrogen 31 mg/dL (7-17); Potassium 6.3 mmol/L (3.5-5.1)
--- NOTE | 2019-11-23 23:23 | XR ---
EXAMINATION TYPE: XR knee 4V bilateral DATE OF EXAM: 11/23/2019 COMPARISON: 10/30/2018 HISTORY: Bilateral knee pain. Weakness. Fall. TECHNIQUE: 4 views each knee FINDINGS: There is bilateral spurring of the lateral femoral and tibial condyles. There is minimal kn ee joint space narrowing. There is no significant knee joint effusion. I see no fracture nor dislocat ion. There is subcutaneous edema around both knees. IMPRESSION: Mild osteoarthritic changes. Subcutaneous edema. No fracture seen. No significant change compared to old exam.
[2019-11-23] MEDS ORDERED: SODIUM CHLORIDE 0.9% 500 ML 500 ML IV STA (23:32)
[2019-11-23 23:51] LABS: Appearance,Urine Clear (Clear); Bilirubin,Urine Negative (Negative); Blood,Urine Negative (Negative); Color,Urine Light Yellow; Glucose,Urine (UA) Negative (Negative); Ketones,Urine Negative (Negative); Leukocyte Esterase,Urine Negative (Negative); Nitrite,Urine Negative (Negative); Protein,Urine Negative (Negative); Specific Gravity,Urine 1.009 (1.001-1.035); Urobilinogen,Urine <2.0 mg/dL (<2.0)
[2019-11-24 00:34] LABS: Potassium 4.2 mmol/L (3.5-5.1)
[2019-11-24] MEDS ORDERED: NALOXONE 0.4 MG/ML 1 ML VIAL IV PRN (00:46)
[2019-11-24] MEDS ORDERED: ALBUTEROL NEBULIZED 2.5 MG/3 ML INHALATION PRN (00:47)
[2019-11-24 01:23] LABS: Appearance,Urine Clear (Clear); Bilirubin,Urine Negative (Negative); Blood,Urine Negative (Negative); Color,Urine Light Yellow; Glucose,Urine (UA) Negative (Negative); Ketones,Urine Negative (Negative); Leukocyte Esterase,Urine Negative (Negative); Nitrite,Urine Negative (Negative); Protein,Urine Negative (Negative); Specific Gravity,Urine 1.009 (1.001-1.035); Urobilinogen,Urine <2.0 mg/dL (<2.0)
[2019-11-24] MEDS: traMADol 50 MG TAB PO PRN ×2 (02:54→15:24)
[2019-11-24] MEDS: IPRATROPIUM-ALBUTEROL 3 ML NEB INHALATION SCH ×5 (08:06→20:09)
[2019-11-24] MEDS: oxyCODONE-APAP 10-325MG 1 EACH TAB PO SCH ×4 (09:50→21:50)
[2019-11-24] MEDS: hydrALAZINE HCL 25 MG TAB PO SCH ×3 (09:51→20:32)
[2019-11-24] MEDS: amLODIPine 10 MG TAB PO SCH (09:51)
[2019-11-24] MEDS: PRAVASTATIN SODIUM 20 MG TAB PO SCH (09:51)
[2019-11-24] MEDS: PREGABALIN 75 MG CAP PO SCH ×2 (09:51→20:32)
[2019-11-24] MEDS: FUROSEMIDE 40 MG TAB PO SCH (09:51)
[2019-11-24] MEDS: CLOPIDOGREL 75 MG TAB PO SCH (09:51)
[2019-11-24] MEDS: hydrOXYzine HCL 25 MG TAB PO SCH ×4 (09:52→21:51)
--- NOTE | 2019-11-24 12:27 | P.HPIM ---
History of Present Illness H&P Date: 11/24/19 Veronica Quan, he is a 58-year-old female who presented to [facility] emergency room after having a fall at home and complaining of bilateral knee pain, patient states that she was trying to walk with her walker, when her legs felt weak and unable to sustain her, patient fell down and hit both knees on the floor and was unable to stand up, EMS were called and patient was brought into emergency room. Patient has morbid obesity, she was recently admitted to [facility] with bilateral lower extremity cellulitis extending from the foot up to the thigh area, she was treated with IV antibiotics and was sent home on oral antibiotic course, she also has bilateral feet ulcers and is followed by Dr. Clifton at the wound care center. Patient was evaluated on the medical floor she is alert and oriented 3 in no apparent distress she is complaining of pain in the bilateral knees, and complaining of weakness and inability to stand and walk, otherwise she denies any complaints, there is erythema extending again from the feet to the thigh areas bilaterally, otherwise there is no fever or chills no headache or dizziness no chest pain no shortness of breath no cough no nausea or vomiting no abdominal pain no diarrhea no blood in the stools no burning with urination no frequency or urgency and no hematuria Past Medical History Past Medical History: Asthma, COPD, Diabetes Mellitus, Eye Disorder, GERD/Reflux, Hyperlipidemia, Hypertension, Neurologic Disorder, Osteoarthritis (OA) Additional Past Medical History / Comment(s): wounds rt leg,multiple sclerosis, glaucoma History of Any Multi-Drug Resistant Organisms: None Reported Past Surgical History: Section, Joint Replacement, Tubal Ligation Additional Past Surgical History / Comment(s): lt hip replacement,rectal surgery,eye proc Past Anesthesia/Blood Transfusion Reactions: No Reported Reaction Past Psychological History: Depression Additional Psychological History / Comment(s): Stop smoking Jan. No cigarette or alcohol use. Does not work outside of the home. No international travel. No experience. No animal exposures Smoking Status: Former smoker Past Alcohol Use History: None Reported Additional Past Alcohol Use History / Comment(s): smoker >40 years 1ppd Past Drug Use History: Marijuana Additional Drug Use History / Comment(s): daily - Past Family History Father Family Medical History: Cancer Medications and Allergies Home Medications Medication Instructions Recorded Confirmed Type amLODIPine [Norvasc] 10 mg PO DAILY 02/16/16 11/23/19 History Clopidogrel [Plavix] 75 mg PO DAILY 03/01/17 11/23/19 History Furosemide [Lasix] 40 mg PO DAILY 03/01/17 11/23/19 History Latanoprost [Xalatan 0.005%] 1 drop BOTH EYES HS 03/01/17 11/23/19 History metFORMIN HCL 1,000 mg PO BID-W/MEALS 05/20/17 11/23/19 History Insuln Asp Prt/Insulin Aspart 25 unit SQ HS 10/30/18 11/23/19 History [NovoLOG MIX 70-30 VIAL] Insuln Asp Prt/Insulin Aspart 35 unit SQ DAILY 10/30/18 11/23/19 History [NovoLOG MIX 70-30 VIAL] Potassium Chloride [Klor-Con 20] 20 meq PO DAILY 10/30/18 11/23/19 History Ipratropium-Albuterol Nebulize 3 ml INHALATION RT-QID 06/28/19 11/23/19 History [Duoneb 0.5 mg-3 mg/3 ml Soln] Pravastatin Sodium [Pravachol] 10 mg PO DAILY 06/28/19 11/23/19 History Cyanocobalamin (Vitamin B-12) 1,000 mcg PO DAILY 08/05/19 11/23/19 History [Vitamin B-12] Fish Oil/Dha/Epa [Fish Oil 1,200 1 cap PO DAILY 08/05/19 11/23/19 History mg Fish Oil] Liraglutide [Victoza 2-[place]] 0.6 mg SQ DAILY 08/05/19 11/23/19 History Pregabalin 150 mg PO BID 08/05/19 11/23/19 History oxyCODONE HCL/ACETAMINOPHEN 1 tab PO QID 08/05/19 11/23/19 History [Percocet 10-325 mg] Ergocalciferol [Vitamin D2 50,000 unit PO MO 09/06/19 11/23/19 History (DRISDOL)] hydrALAZINE HCL [Apresoline] 25 mg PO TID 09/06/19 11/23/19 History hydrOXYzine PAMOATE 50 mg PO QID 09/06/19 11/23/19 History Albuterol Inhaler [Ventolin Hfa 2 puff INHALATION RT-Q6H PRN 10/22/19 11/23/19 History Inhaler] Losartan Potassium [Cozaar] 50 mg PO DAILY 10/22/19 11/23/19 History traMADol HCl [Ultram] 50 mg PO QID PRN 11/23/19 11/23/19 History Allergies Allergy/AdvReac Type Severity Reaction Status Date / Time methylprednisolone Allergy Anaphylaxis Verified 11/23/19 22:17 [From Solu-Medrol] venom-honey bee Allergy Anaphylaxis Verified 11/23/19 22:17 [bee venom (honey bee)] Physical Exam Vitals: Vital Signs Temp Pulse Pulse Resp BP BP Pulse Ox 11/24/19 08:00 80 18 11/24/19 05:40 97.8 F 80 18 160/92 93 L 11/24/19 02:14 97.7 F 75 16 136/81 92 L 11/24/19 01:20 98.1 F 78 15 117/68 94 L 11/23/19 21:55 98.1 F 80 18 145/94 95 Intake and Output 11/23/19 11/24/19 11/24/19 22:59 06:59 14:59 Output Total 500 1200 Balance -500 -1200 Output: Urine 500 1200 Other: Weight 113.398 kg 115 kg In general patient is alert and oriented 3 in no apparent distress HEENT head normocephalic and atraumatic Neck is supple no JVD no goiter no lymphadenopathy Chest exam reveals a few scattered crackles bilaterally no wheezing Cardiac exam reveals regular heart sounds S1 and S2 no gallops no murmurs Abdomen is soft nontender no organomegaly was normal bowel sounds Extremity exam reveals mild edema with bilateral erythema extending from the feet up to the thigh area, on the right foot there is a large ulcer was scabbing on the heel area Neurological examination reveals no gross focal deficits Results CBC & Chem 7: 11/23/19 22:35 11/24/19 00:13 Labs: Abnormal Lab Results - Last 24 Hours (Table) 11/23/19 11/23/19 11/23/19 Range/Units 22:35 22:35 22:35 Hgb 10.9 L (11.4-16.0) gm/dL MCV 77.4 L (80.0-100.0) fL MCH 24.3 L (25.0-35.0) pg Sodium 136 L (137-145) mmol/L Potassium 6.3 H* (3.5-5.1) mmol/L BUN 31 H (7-17) mg/dL Creatinine 1.33 H (0.52-1.04) mg/dL Glucose 151 H (74-99) mg/dL POC Glucose (mg/dL) (75-99) mg/dL AST 59 H (14-36) U/L Creatine Kinase (30-135) U/L Total Protein 8.7 H (6.3-8.2) g/dL Procalcitonin 0.11 H (0.02-0.09) ng/mL 11/23/19 11/24/19 Range/Units 22:37 00:13 Hgb (11.4-16.0) gm/dL MCV (80.0-100.0) fL MCH (25.0-35.0) pg Sodium (137-145) mmol/L Potassium (3.5-5.1) mmol/L BUN (7-17) mg/dL Creatinine (0.52-1.04) mg/dL Glucose (74-99) mg/dL POC Glucose (mg/dL) 170 H (75-99) mg/dL AST (14-36) U/L Creatine Kinase 140 H (30-135) U/L Total Protein (6.3-8.2) g/dL Procalcitonin (0.02-0.09) ng/mL Thrombosis Risk Factor Assmnt - Choose All That Apply Any of the Below Risk Factors Present?: Yes Each Factor Represents 1 point: Age 41-60 years, Obesity (BMI >25) Other Risk Factors: No Thrombosis Risk Factor Assessment Total Risk Factor Score: 2 Thrombosis Risk Factor Assessment Level: Low Risk Assessment and Plan Plan: 1. Fall with bilateral knee pain, x-ray does not reveal any evidence of bone fracture or dislocation, MRI may be needed to assess if there is any ligament tear, will defer to orthopedic surgery to assess if an MRI is needed 2. Bilateral lower extremity cellulitis would restart Kefzol 1 g IV every 8 hours, consult infectious disease. 3. Underlying history of diabetes mellitus, home medications reordered. 4. Underlying history of hypertension, with borderline control will monitor blood pressure and adjust medications during this admission 5. Hyperkalemia on presentation was potassium of 6.3, corrected Will monitor closely 6. Anemia on presentation hemoglobin 10.9 Will check iron studies vitamin B12 and folate levels 7. Underlying history of peripheral neuropathy maintained on Lyrica 8. Underlying history of hyperlipidemia maintained on Pravachol 9. For DVT prophylaxis patient was started on subcu Lovenox for GI prophylaxis patient was started on Protonix
[2019-11-24] MEDS: ENOXAPARIN 40 MG/0.4 ML SYRINGE SQ SCH (12:58)
[2019-11-24 20:19] LABS: % Iron Saturation 23.72 (12.00-45.00)
[2019-11-24 20:45] LABS: Folate, Serum 9.2 ng/mL
--- NOTE | 2019-11-24 21:31 | P.CNOR ---
History of Present Illness - [facility] Consult date: 11/24/19 History of present illness: This patient is a 58- year old female with a past medical history of diabetes, hypertension, hyperlipidemia, morbid obesity that presented to [facility] emergency department today via EMS after complaints of a fall at home. The patient states she was walking through her home when she felt her knees buckle, and she feel directly on her bilateral knees. X-rays of the bilateral knees in the emergency department revealed no fracture or dislocation. The patient was found to have bilateral lower extremity cellulitis, therefore she was admitted under the care of internal medicine with a consult placed to orthopedic surgery for further evaluation of her knee pain. Patient was also recently admitted for bilateral lower extremity cellulitis and bilateral diabetic foot ulcers for which she follows with the wound care center for. At the time of my exam, the patient is complaining of left knee pain. She states yesterday, her bilateral knees hurt, although her right knee is no longer painful today. She states her left knee pain has also improved slightly, although is still painful. She states she has not attempted to ambulate yet today. She denies hip pain. She denies radiation of the pain, patient denies back pain. She localizes the pain to the posterior knee. Patient denies additional complaints today. She denies chest pain, shortness of breath, nausea, vomiting, fevers, chills. Vital signs stable. Past Medical History Past Medical History: Asthma, COPD, Diabetes Mellitus, Eye Disorder, GERD/Reflux, Hyperlipidemia, Hypertension, Neurologic Disorder, Osteoarthritis (OA) Additional Past Medical History / Comment(s): wounds rt leg,multiple sclerosis, glaucoma History of Any Multi-Drug Resistant Organisms: None Reported Past Surgical History: Section, Joint Replacement, Tubal Ligation Additional Past Surgical History / Comment(s): lt hip replacement,rectal surgery,eye proc Past Anesthesia/Blood Transfusion Reactions: No Reported Reaction Past Psychological History: Depression Additional Psychological History / Comment(s): Stop smoking Jan. No cigarette or alcohol use. Does not work outside of the home. No international travel. No experience. No animal exposures Smoking Status: Former smoker Past Alcohol Use History: None Reported Additional Past Alcohol Use History / Comment(s): smoker >40 years 1ppd Past Drug Use History: Marijuana Additional Drug Use History / Comment(s): daily - Past Family History Father Family Medical History: Cancer Medications and Allergies Home Medications Medication Instructions Recorded Confirmed Type amLODIPine [Norvasc] 10 mg PO DAILY 02/16/16 11/23/19 History Clopidogrel [Plavix] 75 mg PO DAILY 03/01/17 11/23/19 History Furosemide [Lasix] 40 mg PO DAILY 03/01/17 11/23/19 History Latanoprost [Xalatan 0.005%] 1 drop BOTH EYES HS 03/01/17 11/23/19 History metFORMIN HCL 1,000 mg PO BID-W/MEALS 05/20/17 11/23/19 History Insuln Asp Prt/Insulin Aspart 25 unit SQ HS 10/30/18 11/23/19 History [NovoLOG MIX 70-30 VIAL] Insuln Asp Prt/Insulin Aspart 35 unit SQ DAILY 10/30/18 11/23/19 History [NovoLOG MIX 70-30 VIAL] Potassium Chloride [Klor-Con 20] 20 meq PO DAILY 10/30/18 11/23/19 History Ipratropium-Albuterol Nebulize 3 ml INHALATION RT-QID 06/28/19 11/23/19 History [Duoneb 0.5 mg-3 mg/3 ml Soln] Pravastatin Sodium [Pravachol] 10 mg PO DAILY 06/28/19 11/23/19 History Cyanocobalamin (Vitamin B-12) 1,000 mcg PO DAILY 08/05/19 11/23/19 History [Vitamin B-12] Fish Oil/Dha/Epa [Fish Oil 1,200 1 cap PO DAILY 08/05/19 11/23/19 History mg Fish Oil] Liraglutide [Victoza 2-[place]] 0.6 mg SQ DAILY 08/05/19 11/23/19 History Pregabalin 150 mg PO BID 08/05/19 11/23/19 History oxyCODONE HCL/ACETAMINOPHEN 1 tab PO QID 08/05/19 11/23/19 History [Percocet 10-325 mg] Ergocalciferol [Vitamin D2 50,000 unit PO MO 09/06/19 11/23/19 History (DRISDOL)] hydrALAZINE HCL [Apresoline] 25 mg PO TID 09/06/19 11/23/19 History hydrOXYzine PAMOATE 50 mg PO QID 09/06/19 11/23/19 History Albuterol Inhaler [Ventolin Hfa 2 puff INHALATION RT-Q6H PRN 10/22/19 11/23/19 History Inhaler] Losartan Potassium [Cozaar] 50 mg PO DAILY 10/22/19 11/23/19 History traMADol HCl [Ultram] 50 mg PO QID PRN 11/23/19 11/23/19 History Allergies Allergy/AdvReac Type Severity Reaction Status Date / Time methylprednisolone Allergy Anaphylaxis Verified 11/23/19 22:17 [From Solu-Medrol] venom-honey bee Allergy Anaphylaxis Verified 11/23/19 22:17 [bee venom (honey bee)] Physical Examination On examination, the patient is sitting up in bed in no apparent distress. She is alert and orientated x3. Her head appears normocephalic and atraumatic. Her breathing appears nonlabored. On inspection of her bilateral upper extremities, there are no obvious deformities or signs of trauma. On inspection of her right knee, there are no obvious deformities or signs of trauma. No abrasions, skin lacerations. Skin is intact. There is an WINTER wrap applied to the right lower leg. There is erythema of the inner thigh consistent with cellulitis. On inspection of the left knee, there are no obvious deformities or signs of trauma. No skin abrasions. No significant knee effusion. There is diffuse, mild pain on palpation of the left knee. No pain on palpation of the proximal tibia. There is mild pain with PROM of the knee. The knee appears stable with varus and valgus stress. No pain with PROM of the hip. No pain with logrolling. Range of motion of the knee is 0-90 degrees of flexion. The left lower leg is wrapped with an WINTER wrap. Results Bilateral knee x-ray 11/23/19: No acute fractures or dislocations. - Labs Labs: Abnormal Lab Results - Last 24 Hours (Table) 11/23/19 11/23/19 11/23/19 Range/Units 22:35 22:35 22:35 Hgb 10.9 L (11.4-16.0) gm/dL MCV 77.4 L (80.0-100.0) fL MCH 24.3 L (25.0-35.0) pg Sodium 136 L (137-145) mmol/L Potassium 6.3 H* (3.5-5.1) mmol/L BUN 31 H (7-17) mg/dL Creatinine 1.33 H (0.52-1.04) mg/dL Glucose 151 H (74-99) mg/dL POC Glucose (mg/dL) (75-99) mg/dL AST 59 H (14-36) U/L Creatine Kinase (30-135) U/L Total Protein 8.7 H (6.3-8.2) g/dL Procalcitonin 0.11 H (0.02-0.09) ng/mL 11/23/19 11/24/19 Range/Units 22:37 00:13 Hgb (11.4-16.0) gm/dL MCV (80.0-100.0) fL MCH (25.0-35.0) pg Sodium (137-145) mmol/L Potassium (3.5-5.1) mmol/L BUN (7-17) mg/dL Creatinine (0.52-1.04) mg/dL Glucose (74-99) mg/dL POC Glucose (mg/dL) 170 H (75-99) mg/dL AST (14-36) U/L Creatine Kinase 140 H (30-135) U/L Total Protein (6.3-8.2) g/dL Procalcitonin (0.02-0.09) ng/mL H & H 11/23/19 Range/Units 22:35 Hgb 10.9 L (11.4-16.0) gm/dL Hct 34.9 (34.0-46.0) % Coagulation 11/23/19 Range/Units 22:35 INR 1.0 (<1.2) Result Diagrams: 11/23/19 22:35 11/24/19 00:13 Assessment and Plan Assessment: Left knee pain Osteoarthritis Possible acute osteoarthritic flare Plan: - I discussed the clinical and imaging findings with the patient. Her knee pain appears to be improved today. Recommended conservative treatment at this time. We will observe her pain at this time, as it is most likely caused by an acute osteoarthritic flare vs. a knee sprain. We will order PT and monitor her progress. She may weight bear as tolerated with a walker. If her pain fails to improve, we will consider advanced imaging. Recommend oral or topical NSAIDs, if ok with internal medicine. - We will continue to follow patient closely and make recommendations as needed.
[2019-11-24] MEDS: LATANOPROST 0.005% OPHTH DROPS 2.5 ML BTL BOTH EYES SCH (21:50)
--- NOTE | 2019-11-25 00:29 | P.CONS ---
History of Present Illness - Reason for Consult Consult date: 11/24/19 leg cellulitis Requesting physician: Mariely Bradford - Chief Complaint bilateral knee pain after fall x one day - History of Present Illness patient is a 58-year-old -[place] female with a past medical history significant for chronic nonhealing wound on the plantar aspect of the left foot as well as bilateral lower extremity cellulitis patient has been brought [facility] ER at [facility] by EMS after apparently the patient did have a fall at home while she was trying to get around using her walker patient has been complaining of pain to bilateral knee area mostly to the left knee and mentioned that her knee just gave out describing the pain to the knee to be more of a dull aching at times sharp almost 6-7 out of 10 and no radiation she also have a diffuse swelling and more redness to the right leg patient did have some chills but denies high-grade fever with these symptoms the patient has been evaluated by the ER physician on arrival to the patient has been afebrile and white count has been normal she did have x-rays of the knee which has some degenerative changes patient was started on cefazolin 1 g every 8 hours and infection disease was consulted for further management of lower extremity cellulitis Review of Systems Positive point has been mentioned in the HPI rest of the systems are negative Past Medical History Past Medical History: Asthma, COPD, Diabetes Mellitus, Eye Disorder, GERD/Reflux, Hyperlipidemia, Hypertension, Neurologic Disorder, Osteoarthritis (OA) Additional Past Medical History / Comment(s): wounds rt leg,multiple sclerosis, glaucoma History of Any Multi-Drug Resistant Organisms: None Reported Past Surgical History: Section, Joint Replacement, Tubal Ligation Additional Past Surgical History / Comment(s): lt hip replacement,rectal surg maura,eye proc Past Anesthesia/Blood Transfusion Reactions: No Reported Reaction Past Psychological History: Depression Additional Psychological History / Comment(s): Stop smoking Jan. No cigarette or alcohol use. Does not work outside of the home. No international travel. No experience. No animal exposures Smoking Status: Former smoker Past Alcohol Use History: None Reported Additional Past Alcohol Use History / Comment(s): smoker >40 years 1ppd Past Drug Use History: Marijuana Additional Drug Use History / Comment(s): daily - Past Family History Father Family Medical History: Cancer Medications and Allergies Home Medications Medication Instructions Recorded Confirmed Type amLODIPine [Norvasc] 10 mg PO DAILY 02/16/16 11/23/19 History Clopidogrel [Plavix] 75 mg PO DAILY 03/01/17 11/23/19 History Furosemide [Lasix] 40 mg PO DAILY 03/01/17 11/23/19 History Latanoprost [Xalatan 0.005%] 1 drop BOTH EYES HS 03/01/17 11/23/19 History metFORMIN HCL 1,000 mg PO BID-W/MEALS 05/20/17 11/23/19 History Insuln Asp Prt/Insulin Aspart 25 unit SQ HS 10/30/18 11/23/19 History [NovoLOG MIX 70-30 VIAL] Insuln Asp Prt/Insulin Aspart 35 unit SQ DAILY 10/30/18 11/23/19 History [NovoLOG MIX 70-30 VIAL] Potassium Chloride [Klor-Con 20] 20 meq PO DAILY 10/30/18 11/23/19 History Ipratropium-Albuterol Nebulize 3 ml INHALATION RT-QID 06/28/19 11/23/19 History [Duoneb 0.5 mg-3 mg/3 ml Soln] Pravastatin Sodium [Pravachol] 10 mg PO DAILY 06/28/19 11/23/19 History Cyanocobalamin (Vitamin B-12) 1,000 mcg PO DAILY 08/05/19 11/23/19 History [Vitamin B-12] Fish Oil/Dha/Epa [Fish Oil 1,200 1 cap PO DAILY 08/05/19 11/23/19 History mg Fish Oil] Liraglutide [Victoza 2-[place]] 0.6 mg SQ DAILY 08/05/19 11/23/19 History Pregabalin 150 mg PO BID 08/05/19 11/23/19 History oxyCODONE HCL/ACETAMINOPHEN 1 tab PO QID 08/05/19 11/23/19 History [Percocet 10-325 mg] Ergocalciferol [Vitamin D2 50,000 unit PO MO 09/06/19 11/23/19 History (DRISDOL)] hydrALAZINE HCL [Apresoline] 25 mg PO TID 09/06/19 11/23/19 History hydrOXYzine PAMOATE 50 mg PO QID 09/06/19 11/23/19 History Albuterol Inhaler [Ventolin Hfa 2 puff INHALATION RT-Q6H PRN 10/22/19 11/23/19 History Inhaler] Losartan Potassium [Cozaar] 50 mg PO DAILY 10/22/19 11/23/19 History traMADol HCl [Ultram] 50 mg PO QID PRN 11/23/19 11/23/19 History Allergies Allergy/AdvReac Type Severity Reaction Status Date / Time methylprednisolone Allergy Anaphylaxis Verified 11/23/19 22:17 [From Solu-Medrol] venom-honey bee Allergy Anaphylaxis Verified 11/23/19 22:17 [bee venom (honey bee)] Physical Exam Vitals: Vital Signs Temp Pulse Pulse Resp BP BP Pulse Ox 11/24/19 12:40 98.0 F 82 18 114/68 11/24/19 08:00 80 18 11/24/19 05:40 97.8 F 80 18 160/92 93 L 11/24/19 02:14 97.7 F 75 16 136/81 92 L 11/24/19 01:20 98.1 F 78 15 117/68 94 L 11/23/19 21:55 98.1 F 80 18 145/94 95 Intake and Output 11/24/19 11/24/19 11/24/19 06:59 14:59 22:59 Output Total 500 1200 Balance -500 -1200 Output: Urine 500 1200 Other: Weight 115 kg GENERAL DESCRIPTION: Middle-aged female lying in bed, no distress. No tachypnea or accessory muscle of respiration use. HEENT: Shows Pallor , no scleral icterus. Oral mucous membrane is dry. No pharyngeal erythema or thrush NECK: Trachea central, no thyromegaly. LUNGS: Unlabored breathing. Clear to auscultation anteriorly. No wheeze or crackle. HEART: S1, S2, regular rate and rhythm. No loud murmur ABDOMEN: Soft, no tenderness , guarding or rigidity, no organomegaly EXTREMITIES: diffuse swelling to bilateral lower extremity with the right leg did have more redness slightly warm to touch SKIN: No rash, no masses palpable. NEUROLOGICAL: The patient is awake, alert, oriented x3, mood and affect normal. Results CBC & Chem 7: 11/23/19 22:35 11/24/19 00:13 Labs: Abnormal Lab Results - Last 24 Hours (Table) 11/23/19 11/23/19 11/23/19 Range/Units 22:35 22:35 22:35 Hgb 10.9 L (11.4-16.0) gm/dL MCV 77.4 L (80.0-100.0) fL MCH 24.3 L (25.0-35.0) pg Sodium 136 L (137-145) mmol/L Potassium 6.3 H* (3.5-5.1) mmol/L BUN 31 H (7-17) mg/dL Creatinine 1.33 H (0.52-1.04) mg/dL Glucose 151 H (74-99) mg/dL POC Glucose (mg/dL) (75-99) mg/dL AST 59 H (14-36) U/L Creatine Kinase (30-135) U/L Total Protein 8.7 H (6.3-8.2) g/dL Procalcitonin 0.11 H (0.02-0.09) ng/mL 11/23/19 11/24/19 Range/Units 22:37 00:13 Hgb (11.4-16.0) gm/dL MCV (80.0-100.0) fL MCH (25.0-35.0) pg Sodium (137-145) mmol/L Potassium (3.5-5.1) mmol/L BUN (7-17) mg/dL Creatinine (0.52-1.04) mg/dL Glucose (74-99) mg/dL POC Glucose (mg/dL) 170 H (75-99) mg/dL AST (14-36) U/L Creatine Kinase 140 H (30-135) U/L Total Protein (6.3-8.2) g/dL Procalcitonin (0.02-0.09) ng/mL Assessment and Plan Assessment: 1- patient is a 58-year-old -[place] female with past medical history significant for recurrent cellulitis risk factor including diffuse swelling to the lower extremity as well as a nonhealing wound on the plantar aspect of the left foot has been admitted to the hospital after the patient did have a fall with generalized weakness and the knee giving out and evidence of the right lower extremity cellulitis with diffuse swelling redness likely streptococcal cellulitis (1) Bilateral lower leg cellulitis Current Visit: No Status: Acute Code(s): L03.116 - CELLULITIS OF LEFT LOWER LIMB; L03.115 - CELLULITIS OF RIGHT LOWER LIMB SNOMED Code(s): 098792327 Plan: 1- we will increase cefazolin to 2 g every 8 hours 2- local wound care to the left foot wound with dry Aquacel silver dressing to change every 48 hour 3- Isaías wrap to both legs From just above the toe to below the knee We will follow on clinical condition and cultures to further adjust medication if needed Thank you for this consultation will follow this patient with you Time with Patient: Greater than 30
[2019-11-25 06:54] LABS: Basophils % (A) 0 %; Eosinophils # (A) 0.2 k/uL (0-0.7); Eosinophils % (A) 4 %; HCT 35.6 % (34.0-46.0); HGB 11.6 gm/dL (11.4-16.0); Hypochromasia Slight; Lymphocytes # (A) 2.1 k/uL (1.0-4.8); Lymphocytes % (A) 37 %; MCH 25.7 pg (25.0-35.0); MCHC 32.6 g/dL (31.0-37.0); MCV 78.8 fL (80.0-100.0); Mean Platelet Volume 7.3; Monocytes # (A) 0.4 k/uL (0-1.0); Monocytes % (A) 7 %; Neutrophils # (A) 2.9 k/uL (1.3-7.7); Neutrophils % (A) 51 %; Platelet Count 220 k/uL (150-450); RBC 4.52 m/uL (3.80-5.40); RDW 13.4 % (11.5-15.5); WBC 5.7 k/uL (3.8-10.6)
[2019-11-25 07:05] LABS: Albumin 3.7 g/dL (3.5-5.0); Calcium 8.9 mg/dL (8.4-10.2); Potassium 4.1 mmol/L (3.5-5.1); Total Bilirubin 0.5 mg/dL (0.2-1.3); Total Protein 7.1 g/dL (6.3-8.2)
[2019-11-25] MEDS: FUROSEMIDE 40 MG TAB PO SCH (08:04)
[2019-11-25] MEDS: PREGABALIN 75 MG CAP PO SCH ×2 (08:04→21:36)
[2019-11-25] MEDS: CLOPIDOGREL 75 MG TAB PO SCH (08:04)
[2019-11-25] MEDS: hydrALAZINE HCL 25 MG TAB PO SCH ×3 (08:04→21:36)
[2019-11-25] MEDS: amLODIPine 10 MG TAB PO SCH (08:04)
[2019-11-25] MEDS: oxyCODONE-APAP 10-325MG 1 EACH TAB PO SCH ×4 (08:06→21:36)
[2019-11-25] MEDS: PRAVASTATIN SODIUM 20 MG TAB PO SCH (08:18)
[2019-11-25] MEDS: hydrOXYzine HCL 25 MG TAB PO SCH ×4 (08:18→21:36)
[2019-11-25] MEDS: IPRATROPIUM-ALBUTEROL 3 ML NEB INHALATION SCH ×4 (09:09→19:51)
[2019-11-25] MEDS: ENOXAPARIN 40 MG/0.4 ML SYRINGE SQ SCH (10:23)
[2019-11-25] MEDS: traMADol 50 MG TAB PO PRN (10:25)
[2019-11-25] MEDS: LOSARTAN 50 MG TAB PO SCH (14:06)
[2019-11-25] MEDS: POTASSIUM CHLORIDE ER 20 MEQ TAB.ER PO SCH (14:08)
[2019-11-25] MEDS: NON FORMULARY DRUG (Liraglutide [Victoza 2-Pak] 0.6 MG) SQ SCH (14:09)
--- NOTE | 2019-11-25 15:02 | US ---
EXAMINATION TYPE: US venous doppler duplex LE BI DATE OF EXAM: 11/25/2019 1:39 PM COMPARISON: NONE CLINICAL HISTORY: E11.621. edema exam limited due to body habitus. SIDE PERFORMED: Bilateral TECHNIQUE: The lower extremity deep venous system is examined utilizing real time linear array sonog philly with graded compression, doppler sonography and color-flow sonography. VESSELS IMAGED: External Iliac Vein (EIV) Common Femoral Vein Deep Femoral Vein Greater Saphenous Vein * Femoral Vein Popliteal Vein There is normal flow, compressibility, vascular waveforms within the limitations of the exam.. Right Leg: Negative for DVT distal Femoral Vein not visualized. Left Leg: Negative for DVT distal Femoral Vein not visualized. IMPRESSION: No evident deep venous thrombosis although the exam is limited
--- NOTE | 2019-11-25 17:52 | P.PN ---
Subjective Progress Note Date: 11/25/19 Veronica Quan, he is a 58-year-old female who presented to [facility] emergency room after having a fall at home and complaining of bilateral knee pain, patient states that she was trying to walk with her walker, when her legs felt weak and unable to sustain her, patient fell down and hit both knees on the floor and was unable to stand up, EMS were called and patient was brought into emergency room. Patient has morbid obesity, she was recently admitted to [facility] with bilateral lower extremity cellulitis extending from the foot up to the thigh area, she was treated with IV antibiotics and was sent home on oral antibiotic course, she also has bilateral feet ulcers and is followed by Dr. Clifton at the wound care center. Patient was evaluated on the medical floor she is alert and oriented 3 in no apparent distress she is complaining of pain in the bilateral knees, and complaining of weakness and inability to stand and walk, otherwise she denies any complaints, there is erythema extending again from the feet to the thigh areas bilaterally, otherwise there is no fever or chills no headache or dizziness no chest pain no shortness of breath no cough no nausea or vomiting no abdominal pain no diarrhea no blood in the stools no burning with urination no frequency or urgency and no hematuria On 11/25/2019 patient was seen and examined on the medical floor she is alert and oriented 3 in no apparent distress there is no fever or chills no headache or dizziness no chest pain no shortness of breath no cough no nausea or vomiting no abdominal pain no diarrhea no blood in the stools no burning with urination no frequency or urgency no hematuria she is still complaining of severe pain in both knees especially on the left side she is and able to stand and walk because of weakness and feeling that her left knee is buckling down under her Objective - Vital Signs Vital signs: Vital Signs Temp 98.3 F 11/25/19 05:10 Pulse 72 11/25/19 05:10 Resp 18 11/25/19 05:10 BP 135/82 11/25/19 05:10 Pulse Ox 91 L 11/25/19 05:10 Intake & Output 11/24/19 11/25/19 11/25/19 18:59 06:59 18:59 Intake Total 100 Output Total 3100 950 Balance -3000 -950 Weight 115 kg Intake: Intake, IV Titration 100 Amount ceFAZolin 1,000 mg In 100 Sodium Chloride 0.9% 50 ml @ 100 mls/hr IVPB Q8HR [facility] Rx#:[id number] Output: Urine 3100 950 Other: Voiding Method Incontinent - Exam In general patient is alert and oriented 3 in no apparent distress HEENT head normocephalic and atraumatic Neck is supple no JVD no goiter no lymphadenopathy Chest exam reveals a few scattered crackles bilaterally no wheezing Cardiac exam reveals regular heart sounds S1 and S2 no gallops no murmurs Abdomen is soft nontender no organomegaly was normal bowel sounds Extremity exam reveals mild edema with bilateral erythema extending from the feet up to the thigh area, on the right foot there is a large ulcer was scabbing on the heel area Neurological examination reveals no gross focal deficits - Labs CBC & Chem 7: 11/25/19 06:36 11/25/19 06:36 Labs: Abnormal Lab Results - Last 24 Hours (Table) 11/24/19 11/25/19 11/25/19 Range/Units 00:13 06:36 06:36 MCV 78.8 L (80.0-100.0) fL BUN 22 H (7-17) mg/dL Glucose 183 H (74-99) mg/dL Vitamin B12 1538.0 H (200.0-944.0) pg/mL Assessment and Plan Plan: 1. Fall with bilateral knee pain, x-ray does not reveal any evidence of bone fracture or dislocation, MRI may be needed to assess if there is any ligament tear, will defer to orthopedic surgery to assess if an MRI is needed 2. Bilateral lower extremity cellulitis would restart Kefzol 1 g IV every 8 hours, consult infectious disease. 3. Underlying history of diabetes mellitus, home medications reordered. 4. Underlying history of hypertension, with borderline control will monitor blood pressure and adjust medications during this admission 5. Hyperkalemia on presentation was potassium of 6.3, corrected Will monitor closely 6. Anemia on presentation hemoglobin 10.9 Will check iron studies vitamin B12 and folate levels 7. Underlying history of peripheral neuropathy maintained on Lyrica 8. Underlying history of hyperlipidemia maintained on Pravachol 9. For DVT prophylaxis patient was started on subcu Lovenox for GI prophylaxis patient was started on Protonix Will add consult for vascular surgery in regard to bilateral lower extremity ulcers will follow closely Consultation from infectious disease and orthopedic surgery review
[2019-11-25] MEDS: metFORMIN 500 MG TAB PO SCH (18:00)
--- NOTE | 2019-11-25 19:47 | P.PN ---
Subjective Progress Note Date: 11/25/19 This patient is a 58- year old female with a past medical history of diabetes, hypertension, hyperlipidemia, morbid obesity that presented to [facility] emergency department today via EMS after complaints of a fall at home. The patient states she was walking through her home when she felt her knees buckle, and she feel directly on her bilateral knees. X-rays of the bilateral knees in the emergency department revealed no fracture or dislocation. The patient was found to have bilateral lower extremity cellulitis, therefore she was admitted under the care of internal medicine with a consult placed to orthopedic surgery for further evaluation of her knee pain. Patient was also recently admitted for bilateral lower extremity cellulitis and bilateral diabetic foot ulcers for which she follows with the wound care center for. At the time of my exam, the patient is complaining of left knee pain. She states yesterday, her bilateral knees hurt, although her right knee is no longer painful today. She states her left knee pain has also improved slightly, although is still painful. She states she has not attempted to ambulate yet today. She denies hip pain. She denies radiation of the pain, patient denies back pain. She localizes the pain to the posterior knee. Patient denies additional complaints today. She denies chest pain, shortness of breath, nausea, vomiting, fevers, chills. Vital signs stable. 11/25/19: Patient is seen and examined bedside today. She states she continues to experience left knee pain. She denies any significant right knee pain at this time. She states she believes her left knee pain has improved very slightly compared to yesterday, she states she was able to stand with physical therapy bedside today, although that did increase her pain. She has not ambulated. She states it is difficult to localize her knee pain, she states it is diffuse. She denies any new complaints today. Vital signs stable. Objective - Vital Signs Vital signs: Vital Signs Temp 98.1 F 11/25/19 13:42 Pulse 82 11/25/19 16:00 Resp 18 11/25/19 16:00 BP 153/80 11/25/19 13:42 Pulse Ox 96 11/25/19 13:42 Intake & Output 11/25/19 11/25/19 11/26/19 06:59 18:59 06:59 Intake Total 360 Output Total 1900 3400 Balance -1900 -3040 Weight 115 kg Intake: Oral 360 Output: Urine 1900 3400 Other: Voiding Method Incontinent Incontinent - Exam On examination, the patient is sitting up in bed in no apparent distress. She is alert and orientated x3. On inspection of the left knee, there are no obvious deformities or signs of trauma. No skin abrasions. No significant knee effusion. There is diffuse, mild pain on palpation of the left knee. No pain on palpation of the proximal tibia. There is mild pain with PROM of the knee. The knee appears stable with varus and valgus stress. No pain with PROM of the hip. No pain with logrolling. Range of motion of the knee is 0-90 degrees of flexion. Patient has good strength and range of motion of the left ankle. Motor and sensory function appear intact of the left lower extremity. - Labs CBC & Chem 7: 11/25/19 06:36 11/25/19 06:36 Labs: Abnormal Lab Results - Last 24 Hours (Table) 11/24/19 11/25/19 11/25/19 Range/Units 00:13 06:36 06:36 MCV 78.8 L (80.0-100.0) fL BUN 22 H (7-17) mg/dL Glucose 183 H (74-99) mg/dL Vitamin B12 1538.0 H (200.0-944.0) pg/mL Assessment and Plan Assessment: Left knee pain Osteoarthritis Possible acute osteoarthritic flare Plan: - I again discussed the clinical and imaging findings with the patient. I discussed the patient with Dr. Virgen. Recommended we continue conservative treatment at this time. - Patient may continue to weight bear as tolerated with a walker. - Recommend oral or topical NSAIDs, if ok with internal medicine. We did discuss a possible cortisone injection, although with the patient's current bilateral lower extremity cellulitis, I explained she is not a candidate for an injection at this time. - We may consider advanced imaging if there continues to be no improvement. - We will continue to follow patient closely and make recommendations as needed.
[2019-11-25 20:48] LABS: Glucose,Whole Blood 183 mg/dL (75-99)
[2019-11-25] MEDS: LATANOPROST 0.005% OPHTH DROPS 2.5 ML BTL BOTH EYES SCH (21:35)
[2019-11-25] MEDS: INSULN ASP PRT/INSULIN ASPART 100 UNIT/ML 10 ML VIAL SQ SCH (21:36)
--- NOTE | 2019-11-26 00:41 | PN ---
PROGRESS NOTE DATE OF SERVICE: 11/25/2019 REASON FOR FOLLOWUP: Bilateral lower extremity cellulitis. INTERVAL HISTORY: The patient is currently afebrile. The patient is breathing comfortably. Denies having any chest pain or shortness of breath or cough. No abdominal pain. Still complaining of pain and swelling to the leg, but no worsening. PHYSICAL EXAMINATION: Blood pressure is 147/92 with a pulse of 83, temperature 98.8. She is 94% room air. General description is a middle-aged female lying in bed in no distress. RESPIRATORY SYSTEM: Unlabored breathing. Clear to auscultation anteriorly. HEART: S1, S2. Regular rate and rhythm. ABDOMEN: Soft, no tenderness. Right leg swelling and redness minimally decreased. LABS: Hemoglobin is 11.6, white count 5.7. BUN of 22, creatinine 0.90. DIAGNOSTIC IMPRESSION AND PLAN: Patient with bilateral noticed cellulitis, right greater than left. This patient did have significant pain to the knee area. Will ask Ortho to see the patient. Will keep the patient on cefazolin 2 grams q.8 hours. Monitor clinical course closely. MMODL / IJN: [id number] /
[2019-11-26 07:21] LABS: Glucose,Whole Blood 240 mg/dL (75-99)
[2019-11-26 07:45] LABS: Basophils % (A) 0 %; Eosinophils # (A) 0.2 k/uL (0-0.7); Eosinophils % (A) 2 %; HCT 38.2 % (34.0-46.0); HGB 12.5 gm/dL (11.4-16.0); Hypochromasia Slight; Lymphocytes # (A) 1.6 k/uL (1.0-4.8); Lymphocytes % (A) 18 %; MCH 25.5 pg (25.0-35.0); MCHC 32.7 g/dL (31.0-37.0); Mean Platelet Volume 6.7; Monocytes # (A) 0.4 k/uL (0-1.0); Monocytes % (A) 5 %; Neutrophils # (A) 6.6 k/uL (1.3-7.7); Neutrophils % (A) 74 %; Platelet Count 226 k/uL (150-450); RDW 13.1 % (11.5-15.5); WBC 8.9 k/uL (3.8-10.6)
[2019-11-26 08:03] LABS: Albumin 4.1 g/dL (3.5-5.0); Calcium 9.2 mg/dL (8.4-10.2); Potassium 3.8 mmol/L (3.5-5.1); Total Bilirubin 0.4 mg/dL (0.2-1.3); Total Protein 7.7 g/dL (6.3-8.2)
[2019-11-26] MEDS: IPRATROPIUM-ALBUTEROL 3 ML NEB INHALATION SCH ×4 (08:53→20:35)
[2019-11-26] MEDS ORDERED: NON FORMULARY DRUG (Fish Oil/Dha/Epa [Fish Oil 1,200 Mg Fish Oil] 1 CAP) PO SCH (09:00)
[2019-11-26] MEDS: metFORMIN 500 MG TAB PO SCH ×2 (09:13→17:59)
[2019-11-26] MEDS: hydrALAZINE HCL 25 MG TAB PO SCH ×3 (09:14→21:59)
[2019-11-26] MEDS: CLOPIDOGREL 75 MG TAB PO SCH (09:15)
[2019-11-26] MEDS: oxyCODONE-APAP 10-325MG 1 EACH TAB PO SCH ×4 (09:19→21:59)
[2019-11-26] MEDS: amLODIPine 10 MG TAB PO SCH (09:24)
[2019-11-26] MEDS: PREGABALIN 75 MG CAP PO SCH ×2 (09:25→20:43)
[2019-11-26] MEDS: PRAVASTATIN SODIUM 20 MG TAB PO SCH (09:26)
[2019-11-26] MEDS: ENOXAPARIN 40 MG/0.4 ML SYRINGE SQ SCH (09:27)
[2019-11-26] MEDS: hydrOXYzine HCL 25 MG TAB PO SCH ×4 (09:29→22:09)
[2019-11-26] MEDS: POTASSIUM CHLORIDE ER 20 MEQ TAB.ER PO SCH (09:31)
[2019-11-26] MEDS: LOSARTAN 50 MG TAB PO SCH (09:31)
[2019-11-26] MEDS: FUROSEMIDE 40 MG TAB PO SCH (09:32)
[2019-11-26] MEDS: INSULN ASP PRT/INSULIN ASPART 100 UNIT/ML 10 ML VIAL SQ SCH ×2 (09:34→20:42)
[2019-11-26] MEDS: NON FORMULARY DRUG (Liraglutide [Victoza 2-Pak] 0.6 MG) SQ SCH (10:10)
[2019-11-26 11:25] LABS: Glucose,Whole Blood 258 mg/dL (75-99)
--- NOTE | 2019-11-26 11:31 | P.PN ---
Subjective Progress Note Date: 11/26/19 Veronica Quan, he is a 58-year-old female who presented to [facility] emergency room after having a fall at home and complaining of bilateral knee pain, patient states that she was trying to walk with her walker, when her legs felt weak and unable to sustain her, patient fell down and hit both knees on the floor and was unable to stand up, EMS were called and patient was brought into emergency room. Patient has morbid obesity, she was recently admitted to [facility] with bilateral lower extremity cellulitis extending from the foot up to the thigh area, she was treated with IV antibiotics and was sent home on oral antibiotic course, she also has bilateral feet ulcers and is followed by Dr. Clifton at the wound care center. Patient was evaluated on the medical floor she is alert and oriented 3 in no apparent distress she is complaining of pain in the bilateral knees, and complaining of weakness and inability to stand and walk, otherwise she denies any complaints, there is erythema extending again from the feet to the thigh areas bilaterally, otherwise there is no fever or chills no headache or dizziness no chest pain no shortness of breath no cough no nausea or vomiting no abdominal pain no diarrhea no blood in the stools no burning with urination no frequency or urgency and no hematuria On 11/25/2019 patient was seen and examined on the medical floor she is alert and oriented 3 in no apparent distress there is no fever or chills no headache or dizziness no chest pain no shortness of breath no cough no nausea or vomiting no abdominal pain no diarrhea no blood in the stools no burning with urination no frequency or urgency no hematuria she is still complaining of severe pain in both knees especially on the left side she is and able to stand and walk because of weakness and feeling that her left knee is buckling down under her. On 11/26/2019 patient was seen and examined on the medical floor, she is alert and oriented 3, she is complaining of bilateral knee pain otherwise no complaints at this time, blood pressure control is still suboptimal, at this time will increase dose of losartan from 50-100 mg daily, patient was seen by vascular surgery Doppler was done and patient has evidence of PAD, awaiting further plans by vascular surgery and infectious disease, orthopedic surgery reviewed, no intervention recommended at this time. Otherwise patient denies any complaints there is no fever or chills no headache or dizziness no chest pain no shortness of breath no cough no nausea or vomiting no abdominal pain no diarrhea no blood in the stools no burning with urination no frequency or urgency and no hematuria. Case was discussed over the phone with patient's son Dr. Wilbert Quan. Objective - Vital Signs Vital signs: Vital Signs Temp 98.0 F 11/26/19 04:40 Pulse 80 11/26/19 04:40 Resp 18 11/26/19 09:00 BP 167/95 11/26/19 09:00 Pulse Ox 95 11/26/19 09:00 Intake & Output 11/25/19 11/26/19 11/26/19 18:59 06:59 18:59 Intake Total 360 530 Output Total 3400 750 1 Balance -3040 -220 -1 Weight 112.5 kg Intake: Intake, IV Titration 50 Amount ceFAZolin 2 gm In Sodium 50 Chloride 0.9% 50 ml @ 100 mls/hr IVPB Q8HR [facility] Rx# :[id number] Oral 360 480 Output: Urine 3400 750 Stool 1 Other: Voiding Method Incontinent Incontinent # Bowel Movements 1 - Exam In general patient is alert and oriented 3 in no apparent distress HEENT head normocephalic and atraumatic Neck is supple no JVD no goiter no lymphadenopathy Chest exam reveals a few scattered crackles bilaterally no wheezing Cardiac exam reveals regular heart sounds S1 and S2 no gallops no murmurs Abdomen is soft nontender no organomegaly was normal bowel sounds Extremity exam reveals mild edema with bilateral erythema extending from the fe et up to the thigh area, on the right foot there is a large ulcer was scabbing on the heel area Neurological examination reveals no gross focal deficits - Labs CBC & Chem 7: 11/26/19 07:21 11/26/19 07:21 Labs: Abnormal Lab Results - Last 24 Hours (Table) 11/25/19 11/26/19 11/26/19 Range/Units 20:46 07:20 07:21 MCV 78.0 L (80.0-100.0) fL BUN (7-17) mg/dL Glucose (74-99) mg/dL POC Glucose (mg/dL) 183 H 240 H (75-99) mg/dL 11/26/19 11/26/19 Range/Units 07:21 11:23 MCV (80.0-100.0) fL BUN 18 H (7-17) mg/dL Glucose 214 H (74-99) mg/dL POC Glucose (mg/dL) 258 H (75-99) mg/dL Assessment and Plan Plan: 1. Fall with bilateral knee pain, x-ray does not reveal any evidence of bone fracture or dislocation, MRI may be needed to assess if there is any ligament tear, will defer to orthopedic surgery to assess if an MRI is needed 2. Bilateral lower extremity cellulitis would restart Kefzol 1 g IV every 8 hours, consult infectious disease. 3. Underlying history of diabetes mellitus, home medications reordered. 4. Underlying history of hypertension, with borderline control will monitor blood pressure and adjust medications during this admission 5. Hyperkalemia on presentation was potassium of 6.3, corrected Will monitor closely 6. Anemia on presentation hemoglobin 10.9 Will check iron studies vitamin B12 and folate levels 7. Underlying history of peripheral neuropathy maintained on Lyrica 8. Underlying history of hyperlipidemia maintained on Pravachol 9. For DVT prophylaxis patient was started on subcu Lovenox for GI prophylaxis patient was started on Protonix Will add consult for vascular surgery in regard to bilateral lower extremity ulcers will follow closely Consultation from infectious disease and orthopedic surgery review
[2019-11-26] MEDS ORDERED: LOSARTAN 50 MG TAB PO ONE (11:45)
[2019-11-26] MEDS: traMADol 50 MG TAB PO PRN ×2 (11:45→19:34)
--- NOTE | 2019-11-26 14:57 | P.GSCN ---
History of Present Illness Consult date: 11/26/19 Reason for Consult: Peripheral arterial disease, leg ulcers Requesting physician: Mariely Bradford History of present illness: This is a 58-year-old -Greek female with a past medical history significant for chronic nonhealing wounds on the plantar surface of the left foot as well as bilateral lower extremity cellulitis. We have been consult to see the patient regarding ulcerations on lower extremities and peripheral arterial disease. The patient was brought in to the emergency department by EMS after she had a fall at home landing on her knees. The patient states she had been feeling weak lately especially when she goes to stand, she does use a walker for ambulation. She was recently discharged from the hospital on antibiotics for bilateral lower extremity cellulitis. She is following with Dr. Clifton in the wound care center. She has redness and swelling to bilateral lower extremities, she denies any fever or chills. She denies any shortness of breath or chest pain. She complains of pain radiating in her knees, left greater than right. Her past medical history also includes asthma, COPD, diabetes mellitus, hyperlipidemia, hypertension, neurological disorder, osteoarthritis, multiple sclerosis and I disorder. She is a former smoker greater than 40 years one pack per day, quit in 2017. Also has a history of marijuana use. She is maintained on Plavix 75 mg daily at home. X-ray of bilateral knees was obtained showing mild osteoarthritic changes. Subcutaneous edema. No fracture seen. No significant change compared to old exam. Venous Doppler ultrasound of bilateral lower extremities are negative for DVTs, with distal femoral vein not visualized bilaterally, the exam is limited. Review of Systems A 14 point review of systems has been completed all pertinent positives and negatives as stated in the HPI. Past Medical History Past Medical History: Asthma, COPD, Diabetes Mellitus, Eye Disorder, GERD/Reflu x, Hyperlipidemia, Hypertension, Neurologic Disorder, Osteoarthritis (OA) Additional Past Medical History / Comment(s): wounds rt leg,multiple sclerosis, glaucoma History of Any Multi-Drug Resistant Organisms: None Reported Past Surgical History: Section, Joint Replacement, Tubal Ligation Additional Past Surgical History / Comment(s): lt hip replacement,rectal surgery,eye proc Past Anesthesia/Blood Transfusion Reactions: No Reported Reaction Past Psychological History: Depression Additional Psychological History / Comment(s): Stop smoking Jan. No cigarette or alcohol use. Does not work outside of the home. No international travel. No experience. No animal exposures Smoking Status: Former smoker Past Alcohol Use History: None Reported Additional Past Alcohol Use History / Comment(s): smoker >40 years 1ppd Past Drug Use History: Marijuana Additional Drug Use History / Comment(s): daily - Past Family History Father Family Medical History: Cancer Medications and Allergies Home Medications Medication Instructions Recorded Confirmed Type amLODIPine [Norvasc] 10 mg PO DAILY 02/16/16 11/23/19 History Clopidogrel [Plavix] 75 mg PO DAILY 03/01/17 11/23/19 History Furosemide [Lasix] 40 mg PO DAILY 03/01/17 11/23/19 History Latanoprost [Xalatan 0.005%] 1 drop BOTH EYES HS 03/01/17 11/23/19 History metFORMIN HCL 1,000 mg PO BID-W/MEALS 05/20/17 11/23/19 History Insuln Asp Prt/Insulin Aspart 25 unit SQ HS 10/30/18 11/23/19 History [NovoLOG MIX 70-30 VIAL] Insuln Asp Prt/Insulin Aspart 35 unit SQ DAILY 10/30/18 11/23/19 History [NovoLOG MIX 70-30 VIAL] Potassium Chloride [Klor-Con 20] 20 meq PO DAILY 10/30/18 11/23/19 History Ipratropium-Albuterol Nebulize 3 ml INHALATION RT-QID 06/28/19 11/23/19 History [Duoneb 0.5 mg-3 mg/3 ml Soln] Pravastatin Sodium [Pravachol] 10 mg PO DAILY 06/28/19 11/23/19 History Cyanocobalamin (Vitamin B-12) 1,000 mcg PO DAILY 08/05/19 11/23/19 History [Vitamin B-12] Fish Oil/Dha/Epa [Fish Oil 1,200 1 cap PO DAILY 08/05/19 11/23/19 History mg Fish Oil] Liraglutide [Victoza 2-[place]] 0.6 mg SQ DAILY 08/05/19 11/23/19 History Pregabalin 150 mg PO BID 08/05/19 11/23/19 History oxyCODONE HCL/ACETAMINOPHEN 1 tab PO QID 08/05/19 11/23/19 History [Percocet 10-325 mg] Ergocalciferol [Vitamin D2 50,000 unit PO MO 09/06/19 11/23/19 History (DRISDOL)] hydrALAZINE HCL [Apresoline] 25 mg PO TID 09/06/19 11/23/19 History hydrOXYzine PAMOATE 50 mg PO QID 09/06/19 11/23/19 History Albuterol Inhaler [Ventolin Hfa 2 puff INHALATION RT-Q6H PRN 10/22/19 11/23/19 History Inhaler] Losartan Potassium [Cozaar] 50 mg PO DAILY 10/22/19 11/23/19 History traMADol HCl [Ultram] 50 mg PO QID PRN 11/23/19 11/23/19 History Allergies Allergy/AdvReac Type Severity Reaction Status Date / Time methylprednisolone Allergy Anaphylaxis Verified 11/23/19 22:17 [From Solu-Medrol] venom-honey bee Allergy Anaphylaxis Verified 11/23/19 22:17 [bee venom (honey bee)] Surgical - Exam Vital Signs Temp Pulse Resp BP Pulse Ox 98.1 F 80 18 145/94 95 11/23/19 21:55 11/23/19 21:55 11/23/19 21:55 11/23/19 21:55 11/23/19 21:55 General appearance: The patient is alert, oriented, in no acute distress. HET: Head is normocephalic and atraumatic. Pupils are equal and reactive. Oropharynx is clear without lesions. Neck: Supple without lymphadenopathy. Trachea midline. Heart: S1 S2. Regular rate and rhythm. Lungs: No crackles or wheezes are heard. Abdomen: Soft, nontender, nondistended with bowel sounds. No peritoneal signs. No palpable organomegaly or masses. Extremities: Normal skin color and turgor. No cyanosis, rash, ulceration, clubbing, or edema. Radial and pedal pulses are 2/4 bilaterally. Neurological: No focal deficits. Strength and sensation are grossly intact. Results X-ray of bilateral knees reviewed: Osteoarthritis, no fracture seen. Venous Doppler ultrasound reviewed: No DVTs bilaterally, although exam is limited. Bilateral lower extremity arterial ultrasound shows right lower extremity arter ial disease - Labs 11/26/19 07:21 11/26/19 07:21 Abnormal Lab Results - Last 24 Hours (Table) 11/25/19 11/26/19 11/26/19 Range/Units 20:46 07:20 07:21 MCV 78.0 L (80.0-100.0) fL BUN (7-17) mg/dL Glucose (74-99) mg/dL POC Glucose (mg/dL) 183 H 240 H (75-99) mg/dL 11/26/19 Range/Units 07:21 MCV (80.0-100.0) fL BUN 18 H (7-17) mg/dL Glucose 214 H (74-99) mg/dL POC Glucose (mg/dL) (75-99) mg/dL Diabetes panel 11/26/19 Range/Units 07:21 Sodium 139 (137-145) mmol/L Potassium 3.8 (3.5-5.1) mmol/L Chloride 103 (98-107) mmol/L Carbon Dioxide 29 (22-30) mmol/L BUN 18 H (7-17) mg/dL Creatinine 0.95 (0.52-1.04) mg/dL Glucose 214 H (74-99) mg/dL Calcium 9.2 (8.4-10.2) mg/dL AST 23 (14-36) U/L ALT 13 (4-34) U/L Alkaline Phosphatase 114 (38-126) U/L Total Protein 7.7 (6.3-8.2) g/dL Albumin 4.1 (3.5-5.0) g/dL Calcium panel 11/26/19 Range/Units 07:21 Calcium 9.2 (8.4-10.2) mg/dL Albumin 4.1 (3.5-5.0) g/dL Pituitary panel 11/26/19 Range/Units 07:21 Sodium 139 (137-145) mmol/L Potassium 3.8 (3.5-5.1) mmol/L Chloride 103 (98-107) mmol/L Carbon Dioxide 29 (22-30) mmol/L BUN 18 H (7-17) mg/dL Creatinine 0.95 (0.52-1.04) mg/dL Glucose 214 H (74-99) mg/dL Calcium 9.2 (8.4-10.2) mg/dL Adrenal panel 11/26/19 Range/Units 07:21 Sodium 139 (137-145) mmol/L Potassium 3.8 (3.5-5.1) mmol/L Chloride 103 (98-107) mmol/L Carbon Dioxide 29 (22-30) mmol/L BUN 18 H (7-17) mg/dL Creatinine 0.95 (0.52-1.04) mg/dL Glucose 214 H (74-99) mg/dL Calcium 9.2 (8.4-10.2) mg/dL Total Bilirubin 0.4 (0.2-1.3) mg/dL AST 23 (14-36) U/L ALT 13 (4-34) U/L Alkaline Phosphatase 114 (38-126) U/L Total Protein 7.7 (6.3-8.2) g/dL Albumin 4.1 (3.5-5.0) g/dL Assessment and Plan Assessment: 1. Bilateral lower extremity nonhealing ulcers 2. Cellulitis to bilateral lower extremities. 3. Peripheral arterial disease 4. Diabetes mellitus 5. Former smoker greater than 40 years 6. COPD 7. Hypertension 8. Hyperlipidemia Plan: The patient was admitted with bilateral lower extremity cellulitis, continue with recommendations for IV antibiotics per infectious disease. Patient also has a chronic nonhealing ulcer on the left heel, under the care of Dr. Clifton with the wound clinic. Continue with wound clinic localized wound care, may consider need for debridement. Arterial ultrasound for bilateral lower extremity shows good arterial flow on the left, with some arterial disease on the right from the popliteal to PT. There is no indication for any vascular surgical intervention at this time. Patient may follow-up in our office after discharge. Thank you for this consultation and allowing us to take part in the plan of care of the patient during her hospital stay. The above dictated assessment and findings were discussed with Dr. Kiser. The impression and plan of care have been directed as dictated.
[2019-11-26 17:19] LABS: Glucose,Whole Blood 144 mg/dL (75-99)
--- NOTE | 2019-11-26 17:56 | PN ---
PROGRESS NOTE DATE OF SERVICE: 11/26/2019 REASON FOR FOLLOWUP: Bilateral lower extremity cellulitis. INTERVAL HISTORY: The patient is currently afebrile. The patient is breathing comfortably. The patient denies having any chest pain or shortness of breath or cough. Overall pain and discomfort to the leg have decreased. PHYSICAL EXAMINATION: Blood pressure 156/82 with a pulse of 74, temperature 97.8. She is 92% on room air. General description is a middle-aged female lying in bed in no distress. RESPIRATORY SYSTEM: Unlabored breathing. Clear to auscultation anteriorly. HEART: S1, S2. Regular rate and rhythm. ABDOMEN: Soft. No tenderness. Bilateral leg swelling persists. Redness has decreased. LABS: White count 8.9, BUN of 18, creatinine 0.95. DIAGNOSTIC IMPRESSION AND PLAN: Patient with bilateral lower extremity cellulitis with recurrent episode. Currently on cefazolin; clinically responding to it. In view of the recurrent episode, will consider prophylactic antibiotic on a long-term basis in the outpatient setting. Continue with supportive care. Son was at the bedside. His questions and concerns were answered. MMODL / IJN: [id number] /
[2019-11-26 20:00] LABS: Glucose,Whole Blood 196 mg/dL (75-99)
[2019-11-26] MEDS: LATANOPROST 0.005% OPHTH DROPS 2.5 ML BTL BOTH EYES SCH (20:43)
[2019-11-27 07:03] LABS: Glucose,Whole Blood 163 mg/dL (75-99)
[2019-11-27] MEDS: hydrOXYzine HCL 25 MG TAB PO SCH ×4 (08:53→21:02)
[2019-11-27] MEDS: PRAVASTATIN SODIUM 20 MG TAB PO SCH (08:53)
[2019-11-27] MEDS: LOSARTAN 50 MG TAB PO SCH (08:53)
[2019-11-27] MEDS: FUROSEMIDE 40 MG TAB PO SCH (08:53)
[2019-11-27] MEDS: ENOXAPARIN 40 MG/0.4 ML SYRINGE SQ SCH (08:54)
[2019-11-27] MEDS: metFORMIN 500 MG TAB PO SCH ×2 (08:54→16:26)
[2019-11-27] MEDS: POTASSIUM CHLORIDE ER 20 MEQ TAB.ER PO SCH (08:54)
[2019-11-27] MEDS: hydrALAZINE HCL 25 MG TAB PO SCH ×3 (08:54→21:02)
[2019-11-27] MEDS: amLODIPine 10 MG TAB PO SCH (08:54)
[2019-11-27] MEDS: CLOPIDOGREL 75 MG TAB PO SCH (08:54)
[2019-11-27] MEDS: PREGABALIN 75 MG CAP PO SCH ×2 (08:54→21:02)
[2019-11-27] MEDS: oxyCODONE-APAP 10-325MG 1 EACH TAB PO SCH ×4 (08:55→21:02)
[2019-11-27] MEDS: INSULN ASP PRT/INSULIN ASPART 100 UNIT/ML 10 ML VIAL SQ SCH ×2 (08:55→21:01)
[2019-11-27] MEDS: IPRATROPIUM-ALBUTEROL 3 ML NEB INHALATION SCH ×4 (09:22→20:05)
[2019-11-27] MEDS: NON FORMULARY DRUG (Liraglutide [Victoza 2-Pak] 0.6 MG) SQ SCH (10:20)
[2019-11-27 11:10] LABS: Glucose,Whole Blood 181 mg/dL (75-99)
--- NOTE | 2019-11-27 11:19 | P.PN ---
Subjective Progress Note Date: 11/27/19 Veronica Quan, he is a 58-year-old female who presented to [facility] emergency room after having a fall at home and complaining of bilateral knee pain, patient states that she was trying to walk with her walker, when her legs felt weak and unable to sustain her, patient fell down and hit both knees on the floor and was unable to stand up, EMS were called and patient was brought into emergency room. Patient has morbid obesity, she was recently admitted to [facility] with bilateral lower extremity cellulitis extending from the foot up to the thigh area, she was treated with IV antibiotics and was sent home on oral antibiotic course, she also has bilateral feet ulcers and is followed by Dr. Clifton at the wound care center. Patient was evaluated on the medical floor she is alert and oriented 3 in no apparent distress she is complaining of pain in the bilateral knees, and complaining of weakness and inability to stand and walk, otherwise she denies any complaints, there is erythema extending again from the feet to the thigh areas bilaterally, otherwise there is no fever or chills no headache or dizziness no chest pain no shortness of breath no cough no nausea or vomiting no abdominal pain no diarrhea no blood in the stools no burning with urination no frequency or urgency and no hematuria On 11/25/2019 patient was seen and examined on the medical floor she is alert and oriented 3 in no apparent distress there is no fever or chills no headache or dizziness no chest pain no shortness of breath no cough no nausea or vomiting no abdominal pain no diarrhea no blood in the stools no burning with urination no frequency or urgency no hematuria she is still complaining of severe pain in both knees especially on the left side she is and able to stand and walk because of weakness and feeling that her left knee is buckling down under her. On 11/26/2019 patient was seen and examined on the medical floor, she is alert and oriented 3, she is complaining of bilateral knee pain otherwise no complaints at this time, blood pressure control is still suboptimal, at this time will increase dose of losartan from 50-100 mg daily, patient was seen by vascular surgery Doppler was done and patient has evidence of PAD, awaiting further plans by vascular surgery and infectious disease, orthopedic surgery reviewed, no intervention recommended at this time. Otherwise patient denies any complaints there is no fever or chills no headache or dizziness no chest pain no shortness of breath no cough no nausea or vomiting no abdominal pain no diarrhea no blood in the stools no burning with urination no frequency or urgency and no hematuria. Case was discussed over the phone with patient's son Dr. Wilbert Quan. On 11/27/2019 patient was seen and examined on the medical floor she is alert and oriented 3 in no apparent distress, there is no fever or chills no headache or dizziness no chest pain no shortness of breath no cough no nausea or vomiting no abdominal pain no diarrhea no burning with urination no frequency or urgency no hematuria, bilateral lower extremity erythema is improving she is still having some erythema in the right thigh, left thigh has improved significantly, otherwise all erythema is below the knee, she is still maintained on IV antibiotics, we are awaiting for vascular surgery input regarding possible need for any procedure for peripheral arterial disease Objective - Vital Signs Vital signs: Vital Signs Temp 97.9 F 11/27/19 05:15 Pulse 76 11/27/19 05:15 Resp 18 11/27/19 05:15 BP 135/76 11/27/19 05:15 Pulse Ox 94 L 11/27/19 05:15 Intake & Output 11/26/19 11/27/19 11/27/19 18:59 06:59 18:59 Intake Total 940 Output Total 1203 650 Balance -1203 290 Weight 109.8 kg Intake: Intake, IV Titration 50 Amount ceFAZolin 2 gm In Sodium 50 Chloride 0.9% 50 ml @ 100 mls/hr IVPB Q8HR [facility] Rx# :[id number] Oral 890 Output: Urine 1200 650 Stool 3 Other: Voiding Method Incontinent Incontinent # Voids 1 # Bowel Movements 1 - Exam In general patient is alert and oriented 3 in no apparent distress HEENT head normocephalic and atraumatic Neck is supple no JVD no goiter no lymphadenopathy Chest exam reveals a few scattered crackles bilaterally no wheezing Cardiac exam reveals regular heart sounds S1 and S2 no gallops no murmurs Abdomen is soft nontender no organomegaly was normal bowel sounds Extremity exam reveals mild edema with bilateral erythema extending from the feet up to the thigh area, on the right foot there is a large ulcer was scabbing on the heel area Neurological examination reveals no gross focal deficits - Labs CBC & Chem 7: 11/26/19 07:21 11/26/19 07:21 Labs: Abnormal Lab Results - Last 24 Hours (Table) 11/26/19 11/26/19 11/26/19 Range/Units 11:23 17:17 19:56 POC Glucose (mg/dL) 258 H 144 H 196 H (75-99) mg/dL 11/27/19 Range/Units 07:02 POC Glucose (mg/dL) 163 H (75-99) mg/dL Assessment and Plan Plan: 1. Fall with bilateral knee pain, x-ray does not reveal any evidence of bone fracture or dislocation, MRI may be needed to assess if there is any ligament tear, will defer to orthopedic surgery to assess if an MRI is needed 2. Bilateral lower extremity cellulitis would restart Kefzol 1 g IV every 8 hours, consult infectious disease. 3. Underlying history of diabetes mellitus, home medications reordered. 4. Underlying history of hypertension, with borderline control will monitor blood pressure and adjust medications during this admission 5. Hyperkalemia on presentation was potassium of 6.3, corrected Will monitor closely 6. Anemia on presentation hemoglobin 10.9 Will check iron studies vitamin B12 and folate levels 7. Underlying history of peripheral neuropathy maintained on Lyrica 8. Underlying history of hyperlipidemia maintained on Pravachol 9. For DVT prophylaxis patient was started on subcu Lovenox for GI prophylaxis patient was started on Protonix Will add consult for vascular surgery in regard to bilateral lower extremity ulcers will follow closely Consultation from infectious disease and orthopedic surgery review
--- NOTE | 2019-11-27 14:57 | PN ---
PROGRESS NOTE DATE OF SERVICE: 11/27/2019 REASON FOR FOLLOWUP: Bilateral lower extremity cellulitis and left foot wound. INTERVAL HISTORY: Patient is currently afebrile. The patient is breathing comfortably. The patient denies having any chest pain. No shortness of breath or cough. No nausea, no abdominal pain. Pain and discomfort in the leg has improved. PHYSICAL EXAMINATION: Blood pressure 120/67, pulse of 59, temperature 98.2. She is 98% on room air. General description is a middle-aged female lying in bed in no distress. Respiratory system: Unlabored breathing, clear to auscultation anteriorly. Heart S1, S2. Regular rate and rhythm. Abdomen soft, no tenderness. Leg swelling but has slightly decreased. DIAGNOSTIC IMPRESSION AND PLAN: Patient has bilateral lower extremity cellulitis with recurrent episode. Plan is for the patient to go to the rehab, will get a med line on Friday and continue IV Zosyn for another week or 10 days and close outpatient followup condition. MMODL / IJN: [id number] /
[2019-11-27 17:10] LABS: Glucose,Whole Blood 200 mg/dL (75-99)
[2019-11-27 20:58] LABS: Glucose,Whole Blood 153 mg/dL (75-99)
[2019-11-27] MEDS: LATANOPROST 0.005% OPHTH DROPS 2.5 ML BTL BOTH EYES SCH (21:01)
[2019-11-28 07:02] LABS: Glucose,Whole Blood 267 mg/dL (75-99)
[2019-11-28] MEDS: IPRATROPIUM-ALBUTEROL 3 ML NEB INHALATION SCH ×4 (07:44→19:33)
[2019-11-28] MEDS: ENOXAPARIN 40 MG/0.4 ML SYRINGE SQ SCH (08:31)
[2019-11-28] MEDS: hydrOXYzine HCL 25 MG TAB PO SCH ×4 (08:32→21:47)
[2019-11-28] MEDS: hydrALAZINE HCL 25 MG TAB PO SCH ×3 (08:32→21:47)
[2019-11-28] MEDS: INSULN ASP PRT/INSULIN ASPART 100 UNIT/ML 10 ML VIAL SQ SCH ×2 (08:32→20:45)
[2019-11-28] MEDS: FUROSEMIDE 40 MG TAB PO SCH (08:32)
[2019-11-28] MEDS: POTASSIUM CHLORIDE ER 20 MEQ TAB.ER PO SCH (08:32)
[2019-11-28] MEDS: PRAVASTATIN SODIUM 20 MG TAB PO SCH (08:32)
[2019-11-28] MEDS: PREGABALIN 75 MG CAP PO SCH ×2 (08:32→20:45)
[2019-11-28] MEDS: LOSARTAN 50 MG TAB PO SCH (08:32)
[2019-11-28] MEDS: amLODIPine 10 MG TAB PO SCH (08:33)
[2019-11-28] MEDS: CLOPIDOGREL 75 MG TAB PO SCH (08:33)
[2019-11-28] MEDS: oxyCODONE-APAP 10-325MG 1 EACH TAB PO SCH ×4 (08:33→21:48)
[2019-11-28] MEDS: metFORMIN 500 MG TAB PO SCH ×2 (08:33→17:27)
[2019-11-28] MEDS: NON FORMULARY DRUG (Liraglutide [Victoza 2-Pak] 0.6 MG) SQ SCH (08:34)
[2019-11-28 08:38] LABS: Basophils # (A) 0.1 k/uL (0-0.2); Basophils % (A) 1 %; Eosinophils # (A) 0.2 k/uL (0-0.7); Eosinophils % (A) 2 %; HCT 42.8 % (34.0-46.0); HGB 13.2 gm/dL (11.4-16.0); Hypochromasia Slight; Lymphocytes # (A) 2.3 k/uL (1.0-4.8); Lymphocytes % (A) 29 %; MCH 23.9 pg (25.0-35.0); MCHC 30.7 g/dL (31.0-37.0); MCV 77.7 fL (80.0-100.0); Monocytes # (A) 0.4 k/uL (0-1.0); Monocytes % (A) 5 %; Neutrophils # (A) 4.7 k/uL (1.3-7.7); Neutrophils % (A) 60 %; Platelet Count 248 k/uL (150-450); RBC 5.51 m/uL (3.80-5.40); RDW 13.5 % (11.5-15.5); WBC 7.8 k/uL (3.8-10.6)
[2019-11-28 08:47] LABS: Albumin 4.4 g/dL (3.5-5.0); Calcium 9.7 mg/dL (8.4-10.2); Potassium 3.5 mmol/L (3.5-5.1); Total Bilirubin 0.5 mg/dL (0.2-1.3); Total Protein 8.2 g/dL (6.3-8.2)
--- NOTE | 2019-11-28 10:12 | P.PN ---
Subjective Progress Note Date: 11/28/19 This patient is a 58- year old female with a past medical history of multiple sclerosis, diabetes, hypertension, hyperlipidemia, morbid obesity that presented to [facility] emergency department today via EMS after complaints of a fall at home. The patient states she was walking through her home when she felt her knees buckle, and she feel directly on her bilateral knees. X-rays of the bilateral knees in the emergency department revealed no fracture or dislocation. The patient was found to have bilateral lower extremity cellulitis, therefore she was admitted under the care of internal medicine with a consult placed to orthopedic surgery for further evaluation of her knee pain. Patient was also recently admitted for bilateral lower extremity cellulitis and bilateral diabetic foot ulcers for which she follows with the wound care center for. At the time of my exam, the patient is complaining of left knee pain. She states yesterday, her bilateral knees hurt, although her right knee is no longer painful today. She states her left knee pain has also improved slightly, although is still painful. She states she has not attempted to ambulate yet today. She denies hip pain. She denies radiation of the pain, patient denies back pain. She localizes the pain to the posterior knee. Patient denies additional complaints today. She denies chest pain, shortness of breath, nausea, vomiting, fevers, chills. Vital signs stable. 11/28/2019: She continues to complain of knee pain. She states that she has difficulty ambulating secondary to weakness and night left leg and pain. She has had no fever or chills. Vital signs are stable. Objective - Vital Signs Vital signs: Vital Signs Temp 98.0 F 11/28/19 05:50 Pulse 85 11/28/19 05:50 Resp 17 11/28/19 05:50 BP 150/87 11/28/19 05:50 Pulse Ox 99 11/28/19 05:50 Intake & Output 11/27/19 11/28/19 11/28/19 18:59 06:59 18:59 Intake Total 50 700 Output Total 750 Balance 50 -50 Weight 109 kg Intake: Intake, IV Titration 50 100 Amount ceFAZolin 2 gm In Sodium 50 100 Chloride 0.9% 50 ml @ 100 mls/hr IVPB Q8HR [facility] Rx# :[id number] Oral 600 Output: Urine 750 Other: Voiding Method Incontinent Incontinent Incontinent # Voids 1 - Exam This is a pleasant 58-year-old female in no acute distress. She is alert and oriented at this time. Exam of the lower extremities reveals bandages to the lower legs for her cellulitis. No gross deformity noted. No knee effusion noted. She is able to slowly flex each knee to about 30 actively while sitting in a chair. She has full foot and ankle motion bilaterally. Neurovascular s tatus to the lower extremities is grossly intact. - Labs CBC & Chem 7: 11/28/19 08:02 11/28/19 08:02 Labs: Abnormal Lab Results - Last 24 Hours (Table) 11/27/19 11/27/19 11/27/19 Range/Units 11:08 17:09 20:54 RBC (3.80-5.40) m/uL MCV (80.0-100.0) fL MCH (25.0-35.0) pg MCHC (31.0-37.0) g/dL BUN (7-17) mg/dL Glucose (74-99) mg/dL POC Glucose (mg/dL) 181 H 200 H 153 H (75-99) mg/dL 11/28/19 11/28/19 11/28/19 Range/Units 07:00 08:02 08:02 RBC 5.51 H (3.80-5.40) m/uL MCV 77.7 L (80.0-100.0) fL MCH 23.9 L (25.0-35.0) pg MCHC 30.7 L (31.0-37.0) g/dL BUN 19 H (7-17) mg/dL Glucose 151 H (74-99) mg/dL POC Glucose (mg/dL) 267 H (75-99) mg/dL Assessment and Plan (1) Fall Current Visit: Yes Status: Acute Code(s): W19.XXXA - UNSPECIFIED FALL, INITIAL ENCOUNTER SNOMED Code(s): 9330772 (2) Weakness Current Visit: Yes Status: Acute Code(s): R53.1 - WEAKNESS SNOMED Code(s): 75551355 (3) Bilateral lower leg cellulitis Current Visit: No Status: Acute Code(s): L03.116 - CELLULITIS OF LEFT LOWER LIMB; L03.115 - CELLULITIS OF RIGHT LOWER LIMB SNOMED Code(s): 163749517 (4) Diabetes mellitus type 2, uncontrolled, with complications Current Visit: No Status: Acute Code(s): E11.8 - TYPE 2 DIABETES MELLITUS WITH UNSPECIFIED COMPLICATIONS; E11.65 - TYPE 2 DIABETES MELLITUS WITH HYPERGLYCEMIA SNOMED Code(s): 37815655 (5) Knee pain Current Visit: No Status: Acute Code(s): M25.569 - PAIN IN UNSPECIFIED KNEE SNOMED Code(s): 65576824 Plan: The clinical findings are discussed with the patient. We discussed the importance of physical therapy for range of motion and strengthening. She is not a candidate for cortisone injection secondary to her uncontrolled diabetes. She will be discharged to inpatient rehab. I encouraged her to focus on strengthening of the lower extremities and range of motion of the knees. She is to follow-up as needed with orthopedics.
[2019-11-28] MEDS ORDERED: ONDANSETRON 4 MG/2 ML VIAL IVP PRN (10:45)
--- NOTE | 2019-11-28 11:11 | P.PN ---
Subjective Progress Note Date: 11/28/19 Veronica Quan, he is a 58-year-old female who presented to [facility] emergency room after having a fall at home and complaining of bilateral knee pain, patient states that she was trying to walk with her walker, when her legs felt weak and unable to sustain her, patient fell down and hit both knees on the floor and was unable to stand up, EMS were called and patient was brought into emergency room. Patient has morbid obesity, she was recently admitted to [facility] with bilateral lower extremity cellulitis extending from the foot up to the thigh area, she was treated with IV antibiotics and was sent home on oral antibiotic course, she also has bilateral feet ulcers and is followed by Dr. Clifton at the wound care center. Patient was evaluated on the medical floor she is alert and oriented 3 in no apparent distress she is complaining of pain in the bilateral knees, and complaining of weakness and inability to stand and walk, otherwise she denies any complaints, there is erythema extending again from the feet to the thigh areas bilaterally, otherwise there is no fever or chills no headache or dizziness no chest pain no shortness of breath no cough no nausea or vomiting no abdominal pain no diarrhea no blood in the stools no burning with urination no frequency or urgency and no hematuria On 11/25/2019 patient was seen and examined on the medical floor she is alert and oriented 3 in no apparent distress there is no fever or chills no headache or dizziness no chest pain no shortness of breath no cough no nausea or vomiting no abdominal pain no diarrhea no blood in the stools no burning with urination no frequency or urgency no hematuria she is still complaining of severe pain in both knees especially on the left side she is and able to stand and walk because of weakness and feeling that her left knee is buckling down under her. On 11/26/2019 patient was seen and examined on the medical floor, she is alert and oriented 3, she is complaining of bilateral knee pain otherwise no complaints at this time, blood pressure control is still suboptimal, at this time will increase dose of losartan from 50-100 mg daily, patient was seen by vascular surgery Doppler was done and patient has evidence of PAD, awaiting further plans by vascular surgery and infectious disease, orthopedic surgery reviewed, no intervention recommended at this time. Otherwise patient denies any complaints there is no fever or chills no headache or dizziness no chest pain no shortness of breath no cough no nausea or vomiting no abdominal pain no diarrhea no blood in the stools no burning with urination no frequency or urgency and no hematuria. Case was discussed over the phone with patient's son Wilbert Quan. On 11/27/2019 patient was seen and examined on the medical floor she is alert and oriented 3 in no apparent distress, there is no fever or chills no headache or dizziness no chest pain no shortness of breath no cough no nausea or vomiting no abdominal pain no diarrhea no burning with urination no frequency or urgency no hematuria, bilateral lower extremity erythema is improving she is still having some erythema in the right thigh, left thigh has improved significantly, otherwise all erythema is below the knee, she is still maintained on IV antibiotics, we are awaiting for vascular surgery input regarding possible need for any procedure for peripheral arterial disease. On 11/28/2019 patient was seen and examined on the medical floor, she is alert and oriented 3 in no distress she is complaining of bilateral lower extremity pain, she is also complaining of nausea, otherwise she denies any complaints there is no fever or chills no headache or dizziness no chest pain no shortness of breath no cough no vomiting no abdominal pain no diarrhea no burning with urination no frequency or urgency no hematuria Objective - Vital Signs Vital signs: Vital Signs Temp 98.0 F 11/28/19 05:50 Pulse 85 11/28/19 05:50 Resp 17 11/28/19 05:50 BP 150/87 11/28/19 05:50 Pulse Ox 99 11/28/19 05:50 Intake & Output 11/27/19 11/28/19 11/28/19 18:59 06:59 18:59 Intake Total 50 700 Output Total 750 Balance 50 -50 Weight 109 kg Intake: Intake, IV Titration 50 100 Amount ceFAZolin 2 gm In Sodium 50 100 Chloride 0.9% 50 ml @ 100 mls/hr IVPB Q8HR [facility] Rx# :[id number] Oral 600 Output: Urine 750 Other: Voiding Method Incontinent Incontinent Incontinent # Voids 1 - Exam In general patient is alert and oriented 3 in no apparent distress HEENT head normocephalic and atraumatic Neck is supple no JVD no goiter no lymphadenopathy Chest exam reveals a few scattered crackles bilaterally no wheezing Cardiac exam reveals regular heart sounds S1 and S2 no gallops no murmurs Abdomen is soft nontender no organomegaly was normal bowel sounds Extremity exam reveals mild edema with bilateral erythema extending from the feet up to the thigh area, on the right foot there is a large ulcer was scabbing on the heel area Neurological examination reveals no gross focal deficits - Labs CBC & Chem 7: 11/28/19 08:02 11/28/19 08:02 Labs: Abnormal Lab Results - Last 24 Hours (Table) 11/27/19 11/27/19 11/27/19 Range/Units 11:08 17:09 20:54 RBC (3.80-5.40) m/uL MCV (80.0-100.0) fL MCH (25.0-35.0) pg MCHC (31.0-37.0) g/dL BUN (7-17) mg/dL Glucose (74-99) mg/dL POC Glucose (mg/dL) 181 H 200 H 153 H (75-99) mg/dL 11/28/19 11/28/19 11/28/19 Range/Units 07:00 08:02 08:02 RBC 5.51 H (3.80-5.40) m/uL MCV 77.7 L (80.0-100.0) fL MCH 23.9 L (25.0-35.0) pg MCHC 30.7 L (31.0-37.0) g/dL BUN 19 H (7-17) mg/dL Glucose 151 H (74-99) mg/dL POC Glucose (mg/dL) 267 H (75-99) mg/dL Assessment and Plan Plan: 1. Fall with bilateral knee pain, x-ray does not reveal any evidence of bone fracture or dislocation, MRI may be needed to assess if there is any ligament tear, will defer to orthopedic surgery to assess if an MRI is needed 2. Bilateral lower extremity cellulitis would restart Kefzol 1 g IV every 8 hours, consult infectious disease. 3. Underlying history of diabetes mellitus, home medications reordered. 4. Underlying history of hypertension, with borderline control will monitor blood pressure and adjust medications during this admission 5. Hyperkalemia on presentation was potassium of 6.3, corrected Will monitor closely 6. Anemia on presentation hemoglobin 10.9 Will check iron studies vitamin B12 and folate levels 7. Underlying history of peripheral neuropathy maintained on Lyrica 8. Underlying history of hyperlipidemia maintained on Pravachol 9. For DVT prophylaxis patient was started on subcu Lovenox for GI prophylaxis patient was started on Protonix Will add consult for vascular surgery in regard to bilateral lower extremity ulcers will follow closely Consultation from infectious disease and orthopedic surgery review Today I added Zofran and Silvadene cream to her regimen Will recheck labs and follow-up in a.m.
[2019-11-28 11:13] LABS: Glucose,Whole Blood 127 mg/dL (75-99)
[2019-11-28] MEDS: traMADol 50 MG TAB PO PRN ×2 (11:47→23:38)
[2019-11-28 16:58] LABS: Glucose,Whole Blood 117 mg/dL (75-99)
[2019-11-28 20:18] LABS: Glucose,Whole Blood 158 mg/dL (75-99)
[2019-11-28] MEDS: LATANOPROST 0.005% OPHTH DROPS 2.5 ML BTL BOTH EYES SCH (20:45)
[2019-11-28 20:59] VITALS: RESP 18
--- NOTE | 2019-11-29 01:32 | PN ---
PROGRESS NOTE DATE OF SERVICE: 11/28/2019 REASON FOR FOLLOWUP: Bilateral lower extremity cellulitis. INTERVAL HISTORY: The patient is currently afebrile. The patient is breathing comfortably. Denies having any chest pain. No shortness of breath or cough. Pain to the legs, but no worsening. No abdominal pain or diarrhea. PHYSICAL EXAMINATION: Blood pressure 118/67, pulse of 94, temperature 98.1. She is 100% on room air. General description is a middle-aged female lying in bed in no distress. RESPIRATORY SYSTEM: Unlabored breathing, clear to auscultation anteriorly. HEART: S1, S2. Regular rate and rhythm. ABDOMEN: Soft, no tenderness. Bilateral legs with swelling and redness has improved. LABS: Hemoglobin is 13.2, white count 7.8. BUN of 19, creatinine 0.95. DIAGNOSTIC IMPRESSION AND PLAN: Patient with bilateral lower extremity cellulitis in this patient with diffuse swelling, redness and recurrent episode. Clinically responded to cefazolin. She will get a Midline to continue cefazolin for another 7 to 10 days and close outpatient followup. MMODL / IJN: [id number] /
[2019-11-29 07:17] LABS: Glucose,Whole Blood 122 mg/dL (75-99)
[2019-11-29 07:18] LABS: Basophils # (A) 0.1 k/uL (0-0.2); Basophils % (A) 1 %; Eosinophils # (A) 0.2 k/uL (0-0.7); Eosinophils % (A) 3 %; HCT 38.5 % (34.0-46.0); Lymphocytes # (A) 2.1 k/uL (1.0-4.8); Lymphocytes % (A) 30 %; MCV 77.3 fL (80.0-100.0); Mean Platelet Volume 6.8; Monocytes # (A) 0.4 k/uL (0-1.0); Monocytes % (A) 6 %; Neutrophils # (A) 4.1 k/uL (1.3-7.7); Neutrophils % (A) 57 %; Platelet Count 234 k/uL (150-450); RBC 4.99 m/uL (3.80-5.40); RDW 13.6 % (11.5-15.5); WBC 7.2 k/uL (3.8-10.6)
[2019-11-29] MEDS: IPRATROPIUM-ALBUTEROL 3 ML NEB INHALATION SCH ×4 (07:25→19:21)
[2019-11-29 07:31] LABS: ALT <6 U/L (4-34); AST 20 U/L (14-36); African American GFR (CKD) 73 (>60 ml/min/1.73 sqM); Albumin 3.9 g/dL (3.5-5.0); Alkaline Phosphatase 89 U/L (38-126); Anion Gap 7 mmol/L; Blood Urea Nitrogen 23 mg/dL (7-17); Calcium 9.2 mg/dL (8.4-10.2); Carbon Dioxide 27 mmol/L (22-30); Chloride 107 mmol/L (98-107); Glucose 108 mg/dL (74-99); Non-African American GFR(CKD) 63 (>60 ml/min/1.73 sqM); Potassium 3.6 mmol/L (3.5-5.1); Sodium 141 mmol/L (137-145); Total Bilirubin 0.5 mg/dL (0.2-1.3); Total Protein 7.2 g/dL (6.3-8.2)
[2019-11-29] MEDS ORDERED: ERGOCALCIFEROL 50,000 UNIT CAP PO SCH (09:00)
[2019-11-29] MEDS: PREGABALIN 75 MG CAP PO SCH (09:24)
[2019-11-29] MEDS: metFORMIN 500 MG TAB PO SCH ×2 (09:24→16:58)
[2019-11-29] MEDS: POTASSIUM CHLORIDE ER 20 MEQ TAB.ER PO SCH (09:24)
[2019-11-29] MEDS: amLODIPine 10 MG TAB PO SCH (09:25)
[2019-11-29] MEDS: oxyCODONE-APAP 10-325MG 1 EACH TAB PO SCH ×3 (09:25→18:57)
[2019-11-29] MEDS: hydrALAZINE HCL 25 MG TAB PO SCH ×2 (09:25→16:58)
[2019-11-29] MEDS: FUROSEMIDE 40 MG TAB PO SCH (09:25)
[2019-11-29] MEDS: LOSARTAN 50 MG TAB PO SCH (09:26)
[2019-11-29] MEDS: NON FORMULARY DRUG (Liraglutide [Victoza 2-Pak] 0.6 MG) SQ SCH (09:26)
[2019-11-29] MEDS: INSULN ASP PRT/INSULIN ASPART 100 UNIT/ML 10 ML VIAL SQ SCH (09:26)
[2019-11-29] MEDS: ENOXAPARIN 40 MG/0.4 ML SYRINGE SQ SCH (09:27)
[2019-11-29] MEDS: CLOPIDOGREL 75 MG TAB PO SCH (09:27)
[2019-11-29] MEDS: hydrOXYzine HCL 25 MG TAB PO SCH ×3 (09:31→18:57)
[2019-11-29] MEDS: PRAVASTATIN SODIUM 20 MG TAB PO SCH (09:31)
[2019-11-29 11:28] LABS: Glucose,Whole Blood 133 mg/dL (75-99)
[2019-11-29 13:18] VITALS: BP 133/77; PULSE 86; TEMP 98.2
--- NOTE | 2019-11-29 13:26 | PN ---
PROGRESS NOTE DATE OF SERVICE: 11/29/2019 REASON FOR FOLLOWUP: Bilateral lower extremity cellulitis. INTERVAL HISTORY: Patient is currently afebrile. Patient is breathing comfortably. The patient denies having any chest pain. No shortness of breath or cough. Overall pain and discomfort to the knee and the leg and has decreased in intensity. PHYSICAL EXAMINATION: Blood pressure 123/75 with a pulse of 79, temperature 97.9. She is 93% on room air. General description is a middle-aged female lying in bed in no distress. Respiratory system: Unlabored breathing. Lungs are clear to auscultation anteriorly. Heart S1, S2. Regular rate and rhythm. Abdomen is soft, no tenderness. Legs, swelling persists. Redness has improved. LABS: Hemoglobin is 12 with white count 7.2, BUN of 23, creatinine 0.99. DIAGNOSTIC IMPRESSION AND PLAN: Patient with bilateral lower extremity cellulitis, right greater than left in this patient that has shown overall clinical improvement. Plan is to finish therapy with cefazolin 2 g q.8h for another 7 to 8 days and close outpatient followup. MMODL / IJN: [id number] /
--- NOTE | 2019-11-29 15:47 | P.DS ---
Providers Date of admission: 11/26/19 15:02 Expected date of discharge: 11/29/19 Attending physician: Mariely Bradford Consults: 11/24/19 12:13 Consult Physician Routine Consulting Provider: Thony Palma Consult Reason/Comments: knee pain weakness multiple falls Do you want consulting provider notified?: Yes 11/24/19 12:15 Consult Physician Routine Consulting Provider: Ishan Majano Consult Reason/Comments: bilateral lower extremities cellulitis Do you want consulting provider notified?: Yes 11/25/19 17:52 Consult Physician Routine Consulting Provider: Irma Kiser Consult Reason/Comments: pad legs ulcers Do you want consulting provider notified?: Yes Primary care physician: Mariely Suzette [facility] Course: Diagnosis on discharge: 1. Fall with bilateral knee pain, x-ray does not reveal any evidence of bone fracture or dislocation, MRI may be needed to assess if there is any ligament tear, will defer to orthopedic surgery to assess if an MRI is needed 2. Bilateral lower extremity cellulitis would restart Kefzol 1 g IV every 8 hours, consult infectious disease. 3. Underlying history of diabetes mellitus, home medications reordered. 4. Underlying history of hypertension, with borderline control will monitor blood pressure and adjust medications during this admission 5. Hyperkalemia on presentation was potassium of 6.3, corrected Will monitor closely 6. Anemia on presentation hemoglobin 10.9 Will check iron studies vitamin B12 and folate levels 7. Underlying history of peripheral neuropathy maintained on Lyrica 8. Underlying history of hyperlipidemia maintained on Pravachol 9. For DVT prophylaxis patient was started on subcu Lovenox for GI prophylaxis patient was started on Protonix Hospital course: Veronica Quan, he is a 58-year-old female who presented to [facility] emergency room after having a fall at home and complaining of bilateral knee pain, patient states that she was trying to walk with her walker, when her legs felt weak and unable to sustain her, patient fell down and hit both knees on the floor and was unable to stand up, EMS were called and patient was brought into emergency room. Patient has morbid obesity, she was recently admitted to [facility] with bilateral lower extremity cellulitis extending from the foot up to the thigh area, she was treated with IV antibiotics and was sent home on oral antibiotic course, she also has bilateral feet ulcers and is followed by Dr. Clifton at the wound care center. Patient was evaluated on the medical floor she is alert and oriented 3 in no apparent distress she is complaining of pain in the bilateral knees, and complaining of weakness and inability to stand and walk, otherwise she denies any complaints, there is erythema extending again from the feet to the thigh areas bilaterally, otherwise there is no fever or chills no headache or dizziness no chest pain no shortness of breath no cough no nausea or vomiting no abdominal pain no diarrhea no blood in the stools no burning with urination no frequency or urgency and no hematuria On 11/25/2019 patient was seen and examined on the medical floor she is alert and oriented 3 in no apparent distress there is no fever or chills no headache or dizziness no chest pain no shortness of breath no cough no nausea or vomiting no abdominal pain no diarrhea no blood in the stools no burning with urination no frequency or urgency no hematuria she is still complaining of severe pain in both knees especially on the left side she is and able to stand and walk because of weakness and feeling that her left knee is buckling down under her. On 11/26/2019 patient was seen and examined on the medical floor, she is alert and oriented 3, she is complaining of bilateral knee pain otherwise no complaints at this time, blood pressure control is still suboptimal, at this time will increase dose of losartan from 50-100 mg daily, patient was seen by vascular surgery Doppler was done and patient has evidence of PAD, awaiting further plans by vascular surgery and infectious disease, orthopedic surgery reviewed, no intervention recommended at this time. Otherwise patient denies any complaints there is no fever or chills no headache or dizziness no chest pain no shortness of breath no cough no nausea or vomiting no abdominal pain no diarrhea no blood in the stools no burning with urination no frequency or urgency and no hematuria. Case was discussed over the phone with patient's son Dr. Wilbert Quan. On 11/27/2019 patient was seen and examined on the medical floor she is alert and oriented 3 in no apparent distress, there is no fever or chills no headache or dizziness no chest pain no shortness of breath no cough no nausea or vomiting no abdominal pain no diarrhea no burning with urination no frequency or urgency no hematuria, bilateral lower extremity erythema is improving she is still hunt ving some erythema in the right thigh, left thigh has improved significantly, otherwise all erythema is below the knee, she is still maintained on IV antibiotics, we are awaiting for vascular surgery input regarding possible need for any procedure for peripheral arterial disease. On 11/28/2019 patient was seen and examined on the medical floor, she is alert and oriented 3 in no distress she is complaining of bilateral lower extremity pain, she is also complaining of nausea, otherwise she denies any complaints there is no fever or chills no headache or dizziness no chest pain no shortness of breath no cough no vomiting no abdominal pain no diarrhea no burning with urination no frequency or urgency no hematuria On 11/29/2019 patient was seen and examined on the medical floor she is alert and oriented 3 she is feeling better pain and swelling in bilateral lower extremity is better, she was evaluated by Dr. Majano infectious disease decision was made to proceed with IV antibiotic at the time of discharge, patient had a midline placed, she will be transferred to residential for rehab Patient Condition at Discharge: Stable Plan - Discharge Summary New Discharge Prescriptions: New ceFAZolin [Kefzol] 2 gm IVP Q8HR #24 vial Continue amLODIPine [Norvasc] 10 mg PO DAILY Latanoprost [Xalatan 0.005%] 1 drop BOTH EYES HS Furosemide [Lasix] 40 mg PO DAILY Clopidogrel [Plavix] 75 mg PO DAILY metFORMIN HCL 1,000 mg PO BID-W/MEALS Potassium Chloride [Klor-Con 20] 20 meq PO DAILY Insuln Asp Prt/Insulin Aspart [NovoLOG MIX 70-30 VIAL] 35 unit SQ DAILY Insuln Asp Prt/Insulin Aspart [NovoLOG MIX 70-30 VIAL] 25 unit SQ HS Ipratropium-Albuterol Nebulize [Duoneb 0.5 mg-3 mg/3 ml Soln] 3 ml INHALATION RT-QID Pravastatin Sodium [Pravachol] 10 mg PO DAILY Fish Oil/Dha/Epa [Fish Oil 1,200 mg Fish Oil] 1 cap PO DAILY Cyanocobalamin (Vitamin B-12) [Vitamin B-12] 1,000 mcg PO DAILY oxyCODONE HCL/ACETAMINOPHEN [Percocet 10-325 mg] 1 tab PO QID Pregabalin 150 mg PO BID Liraglutide [Victoza 2-[place]] 0.6 mg SQ DAILY Ergocalciferol [Vitamin D2 (DRISDOL)] 50,000 unit PO MO hydrALAZINE HCL [Apresoline] 25 mg PO TID hydrOXYzine PAMOATE 50 mg PO QID Albuterol Inhaler [Ventolin Hfa Inhaler] 2 puff INHALATION RT-Q6H PRN PRN Reason: Shortness Of Breath Losartan Potassium [Cozaar] 50 mg PO DAILY traMADol HCl [Ultram] 50 mg PO QID PRN PRN Reason: Moderate Pain Discharge Medication List amLODIPine [Norvasc] 10 mg PO DAILY 02/16/16 [History] Clopidogrel [Plavix] 75 mg PO DAILY 03/01/17 [History] Furosemide [Lasix] 40 mg PO DAILY 03/01/17 [History] Latanoprost [Xalatan 0.005%] 1 drop BOTH EYES HS 03/01/17 [History] metFORMIN HCL 1,000 mg PO BID-W/MEALS 05/20/17 [History] Insuln Asp Prt/Insulin Aspart [NovoLOG MIX 70-30 VIAL] 25 unit SQ HS 10/30/18 [History] Insuln Asp Prt/Insulin Aspart [NovoLOG MIX 70-30 VIAL] 35 unit SQ DAILY 10/30/18 [History] Potassium Chloride [Klor-Con 20] 20 meq PO DAILY 10/30/18 [History] Ipratropium-Albuterol Nebulize [Duoneb 0.5 mg-3 mg/3 ml Soln] 3 ml INHALATION RT-QID 06/28/19 [History] Pravastatin Sodium [Pravachol] 10 mg PO DAILY 06/28/19 [History] Cyanocobalamin (Vitamin B-12) [Vitamin B-12] 1,000 mcg PO DAILY 08/05/19 [History] Fish Oil/Dha/Epa [Fish Oil 1,200 mg Fish Oil] 1 cap PO DAILY 08/05/19 [History] Liraglutide [Victoza 2-[place]] 0.6 mg SQ DAILY 08/05/19 [History] Pregabalin 150 mg PO BID 08/05/19 [History] oxyCODONE HCL/ACETAMINOPHEN [Percocet 10-325 mg] 1 tab PO QID 08/05/19 [History] Ergocalciferol [Vitamin D2 (DRISDOL)] 50,000 unit PO MO 09/06/19 [History] hydrALAZINE HCL [Apresoline] 25 mg PO TID 09/06/19 [History] hydrOXYzine PAMOATE 50 mg PO QID 09/06/19 [History] Albuterol Inhaler [Ventolin Hfa Inhaler] 2 puff INHALATION RT-Q6H PRN 10/22/19 [History] Losartan Potassium [Cozaar] 50 mg PO DAILY 10/22/19 [History] traMADol HCl [Ultram] 50 mg PO QID PRN 11/23/19 [History] ceFAZolin [Kefzol] 2 gm IVP Q8HR #24 vial 11/28/19 [Rx] Follow up Appointment(s)/Referral(s): [facility], [NON-STAFF] - 1 Week Mariely Bradford MD [Primary Care Provider] - 1-2 days
[2019-11-29 17:20] LABS: Glucose,Whole Blood 143 mg/dL (75-99)
--- NOTE | 2019-11-30 12:04 | CDI ---
Documentation Clarification Form Date: 11/30/19 From: Ingrid Chung Phone: If you have a question about this query, please contact Carri Adams, [employer] at [phone] between 8am and 5pm. Admit Date: 11/26/19 Discharge Date: 11/29/19 Patient Name: ELSA SNIDER Visit Number: [id number] ATTENTION: The Clinical Documentation Specialists (CDI) and [facility] Coding Staff appreciate your assistance in clarifying documentation. Please respond to the clarification below the line at the bottom and electronically sign. The CDI & [facility] Coding staff will review the response and follow-up if needed. Please note: Queries are made part of the Legal Health Record. If you have any questions, please contact the author of this message via ITS. Dear Dr. Mariely Bradford, The patient has uncontrolled Type II diabetes, as indicated on progress notes 11/27. POC Glucose: 170, 183, 240, 258, 144, 196, 163, 181, 200, 153, 267, 127, 117, 158, 122, 133, 143 Glucose: 151, 183, 214, 151, 108 Treatment: blood glucose monitoring ACHS, consistent carbohydrate diet, NovoLog 25 units SQ HS, Novolog 35 units SQ daily Per [facility] 2016 - query the provider for clarification whether the patient has hyperglycemia or hypoglycemia so that the appropriate code may be reported - uncontrolled diabetes indicates that the patient's blood sugar is not at an acceptable level, because it is either too high or too low. In order to capture the severity of Illness and necessary documentation specificity, please clarify if Type 2 uncontrolled diabetes is: Hyperglycemia Hypoglycemia Other, please specify Unable to Determine Hyperglycemia MTDD
--- NOTE | 2019-12-01 12:14 | P.ARTDOP ---
Arterial Doppler LOWER EXTREMITY ARTERIAL DOPPLER: DATE OF SERVICE: 11/25/2019 Reason for study: Right ankle ulcer. Doppler waveforms: Multiphasic bilaterally throughout. Pulse volume recording: To waveforms are excellent. Pressure gradients: None. Ankle-brachial indices: Greater than 1 bilaterally. Toe brachial indices: Greater than 1 on the right, greater than 1 on the left Impression: Normal study.
== END 2019-11-29 19:21 | DRG 603 ==
LOC: EC 21:43 → 5NMEDONC 11-24 00:46 → OBSVTOIN 11-26 15:02
PROVIDERS: ADMIT Internal Medicine; ATTEND Internal Medicine
PROC: 05HD33Z Insertion of Infusion Device into Right Cephalic Vein, Percutaneous Approach (ICD-10-PCS; principal; 2019-11-29 12:15)
DX: L03.116 Cellulitis of left lower limb (principal); L97.429 Non-pressure chronic ulcer of left heel and midfoot with unspecified severity; L03.115 Cellulitis of right lower limb; E11.621 Type 2 diabetes mellitus with foot ulcer; E11.51 Type 2 diabetes mellitus with diabetic peripheral angiopathy without gangrene; E11.42 Type 2 diabetes mellitus with diabetic polyneuropathy; E11.39 Type 2 diabetes mellitus with other diabetic ophthalmic complication; D64.9 Anemia, unspecified; E66.01 Morbid (severe) obesity due to excess calories; E11.65 Type 2 diabetes mellitus with hyperglycemia; Z79.4 Long term (current) use of insulin; G35 Multiple sclerosis; J44.9 Chronic obstructive pulmonary disease, unspecified; Z20.828 Contact with and (suspected) exposure to other viral communicable diseases; E87.5 Hyperkalemia; I89.0 Lymphedema, not elsewhere classified; I10 Essential (primary) hypertension; E78.5 Hyperlipidemia, unspecified; H40.9 Unspecified glaucoma; H42 Glaucoma in diseases classified elsewhere; K21.9 Gastro-esophageal reflux disease without esophagitis; M17.0 Bilateral primary osteoarthritis of knee; R32 Unspecified urinary incontinence; R29.6 Repeated falls; Z68.39 Body mass index [BMI] 39.0-39.9, adult; Z79.02 Long term (current) use of antithrombotics/antiplatelets; Z79.891 Long term (current) use of opiate analgesic; Z79.899 Other long term (current) drug therapy; Z96.642 Presence of left artificial hip joint; Z87.891 Personal history of nicotine dependence; Z98.51 Tubal ligation status; Z98.891 History of uterine scar from previous surgery; Z87.19 Personal history of other diseases of the digestive system; Z86.59 Personal history of other mental and behavioral disorders; W19.XXXA Unspecified fall, initial encounter; Y92.009 Unspecified place in unspecified non-institutional (private) residence as the place of occurrence of the external cause; Z88.8 Allergy status to other drugs, medicaments and biological substances; Z91.030 Bee allergy status; Z80.9 Family history of malignant neoplasm, unspecified
CPT/HCPCS: 36410; 36415; 76937; 80053; 81003; 82550; 82607; 82746; 83540; 83550; 83605; 83735; 84132; 84145; 84484; 85025; 85610; 85730; 86140; 93005; 93922; 93970; 96360; 99285

== ENCOUNTER 2019-12-17 12:59 | Inpatient (IN) | payer MEDICARE, OTHER ==
--- NOTE | 2019-12-17 13:03 | ED ---
Fall HPI - General Stated Complaint: Fall Time Seen by Provider: 12/17/19 13:02 - History of Present Illness Initial Comments: 58-year-old female with extensive past medical history including recent hospitalization for weakness, bilateral lower extremity cellulitis presenting to the ER for cc of fall. Patient states she had gotten out of her chair lift and began walking to the bathroom when she felt weak in the leg b/l> She states this frequently happens after she is hospitalized and states she was doing better at the rehab facility with PT. Patient states she was just released. Patient denies fevers, syncope, chest pain or SOB Denies headache, nausea, vomiting or dizzzines. SHe states when she fell she did hit the left side of her head as well as struck her right forearm on something causing mid forearm pain. Patient denies LOC, admits to anticoagulation use. Fall was from standing height. Patient denies speech, visual changes since fall or sensation deficits. Denies localized weakness states it is her typical b/l leg weakness. She states she is concerning because she is no longer on antibiotics that her infection of the legs is worse and wants that evaluated today. patient does not appear altered nor toxic on arrival complaining of head pain and right forearm pain. VS within acceptable limits. - Related Data Home Medications Medication Instructions Recorded Confirmed amLODIPine [Norvasc] 10 mg PO DAILY 02/16/16 12/17/19 Clopidogrel [Plavix] 75 mg PO DAILY 03/01/17 12/17/19 Furosemide [Lasix] 40 mg PO DAILY 03/01/17 12/17/19 Latanoprost [Xalatan 0.005%] 1 drop BOTH EYES HS 03/01/17 12/17/19 metFORMIN HCL 1,000 mg PO AC-BID 05/20/17 12/17/19 Potassium Chloride [Klor-Con 20] 20 meq PO DAILY 10/30/18 12/17/19 Ipratropium-Albuterol Nebulize 3 ml INHALATION RT-QID 06/28/19 12/17/19 [Duoneb 0.5 mg-3 mg/3 ml Soln] Pravastatin Sodium [Pravachol] 10 mg PO DAILY 06/28/19 12/17/19 Cyanocobalamin (Vitamin B-12) 1,000 mcg PO DAILY 08/05/19 12/17/19 [Vitamin B-12] Fish Oil/Dha/Epa [Fish Oil 1,200 1 cap PO DAILY 08/05/19 12/17/19 mg Fish Oil] Liraglutide [Victoza 2-[place]] 0.6 mg SQ DAILY 08/05/19 12/17/19 Pregabalin 150 mg PO BID 08/05/19 12/17/19 oxyCODONE HCL/ACETAMINOPHEN 1 tab PO QID 08/05/19 12/17/19 [Percocet 10-325 mg] Ergocalciferol [Vitamin D2 50,000 unit PO MO 09/06/19 12/17/19 (DRISDOL)] hydrALAZINE HCL [Apresoline] 25 mg PO TID 09/06/19 12/17/19 hydrOXYzine pamoate [hydrOXYzine 50 mg PO QID 09/06/19 12/17/19 PAMOATE] Albuterol Inhaler [Ventolin Hfa 2 puff INHALATION RT-Q6H PRN 10/22/19 12/17/19 Inhaler] Losartan Potassium [Cozaar] 50 mg PO DAILY 10/22/19 12/17/19 traMADol HCl [Ultram] 50 mg PO QID PRN 11/23/19 12/17/19 Insulin Aspart Protam & Aspart 25 unit SQ HS 12/17/19 12/17/19 [NovoLOG MIX 70-30 Flexpen] Insulin Aspart Protam & Aspart 35 unit SQ DAILY 12/17/19 12/17/19 [NovoLOG MIX 70-30 Flexpen] Allergies Allergy/AdvReac Type Severity Reaction Status Date / Time methylprednisolone Allergy Anaphylaxis Verified 12/17/19 14:34 [From Solu-Medrol] venom-honey bee Allergy Anaphylaxis Verified 12/17/19 14:34 [bee venom (honey bee)] Review of Systems ROS Statement: Those systems with pertinent positive or pertinent negative responses have been documented in the HPI. ROS Other: All systems not noted in ROS Statement are negative. Past Medical History Past Medical History: Asthma, COPD, Diabetes Mellitus, Eye Disorder, GERD/Reflu x, Hyperlipidemia, Hypertension, Neurologic Disorder, Osteoarthritis (OA) Additional Past Medical History / Comment(s): wounds rt leg,multiple sclerosis, glaucoma History of Any Multi-Drug Resistant Organisms: None Reported Past Surgical History: Section, Joint Replacement, Tubal Ligation Additional Past Surgical History / Comment(s): lt hip replacement,rectal surgery,eye proc Past Anesthesia/Blood Transfusion Reactions: No Reported Reaction Smoking Status: Former smoker Additional Past Alcohol Use History / Comment(s): smoker >40 years 1ppd - Past Family History Father Family Medical History: Cancer Course Vital Signs 12/17/19 13:08 Temperature 97.9 F Pulse Rate 92 Respiratory 18 Rate Blood Pressure 144/84 O2 Sat by Pulse 95 Oximetry Medical Decision Making - Medical Decision Making 58-year-old feel presented for chief complaint of generalized weakness fall with head injury. Patient on anticoagulations therapy. CT of brain revealed no acute intracranial process there is some calcification noticed of the ligaments of the cervical spine patient denies any pain at the [place] spine freely moving it with no midline tenderness. Patient laboratory studies reveal hyperkalemia with an acute kidney injury. Patient given IV fluids IV Lasix IV insulin followed by dextrose. Patient has no EKG suggestive of unstable cardiac membrane prior to administration of medications.Patient previous area of cellulitis evaluated there is no significant redness or warmth. B/l EDema which patient describes as chronic. Wound noted to left foot. Patient case/labs reviewed by Dr. Hampton who was agreeable to care plan/medications, admission. Dr. Hampton is to speak with Dr. Bradford who is patient admitting provider. Ventricular rate 87 bpm, MN interval 174 ms, QRS latter-day 86 ms, QT/QTC 378/454ms. This is normal sinus. There is no ST elevation or depression. There is no hyper acute T waves there is no prolonged MN intervals or shortened QT intervals. NO ST elevation or depression. Patient has nonspecific t wave changes. EKG reviewed by attending Dr. Hampton - Lab Data Result diagrams: 12/17/19 13:44 12/17/19 13:44 Lab Results 12/17/19 12/17/19 Range/Units 13:44 13:44 WBC 7.8 (3.8-10.6) k/uL RBC 4.68 (3.80-5.40) m/uL Hgb 11.3 L (11.4-16.0) gm/dL Hct 36.2 (34.0-46.0) % MCV 77.3 L (80.0-100.0) fL MCH 24.1 L (25.0-35.0) pg MCHC 31.2 (31.0-37.0) g/dL RDW 14.2 (11.5-15.5) % Plt Count 202 (150-450) k/uL Neutrophils % 71 % Lymphocytes % 20 % Monocytes % 5 % Eosinophils % 2 % Basophils % 1 % Neutrophils # 5.5 (1.3-7.7) k/uL Lymphocytes # 1.5 (1.0-4.8) k/uL Monocytes # 0.4 (0-1.0) k/uL Eosinophils # 0.2 (0-0.7) k/uL Basophils # 0.1 (0-0.2) k/uL Sodium 137 (137-145) mmol/L Potassium 6.4 H* (3.5-5.1) mmol/L Chloride 103 (98-107) mmol/L Carbon Dioxide 22 (22-30) mmol/L Anion Gap 12 mmol/L BUN 54 H (7-17) mg/dL Creatinine 2.10 H (0.52-1.04) mg/dL Est GFR (CKD-EPI)AfAm 29 (>60 ml/min/1.73 sqM) Est GFR (CKD-EPI)NonAf 25 (>60 ml/min/1.73 sqM) Glucose 196 H (74-99) mg/dL Calcium 10.0 (8.4-10.2) mg/dL Total Bilirubin 0.4 (0.2-1.3) mg/dL AST 36 (14-36) U/L ALT 13 (4-34) U/L Alkaline Phosphatase 106 (38-126) U/L Total Protein 8.2 (6.3-8.2) g/dL Albumin 4.7 (3.5-5.0) g/dL Disposition Clinical Impression: Fall, Weakness, JENNIFER (acute kidney injury), Hyperkalemia, Abrasion, Chronic wound of extremity Disposition: ADMITTED IP TO THIS [facility] Condition: Stable Is patient prescribed a controlled substance at d/c from ED?: No Referrals: Mariely Bradford MD [Primary Care Provider] - 1-2 days Time of Disposition: 14:37 Decision to Admit Reason: Admit from EC Decision Date: 12/17/19 Decision Time: 14:37
--- NOTE | 2019-12-17 13:32 | XR ---
EXAMINATION TYPE: XR forearm RT DATE OF EXAM: 12/17/2019 COMPARISON: NONE HISTORY: Pain Two views of the forearm demonstrate that the osseous structures appear to be intact and there is hyp ertrophic changes involving the olecranon arthropathy changes involving the elbow joint.. There is n o acute fracture or dislocation. IMPRESSION: 1. No acute fracture or dislocation 2. 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 Radial head not well seen and if there is conc aicha for the radial head correlate with dedicated elbow series
--- NOTE | 2019-12-17 13:35 | CT ---
EXAMINATION TYPE: CT brain elenoine wo con DATE OF EXAM: 12/17/2019 COMPARISON: CT brain June 25, 2011 HISTORY: Fall injury with headache and neck pain, left-sided weakness CT DLP: 1747.1 mGycm. Automated Exposure Control for Dose Reduction was Utilized. TECHNIQUE: CT scan of the head and cervical spine are performed without contrast. FINDINGS: There is no acute intracranial hemorrhage or midline shift identified. Mild generalized a trophy over bilateral frontal lobes. No hydrocephalus. There is low attenuation in the deep and roxane ventricular white matter are present. Patchy Soft tissue density left external auditory canal is thou ght to reflect cerumen. The globes are intact and the visualized sinuses are clear. Cervical spine is visualized in its entirety from C1 through upper thoracic levels and demonstrates s atisfactory alignment without evidence of acute fracture or dislocation. Prevertebral soft tissue ap pears within normal limits. The C1-C2 articulation is within normal limits on the coronal images. V ertebral body height are maintained. [id number] multilevel disc space narrowing. Significant ma ss effect on the spinal cord due to calcified thickened anterior longitudinal ligament from mid C2 th rough the inferior C3 vertebra. Heterogeneous enlarged thyroid gland noted. Correlate clinically. IMPRESSION: 1. There is no acute fracture or dislocation evident in the cervical spine. Significant mass effect o n the spinal cord suspected due to thickened calcified anterior longitudinal ligament from mid C2 thr ough the inferior C3 vertebra. Neurosurgical follow-up advised. 2. No acute intracranial hemorrhage or midline shift is seen. Mild bilateral frontal lobe atrophy wit h more moderate chronic small vessel ischemic change is felt present.
[2019-12-17 13:50] LABS: Basophils # (A) 0.1 k/uL (0-0.2); Basophils % (A) 1 %; Eosinophils # (A) 0.2 k/uL (0-0.7); Eosinophils % (A) 2 %; HCT 36.2 % (34.0-46.0); HGB 11.3 gm/dL (11.4-16.0); Lymphocytes # (A) 1.5 k/uL (1.0-4.8); Lymphocytes % (A) 20 %; MCH 24.1 pg (25.0-35.0); MCHC 31.2 g/dL (31.0-37.0); MCV 77.3 fL (80.0-100.0); Mean Platelet Volume 7.5; Monocytes # (A) 0.4 k/uL (0-1.0); Monocytes % (A) 5 %; Neutrophils # (A) 5.5 k/uL (1.3-7.7); Neutrophils % (A) 71 %; Platelet Count 202 k/uL (150-450); RBC 4.68 m/uL (3.80-5.40); RDW 14.2 % (11.5-15.5); WBC 7.8 k/uL (3.8-10.6)
[2019-12-17 14:01] LABS: Albumin 4.7 g/dL (3.5-5.0); Total Bilirubin 0.4 mg/dL (0.2-1.3); Total Protein 8.2 g/dL (6.3-8.2)
[2019-12-17 14:03] LABS: Potassium 6.4 mmol/L (3.5-5.1)
[2019-12-17] MEDS ORDERED: SODIUM CHLORIDE 0.9% 500 ML 500 ML IV ONE (14:09)
[2019-12-17] MEDS ORDERED: NALOXONE 0.4 MG/ML 1 ML VIAL IV PRN (14:22)
[2019-12-17] MEDS ORDERED: ALBUTEROL NEBULIZED 2.5 MG/3 ML INHALATION STA (14:31)
[2019-12-17] MEDS ORDERED: INSULIN REGULAR 100 UNIT/ML VIAL IV ONE (14:33)
[2019-12-17] MEDS ORDERED: DEXTROSE 50% SYRINGE 50 ML IVP STA (14:34)
[2019-12-17] MEDS ORDERED: FUROSEMIDE 10 MG/ML 4 ML VIAL IV STA (14:34)
[2019-12-17] MEDS ORDERED: FUROSEMIDE 10 MG/ML 2 ML VIAL IV STA (14:37)
[2019-12-17] MEDS: SODIUM CHLORIDE 0.9% 1,000 ML IV SCH (16:58)
[2019-12-17 18:33] LABS: Albumin 4.6 g/dL (3.5-5.0); Calcium 9.6 mg/dL (8.4-10.2); Potassium 5.7 mmol/L (3.5-5.1); Total Bilirubin 0.4 mg/dL (0.2-1.3)
[2019-12-17] MEDS ORDERED: ALBUTEROL NEBULIZED 2.5 MG/3 ML INHALATION PRN (18:43)
[2019-12-17] MEDS: IPRATROPIUM-ALBUTEROL 3 ML NEB INHALATION SCH (19:38)
[2019-12-17] MEDS: oxyCODONE-APAP 10-325MG 1 EACH TAB PO PRN (20:04)
[2019-12-17] MEDS: LATANOPROST 0.005% OPHTH DROPS 2.5 ML BTL BOTH EYES SCH (21:57)
[2019-12-17] MEDS: INSULN ASP PRT/INSULIN ASPART 100 UNIT/ML 10 ML VIAL SQ SCH (21:57)
[2019-12-17 22:01] LABS: Glucose,Whole Blood 222 mg/dL (75-99)
[2019-12-17] MEDS: traMADol 50 MG TAB PO PRN (22:39)
[2019-12-18] MEDS: oxyCODONE-APAP 10-325MG 1 EACH TAB PO PRN ×4 (01:19→20:49)
[2019-12-18] MEDS: traMADol 50 MG TAB PO PRN ×3 (04:34→22:47)
[2019-12-18] MEDS: SODIUM CHLORIDE 0.9% 1,000 ML IV SCH ×2 (05:54→22:47)
[2019-12-18 07:12] LABS: Glucose,Whole Blood 156 mg/dL (75-99)
[2019-12-18] MEDS ORDERED: metFORMIN 500 MG TAB PO SCH (07:30)
[2019-12-18] MEDS: CYANOCOBALAMIN 500 MCG TAB PO SCH (07:48)
[2019-12-18] MEDS: LOSARTAN 50 MG TAB PO SCH (07:48)
[2019-12-18] MEDS: PRAVASTATIN SODIUM 20 MG TAB PO SCH (07:49)
[2019-12-18] MEDS: CLOPIDOGREL 75 MG TAB PO SCH (07:49)
[2019-12-18] MEDS: FUROSEMIDE 40 MG TAB PO SCH (07:49)
[2019-12-18] MEDS: amLODIPine 10 MG TAB PO SCH (07:49)
[2019-12-18] MEDS: INSULN ASP PRT/INSULIN ASPART 100 UNIT/ML 10 ML VIAL SQ SCH ×2 (07:53→20:49)
[2019-12-18] MEDS: IPRATROPIUM-ALBUTEROL 3 ML NEB INHALATION SCH ×4 (08:58→19:30)
[2019-12-18] MEDS ORDERED: NON FORMULARY DRUG (Fish Oil/Dha/Epa [Fish Oil 1,200 Mg Fish Oil] 1 CAP) PO SCH (09:00)
[2019-12-18 11:56] LABS: Glucose,Whole Blood 153 mg/dL (75-99)
[2019-12-18 14:50] LABS: Basophils % (A) 1 %; Eosinophils # (A) 0.2 k/uL (0-0.7); Eosinophils % (A) 2 %; HCT 38.6 % (34.0-46.0); Lymphocytes # (A) 1.4 k/uL (1.0-4.8); Lymphocytes % (A) 18 %; MCH 23.8 pg (25.0-35.0); MCV 76.9 fL (80.0-100.0); Mean Platelet Volume 6.7; Monocytes # (A) 0.4 k/uL (0-1.0); Monocytes % (A) 5 %; Neutrophils # (A) 5.9 k/uL (1.3-7.7); Neutrophils % (A) 73 %; Platelet Count 200 k/uL (150-450); RBC 5.02 m/uL (3.80-5.40); RDW 14.1 % (11.5-15.5); WBC 8.1 k/uL (3.8-10.6)
--- NOTE | 2019-12-18 14:59 | P.HPIM ---
History of Present Illness H&P Date: 12/18/19 Chief Complaint: Fall with injury and acute renal failure Rika Quan, is a 58-year-old female who presented to [facility] emergency room with a chief complaint of fall with multiple trauma and pain, she was evaluated in the emergency room CT of the brain and multiple x- rays were done and there was no evidence of intracranial bleeding no evidence of bony fracture, patient was noticed to have a creatinine of 2.10 which is a new finding for patient her creatinine on 12/14/2019 was 1.0 BUN was also elevated at 54 her BUN was 25 on 12/14/2019 patient was diagnosed with acute renal failure she was started on IV fluid and was admitted to medical floor, patient stated that she was on the floor for about 20 minutes until EMS came, unfortunately CK level was not done in the emergency room, will check stat CK to rule out rhabdomyolysis. Patient also had a potassium level of 6.4 on presentation Patient has a known history of bilateral lower extremity cellulitis she was recently admitted to the hospital and received IV antibiotics she had a PICC line placed and was continued on a course of antibiotic at the [place] [facility] she was recently discharged home from the [place] [facility]. Past Medical History Past Medical History: Asthma, COPD, Diabetes Mellitus, Eye Disorder, GERD/Reflux, Hyperlipidemia, Hypertension, Neurologic Disorder, Osteoarthritis (OA) Additional Past Medical History / Comment(s): wounds rt leg,multiple sclerosis, glaucoma History of Any Multi-Drug Resistant Organisms: None Reported Past Surgical History: Section, Joint Replacement, Tubal Ligation Additional Past Surgical History / Comment(s): lt hip replacement,rectal surgery,eye proc Past Anesthesia/Blood Transfusion Reactions: No Reported Reaction Smoking Status: Former smoker Additional Past Alcohol Use History / Comment(s): smoker >40 years 1ppd - Past Family History Father Family Medical History: Cancer Medications and Allergies Home Medications Medication Instructions Recorded Confirmed Type amLODIPine [Norvasc] 10 mg PO DAILY 02/16/16 12/17/19 History Clopidogrel [Plavix] 75 mg PO DAILY 03/01/17 12/17/19 History Furosemide [Lasix] 40 mg PO DAILY 03/01/17 12/17/19 History Latanoprost [Xalatan 0.005%] 1 drop BOTH EYES HS 03/01/17 12/17/19 History metFORMIN HCL 1,000 mg PO AC-BID 05/20/17 12/17/19 History Potassium Chloride [Klor-Con 20] 20 meq PO DAILY 10/30/18 12/17/19 History Ipratropium-Albuterol Nebulize 3 ml INHALATION RT-QID 06/28/19 12/17/19 History [Duoneb 0.5 mg-3 mg/3 ml Soln] Pravastatin Sodium [Pravachol] 10 mg PO DAILY 06/28/19 12/17/19 History Cyanocobalamin (Vitamin B-12) 1,000 mcg PO DAILY 08/05/19 12/17/19 History [Vitamin B-12] Fish Oil/Dha/Epa [Fish Oil 1,200 1 cap PO DAILY 08/05/19 12/17/19 History mg Fish Oil] Liraglutide [Victoza 2-[place]] 0.6 mg SQ DAILY 08/05/19 12/17/19 History Pregabalin 150 mg PO BID 08/05/19 12/17/19 History oxyCODONE HCL/ACETAMINOPHEN 1 tab PO QID 08/05/19 12/17/19 History [Percocet 10-325 mg] Ergocalciferol [Vitamin D2 50,000 unit PO MO 09/06/19 12/17/19 History (DRISDOL)] hydrALAZINE HCL [Apresoline] 25 mg PO TID 09/06/19 12/17/19 History hydrOXYzine pamoate [hydrOXYzine 50 mg PO QID 09/06/19 12/17/19 History PAMOATE] Albuterol Inhaler [Ventolin Hfa 2 puff INHALATION RT-Q6H PRN 10/22/19 12/17/19 History Inhaler] Losartan Potassium [Cozaar] 50 mg PO DAILY 10/22/19 12/17/19 History traMADol HCl [Ultram] 50 mg PO QID PRN 11/23/19 12/17/19 History Insulin Aspart Protam & Aspart 25 unit SQ HS 12/17/19 12/17/19 History [NovoLOG MIX 70-30 Flexpen] Insulin Aspart Protam & Aspart 35 unit SQ DAILY 12/17/19 12/17/19 History [NovoLOG MIX 70-30 Flexpen] Allergies Allergy/AdvReac Type Severity Reaction Status Date / Time methylprednisolone Allergy Anaphylaxis Verified 12/17/19 14:34 [From Solu-Medrol] venom-honey bee Allergy Anaphylaxis Verified 12/17/19 14:34 [bee venom (honey bee)] Physical Exam Vitals: Vital Signs Temp Pulse Pulse Resp BP BP Pulse Ox 12/18/19 12:28 98.0 F 93 18 162/97 96 12/18/19 07:00 97.5 F L 95 18 154/92 96 12/17/19 21:30 97.8 F 90 18 149/84 94 L 12/17/19 19:49 88 12/17/19 19:38 84 12/17/19 17:27 97 F L 86 19 144/86 99 12/17/19 16:41 86 20 105/88 97 12/17/19 16:00 86 19 12/17/19 14:55 82 19 128/97 96 Intake and Output 12/17/19 12/18/19 12/18/19 22:59 06:59 14:59 Output Total 1200 1200 1100 Balance -1200 -1200 -1100 Output: Urine 1200 1200 1100 Other: Weight 118.614 kg In general patient is alert and oriented 3 in no apparent distress HEENT head normocephalic. Scalp on the left side of the front due to recent trauma, about 2 inch 1 inch in surface. Neck is supple no JVD no goiter no lymphadenopathy Chest exam reveals a few scattered rhonchi no wheezing Cardiac exam reveals regular heart sounds no gallops no murmurs Abdomen is soft nontender no organomegaly with normal bowel sounds Extremity examination reveals mild edema there are chronic ulcers on the heels area erythema, that was extending from the heel up to the thigh area in the last admission has resolved Neurological examination reveals no gross focal deficit Results CBC & Chem 7: 12/17/19 13:44 12/17/19 18:07 Labs: Abnormal Lab Results - Last 24 Hours (Table) 12/17/19 12/17/19 12/18/19 Range/Units 18:07 21:57 07:10 Potassium 5.7 H (3.5-5.1) mmol/L BUN 50 H (7-17) mg/dL Creatinine 1.85 H (0.52-1.04) mg/dL Glucose 194 H (74-99) mg/dL POC Glucose (mg/dL) 222 H 156 H (75-99) mg/dL AST 38 H (14-36) U/L 12/18/19 Range/Units 11:48 Potassium (3.5-5.1) mmol/L BUN (7-17) mg/dL Creatinine (0.52-1.04) mg/dL Glucose (74-99) mg/dL POC Glucose (mg/dL) 153 H (75-99) mg/dL AST (14-36) U/L Thrombosis Risk Factor Assmnt - Choose All That Apply Each Factor Represents 1 point: Age 41-60 years, Obesity (BMI >25) Thrombosis Risk Factor Assessment Total Risk Factor Score: 2 Thrombosis Risk Factor Assessment Level: Low Risk Assessment and Plan Plan: 1. Fall at home, with generalized pain 2. Acute renal failure 3. Severe hyperkalemia 4. Check stat CPK level to rule out rhabdomyolysis 5. Underlying history of insulin-dependent diabetes mellitus 6. Underlying history of hypertension 7. Underlying history of hyperlipidemia 8. Underlying history of chronic pain syndrome, patient has pain in her hips and lower back and is maintained on narcotics for pain management. At this time patient was started on IV fluid Will monitor kidney functions closely Will correct hyperkalemia Consult nephrology Assess need for admission to a rehab
[2019-12-18 15:04] LABS: Albumin 4.4 g/dL (3.5-5.0); Calcium 9.8 mg/dL (8.4-10.2); Potassium 4.7 mmol/L (3.5-5.1); Total Bilirubin 0.4 mg/dL (0.2-1.3); Total Protein 7.9 g/dL (6.3-8.2)
[2019-12-18] MEDS: ENOXAPARIN 40 MG/0.4 ML SYRINGE SQ SCH (15:33)
[2019-12-18 17:22] LABS: Glucose,Whole Blood 154 mg/dL (75-99)
[2019-12-18 20:31] LABS: Glucose,Whole Blood 168 mg/dL (75-99)
[2019-12-18] MEDS: hydrALAZINE HCL 25 MG TAB PO SCH (20:49)
[2019-12-18] MEDS: LATANOPROST 0.005% OPHTH DROPS 2.5 ML BTL BOTH EYES SCH (20:49)
[2019-12-19] MEDS: oxyCODONE-APAP 10-325MG 1 EACH TAB PO PRN ×4 (03:25→22:16)
[2019-12-19] MEDS: traMADol 50 MG TAB PO PRN ×3 (05:40→19:35)
[2019-12-19 07:01] LABS: Glucose,Whole Blood 130 mg/dL (75-99)
[2019-12-19] MEDS: IPRATROPIUM-ALBUTEROL 3 ML NEB INHALATION SCH ×4 (07:17→19:46)
[2019-12-19 07:40] LABS: Basophils % (A) 1 %; Eosinophils # (A) 0.2 k/uL (0-0.7); Eosinophils % (A) 2 %; HCT 37.6 % (34.0-46.0); HGB 11.7 gm/dL (11.4-16.0); Lymphocytes # (A) 2.3 k/uL (1.0-4.8); Lymphocytes % (A) 30 %; MCH 23.8 pg (25.0-35.0); MCV 76.7 fL (80.0-100.0); Mean Platelet Volume 7.3; Monocytes # (A) 0.4 k/uL (0-1.0); Monocytes % (A) 6 %; Neutrophils # (A) 4.5 k/uL (1.3-7.7); Neutrophils % (A) 59 %; Platelet Count 203 k/uL (150-450); RBC 4.91 m/uL (3.80-5.40); WBC 7.6 k/uL (3.8-10.6)
[2019-12-19 08:02] LABS: Calcium 9.4 mg/dL (8.4-10.2); Potassium 4.4 mmol/L (3.5-5.1); Total Bilirubin 0.6 mg/dL (0.2-1.3); Total Protein 7.4 g/dL (6.3-8.2)
--- NOTE | 2019-12-19 08:31 | P.NPCON ---
History of Present Illness - Reason for Consult acute renal failure - History of Present Illness Reason for consultation: Acute kidney injury History of present illness: Patient is a 58-year-old female seen in consultation for acute kidney injury. Patient's creatinine was 2.1 on admission and is down to 0.89 today. She presented to the hospital by the EMS after she sustained a fall. Patient states she was going to the bathroom and suddenly her left knee gave out and she fell. She did hit her head. She denies losing any consciousness. Oral intake is good. No vomiting or diarrhea. Good urine output. No hematuria or dysuria. She does admit to taking ibuprofen 2 tablets every 4-6 hours on a daily basis. She does have history of diabetes mellitus. Denies family history of renal disease. No fever or chills. Her CK level was elevated at 4309 yesterday. She is maintained on IV fluids. No evidence of hypotension. Vital signs are stable. General: The patient appeared well nourished and normally developed. HEENT: Head exam is unremarkable. Neck is without jugular venous distension. LUNGS: Lungs are clear to auscultation and percussion. Breath sounds decreased. HEART: Rate and Rhythm are regular. ABDOMEN: Soft, nontender. EXTREMITITES: No clubbing, cyanosis, or edema. Past Medical History Past Medical History: Asthma, COPD, Diabetes Mellitus, Eye Disorder, GERD/Reflux, Hyperlipidemia, Hypertension, Neurologic Disorder, Osteoarthritis (OA) Additional Past Medical History / Comment(s): wounds rt leg,multiple sclerosis, glaucoma History of Any Multi-Drug Resistant Organisms: None Reported Past Surgical History: Section, Joint Replacement, Tubal Ligation Additional Past Surgical History / Comment(s): lt hip replacement,rectal surgery,eye proc Past Anesthesia/Blood Transfusion Reactions: No Reported Reaction Smoking Status: Former smoker Additional Past Alcohol Use History / Comment(s): smoker >40 years 1ppd - Past Family History Father Family Medical History: Cancer Medications and Allergies Home Medications Medication Instructions Recorded Confirmed Type amLODIPine [Norvasc] 10 mg PO DAILY 02/16/16 12/17/19 History Clopidogrel [Plavix] 75 mg PO DAILY 03/01/17 12/17/19 History Furosemide [Lasix] 40 mg PO DAILY 03/01/17 12/17/19 History Latanoprost [Xalatan 0.005%] 1 drop BOTH EYES HS 03/01/17 12/17/19 History metFORMIN HCL 1,000 mg PO AC-BID 05/20/17 12/17/19 History Potassium Chloride [Klor-Con 20] 20 meq PO DAILY 10/30/18 12/17/19 History Ipratropium-Albuterol Nebulize 3 ml INHALATION RT-QID 06/28/19 12/17/19 History [Duoneb 0.5 mg-3 mg/3 ml Soln] Pravastatin Sodium [Pravachol] 10 mg PO DAILY 06/28/19 12/17/19 History Cyanocobalamin (Vitamin B-12) 1,000 mcg PO DAILY 08/05/19 12/17/19 History [Vitamin B-12] Fish Oil/Dha/Epa [Fish Oil 1,200 1 cap PO DAILY 08/05/19 12/17/19 History mg Fish Oil] Liraglutide [Victoza 2-[place]] 0.6 mg SQ DAILY 08/05/19 12/17/19 History Pregabalin 150 mg PO BID 08/05/19 12/17/19 History oxyCODONE HCL/ACETAMINOPHEN 1 tab PO QID 08/05/19 12/17/19 History [Percocet 10-325 mg] Ergocalciferol [Vitamin D2 50,000 unit PO MO 09/06/19 12/17/19 History (DRISDOL)] hydrALAZINE HCL [Apresoline] 25 mg PO TID 09/06/19 12/17/19 History hydrOXYzine pamoate [hydrOXYzine 50 mg PO QID 09/06/19 12/17/19 History PAMOATE] Albuterol Inhaler [Ventolin Hfa 2 puff INHALATION RT-Q6H PRN 10/22/19 12/17/19 History Inhaler] Losartan Potassium [Cozaar] 50 mg PO DAILY 10/22/19 12/17/19 History traMADol HCl [Ultram] 50 mg PO QID PRN 11/23/19 12/17/19 History Insulin Aspart Protam & Aspart 25 unit SQ HS 12/17/19 12/17/19 History [NovoLOG MIX 70-30 Flexpen] Insulin Aspart Protam & Aspart 35 unit SQ DAILY 12/17/19 12/17/19 History [NovoLOG MIX 70-30 Flexpen] Allergies Allergy/AdvReac Type Severity Reaction Status Date / Time methylprednisolone Allergy Anaphylaxis Verified 12/17/19 14:34 [From Solu-Medrol] venom-honey bee Allergy Anaphylaxis Verified 12/17/19 14:34 [bee venom (honey bee)] Physical Exam Vitals: Vital Signs Temp Pulse Resp BP Pulse Ox 12/19/19 04:57 97.6 F 91 16 168/93 96 12/18/19 21:34 98.0 F 94 19 148/78 93 L 12/18/19 12:28 98.0 F 93 18 162/97 96 Intake and Output 12/18/19 12/19/19 12/19/19 22:59 06:59 14:59 Output Total 500 1400 Balance -500 -1400 Output: Urine 500 1400 Other: # Voids 1 1 Results - Lab Results Most recent lab results Calcium 9.4 mg/dL (8.4-10.2) 12/19/19 06:39 Magnesium 1.8 mg/dL (1.6-2.3) 12/17/19 15:33 12/19/19 06:39 12/19/19 06:39 Assessment and Plan Plan: Assessment: 1. Acute kidney injury mostly prerenal secondary to nonsteroidals, improving with IV hydration. Creatinine was 2.1 on admission and is 0.89 today. 2. Mild rhabdomyolysis secondary to fall. No acute fracture noted. No acute changes noted on brain CT. 3. Benign hypertension. 4. Insulin-dependent diabetes mellitus. Plan: Decrease normal saline to 50 mL an hour. Repeat CK level tomorrow. Check urinalysis. I advised the patient to avoid nonsteroidals on a daily basis. Thank you for the consultation. I will continue to follow the patient with you during her hospital stay.
[2019-12-19] MEDS: amLODIPine 10 MG TAB PO SCH (08:47)
[2019-12-19] MEDS: hydrALAZINE HCL 25 MG TAB PO SCH ×2 (08:47→20:17)
[2019-12-19] MEDS: ENOXAPARIN 40 MG/0.4 ML SYRINGE SQ SCH (08:47)
[2019-12-19] MEDS: CYANOCOBALAMIN 500 MCG TAB PO SCH (08:47)
[2019-12-19] MEDS: LOSARTAN 50 MG TAB PO SCH (08:47)
[2019-12-19] MEDS: CLOPIDOGREL 75 MG TAB PO SCH (08:47)
[2019-12-19] MEDS: PRAVASTATIN SODIUM 20 MG TAB PO SCH (08:47)
[2019-12-19] MEDS: FUROSEMIDE 40 MG TAB PO SCH (08:47)
[2019-12-19] MEDS: SODIUM CHLORIDE 0.9% 1,000 ML IV SCH (08:48)
[2019-12-19] MEDS: INSULN ASP PRT/INSULIN ASPART 100 UNIT/ML 10 ML VIAL SQ SCH ×2 (08:48→20:18)
--- NOTE | 2019-12-19 10:27 | P.PN ---
Subjective Progress Note Date: 12/19/19 Rika Quan, is a 58-year-old female who presented to [facility] emergency room with a chief complaint of fall with multiple trauma and pain, she was evaluated in the emergency room CT of the brain and multiple x- rays were done and there was no evidence of intracranial bleeding no evidence of bony fracture, patient was noticed to have a creatinine of 2.10 which is a new finding for patient her creatinine on 12/14/2019 was 1.0 BUN was also elevated at 54 her BUN was 25 on 12/14/2019 patient was diagnosed with acute renal failure she was started on IV fluid and was admitted to medical floor, patient stated that she was on the floor for about 20 minutes until EMS came, unfortunately CK level was not done in the emergency room, will check stat CK to rule out rhabdomyolysis. Patient also had a potassium level of 6.4 on presentation Patient has a known history of bilateral lower extremity cellulitis she was recently admitted to the hospital and received IV antibiotics she had a PICC line placed and was continued on a course of antibiotic at the custodial she was recently discharged home from the [facility]. On 12/19/2019 patient was seen and examined on the medical floor she is alert and oriented 3 in no apparent distress he is still complaining of generalized weakness and gait disturbance otherwise no complaints at this time kidney function has normalized since admission her creatinine on admission was 2.1 currently it's 0.89 there is no fever or chills no headache or dizziness no chest pain no shortness of breath no cough no nausea or vomiting no abdominal pain no diarrhea no burning with urination no frequency or urgency no hematuria. Objective - Vital Signs Vital signs: Vital Signs Temp 97.6 F 12/19/19 04:57 Pulse 91 12/19/19 04:57 Resp 16 12/19/19 04:57 BP 168/93 12/19/19 04:57 Pulse Ox 96 12/19/19 04:57 Intake & Output 12/18/19 12/19/19 12/19/19 18:59 06:59 18:59 Intake Total 1200 Output Total 3400 1400 Balance -2200 -1400 Intake: Oral 1200 Output: Urine 3400 1400 Other: # Voids 4 1 1 # Bowel Movements 1 - Exam In general patient is alert and oriented 3 in no apparent distress HEENT head normocephalic. Scalp on the left side of the front due to recent trauma, about 2 inch 1 inch in surface. Neck is supple no JVD no goiter no lymphadenopathy Chest exam reveals a few scattered rhonchi no wheezing Cardiac exam reveals regular heart sounds no gallops no murmurs Abdomen is soft nontender no organomegaly with normal bowel sounds Extremity examination reveals mild edema there are chronic ulcers on the heels area erythema, that was extending from the heel up to the thigh area in the last admission has resolved Neurological examination reveals no gross focal deficit - Labs CBC & Chem 7: 12/19/19 06:39 12/19/19 06:39 Labs: Abnormal Lab Results - Last 24 Hours (Table) 12/18/19 12/18/19 12/18/19 Range/Units 11:48 14:33 14:33 MCV 76.9 L (80.0-100.0) fL MCH 23.8 L (25.0-35.0) pg BUN 32 H (7-17) mg/dL Creatinine 1.16 H (0.52-1.04) mg/dL Glucose 202 H (74-99) mg/dL POC Glucose (mg/dL) 153 H (75-99) mg/dL AST 80 H (14-36) U/L Creatine Kinase (30-135) U/L 12/18/19 12/18/19 12/18/19 Range/Units 14:33 17:05 20:29 MCV (80.0-100.0) fL MCH (25.0-35.0) pg BUN (7-17) mg/dL Creatinine (0.52-1.04) mg/dL Glucose (74-99) mg/dL POC Glucose (mg/dL) 154 H 168 H (75-99) mg/dL AST (14-36) U/L Creatine Kinase 4309 H* (30-135) U/L 12/19/19 12/19/19 12/19/19 Range/Units 06:39 06:39 07:00 MCV 76.7 L (80.0-100.0) fL MCH 23.8 L (25.0-35.0) pg BUN 21 H (7-17) mg/dL Creatinine (0.52-1.04) mg/dL Glucose 114 H (74-99) mg/dL POC Glucose (mg/dL) 130 H (75-99) mg/dL AST 100 H (14-36) U/L Creatine Kinase (30-135) U/L Assessment and Plan Plan: 1. Fall at home, with generalized pain 2. Acute renal failure, resolved 3. Severe hyperkalemia, corrected 4. Elevated CPK due to rhabdomyolysis, from fall and sustain on the floor for about 20 minutes 5. Underlying history of insulin-dependent diabetes mellitus 6. Underlying history of hypertension 7. Underlying history of hyperlipidemia 8. Underlying history of chronic pain syndrome, patient has pain in her hips and lower back and is maintained on narcotics for pain management. At this time will proceed with physical therapy and occupational therapy Will consult Dr. Christopher for possible rehab admission Patient may need to go to a rehab due to weakness and fall
[2019-12-19 11:22] LABS: Glucose,Whole Blood 151 mg/dL (75-99)
[2019-12-19 14:05] LABS: Appearance,Urine Clear (Clear); Bacteria,Urine Rare /hpf; Bilirubin,Urine Negative (Negative); Blood,Urine Negative (Negative); Color,Urine Colorless; Glucose,Urine (UA) Negative (Negative); Ketones,Urine Negative (Negative); Leukocyte Esterase,Urine Moderate (Negative); Nitrite,Urine Negative (Negative); PH, Urine 7.5 (5.0-8.0); Protein,Urine Negative (Negative); RBC,Urine 1 /hpf (0-5); Specific Gravity,Urine 1.006 (1.001-1.035); Squamous Epithelial Cell,Urine 1 /hpf (0-4); Urobilinogen,Urine <2.0 mg/dL (<2.0); WBC,Urine 3 /hpf (0-5)
[2019-12-19 17:22] LABS: Glucose,Whole Blood 175 mg/dL (75-99)
[2019-12-19] MEDS: hydrOXYzine pamoate 25 MG CAP PO SCH (20:17)
[2019-12-19] MEDS: LATANOPROST 0.005% OPHTH DROPS 2.5 ML BTL BOTH EYES SCH (20:18)
[2019-12-19 20:36] LABS: Glucose,Whole Blood 175 mg/dL (75-99)
[2019-12-20] MEDS: SODIUM CHLORIDE 0.9% 1,000 ML IV SCH ×2 (00:42→04:15)
[2019-12-20] MEDS: traMADol 50 MG TAB PO PRN ×4 (02:30→20:20)
[2019-12-20] MEDS: oxyCODONE-APAP 10-325MG 1 EACH TAB PO PRN ×3 (04:15→18:29)
[2019-12-20 07:26] LABS: Glucose,Whole Blood 152 mg/dL (75-99)
[2019-12-20] MEDS: IPRATROPIUM-ALBUTEROL 3 ML NEB INHALATION SCH ×4 (08:09→21:20)
[2019-12-20] MEDS: ENOXAPARIN 40 MG/0.4 ML SYRINGE SQ SCH (08:43)
[2019-12-20] MEDS: hydrOXYzine pamoate 25 MG CAP PO SCH ×2 (08:43→18:37)
[2019-12-20] MEDS: INSULN ASP PRT/INSULIN ASPART 100 UNIT/ML 10 ML VIAL SQ SCH ×2 (08:43→20:21)
[2019-12-20] MEDS: hydrALAZINE HCL 25 MG TAB PO SCH ×2 (08:44→20:21)
[2019-12-20] MEDS: CYANOCOBALAMIN 500 MCG TAB PO SCH (08:44)
[2019-12-20] MEDS: LOSARTAN 50 MG TAB PO SCH (08:44)
[2019-12-20] MEDS: CLOPIDOGREL 75 MG TAB PO SCH (08:44)
[2019-12-20] MEDS: PRAVASTATIN SODIUM 20 MG TAB PO SCH (08:44)
[2019-12-20] MEDS: FUROSEMIDE 40 MG TAB PO SCH (08:44)
[2019-12-20] MEDS: amLODIPine 10 MG TAB PO SCH (08:44)
[2019-12-20] MEDS ORDERED: ERGOCALCIFEROL 50,000 UNIT CAP PO SCH (09:00)
--- NOTE | 2019-12-20 09:48 | P.PN ---
Subjective patient is seen in follow-up for acute kidney injury which resolved. CK level is trending down. Good urine output. Good oral intake. Denies chest pain or shortness of breath. Vital signs are stable. General: The patient appeared well nourished and normally developed. HEENT: Head exam is unremarkable. Neck is without jugular venous distension. LUNGS: Lungs are clear to auscultation and percussion. Breath sounds decreased. HEART: Rate and Rhythm are regular. First and second heart sounds normal. No murmurs, rubs or gallops. ABDOMEN: soft, nontender. EXTREMITITES: Trace edema.chronic changes noted. Objective - Vital Signs Vital signs: Vital Signs Temp 98.4 F 12/20/19 04:33 Pulse 89 12/20/19 04:33 Resp 18 12/20/19 04:33 BP 166/88 12/20/19 04:33 Pulse Ox 93 L 12/20/19 04:33 Intake & Output 12/19/19 12/20/19 12/20/19 18:59 06:59 18:59 Intake Total 1320 Output Total 250 Balance 1070 Intake: Intake, IV Titration 600 Amount Sodium Chloride 0.9% 1, 600 000 ml @ 50 mls/hr IV . Q20H [facility] [place] Rx#:[id number] Oral 720 Output: Urine 250 Other: # Voids 3 # Bowel Movements 1 - Labs CBC & Chem 7: 12/19/19 06:39 12/19/19 06:39 Labs: Abnormal Lab Results - Last 24 Hours (Table) 12/19/19 12/19/19 12/19/19 Range/Units 11:17 13:47 17:11 POC Glucose (mg/dL) 151 H 175 H (75-99) mg/dL Creatine Kinase (30-135) U/L Ur Leukocyte Esterase Moderate H (Negative) Urine Bacteria Rare H (None) /hpf 12/19/19 12/20/19 12/20/19 Range/Units 20:25 07:05 07:24 POC Glucose (mg/dL) 175 H 152 H (75-99) mg/dL Creatine Kinase 3137 H* (30-135) U/L Ur Leukocyte Esterase (Negative) Urine Bacteria (None) /hpf Assessment and Plan Plan: Assessment: 1. Acute kidney injury mostly prerenal secondary to nonsteroidals, improving with IV hydration. Creatinine was 2.1 on admission and was down to 0.89 as of yesterday. No proteinuria on UA. 2. Mild rhabdomyolysis secondary to fall. No acute fracture noted. No acute changes noted on brain CT.CK levels trending down. 3. Benign hypertension. 4. Insulin-dependent diabetes mellitus. Plan: continue normal saline at 50 mL an hour. I advised the patient to avoid nonsteroidals on a daily basis.
[2019-12-20 12:31] LABS: Glucose,Whole Blood 150 mg/dL (75-99)
[2019-12-20 17:25] LABS: Glucose,Whole Blood 144 mg/dL (75-99)
--- NOTE | 2019-12-20 19:31 | P.PN ---
Subjective Progress Note Date: 12/20/19 Rika Quan, is a 58-year-old female who presented to [facility] emergency room with a chief complaint of fall with multiple trauma and pain, she was evaluated in the emergency room CT of the brain and multiple x- rays were done and there was no evidence of intracranial bleeding no evidence of bony fracture, patient was noticed to have a creatinine of 2.10 which is a new finding for patient her creatinine on 12/14/2019 was 1.0 BUN was also elevated at 54 her BUN was 25 on 12/14/2019 patient was diagnosed with acute renal failure she was started on IV fluid and was admitted to medical floor, patient stated that she was on the floor for about 20 minutes until EMS came, unfortunately CK level was not done in the emergency room, will check stat CK to rule out rhabdomyolysis. Patient also had a potassium level of 6.4 on presentation Patient has a known history of bilateral lower extremity cellulitis she was recently admitted to the hospital and received IV antibiotics she had a PICC line placed and was continued on a course of antibiotic at the long term she was recently discharged home from the long term. On 12/19/2019 patient was seen and examined on the medical floor she is alert and oriented 3 in no apparent distress he is still complaining of generalized weakness and gait disturbance otherwise no complaints at this time kidney function has normalized since admission her creatinine on admission was 2.1 currently it's 0.89 there is no fever or chills no headache or dizziness no chest pain no shortness of breath no cough no nausea or vomiting no abdominal pain no diarrhea no burning with urination no frequency or urgency no hematuria. On 12/20/2019 patient was seen and examined on the medical floor she is alert and oriented in no distress there is no fever or chills no headache or dizziness no chest pain no shortness of breath no cough no nausea or vomiting no abdominal pain no diarrhea no burning with urination no frequency or urgency and no hem aturia. CK level is still very elevated, but declining , patient continues to be on IV fluid, possible discharge to home tomorrow. Objective - Vital Signs Vital signs: Vital Signs Temp 97.9 F 12/20/19 11:30 Pulse 88 12/20/19 11:30 Resp 16 12/20/19 11:30 BP 128/81 12/20/19 11:30 Pulse Ox 95 12/20/19 11:30 Intake & Output 12/19/19 12/20/19 12/20/19 18:59 06:59 18:59 Intake Total 1320 400 Output Total 250 200 Balance 1070 200 Intake: Intake, IV Titration 600 400 Amount Sodium Chloride 0.9% 1, 600 400 000 ml @ 50 mls/hr IV . Q20H [facility] Rx#:[id number] Oral 720 Output: Urine 250 200 Other: Voiding Method Incontinent # Voids 3 # Bowel Movements 1 1 - Exam In general patient is alert and oriented 3 in no apparent distress HEENT head normocephalic. Scalp on the left side of the front due to recent trauma, about 2 inch 1 inch in surface. Neck is supple no JVD no goiter no lymphadenopathy Chest exam reveals a few scattered rhonchi no wheezing Cardiac exam reveals regular heart sounds no gallops no murmurs Abdomen is soft nontender no organomegaly with normal bowel sounds Extremity examination reveals mild edema there are chronic ulcers on the heels area erythema, that was extending from the heel up to the thigh area in the last admission has resolved Neurological examination reveals no gross focal deficit - Labs CBC & Chem 7: 12/19/19 06:39 12/19/19 06:39 Labs: Abnormal Lab Results - Last 24 Hours (Table) 12/19/19 12/19/19 12/20/19 Range/Units 17:11 20:25 07:05 POC Glucose (mg/dL) 175 H 175 H (75-99) mg/dL Creatine Kinase 3137 H* (30-135) U/L 12/20/19 12/20/19 Range/Units 07:24 12:30 POC Glucose (mg/dL) 152 H 150 H (75-99) mg/dL Creatine Kinase (30-135) U/L Assessment and Plan Plan: 1. Fall at home, with generalized pain 2. Acute renal failure, resolved 3. Severe hyperkalemia, corrected 4. Elevated CPK due to rhabdomyolysis, from fall and sustain on the floor for about 20 minutes 5. Underlying history of insulin-dependent diabetes mellitus 6. Underlying history of hypertension 7. Underlying history of hyperlipidemia 8. Underlying history of chronic pain syndrome, patient has pain in her hips and lower back and is maintained on narcotics for pain management. At this time will proceed with physical therapy and occupational therapy Will consult Dr. Christopher for possible rehab admission Patient may need to go to a rehab due to weakness and fall
[2019-12-20] MEDS: LATANOPROST 0.005% OPHTH DROPS 2.5 ML BTL BOTH EYES SCH (20:20)
[2019-12-20 20:25] LABS: Glucose,Whole Blood 182 mg/dL (75-99)
[2019-12-21] MEDS: oxyCODONE-APAP 10-325MG 1 EACH TAB PO PRN ×3 (00:12→14:13)
[2019-12-21 07:02] LABS: Glucose,Whole Blood 134 mg/dL (75-99)
[2019-12-21] MEDS: IPRATROPIUM-ALBUTEROL 3 ML NEB INHALATION SCH ×3 (07:13→15:20)
[2019-12-21 08:10] LABS: Basophils % (A) 0 %; Eosinophils # (A) 0.1 k/uL (0-0.7); Eosinophils % (A) 2 %; Lymphocytes % (A) 27 %; MCH 23.8 pg (25.0-35.0); MCHC 31.6 g/dL (31.0-37.0); MCV 75.4 fL (80.0-100.0); Mean Platelet Volume 7.1; Microcytosis Slight; Monocytes # (A) 0.5 k/uL (0-1.0); Monocytes % (A) 6 %; Neutrophils # (A) 4.7 k/uL (1.3-7.7); Neutrophils % (A) 62 %; Platelet Count 206 k/uL (150-450); RBC 5.04 m/uL (3.80-5.40); RDW 14.1 % (11.5-15.5); WBC 7.5 k/uL (3.8-10.6)
[2019-12-21 08:34] LABS: Calcium 9.5 mg/dL (8.4-10.2); Potassium 3.7 mmol/L (3.5-5.1); Total Bilirubin 0.6 mg/dL (0.2-1.3); Total Protein 7.4 g/dL (6.3-8.2)
[2019-12-21] MEDS: amLODIPine 10 MG TAB PO SCH (08:53)
[2019-12-21] MEDS: CYANOCOBALAMIN 500 MCG TAB PO SCH (08:53)
[2019-12-21] MEDS: CLOPIDOGREL 75 MG TAB PO SCH (08:53)
[2019-12-21] MEDS: hydrOXYzine pamoate 25 MG CAP PO SCH (08:54)
[2019-12-21] MEDS: LOSARTAN 50 MG TAB PO SCH (08:55)
[2019-12-21] MEDS: FUROSEMIDE 40 MG TAB PO SCH (08:55)
[2019-12-21] MEDS: PRAVASTATIN SODIUM 20 MG TAB PO SCH (08:55)
[2019-12-21] MEDS: hydrALAZINE HCL 25 MG TAB PO SCH (08:55)
[2019-12-21] MEDS: INSULN ASP PRT/INSULIN ASPART 100 UNIT/ML 10 ML VIAL SQ SCH (08:55)
[2019-12-21] MEDS: ENOXAPARIN 40 MG/0.4 ML SYRINGE SQ SCH (08:56)
--- NOTE | 2019-12-21 10:32 | P.PN ---
Subjective patient is seen in follow-up for acute kidney injury which resolved. CK level is trending down. Good urine output. Good oral intake. Denies chest pain or shortness of breath. Blood pressure stable. Vital signs are stable. General: The patient appeared well nourished and normally developed. HEENT: Head exam is unremarkable. Neck is without jugular venous distension. LUNGS: Lungs are clear to auscultation and percussion. Breath sounds decreased. HEART: Rate and Rhythm are regular. First and second heart sounds normal. No murmurs, rubs or gallops. ABDOMEN: soft, nontender. EXTREMITITES: Trace edema. chronic changes noted. Objective - Vital Signs Vital signs: Vital Signs Temp 98.0 F 12/21/19 05:05 Pulse 83 12/21/19 05:05 Resp 16 12/21/19 05:05 BP 139/70 12/21/19 05:05 Pulse Ox 93 L 12/21/19 05:05 Intake & Output 12/20/19 12/21/19 12/21/19 18:59 06:59 18:59 Intake Total 400 440 Output Total 200 900 Balance 200 -460 Intake: Intake, IV Titration 400 200 Amount Sodium Chloride 0.9% 1, 400 200 000 ml @ 50 mls/hr IV . Q20H [facility] Rx#:[id number] Oral 240 Output: Urine 200 900 Other: Voiding Method Incontinent Incontinent # Voids 2 # Bowel Movements 1 0 - Labs CBC & Chem 7: 12/21/19 07:23 12/21/19 07:23 Labs: Abnormal Lab Results - Last 24 Hours (Table) 12/20/19 12/20/19 12/20/19 Range/Units 12:30 17:24 20:14 MCV (80.0-100.0) fL MCH (25.0-35.0) pg Glucose (74-99) mg/dL POC Glucose (mg/dL) 150 H 144 H 182 H (75-99) mg/dL AST (14-36) U/L 12/21/19 12/21/19 12/21/19 Range/Units 07:00 07:23 07:23 MCV 75.4 L (80.0-100.0) fL MCH 23.8 L (25.0-35.0) pg Glucose 125 H (74-99) mg/dL POC Glucose (mg/dL) 134 H (75-99) mg/dL AST 85 H (14-36) U/L Assessment and Plan Plan: Assessment: 1. Acute kidney injury mostly prerenal secondary to nonsteroidals, improving with IV hydration. Creatinine was 2.1 on admission and was down to 0.88. No proteinuria on UA. 2. Mild rhabdomyolysis secondary to fall. No acute fracture noted. No acute changes noted on brain CT.CK levels trending down. 3. Benign hypertension. Controlled. 4. Insulin-dependent diabetes mellitus. Plan: Hep-Lock IV fluids. I advised the patient to avoid nonsteroidals on a daily basis. I will sign off. Please call with any questions or concerns.
[2019-12-21] MEDS: traMADol 50 MG TAB PO PRN (10:37)
[2019-12-21 12:11] VITALS: BP 140/77; PULSE 92; RESP 19; TEMP 98.1
[2019-12-21 12:39] LABS: Glucose,Whole Blood 171 mg/dL (75-99)
--- NOTE | 2019-12-21 19:17 | P.DS ---
Providers Date of admission: 12/17/19 15:29 Expected date of discharge: 12/21/19 Attending physician: Mariely Bradford Consults: 12/18/19 14:47 Consult Physician Routine Consulting Provider: Kacey Degroot Consult Reason/Comments: acute renal failure Do you want consulting provider notified?: Yes Primary care physician: Mariely Suzette [facility] Course: diagnosis on discharge: 1. Fall at home, with generalized pain 2. Acute renal failure, resolved 3. Severe hyperkalemia, corrected 4. Elevated CPK due to rhabdomyolysis, from fall and sustain on the floor for about 20 minutes 5. Underlying history of insulin-dependent diabetes mellitus 6. Underlying history of hypertension 7. Underlying history of hyperlipidemia 8. Underlying history of chronic pain syndrome, patient has pain in her hips and lower back and is maintained on narcotics for pain management. Hospital course: Rika Quan, is a 58-year-old female who presented to [facility] emergency room with a chief complaint of fall with multiple trauma and pain, she was evaluated in the emergency room CT of the brain and multiple x- rays were done and there was no evidence of intracranial bleeding no evidence of bony fracture, patient was noticed to have a creatinine of 2.10 which is a new finding for patient her creatinine on 12/14/2019 was 1.0 BUN was also elevated at 54 her BUN was 25 on 12/14/2019 patient was diagnosed with acute renal failure she was started on IV fluid and was admitted to medical floor, patient stated that she was on the floor for about 20 minutes until EMS came, unfortunately CK level was not done in the emergency room, will check stat CK to rule out rhabdomyolysis. Patient also had a potassium level of 6.4 on presentation Patient has a known history of bilateral lower extremity cellulitis she was recently admitted to the hospital and received IV antibiotics she had a PICC line placed and was continued on a course of antibiotic at the group home she was recently discharged home from the group home. On 12/19/2019 patient was seen and examined on the medical floor she is alert and oriented 3 in no apparent distress he is still complaining of generalized weakness and gait disturbance otherwise no complaints at this time kidney function has normalized since admission her creatinine on admission was 2.1 currently it's 0.89 there is no fever or chills no headache or dizziness no chest pain no shortness of breath no cough no nausea or vomiting no abdominal pain no diarrhea no burning with urination no frequency or urgency no hematuria. On 12/20/2019 patient was seen and examined on the medical floor she is alert and oriented in no distress there is no fever or chills no headache or dizziness no chest pain no shortness of breath no cough no nausea or vomiting no abdominal pain no diarrhea no burning with urination no frequency or urgency and no hematuria. CK level is still very elevated, but declining , patient continues to be on IV fluid, possible discharge to home tomorrow. on 12/21/2019 patient was seen and examined on the medical floor she is alert and oriented 3 in no distress there is no fever or chills no headache or dizziness no chest pain no shortness of breath no cough no nausea or vomiting no abdominal pain no diarrhea no burning with urination no frequency or urgency and no hematuria kidney function has normalized patient will be discharged home today Will follow in the office in 3 days Patient Condition at Discharge: Stable Plan - Discharge Summary New Discharge Prescriptions: Continue amLODIPine [Norvasc] 10 mg PO DAILY Latanoprost [Xalatan 0.005%] 1 drop BOTH EYES HS Furosemide [Lasix] 40 mg PO DAILY Clopidogrel [Plavix] 75 mg PO DAILY metFORMIN HCL 1,000 mg PO AC-BID Ipratropium-Albuterol Nebulize [Duoneb 0.5 mg-3 mg/3 ml Soln] 3 ml INHALATION RT-QID Pravastatin Sodium [Pravachol] 10 mg PO DAILY Fish Oil/Dha/Epa [Fish Oil 1,200 mg Fish Oil] 1 cap PO DAILY Cyanocobalamin (Vitamin B-12) [Vitamin B-12] 1,000 mcg PO DAILY oxyCODONE HCL/ACETAMINOPHEN [Percocet 10-325 mg] 1 tab PO QID Pregabalin 150 mg PO BID Liraglutide [Victoza 2-[place]] 0.6 mg SQ DAILY Ergocalciferol [Vitamin D2 (DRISDOL)] 50,000 unit PO MO hydrALAZINE HCL [Apresoline] 25 mg PO TID hydrOXYzine pamoate [hydrOXYzine PAMOATE] 50 mg PO BID Albuterol Inhaler [Ventolin Hfa Inhaler] 2 puff INHALATION RT-Q6H PRN PRN Reason: Shortness Of Breath Losartan Potassium [Cozaar] 50 mg PO DAILY traMADol HCl [Ultram] 50 mg PO QID PRN PRN Reason: Moderate Pain Insulin Aspart Protam & Aspart [NovoLOG MIX 70-30 Flexpen] 35 unit SQ DAILY Insulin Aspart Protam & Aspart [NovoLOG MIX 70-30 Flexpen] 25 unit SQ HS Discontinued Potassium Chloride [Klor-Con 20] 20 meq PO DAILY Discharge Medication List amLODIPine [Norvasc] 10 mg PO DAILY 02/16/16 [History] Clopidogrel [Plavix] 75 mg PO DAILY 03/01/17 [History] Furosemide [Lasix] 40 mg PO DAILY 03/01/17 [History] Latanoprost [Xalatan 0.005%] 1 drop BOTH EYES HS 03/01/17 [History] metFORMIN HCL 1,000 mg PO AC-BID 05/20/17 [History] Ipratropium-Albuterol Nebulize [Duoneb 0.5 mg-3 mg/3 ml Soln] 3 ml INHALATION RT-QID 06/28/19 [History] Pravastatin Sodium [Pravachol] 10 mg PO DAILY 06/28/19 [History] Cyanocobalamin (Vitamin B-12) [Vitamin B-12] 1,000 mcg PO DAILY 08/05/19 [History] Fish Oil/Dha/Epa [Fish Oil 1,200 mg Fish Oil] 1 cap PO DAILY 08/05/19 [History] Liraglutide [Victoza 2-[place]] 0.6 mg SQ DAILY 08/05/19 [History] Pregabalin 150 mg PO BID 08/05/19 [History] oxyCODONE HCL/ACETAMINOPHEN [Percocet 10-325 mg] 1 tab PO QID 08/05/19 [History] Ergocalciferol [Vitamin D2 (DRISDOL)] 50,000 unit PO MO 09/06/19 [History] hydrALAZINE HCL [Apresoline] 25 mg PO TID 09/06/19 [History] hydrOXYzine pamoate [hydrOXYzine PAMOATE] 50 mg PO BID 09/06/19 [History] Albuterol Inhaler [Ventolin Hfa Inhaler] 2 puff INHALATION RT-Q6H PRN 10/22/19 [History] Losartan Potassium [Cozaar] 50 mg PO DAILY 10/22/19 [History] traMADol HCl [Ultram] 50 mg PO QID PRN 11/23/19 [History] Insulin Aspart Protam & Aspart [NovoLOG MIX 70-30 Flexpen] 25 unit SQ HS 12/17/19 [History] Insulin Aspart Protam & Aspart [NovoLOG MIX 70-30 Flexpen] 35 unit SQ DAILY [History] Follow up Appointment(s)/Referral(s): [facility], [NON-STAFF] - Mariely Bradford MD [Primary Care Provider] - 12/24/19 11:15 am Discharge Disposition: HOME WITH HOME HEALTH SERVICES
--- NOTE | 2019-12-22 13:56 | CDI ---
Documentation Clarification Form Date: 12/22/19 From: Ingrid Chung Phone: If you have a question about this query, please contact Carri Adams, [employer] Dispatcher at [phone] between 8am and 5pm. Admit Date: 12/17/19 Discharge Date: 12/21/19 Patient Name: ELSA SNIDER Visit Number: [id number] ATTENTION: The Clinical Documentation Specialists (CDI) and [facility] Coding Staff appreciate your assistance in clarifying documentation. Please respond to the clarification below the line at the bottom and electronically sign. The CDI & [facility] Coding staff will review the response and follow-up if needed. Please note: Queries are made part of the Legal Health Record. If you have any questions, please contact the author of this message via ITS. Dear Dr. Mariely quinonez, Please render your impression: The patient developed mild rhabdomyolysis secondary to fall. History/Risk Factors: JENNIFER, DM, MS, COPD, hyperkalemia,HTN, chronic pain syndrome Clinical Indicators: Elevated CPK due to rhabdomyolysis from fall and sustain on the floor for about 20 minutes Treatment: labs & IV fluids Coding [facility] Qtr 2019 states-can only code traumatic rhabdomyolysis if stated by the provider. In your professional opinion, can you please clarify the etiology of the condition? Traumatic rhabdomyolysis due to fall Traumatic rhabdomyolysis due to prolonged immobility Non traumatic rhabdomyolysis due to prolonged immobility Non traumatic rhabdomyolysis due to medication (please specify) Non traumatic rhabdomyolysis due to infection (please specify) Other, please specify Unable to determine Traumatic Rhabdomyolysis due to prolonged immobility after a fall MTDD
== END 2019-12-21 15:52 | disposition home health service (06) | DRG 684 ==
LOC: EC 12:59 → 5NMEDONC 15:29
PROVIDERS: ADMIT Internal Medicine; ATTEND Internal Medicine
DX: N17.9 Acute kidney failure, unspecified (principal); S09.90XA Unspecified injury of head, initial encounter; T79.6XXA Traumatic ischemia of muscle, initial encounter; E11.39 Type 2 diabetes mellitus with other diabetic ophthalmic complication; G35 Multiple sclerosis; J44.9 Chronic obstructive pulmonary disease, unspecified; Z79.4 Long term (current) use of insulin; T39.395A Adverse effect of other nonsteroidal anti-inflammatory drugs [NSAID], initial encounter; E87.5 Hyperkalemia; G89.4 Chronic pain syndrome; M25.551 Pain in right hip; M25.552 Pain in left hip; M54.5 Low back pain; I10 Essential (primary) hypertension; M79.631 Pain in right forearm; K21.9 Gastro-esophageal reflux disease without esophagitis; M19.90 Unspecified osteoarthritis, unspecified site; H40.9 Unspecified glaucoma; H42 Glaucoma in diseases classified elsewhere; E78.5 Hyperlipidemia, unspecified; Z79.02 Long term (current) use of antithrombotics/antiplatelets; Z79.891 Long term (current) use of opiate analgesic; Z79.899 Other long term (current) drug therapy; Z87.891 Personal history of nicotine dependence; Z98.891 History of uterine scar from previous surgery; Z96.642 Presence of left artificial hip joint; Z98.51 Tubal ligation status; Z87.19 Personal history of other diseases of the digestive system; Z98.890 Other specified postprocedural states; Z86.19 Personal history of other infectious and parasitic diseases; Z88.8 Allergy status to other drugs, medicaments and biological substances; Z91.030 Bee allergy status; W19.XXXA Unspecified fall, initial encounter; Y92.009 Unspecified place in unspecified non-institutional (private) residence as the place of occurrence of the external cause
CPT/HCPCS: 36415; 70450; 72125; 80053; 81001; 82550; 83735; 85025; 93005; 94640; 96374; 96375; 99285

== ENCOUNTER 2020-03-15 12:48 | Inpatient (IN) | payer MEDICARE, OTHER ==
[2020-03-15] MEDS ORDERED: SODIUM CHLORIDE 0.9% 500 ML 500 ML IV STA (13:10)
[2020-03-15] MEDS ORDERED: IPRATROPIUM-ALBUTEROL 3 ML NEB INHALATION STA (13:10)
[2020-03-15] MEDS ORDERED: SODIUM CHLORIDE 0.9% 1,000 ML IV STA (13:10)
[2020-03-15] MEDS ORDERED: MORPHINE SULFATE 4 MG/ML SYRINGE IV STA (13:10)
--- NOTE | 2020-03-15 13:11 | ED ---
Weakness HPI - General Chief complaint: Weakness Stated complaint: weakness Source: patient, EMS, RN notes reviewed, old records reviewed Mode of arrival: EMS Limitations: no limitations - History of Present Illness Initial comments: this is a 59-year-old female DF for evaluation patient Dese for evaluation of weakness unable to amply. Patient denies any complaints of abdominal pain nausea vomiting chest pain or headache. No recent medication changes no other complaints MD Complaint: generalized weakness, lack of energy, difficulty walking -: minutes(s) Location: generalized Severity: moderate Severity scale (1-10): 7 Consistency: constant Improves with: none Worsens with: none Context: history of similar Associated Symptoms: denies other symptoms - Related Data Home Medications Medication Instructions Recorded Confirmed amLODIPine [Norvasc] 10 mg PO DAILY 02/16/16 03/15/20 Clopidogrel [Plavix] 75 mg PO DAILY 03/01/17 03/15/20 Furosemide [Lasix] 40 mg PO DAILY 03/01/17 03/15/20 Latanoprost [Xalatan 0.005%] 1 drop BOTH EYES HS 03/01/17 03/15/20 metFORMIN HCL 1,000 mg PO AC-BID 05/20/17 03/15/20 Ipratropium-Albuterol Nebulize 3 ml INHALATION RT-QID PRN 06/28/19 03/15/20 [Duoneb 0.5 mg-3 mg/3 ml Soln] Pravastatin Sodium [Pravachol] 10 mg PO DAILY 06/28/19 03/15/20 Pregabalin 150 mg PO BID 08/05/19 03/15/20 oxyCODONE HCL/ACETAMINOPHEN 1 tab PO Q6H 08/05/19 03/15/20 [Percocet 10-325 mg] Ergocalciferol [Vitamin D2 50,000 unit PO MO 09/06/19 03/15/20 (DRISDOL)] hydrALAZINE HCL [Apresoline] 25 mg PO TID 09/06/19 03/15/20 hydrOXYzine pamoate [hydrOXYzine 50 mg PO TID 09/06/19 03/15/20 PAMOATE] Losartan Potassium [Cozaar] 50 mg PO DAILY 10/22/19 03/15/20 traMADol HCl [Ultram] 50 mg PO Q6H 11/23/19 03/15/20 Insulin Aspart Protam & Aspart 25 unit SQ HS 12/17/19 03/15/20 [NovoLOG MIX 70-30 Flexpen] Insulin Aspart Protam & Aspart 35 unit SQ DAILY 12/17/19 03/15/20 [NovoLOG MIX 70-30 Flexpen] Pantoprazole Sodium [Protonix] 40 mg PO DAILY 03/15/20 03/15/20 SILVER sulfADIAZINE Cream 1 applic TOPICAL DAILY 03/15/20 03/15/20 [Silvadene 1% Cream] Allergies Allergy/AdvReac Type Severity Reaction Status Date / Time methylprednisolone Allergy Anaphylaxis Verified 03/15/20 15:56 [From Solu-Medrol] venom-honey bee Allergy Anaphylaxis Verified 03/15/20 15:56 [bee venom (honey bee)] Review of Systems ROS Statement: Those systems with pertinent positive or pertinent negative responses have been documented in the HPI. ROS Other: All systems not noted in ROS Statement are negative. Past Medical History Past Medical History: Asthma, COPD, Diabetes Mellitus, Eye Disorder, GERD/Reflux, Hyperlipidemia, Hypertension, Neurologic Disorder, Osteoarthritis (OA) Additional Past Medical History / Comment(s): wounds rt leg,multiple sclerosis, glaucoma History of Any Multi-Drug Resistant Organisms: None Reported Past Surgical History: Section, Joint Replacement, Tubal Ligation Additional Past Surgical History / Comment(s): lt hip replacement,rectal s urgery,eye proc Past Anesthesia/Blood Transfusion Reactions: No Reported Reaction Past Psychological History: Depression Smoking Status: Former smoker Past Alcohol Use History: None Reported Past Drug Use History: Marijuana - Past Family History Father Family Medical History: Cancer General Exam Limitations: no limitations General appearance: alert, in no apparent distress Head exam: Present: atraumatic, normocephalic, normal inspection Eye exam: Present: normal appearance, PERRL, EOMI. Absent: scleral icterus, conjunctival injection, periorbital swelling ENT exam: Present: normal exam, mucous membranes moist Neck exam: Present: normal inspection. Absent: tenderness, meningismus, lymphadenopathy Respiratory exam: Present: normal lung sounds bilaterally. Absent: respiratory distress, wheezes, rales, rhonchi, stridor Cardiovascular Exam: Present: regular rate, normal rhythm, normal heart sounds. Absent: systolic murmur, diastolic murmur, rubs, gallop, clicks GI/Abdominal exam: Present: soft, normal bowel sounds. Absent: distended, tenderness, guarding, rebound, rigid Extremities exam: Present: normal inspection, full ROM, normal capillary refill. Absent: tenderness, pedal edema, joint swelling, calf tenderness Back exam: Present: normal inspection Neurological exam: Present: alert, oriented X3, CN II-XII intact Psychiatric exam: Present: normal affect, normal mood Skin exam: Present: warm, dry, intact, normal color. Absent: rash Course Vital Signs 03/15/20 03/15/20 03/15/20 12:55 13:08 14:18 Temperature 98.7 F Pulse Rate 89 88 Pulse Rate [ 88 Pulse Oximetery ] Respiratory 18 Rate Blood Pressure 190/93 O2 Sat by Pulse 95 Oximetry 03/15/20 03/15/20 03/15/20 14:23 14:25 14:56 Temperature Pulse Rate 87 88 Pulse Rate [ Pulse Oximetery ] Respiratory 18 Rate Blood Pressure 199/95 202/102 O2 Sat by Pulse 99 Oximetry 03/15/20 03/15/20 15:00 15:37 Temperature Pulse Rate 78 Pulse Rate [ Pulse Oximetery ] Respiratory 16 Rate Blood Pressure 175/87 183/97 O2 Sat by Pulse 99 Oximetry - Reevaluation(s) Reevaluation #1: 03/15/20 16:10 medical record is reviewed Reevaluation #2: 03/15/20 16:10 patient has no improvemwne of symptoms - Consultations Consultation #1: spoke w DR Vazquez EKG Findings - EKG Comments: EKG Findings:: EKG shows NSR rate 86 AR 172 QRS 96 QTc 490 Medical Decision Making - Medical Decision Making 59 female DF for evaluation patient was in with severe weakness she believes maybe MS exacerbation, patient be admitted for neurology to evaluate - Lab Data Result diagrams: 03/15/20 13:50 03/15/20 13:50 Lab Results 03/15/20 03/15/20 03/15/20 Range/Units 13:50 13:50 13:50 WBC 7.6 (3.8-10.6) k/uL RBC 4.61 (3.80-5.40) m/uL Hgb 11.7 (11.4-16.0) gm/dL Hct 37.8 (34.0-46.0) % MCV 82.2 (80.0-100.0) fL MCH 25.4 (25.0-35.0) pg MCHC 30.9 L (31.0-37.0) g/dL RDW 15.4 (11.5-15.5) % Plt Count 252 (150-450) k/uL Neutrophils % 70 % Lymphocytes % 20 % Monocytes % 6 % Eosinophils % 2 % Basophils % 0 % Neutrophils # 5.3 (1.3-7.7) k/uL Lymphocytes # 1.5 (1.0-4.8) k/uL Monocytes # 0.4 (0-1.0) k/uL Eosinophils # 0.2 (0-0.7) k/uL Basophils # 0.0 (0-0.2) k/uL PT 9.5 (9.0-12.0) sec INR 0.9 (<1.2) APTT 21.6 L (22.0-30.0) sec Sodium 141 (137-145) mmol/L Potassium 3.2 L (3.5-5.1) mmol/L Chloride 105 (98-107) mmol/L Carbon Dioxide 30 (22-30) mmol/L Anion Gap 6 mmol/L BUN 13 (7-17) mg/dL Creatinine 0.87 (0.52-1.04) mg/dL Est GFR (CKD-EPI)AfAm 85 (>60 ml/min/1.73 sqM) Est GFR (CKD-EPI)NonAf 73 (>60 ml/min/1.73 sqM) Glucose 185 H (74-99) mg/dL Calcium 9.4 (8.4-10.2) mg/dL Phosphorus 3.1 (2.5-4.5) mg/dL Magnesium 1.6 (1.6-2.3) mg/dL Total Bilirubin 0.4 (0.2-1.3) mg/dL AST 20 (14-36) U/L ALT 14 (4-34) U/L Alkaline Phosphatase 120 (38-126) U/L Creatine Kinase 310 H (30-135) U/L Troponin I (0.000-0.034) ng/mL NT-Pro-B Natriuret Pep pg/mL Total Protein 7.5 (6.3-8.2) g/dL Albumin 3.9 (3.5-5.0) g/dL 03/15/20 03/15/20 Range/Units 13:50 13:50 WBC (3.8-10.6) k/uL RBC (3.80-5.40) m/uL Hgb (11.4-16.0) gm/dL Hct (34.0-46.0) % MCV (80.0-100.0) fL MCH (25.0-35.0) pg MCHC (31.0-37.0) g/dL RDW (11.5-15.5) % Plt Count (150-450) k/uL Neutrophils % % Lymphocytes % % Monocytes % % Eosinophils % % Basophils % % Neutrophils # (1.3-7.7) k/uL Lymphocytes # (1.0-4.8) k/uL Monocytes # (0-1.0) k/uL Eosinophils # (0-0.7) k/uL Basophils # (0-0.2) k/uL PT (9.0-12.0) sec INR (<1.2) APTT (22.0-30.0) sec Sodium (137-145) mmol/L Potassium (3.5-5.1) mmol/L Chloride (98-107) mmol/L Carbon Dioxide (22-30) mmol/L Anion Gap mmol/L BUN (7-17) mg/dL Creatinine (0.52-1.04) mg/dL Est GFR (CKD-EPI)AfAm (>60 ml/min/1.73 sqM) Est GFR (CKD-EPI)NonAf (>60 ml/min/1.73 sqM) Glucose (74-99) mg/dL Calcium (8.4-10.2) mg/dL Phosphorus (2.5-4.5) mg/dL Magnesium (1.6-2.3) mg/dL Total Bilirubin (0.2-1.3) mg/dL AST (14-36) U/L ALT (4-34) U/L Alkaline Phosphatase (38-126) U/L Creatine Kinase (30-135) U/L Troponin I <0.012 (0.000-0.034) ng/mL NT-Pro-B Natriuret Pep 49 pg/mL Total Protein (6.3-8.2) g/dL Albumin (3.5-5.0) g/dL Disposition Clinical Impression: Weakness, Multiple sclerosis Disposition: ADMITTED IP TO THIS HOSP Condition: Fair Is patient prescribed a controlled substance at d/c from ED?: No Referrals: Mariely Bradford MD [Primary Care Provider] - 1-2 days
[2020-03-15 14:09] LABS: Basophils % (A) 0 %; Eosinophils # (A) 0.2 k/uL (0-0.7); Eosinophils % (A) 2 %; HCT 37.8 % (34.0-46.0); HGB 11.7 gm/dL (11.4-16.0); Lymphocytes # (A) 1.5 k/uL (1.0-4.8); Lymphocytes % (A) 20 %; MCH 25.4 pg (25.0-35.0); MCHC 30.9 g/dL (31.0-37.0); MCV 82.2 fL (80.0-100.0); Mean Platelet Volume 6.9; Monocytes # (A) 0.4 k/uL (0-1.0); Monocytes % (A) 6 %; Neutrophils # (A) 5.3 k/uL (1.3-7.7); Neutrophils % (A) 70 %; Platelet Count 252 k/uL (150-450); RBC 4.61 m/uL (3.80-5.40); RDW 15.4 % (11.5-15.5); WBC 7.6 k/uL (3.8-10.6)
[2020-03-15 14:19] LABS: Albumin 3.9 g/dL (3.5-5.0); Calcium 9.4 mg/dL (8.4-10.2); Magnesium 1.6 mg/dL (1.6-2.3); Phosphorus 3.1 mg/dL (2.5-4.5); Total Bilirubin 0.4 mg/dL (0.2-1.3); Total Protein 7.5 g/dL (6.3-8.2)
[2020-03-15] MEDS ORDERED: LABETALOL 5 MG/ML VIAL MDV IVP STA (14:31)
[2020-03-15] MEDS ORDERED: hydrALAZINE HCL 20 MG/ML 1 ML VIAL IVP STA (14:31)
[2020-03-15 14:37] LABS: Potassium 3.2 mmol/L (3.5-5.1)
[2020-03-15 14:42] LABS: INR 0.9 (<1.2); Partial Thromboplastin Time 21.6 sec (22.0-30.0); Prothrombin Time 9.5 sec (9.0-12.0)
[2020-03-15] MEDS ORDERED: SODIUM CHLORIDE 0.9% 1,000 ML IV ONE (16:08)
[2020-03-15 16:38] LABS: Appearance,Urine Cloudy (Clear); Bacteria,Urine Rare /hpf; Bilirubin,Urine Negative (Negative); Blood,Urine Trace (Negative); Color,Urine Light Yellow; Glucose,Urine (UA) Negative (Negative); Ketones,Urine Negative (Negative); Leukocyte Esterase,Urine Trace (Negative); Mucus,Urine Rare /hpf; Nitrite,Urine Positive (Negative); Protein,Urine Trace (Negative); RBC,Urine 1 /hpf (0-5); Specific Gravity,Urine 1.015 (1.001-1.035); Squamous Epithelial Cell,Urine 1 /hpf (0-4); Urobilinogen,Urine <2.0 mg/dL (<2.0); WBC,Urine 9 /hpf (0-5)
[2020-03-15] MEDS ORDERED: IPRATROPIUM-ALBUTEROL 3 ML NEB INHALATION PRN (18:15)
[2020-03-15] MEDS: hydrALAZINE HCL 25 MG TAB PO SCH (21:14)
[2020-03-15] MEDS: traMADol 50 MG TAB PO SCH (21:15)
[2020-03-15] MEDS: PREGABALIN 50 MG CAP PO SCH (21:29)
[2020-03-15] MEDS: hydrOXYzine pamoate 25 MG CAP PO SCH (21:29)
[2020-03-15] MEDS: oxyCODONE-APAP 10-325MG 1 EACH TAB PO SCH (21:29)
[2020-03-15] MEDS: INSULN ASP PRT/INSULIN ASPART 100 UNIT/ML 10 ML VIAL SQ SCH (21:30)
[2020-03-15] MEDS: LATANOPROST 0.005% OPHTH DROPS 2.5 ML BTL BOTH EYES SCH (22:49)
[2020-03-15 23:18] LABS: Glucose,Whole Blood 338 mg/dL (75-99)
[2020-03-16] MEDS: oxyCODONE-APAP 10-325MG 1 EACH TAB PO SCH ×4 (01:37→18:47)
[2020-03-16] MEDS: traMADol 50 MG TAB PO SCH ×4 (01:40→18:47)
[2020-03-16 06:51] LABS: Glucose,Whole Blood 319 mg/dL (75-99)
[2020-03-16] MEDS: hydrALAZINE HCL 25 MG TAB PO SCH ×3 (07:37→22:02)
[2020-03-16] MEDS: INSULN ASP PRT/INSULIN ASPART 100 UNIT/ML 10 ML VIAL SQ SCH ×2 (07:37→22:01)
[2020-03-16] MEDS: metFORMIN 500 MG TAB PO SCH ×2 (07:37→18:47)
[2020-03-16] MEDS: CLOPIDOGREL 75 MG TAB PO SCH (07:38)
[2020-03-16] MEDS: PREGABALIN 50 MG CAP PO SCH ×2 (07:38→22:01)
[2020-03-16] MEDS: PANTOPRAZOLE 40 MG TABLET PO SCH (07:39)
[2020-03-16] MEDS: PRAVASTATIN SODIUM 20 MG TAB PO SCH (07:39)
[2020-03-16] MEDS: hydrOXYzine pamoate 25 MG CAP PO SCH ×3 (07:39→22:02)
[2020-03-16] MEDS: FUROSEMIDE 40 MG TAB PO SCH (07:39)
[2020-03-16] MEDS: amLODIPine 10 MG TAB PO SCH (07:40)
[2020-03-16] MEDS ORDERED: LOSARTAN 50 MG TAB PO SCH (09:00)
[2020-03-16] MEDS: MORPHINE SULFATE 4 MG/ML SYRINGE IVP PRN ×3 (09:15→22:01)
[2020-03-16 11:43] LABS: Glucose,Whole Blood 290 mg/dL (75-99)
[2020-03-16] MEDS ORDERED: Potassium Replacement Protocol 1 EACH MISC MISCELLANE PRN (12:22)
--- NOTE | 2020-03-16 13:26 | P.CNNES ---
History of Present Illness Consult date: 03/16/20 Requesting physician: Son Hampton Reason for Consult: concern for multiple Sclerosis excerbation History of Present Illness: This is a 59-year-old woman with history of relapsing-remitting multiple sclerosis (since 2004), diabetes mellitus, hypertension, hyperlipidemia, chronic bilateral lower extremity cellulitis, nonhealing wound of the left foot, peripheral artery diseasel X tobacco who presented to the emergency department on 03/15/2020 for bilateral lower extremity weakness and falls in the last 2-3 d ays. According to patient that she's been having erythema feeling warmness and in the lower extremities that has been going on for last 2-3 days. She continues to have these ulcers in her lower extremities especially now off on the right and she stated that this is new. She denies of any loss of consciousness. She had multiple visits to the hospital for these recurrent the bilateral lower extremity cellulitis. She said this has been going on since 2019 and the she is in the hospital her every month or every other month. She denies of any of any diplopia, visual disturbance. Denies of any weakness of the upper extremity. She does have residual right lower extremity she said that's been going on for at least the 8 years or more. He denies of bowel incontinence. She said that she has urinary incontinence for years with urinary frequency and she wears pads. Regarding her multiple sclerosis and 2005 the she had the right optic neuritis. She was seen in the [facility] and she had the imaging and she said she had a thorough workup she was never placed on medication. She has not followed with them since 2007 because they want to do more imaging. They want her to be placed on medication but she hasn't followed up with them. She said she is only on vitamin B12. He has not followed up with any further neurologist as since 2007. Workup in the hospital consisted of: Initial vital signs: Blood pressure of 190/93, heart rate of 89, respiratory of 18, temperature of 98.7 Fahrenheit oral and pulse ox of 95% room air. Patient did have a temperature of 99.9 Fahrenheit at around 2039 yesterday. EKG was reported as normal sinus rhythm. Ventricular rate of 86. Nonspecific T wave abnormality. Prolonged QT. Abnormal EKG. Patient initial white blood cells 7.6 which was normal. Patient received Solu-Medrol 250 mg once in the ED. Last CT of the head and cervical spine in our system is on 12/17/2019 after a fall. It is reported as no acute intracranial hemorrhage or midline shift is seen. Mild bilateral frontal lobe atrophy with more moderate chronic small vessel ischemic changes felt present. While the cervical spine it is reported as no acute fracture or dislocation evident in the cervical spine. Significant mass effect on the spinal cord suspected due to thickened calcified anterior longitudinal ligament from mid C2 through the inferior C3 vertebra. Neurosurgical follow-up is advised. I reviewed the medical record and I don't see any orthopedic surgery consultation regarding this. Patient has been in our facility multiple times regarding her bilateral lower extreme a several cellulitis as well as nonhealing lower extremity ulcer on the left. She received the IV antibiotics during dose. Review of Systems Review of system: The 12 point system was reviewed and apparent positive and negative per HPI. Past Medical History Past Medical History: Asthma, COPD, CVA/TIA, Diabetes Mellitus, Eye Disorder, GERD/Reflux, Hyperlipidemia, Hypertension, Neurologic Disorder, Osteoarthritis (OA), Pneumonia Additional Past Medical History / Comment(s): wounds rt leg,multiple sclerosis, glaucoma, cellulitis, 2 TIAs first one about 10 years ago the second in 2017 History of Any Multi-Drug Resistant Organisms: None Reported Past Surgical History: Section, Joint Replacement, Tubal Ligation Additional Past Surgical History / Comment(s): lt hip replacement,rectal surgery,eye proc Past Anesthesia/Blood Transfusion Reactions: No Reported Reaction Past Psychological History: Depression Additional Psychological History / Comment(s): Stop smoking Jan. No cigarette or alcohol use. Does not work outside of the home. No international travel. No experience. No animal exposures Smoking Status: Former smoker Past Alcohol Use History: None Reported Past Drug Use History: Marijuana Additional Drug Use History / Comment(s): daily - Past Family History Father Family Medical History: Cancer Medications and Allergies Home Medications Medication Instructions Recorded Confirmed Type amLODIPine [Norvasc] 10 mg PO DAILY 02/16/16 03/15/20 History Clopidogrel [Plavix] 75 mg PO DAILY 03/01/17 03/15/20 History Furosemide [Lasix] 40 mg PO DAILY 03/01/17 03/15/20 History Latanoprost [Xalatan 0.005%] 1 drop BOTH EYES HS 03/01/17 03/15/20 History metFORMIN HCL 1,000 mg PO AC-BID 05/20/17 03/15/20 History Ipratropium-Albuterol Nebulize 3 ml INHALATION RT-QID PRN 06/28/19 03/15/20 History [Duoneb 0.5 mg-3 mg/3 ml Soln] Pravastatin Sodium [Pravachol] 10 mg PO DAILY 06/28/19 03/15/20 History Pregabalin 150 mg PO BID 08/05/19 03/15/20 History oxyCODONE HCL/ACETAMINOPHEN 1 tab PO Q6H 08/05/19 03/15/20 History [Percocet 10-325 mg] Ergocalciferol [Vitamin D2 50,000 unit PO MO 09/06/19 03/15/20 History (DRISDOL)] hydrALAZINE HCL [Apresoline] 25 mg PO TID 09/06/19 03/15/20 History hydrOXYzine pamoate [hydrOXYzine 50 mg PO TID 09/06/19 03/15/20 History PAMOATE] Losartan Potassium [Cozaar] 50 mg PO DAILY 10/22/19 03/15/20 History traMADol HCl [Ultram] 50 mg PO Q6H 11/23/19 03/15/20 History Insulin Aspart Protam & Aspart 25 unit SQ HS 12/17/19 03/15/20 History [NovoLOG MIX 70-30 Flexpen] Insulin Aspart Protam & Aspart 35 unit SQ DAILY 12/17/19 03/15/20 History [NovoLOG MIX 70-30 Flexpen] Pantoprazole Sodium [Protonix] 40 mg PO DAILY 03/15/20 03/15/20 History SILVER sulfADIAZINE Cream 1 applic TOPICAL DAILY 03/15/20 03/15/20 History [Silvadene 1% Cream] Allergies Allergy/AdvReac Type Severity Reaction Status Date / Time methylprednisolone Allergy Anaphylaxis Verified 03/15/20 15:56 [From Solu-Medrol] venom-honey bee Allergy Anaphylaxis Verified 03/15/20 15:56 [bee venom (honey bee)] Physical Examination - Vital Signs Vital Signs: Vital Signs Temp Pulse Pulse Resp BP BP Pulse Ox 03/16/20 07:00 98.0 F 90 18 181/89 94 L 03/16/20 04:48 16 03/16/20 00:00 16 03/15/20 23:13 98.8 F 98 16 169/81 92 L 03/15/20 20:39 99.9 F H 90 18 187/96 95 03/15/20 18:13 90 18 179/82 96 03/15/20 15:37 183/97 03/15/20 15:00 78 16 175/87 99 03/15/20 14:56 202/102 03/15/20 14:25 88 03/15/20 14:23 87 18 199/95 99 03/15/20 14:18 88 03/15/20 13:08 88 03/15/20 12:55 98.7 F 89 18 190/93 95 Intake and Output 03/15/20 03/16/20 03/16/20 22:59 06:59 14:59 Output Total 1 Balance -1 Output: Stool 1 Other: Weight 108.862 kg GENERAL: The patient is lying in bed and is not in acute distress. CHEST: The heart rate is regular rate rhythm. No murmurs to auscultation. No carotid bruit bilaterally. LUNG: Clear to auscultation bilaterally no wheezing noted throughout. Not labored breathing. ABDOMEN/GI: Bowel sounds present in all 4 quadrants. No tenderness to palpation throughout. INTEGUMENTARY: Patient the was warm to touch in the lower extremities as well as she has some mild erythema noted in the upper extremity felt some erythema were in the medial part of the thigh as well as the distal lower extremity at. She does have ulcer on the plantar aspect of her right and the on the left. There is a tender to palpation of 5 bilateral feet. Integumentary NEUROLOGICAL: Higher mental function: The patient is awake, alert, oriented to self, place and time. Patient is following commands. No aphasia and no neglect. Cranial nerves: The pupils are round, equal and reactive to light and accommodation. Visual archuleta are full to confrontation throughout. Extraocular movement is intact no nystagmus is noted. Facial sensation is normal to touch throughout. The facial strength is normal throughout. Hearing is normal bilaterally to hand rub. Tongue is midline and moved [id number] without any difficulty. No dysarthria is noted. Shoulder shrug is normal on left but restricted assessment on the right shoulder because of pain. Motor: Gait is deferred because of her condition. The strength is 5 over 5 throughout bilateral upper extremities. Normal tone and bulk. Sensation: Sensation is normal to touch of bilateral upper and lower extremities. Reflexes (right/left): 1+ Plantars are mute bilaterally. Results AST of 20, ALT of 14. Calcium Cipro for a period phosphorus 3.1. Magnesium is 1.6. Urinalysis appears cloudy, nitrates positive, leukocyte esterase is trace, urine white blood cell is 9 and urine bacteria is rare. - Laboratory Findings CBC and BMP: 03/15/20 13:50 03/15/20 13:50 Abnormal Lab Findings: Abnormal Labs 03/15/20 03/15/20 03/15/20 13:26 13:50 13:50 MCHC 30.9 L APTT 21.6 L Potassium Glucose POC Glucose (mg/dL) Creatine Kinase Urine Appearance Cloudy H Urine Protein Trace H Urine Blood Trace H Urine Nitrite Positive H Ur Leukocyte Esterase Trace H Urine WBC 9 H Urine Bacteria Rare H Urine Mucus Rare H 03/15/20 03/15/20 03/16/20 13:50 23:17 06:49 MCHC APTT Potassium 3.2 L Glucose 185 H POC Glucose (mg/dL) 338 H 319 H Creatine Kinase 310 H Urine Appearance Urine Protein Urine Blood Urine Nitrite Ur Leukocyte Esterase Urine WBC Urine Bacteria Urine Mucus Assessment and Plan Assessment: This is a 59-year-old woman with multiple medical problems including multiple admission to the hospital because of recurrent cellulitis of bilateral lower extremities that presented to ED on 03/15/2020 of weakness of lower extremities and fall for past 2-3 days. She said for past two to three days she feel her lower extremities are warm to touch and there is redness. Weakness of the lower extremities with falls: This does not seem like and MS exacerbation and seems more like a pseudo-exacerbation from her lower extremity cellulitis History of relapsing-remitting multiple sclerosis (2004)--not on medication since has not followed-up with neurologist. ?significant mass effect on the spinal cord suspected due to thickened calcified anterior longitudinal ligament from mid C2 through the inferior C3 vertebra Nonhealing left lower ulcer Chronic bilateral lower extremity cellulitis with recurrent admission Diabetes mellitus Hypertension Hyperlipidemia Peripheral arterial disease ex tobacco use Plan: Regarding this questionable multiple sclerosis exacerbation, I attempted said to get MRI of the Thoraic and Lumbar to rule out any active lesion. The patient stated that she is claustrophobic and refuses to be on Ativan or Valium 5 prior to MRI. She also refuses to be on IV Solu-Medrol since she stated that she is that she has anaphylaxis to them (stating she feels her throat get tight). She received on in ED yesterday but refused to continue. Lab workup on 11/24/2019: Vitamin B12 is 1538 which is above normal, folate is 9.2 which is normal therefore these do not need to be repeated. Her TSH on 03/02/2020 is 1.30 and this also does not need to be repeated. Last hemoglobin A1c is 7.3 on 12/14/2019 and this does not need to be repeated. Regarding the CT cervical spine (12/17/19) it is reported as no acute fracture or dislocation evident in the cervical spine. Significant mass effect on the spinal cord suspected due to thickened calcified anterior longitudinal ligament from mid C2 through the inferior C3 vertebra. Will consult orthopedic surgery team. As a physical therapy and occupation therapy are consulted. Regarding the patient's nonhealing left lower extremity ulcer will defer management to the primary team. She needs to follow-up with her neurologist in 2-3 weeks upon discharge regarding her care of Multiple Sclerosis. Thank you for the consultation. Kalpesh Velásquez M.D. Neuro-hospitalist Time with Patient: Greater than 30
--- NOTE | 2020-03-16 14:48 | XR ---
EXAMINATION TYPE: XR chest 2V DATE OF EXAM: 03/16/2020 COMPARISON: Prior chest x-ray 08/05/2019 HISTORY: Weakness TECHNIQUE: Frontal and lateral views of the chest are obtained on 3 images. FINDINGS: There is no focal air space opacity, pleural effusion, or pneumothorax seen. The cardiac silhouette size is within normal limits. The osseous structures are intact. IMPRESSION: No acute cardiopulmonary process.
[2020-03-16 16:50] LABS: Glucose,Whole Blood 249 mg/dL (75-99)
--- NOTE | 2020-03-16 18:37 | P.HPIM ---
History of Present Illness H&P Date: 03/16/20 Chief Complaint: Generalized weakness Rika Quan, he is a 59-year-old female who presented to [facility] emergency room with a chief complaint of generalized weakness, patient was having difficulty standing and walking, she was evaluated in emergency room vital exam on presentation revealed a temperature of 98.7 pulse 89 respiration 18 left pressure 190/93 pulse ox 95% on room airher white blood count was 7.6 hemoglobin 11.7 potassium was 3.2 glucose 185, urine analysis revealed evidence of urinary tract infection, chest x-ray revealed no acute cardiopulmonary process, she was started on IV Rocephin and was admitted to medical floor. Patient has a known history of multiple sclerosis, she also has known history of bilateral lower extremity cellulitis with multiple ulcers, neurology consultation was requested in regard to multiple sclerosis was generalized weakness and gait disturbance. Past medical history significant for history of diabetes mellitus, history of hypertension, history of multiple sclerosis, history of COPD, history of recurr ent bilateral lower extremity cellulitis was ulcers, history of anxiety disorder, history of peripheral vascular disease, history of hyperlipidemia, history of osteoarthritis with degenerative disc disease maintained on narcotics for pain management, history of gout, and history of morbid obesity. On review of systems patient is alert and oriented 3 she is complaining of generalized weakness with inability to stand and walk, she is complaining of bilateral lower extremity pain extending from the thigh all the way down to the feet, otherwise she denies any complaints there is no fever or chills no headache or dizziness no chest pain no shortness of breath no cough no nausea or vomiting no abdominal pain no diarrhea and no urinary symptoms Past Medical History Past Medical History: Asthma, COPD, CVA/TIA, Diabetes Mellitus, Eye Disorder, GERD/Reflux, Hyperlipidemia, Hypertension, Neurologic Disorder, Osteoarthritis (OA), Pneumonia Additional Past Medical History / Comment(s): wounds rt leg,multiple sclerosis, glaucoma, cellulitis, 2 TIAs first one about 10 years ago the second in 2017 History of Any Multi-Drug Resistant Organisms: None Reported Past Surgical History: Section, Joint Replacement, Tubal Ligation Additional Past Surgical History / Comment(s): lt hip replacement,rectal surgery,eye proc Past Anesthesia/Blood Transfusion Reactions: No Reported Reaction Past Psychological History: Depression Additional Psychological History / Comment(s): Stop smoking Jan. No cigarette or alcohol use. Does not work outside of the home. No international travel. No experience. No animal exposures Smoking Status: Former smoker Past Alcohol Use History: None Reported Past Drug Use History: Marijuana Additional Drug Use History / Comment(s): daily - Past Family History Father Family Medical History: Cancer Medications and Allergies Home Medications Medication Instructions Recorded Confirmed Type amLODIPine [Norvasc] 10 mg PO DAILY 02/16/16 03/15/20 History Clopidogrel [Plavix] 75 mg PO DAILY 03/01/17 03/15/20 History Furosemide [Lasix] 40 mg PO DAILY 03/01/17 03/15/20 History Latanoprost [Xalatan 0.005%] 1 drop BOTH EYES HS 03/01/17 03/15/20 History metFORMIN HCL 1,000 mg PO AC-BID 05/20/17 03/15/20 History Ipratropium-Albuterol Nebulize 3 ml INHALATION RT-QID PRN 06/28/19 03/15/20 History [Duoneb 0.5 mg-3 mg/3 ml Soln] Pravastatin Sodium [Pravachol] 10 mg PO DAILY 06/28/19 03/15/20 History Pregabalin 150 mg PO BID 08/05/19 03/15/20 History oxyCODONE HCL/ACETAMINOPHEN 1 tab PO Q6H 08/05/19 03/15/20 History [Percocet 10-325 mg] Ergocalciferol [Vitamin D2 50,000 unit PO MO 09/06/19 03/15/20 History (DRISDOL)] hydrALAZINE HCL [Apresoline] 25 mg PO TID 09/06/19 03/15/20 History hydrOXYzine pamoate [hydrOXYzine 50 mg PO TID 09/06/19 03/15/20 History PAMOATE] Losartan Potassium [Cozaar] 50 mg PO DAILY 10/22/19 03/15/20 History traMADol HCl [Ultram] 50 mg PO Q6H 11/23/19 03/15/20 History Insulin Aspart Protam & Aspart 25 unit SQ HS 12/17/19 03/15/20 History [NovoLOG MIX 70-30 Flexpen] Insulin Aspart Protam & Aspart 35 unit SQ DAILY 12/17/19 03/15/20 History [NovoLOG MIX 70-30 Flexpen] Pantoprazole Sodium [Protonix] 40 mg PO DAILY 03/15/20 03/15/20 History SILVER sulfADIAZINE Cream 1 applic TOPICAL DAILY 03/15/20 03/15/20 History [Silvadene 1% Cream] Allergies Allergy/AdvReac Type Severity Reaction Status Date / Time methylprednisolone Allergy Anaphylaxis Verified 03/15/20 15:56 [From Solu-Medrol] venom-honey bee Allergy Anaphylaxis Verified 03/15/20 15:56 [bee venom (honey bee)] Physical Exam Vitals: Vital Signs Temp Pulse Pulse Resp BP BP Pulse Ox 03/16/20 07:00 98.0 F 90 18 181/89 94 L 03/16/20 04:48 16 03/16/20 00:00 16 03/15/20 23:13 98.8 F 98 16 169/81 92 L 03/15/20 20:39 99.9 F H 90 18 187/96 95 03/15/20 18:13 90 18 179/82 96 03/15/20 15:37 183/97 03/15/20 15:00 78 16 175/87 99 03/15/20 14:56 202/102 03/15/20 14:25 88 03/15/20 14:23 87 18 199/95 99 03/15/20 14:18 88 03/15/20 13:08 88 03/15/20 12:55 98.7 F 89 18 190/93 95 Intake and Output 03/15/20 03/16/20 03/16/20 22:59 06:59 14:59 Output Total 1 Balance -1 Output: Stool 1 Other: Weight 108.862 kg in general patient is alert and oriented 3 in no distress HEENT head normocephalic and atraumatic Neck is supple no JVD no goiter no lymphadenopathy Chest exam reveals a few scattered rhonchi no wheezing Cardiac exam reveals regular heart sounds no murmurs Abdomen is soft nontender no organomegaly with normal bowel sounds Extremity exam reveals bilateral lower extremity edema with extensive stasis changes, there is scabbed ulcer on the bottom of the left foot Neurological examination reveals no gross focal deficit Results CBC & Chem 7: 03/15/20 13:50 03/15/20 13:50 Labs: Abnormal Lab Results - Last 24 Hours (Table) 11/04/20 11/04/20 11/04/20 Range/Units 13:26 13:50 13:50 MCHC 30.9 L (31.0-37.0) g/dL APTT 21.6 L (22.0-30.0) sec Potassium (3.5-5.1) mmol/L Glucose (74-99) mg/dL POC Glucose (mg/dL) (75-99) mg/dL Creatine Kinase (30-135) U/L Urine Appearance Cloudy H (Clear) Urine Protein Trace H (Negative) Urine Blood Trace H (Negative) Urine Nitrite Positive H (Negative) Ur Leukocyte Esterase Trace H (Negative) Urine WBC 9 H (0-5) /hpf Urine Bacteria Rare H (None) /hpf Urine Mucus Rare H (None) /hpf 03/15/20 03/15/20 03/16/20 Range/Units 13:50 23:17 06:49 MCHC (31.0-37.0) g/dL APTT (22.0-30.0) sec Potassium 3.2 L (3.5-5.1) mmol/L Glucose 185 H (74-99) mg/dL POC Glucose (mg/dL) 338 H 319 H (75-99) mg/dL Creatine Kinase 310 H (30-135) U/L Urine Appearance (Clear) Urine Protein (Negative) Urine Blood (Negative) Urine Nitrite (Negative) Ur Leukocyte Esterase (Negative) Urine WBC (0-5) /hpf Urine Bacteria (None) /hpf Urine Mucus (None) /hpf 03/16/20 Range/Units 11:40 MCHC (31.0-37.0) g/dL APTT (22.0-30.0) sec Potassium (3.5-5.1) mmol/L Glucose (74-99) mg/dL POC Glucose (mg/dL) 290 H (75-99) mg/dL Creatine Kinase (30-135) U/L Urine Appearance (Clear) Urine Protein (Negative) Urine Blood (Negative) Urine Nitrite (Negative) Ur Leukocyte Esterase (Negative) Urine WBC (0-5) /hpf Urine Bacteria (None) /hpf Urine Mucus (None) /hpf Thrombosis Risk Factor Assmnt - Choose All That Apply Each Factor Represents 1 point: Age 41-60 years, Medical pt on bed rest, Obesity (BMI >25), Swollen legs (current) Thrombosis Risk Factor Assessment Total Risk Factor Score: 4 Thrombosis Risk Factor Assessment Level: Moderate Risk Assessment and Plan Plan: 1. generalized weakness with inability to stand or walk 2. Urinary tract infection 3. Underlying history of multiple sclerosis with possible exacerbation 4. Underlying history of insulin-dependent diabetes mellitus 5. Underlying history of hypertension with evidence of hypertensive emergency on presentation, t this time will increase losartan from 50-100 mg daily Will continue to monitor blood pressure closely and adjust medications as needed 6. Underlying history of hyperlipidemia 7. Underlying history of gout 8. Underlying history of chronic pain syndrome maintained on narcotics as outpatient At this time medication and labs were reviewed Patient was started on IV Rocephin Neurology consultation was requested in regard to multiple sclerosis Will follow closely
[2020-03-16 20:32] LABS: Glucose,Whole Blood 262 mg/dL (75-99)
[2020-03-16] MEDS: LATANOPROST 0.005% OPHTH DROPS 2.5 ML BTL BOTH EYES SCH (22:02)
[2020-03-17] MEDS: oxyCODONE-APAP 10-325MG 1 EACH TAB PO SCH ×4 (01:43→18:26)
[2020-03-17] MEDS: traMADol 50 MG TAB PO SCH ×4 (01:44→18:27)
--- NOTE | 2020-03-17 06:09 | P.CONS ---
History of Present Illness - Chief Complaint Medical debility - History of Present Illness I had the opportunity to see patient for inpatient rehab consultation with regard to medical debility. She was admitted to [facility] March 16 with lower extremity weakness and cellulitis, possible MS exacerbation. 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 Seen by Dr. Kalpesh Meier for neurology. PT and OT prescribed. Chest x-ray negative. CT cervical spine (12/17/19) it is reported as no acute fracture or dislocation evident in the cervical spine. Significant mass effect on the spinal cord suspected due to thickened calcified anterior longitudinal ligament from mid C2 through the inferior C3 vertebra. Previous functional history as elicited from patient: 58-year-old right-handed female who is lives in one floor home with friend. Patient describes independent with own cooking, laundry, sponge bath and gait with 4 wheeled walker. Friend does the driving. Patient on disability related to arthritis and MS. PMD Dr. Bradford. Denies tobacco or alcohol. Family history both parents with hypertension. Review of Systems Review of systems: ENT: Denies sneezes or discharge. Eyes: Denies discharge or photophobia. Cardiac: Denies chest pain or palpitation. Pulmonary: Denies cough or shortness of breath. Breast: Denies discharge or lumps. Gastrointestinal: Denies nausea, emesis, constipation, diarrhea. Genitourinary: Denies discharge or frequency. Musculoskeletal: Lower extremity cellulitis. Neurologic: General and Lower extremity weakness. Endocrine: Denies shakes or sweats. Oncology: Denies cancers. Dermatologic: Denies rash, itching, pruritus. ALLERGY/immunology: Denies sneezes, rashes. Past Medical History Past Medical History: Asthma, COPD, CVA/TIA, Diabetes Mellitus, Eye Disorder, GERD/Reflux, Hyperlipidemia, Hypertension, Neurologic Disorder, Osteoarthritis (OA), Pneumonia Additional Past Medical History / Comment(s): wounds rt leg,multiple sclerosis, glaucoma, cellulitis, 2 TIAs first one about 10 years ago the second in 2017 History of Any Multi-Drug Resistant Organisms: None Reported Past Surgical History: Section, Joint Replacement, Tubal Ligation Additional Past Surgical History / Comment(s): lt hip replacement,rectal surgery,eye proc Past Anesthesia/Blood Transfusion Reactions: No Reported Reaction Past Psychological History: Depression Additional Psychological History / Comment(s): Stop smoking Jan. No cigarette or alcohol use. Does not work outside of the home. No international travel. No experience. No animal exposures Smoking Status: Former smoker Past Alcohol Use History: None Reported Past Drug Use History: Marijuana Additional Drug Use History / Comment(s): daily - Past Family History Father Family Medical History: Cancer Medications and Allergies Home Medications Medication Instructions Recorded Confirmed Type amLODIPine [Norvasc] 10 mg PO DAILY 02/16/16 03/15/20 History Clopidogrel [Plavix] 75 mg PO DAILY 03/01/17 03/15/20 History Furosemide [Lasix] 40 mg PO DAILY 03/01/17 03/15/20 History Latanoprost [Xalatan 0.005%] 1 drop BOTH EYES HS 03/01/17 03/15/20 History metFORMIN HCL 1,000 mg PO AC-BID 05/20/17 03/15/20 History Ipratropium-Albuterol Nebulize 3 ml INHALATION RT-QID PRN 06/28/19 03/15/20 History [Duoneb 0.5 mg-3 mg/3 ml Soln] Pravastatin Sodium [Pravachol] 10 mg PO DAILY 06/28/19 03/15/20 History Pregabalin 150 mg PO BID 08/05/19 03/15/20 History oxyCODONE HCL/ACETAMINOPHEN 1 tab PO Q6H 08/05/19 03/15/20 History [Percocet 10-325 mg] Ergocalciferol [Vitamin D2 50,000 unit PO MO 09/06/19 03/15/20 History (DRISDOL)] hydrALAZINE HCL [Apresoline] 25 mg PO TID 09/06/19 03/15/20 History hydrOXYzine pamoate [hydrOXYzine 50 mg PO TID 09/06/19 03/15/20 History PAMOATE] Losartan Potassium [Cozaar] 50 mg PO DAILY 10/22/19 03/15/20 History traMADol HCl [Ultram] 50 mg PO Q6H 11/23/19 03/15/20 History Insulin Aspart Protam & Aspart 25 unit SQ HS 12/17/19 03/15/20 History [NovoLOG MIX 70-30 Flexpen] Insulin Aspart Protam & Aspart 35 unit SQ DAILY 08/07/20 11/04/20 History [NovoLOG MIX 70-30 Flexpen] Pantoprazole Sodium [Protonix] 40 mg PO DAILY 03/15/20 03/15/20 History SILVER sulfADIAZINE Cream 1 applic TOPICAL DAILY 03/15/20 03/15/20 History [Silvadene 1% Cream] Allergies Allergy/AdvReac Type Severity Reaction Status Date / Time methylprednisolone Allergy Anaphylaxis Verified 03/15/20 15:56 [From Solu-Medrol] venom-honey bee Allergy Anaphylaxis Verified 03/15/20 15:56 [bee venom (honey bee)] Physical Exam Vitals: Vital Signs Temp Pulse Resp BP Pulse Ox 03/17/20 05:11 97.8 F 87 18 180/96 92 L 03/17/20 04:19 17 03/17/20 01:00 17 03/16/20 20:00 17 03/16/20 19:43 98.4 F 94 17 181/92 95 03/16/20 15:00 98.2 F 95 18 166/81 95 03/16/20 07:00 98.0 F 90 18 181/89 94 L Intake and Output 03/16/20 03/16/20 03/17/20 14:59 22:59 06:59 Output Total 500 550 425 Balance -500 -550 -425 Output: Urine 500 550 425 Skin: Good color, texture, turgor. Did not examine cellulitis lowers closely. General: Obese build and comfortable appearance. Head: Normocephalic, atraumatic. Eyes: Symmetric. Pupils equal round. Ears: Symmetric. Hearing within normal limits. Mouth: Clear. Neck: Supple. Carotid without bruit. Cardiac: Regular rate and rhythm. Lungs: Clear anteriorly and posteriorly. Abdomen: Soft active nontender. Extremities: Normal tone. Neurological: Mental status: Alert, cooperative, pleasant. Cranial nerves: Symmetric facial tone and trapezius. Motor: Can actively elevate both arms and left leg off of bed. Right leg poor. Sensation: Intact throughout. DTRs: Symmetric and equal throughout. Mobility: Requires physical assist for bed mobility. Results CBC & Chem 7: 03/15/20 13:50 03/15/20 13:50 Labs: Abnormal Lab Results - Last 24 Hours (Table) 03/16/20 03/16/20 03/16/20 Range/Units 06:49 11:40 16:48 POC Glucose (mg/dL) 319 H 290 H 249 H (75-99) mg/dL 03/16/20 Range/Units 20:30 POC Glucose (mg/dL) 262 H (75-99) mg/dL Microbiology - Last 24 Hours (Table) 03/16/20 14:00 Urine Culture - Preliminary Urine,Voided Assessment and Plan (1) Multiple sclerosis Current Visit: Yes Status: Acute Code(s): G35 - MULTIPLE SCLEROSIS SNOMED Code(s): 60988762 (2) JENNIFER (acute kidney injury) Current Visit: No Status: Acute Code(s): N17.9 - ACUTE KIDNEY FAILURE, UNSPECIFIED SNOMED Code(s): 02079142 (3) Bilateral lower leg cellulitis Current Visit: No Status: Acute Code(s): L03.116 - CELLULITIS OF LEFT LOWER LIMB; L03.115 - CELLULITIS OF RIGHT LOWER LIMB SNOMED Code(s): 646561907 Plan: Impression: 1. Medical debility. 2. MS with exacerbation. 3. Lower extremity cellulitis. 4. Obesity. 5. Acute kidney injury. 6. COPD with asthma. 7. Hypertension. 8. Dyslipidemia. 9. Diabetes. 10. Osteoarthritis. 11. History of stroke. Comes and plan: At this time PT and OT prescribed. Follow therapies with yourself. Patient reports use of lift at home
[2020-03-17 06:53] LABS: Glucose,Whole Blood 208 mg/dL (75-99)
[2020-03-17] MEDS: PANTOPRAZOLE 40 MG TABLET PO SCH ×2 (07:55→12:36)
[2020-03-17] MEDS: metFORMIN 500 MG TAB PO SCH ×2 (07:55→16:15)
[2020-03-17 09:39] LABS: Basophils # (A) 0.1 k/uL (0-0.2); Basophils % (A) 1 %; Eosinophils # (A) 0.1 k/uL (0-0.7); Eosinophils % (A) 1 %; HCT 36.6 % (34.0-46.0); HGB 11.9 gm/dL (11.4-16.0); Lymphocytes # (A) 2.5 k/uL (1.0-4.8); Lymphocytes % (A) 29 %; MCH 26.9 pg (25.0-35.0); MCHC 32.7 g/dL (31.0-37.0); MCV 82.3 fL (80.0-100.0); Monocytes # (A) 0.4 k/uL (0-1.0); Monocytes % (A) 5 %; Neutrophils # (A) 5.4 k/uL (1.3-7.7); Neutrophils % (A) 62 %; Platelet Count 241 k/uL (150-450); RBC 4.44 m/uL (3.80-5.40); WBC 8.7 k/uL (3.8-10.6)
[2020-03-17] MEDS: MORPHINE SULFATE 4 MG/ML SYRINGE IVP PRN ×3 (10:10→21:29)
--- NOTE | 2020-03-17 10:29 | P.PN ---
Subjective Progress Note Date: 03/17/20 Rika Quan, he is a 59-year-old female who presented to [facility] emergency room with a chief complaint of generalized weakness, patient was having difficulty standing and walking, she was evaluated in emergency room vital exam on presentation revealed a temperature of 98.7 pulse 89 respiration 18 left pressure 190/93 pulse ox 95% on room airher white blood count was 7.6 hemoglobin 11.7 potassium was 3.2 glucose 185, urine analysis revealed evidence of urinary tract infection, chest x-ray revealed no acute cardiopulmonary process, she was started on IV Rocephin and was admitted to medical floor. Patient has a known history of multiple sclerosis, she also has known history of bilateral lower extremity cellulitis with multiple ulcers, neurology consultation was requested in regard to multiple sclerosis was generalized weakness and gait disturbance. Past medical history significant for history of diabetes mellitus, history of hypertension, history of multiple sclerosis, history of COPD, history of recurrent bilateral lower extremity cellulitis was ulcers, history of anxiety disorder, history of peripheral vascular disease, history of hyperlipidemia, history of osteoarthritis with degenerative disc disease maintained on narcotics for pain management, history of gout, and history of morbid obesity. On review of systems patient is alert and oriented 3 she is complaining of generalized weakness with inability to stand and walk, she is complaining of bilateral lower extremity pain extending from the thigh all the way down to the feet, otherwise she denies any complaints there is no fever or chills no headache or dizziness no chest pain no shortness of breath no cough no nausea or vomiting no abdominal pain no diarrhea and no urinary symptoms On 03/17/2020 patient is alert and oriented 3. Patient is requesting Silvadene for lower extremities. She denies chest pain. Patient denies nausea vomiting or diarrhea. Patient denies any urinary burning or frequency. Dr. Garza is consulted for possible inpatient rehab. [facility] Objective - Vital Signs Vital signs: Vital Signs Temp 98.7 F 03/17/20 07:45 Pulse 94 03/17/20 07:45 Resp 18 03/17/20 07:45 BP 181/94 03/17/20 07:45 Pulse Ox 94 L 03/17/20 07:45 Intake & Output 03/16/20 03/17/20 03/17/20 18:59 06:59 18:59 Output Total 500 975 Balance -500 -975 Output: Urine 500 975 Other: Voiding Method Bedside Commode - Exam in general patient is alert and oriented 3 in no distress HEENT head normocephalic and atraumatic Neck is supple no JVD no goiter no lymphadenopathy Chest exam reveals a few scattered rhonchi no wheezing Cardiac exam reveals regular heart sounds no murmurs Abdomen is soft nontender no organomegaly with normal bowel sounds Extremity exam reveals bilateral lower extremity edema with extensive stasis changes, there is scabbed ulcer on the bottom of the left foot Neurological examination reveals no gross focal deficit - Labs CBC & Chem 7: 03/17/20 09:23 03/15/20 13:50 Labs: Abnormal Lab Results - Last 24 Hours (Table) 03/16/20 03/16/20 03/16/20 Range/Units 11:40 16:48 20:30 POC Glucose (mg/dL) 290 H 249 H 262 H (75-99) mg/dL 03/17/20 Range/Units 06:50 POC Glucose (mg/dL) 208 H (75-99) mg/dL Microbiology - Last 24 Hours (Table) 03/16/20 14:00 Urine Culture - Preliminary Urine,Voided Assessment and Plan Plan: 1. generalized weakness with inability to stand or walk 2. Urinary tract infection 3. Underlying history of multiple sclerosis with possible exacerbation 4. Underlying history of insulin-dependent diabetes mellitus 5. Underlying history of hypertension with evidence of hypertensive emergency on presentation, t this time will increase losartan from 50-100 mg daily Will continue to monitor blood pressure closely and adjust medications as needed 6. Underlying history of hyperlipidemia 7. Underlying history of gout 8. Underlying history of chronic pain syndrome maintained on narcotics as outpatient At this time medication and labs were reviewed Patient was started on IV Rocephin Neurology consultation was requested in regard to multiple sclerosis Discharge planning to possible inpatient rehab with Dr. Garza or F Will follow closely
[2020-03-17] MEDS: CLOPIDOGREL 75 MG TAB PO SCH (11:01)
[2020-03-17] MEDS: hydrOXYzine pamoate 25 MG CAP PO SCH ×3 (11:01→21:28)
[2020-03-17] MEDS: amLODIPine 10 MG TAB PO SCH (11:01)
[2020-03-17] MEDS: FUROSEMIDE 40 MG TAB PO SCH (11:03)
[2020-03-17] MEDS: hydrALAZINE HCL 25 MG TAB PO SCH ×3 (11:03→21:29)
[2020-03-17] MEDS: LOSARTAN 50 MG TAB PO SCH (11:03)
[2020-03-17] MEDS: INSULN ASP PRT/INSULIN ASPART 100 UNIT/ML 10 ML VIAL SQ SCH ×2 (11:07→21:29)
[2020-03-17 11:48] LABS: Glucose,Whole Blood 230 mg/dL (75-99)
[2020-03-17] MEDS: PREGABALIN 50 MG CAP PO SCH ×2 (12:03→21:29)
[2020-03-17 14:38] LABS: African American GFR (CKD) 71.4 (60.0-200.0); Albumin 3.9 g/dL (3.80-4.90); Albumin/Globulin Ratio 1.44 (1.60-3.17); Anion Gap 9.6 mmol/L (4.00-12.00); Calcium 8.8 mg/dL (8.7-10.3); Carbon Dioxide 30.4 mmol/L (21.6-31.8); Globulin 2.7 g/dL (1.6-3.3); Non-African American GFR(CKD) 61.6 (60.0-200.0); Potassium 3.2 mmol/L (3.5-5.5); Total Bilirubin 0.3 mg/dL (0.3-1.2); Total Protein 6.6 g/dL (6.2-8.2)
[2020-03-17 17:13] LABS: Glucose,Whole Blood 122 mg/dL (75-99)
[2020-03-17] MEDS: ONDANSETRON 4 MG/2 ML VIAL IVP PRN (19:46)
--- NOTE | 2020-03-17 20:27 | P.PN ---
Subjective Progress Note Date: 03/17/20 Patient was seen at bedside and she stated that she continues to have erythema and warmth in her distal lower extremities and she feels like from mid calf all the way down. She denies any further weakness, double vision, or any new neurological complaints. Objective - Vital Signs Vital signs: Vital Signs Temp 98.4 F 03/17/20 19:22 Pulse 86 03/17/20 19:22 Resp 19 03/17/20 19:22 BP 179/97 03/17/20 19:22 Pulse Ox 94 L 03/17/20 19:22 Intake & Output 03/17/20 03/17/20 03/18/20 06:59 18:59 06:59 Output Total 975 1800 2200 Balance -975 -1800 -2200 Output: Urine 975 1800 2200 Other: Voiding Method Bedside Commode - Exam GENERAL: The patient is lying in bed and is not in acute distress. CHEST: The heart rate is regular rate rhythm. No murmurs to auscultation. LUNG: Clear to auscultation bilaterally no wheezing noted throughout. Not la bored breathing. INTEGUMENTARY: Patient the was warm to touch in the lower extremities as well as she has some mild erythema noted in the upper extremity felt some erythema were in the medial part of the thigh as well as the distal lower extremity at. She does have ulcer on the plantar aspect of her right and the on the left. There is a tender to palpation plantar bilateral feet. NEUROLOGICAL: Higher mental function: The patient is awake, alert, oriented to self, place and time. Patient is following commands. No aphasia and no neglect. Cranial nerves: The pupils are round, equal and reactive to light and accommodation. Visual archuleta are full to confrontation throughout. Extraocular movement is intact no nystagmus is noted. Facial sensation is normal to touch throughout. The facial strength is normal throughout. Hearing is normal bilaterally to hand rub. Tongue is midline and moved [id number] without any difficulty. No dysarthria is noted. Shoulder shrug is normal on left but restricted assessment on the right shoulder because of pain. Motor: Gait is deferred because of her condition. The strength is 5 over 5 throughout bilateral upper extremities. For bilateral lower extremity as she is able to move the left lower extremity above gravity at without any drift while the right lower extremity she has antigravity and she said the its week and spin week for years. Normal tone and bulk. Sensation: Sensation is normal to touch of bilateral upper and lower extrem ities. Reflexes (right/left): 1+ Plantars are mute bilaterally. - Labs CBC & Chem 7: 03/17/20 09:23 03/17/20 09:23 Labs: Abnormal Lab Results - Last 24 Hours (Table) 03/16/20 03/17/20 03/17/20 Range/Units 20:30 06:50 09:23 Potassium 3.2 L (3.5-5.5) mmol/L Glucose 239 H (70-110) mg/dL POC Glucose (mg/dL) 262 H 208 H (75-99) mg/dL AST 11 L (13-35) U/L Albumin/Globulin Ratio 1.44 L (1.60-3.17) g/dL 03/17/20 03/17/20 Range/Units 11:45 17:11 Potassium (3.5-5.5) mmol/L Glucose (70-110) mg/dL POC Glucose (mg/dL) 230 H 122 H (75-99) mg/dL AST (13-35) U/L Albumin/Globulin Ratio (1.60-3.17) g/dL Microbiology - Last 24 Hours (Table) 03/16/20 14:00 Urine Culture - Preliminary Urine,Voided Assessment and Plan Assessment: This is a 59-year-old woman with multiple medical problems including multiple admission to the hospital because of recurrent cellulitis of bilateral lower extremities that presented to ED on 03/15/2020 of weakness of lower extremities and fall for past 2-3 days. She said for past two to three days she feel her lower extremities are warm to touch and there is redness. Weakness of the lower extremities with falls: This does not seem like and MS exacerbation and seems more like a pseudo-exacerbation from her lower extremity cellulitis History of relapsing-remitting multiple sclerosis (2004)--not on medication since has not followed-up with neurologist. ?significant mass effect on the spinal cord suspected due to thickened calcified anterior longitudinal ligament from mid C2 through the inferior C3 vertebra Nonhealing left lower ulcer Chronic bilateral lower extremity cellulitis with recurrent admission Diabetes mellitus Hypertension Hyperlipidemia Peripheral arterial disease ex tobacco use Plan: Regarding this questionable multiple sclerosis exacerbation, I attempted said to get MRI of the Thoraic and Lumbar to rule out any active lesion. The patient stated that she is claustrophobic and refuses to be on Ativan or Valium 5 prior to MRI. She also refuses to be on IV Solu-Medrol since she stated that she is that she has anaphylaxis to them (stating she feels her throat get tight). She received on in ED yesterday but refused to continue. Lab workup on 11/24/2019: Vitamin B12 is 1538 which is above normal, folate is 9.2 which is normal therefore these do not need to be repeated. Her TSH on 03/02/2020 is 1.30 and this also does not need to be repeated. Last hemoglobin A1c is 7.3 on 12/14/2019 and this does not need to be repeated. Regarding the CT cervical spine (12/17/19) it is reported as no acute fracture or dislocation evident in the cervical spine. Significant mass effect on the spinal cord suspected due to thickened calcified anterior longitudinal ligament from mid C2 through the inferior C3 vertebra. Will consult orthopedic surgery team. As a physical therapy and occupation therapy are consulted. Regarding the patient's nonhealing left lower extremity ulcer will defer management to the primary team. She needs to follow-up with her neurologist in 2-3 weeks upon discharge regarding her care of Multiple Sclerosis. There is no further neurological workup needed. The Neurology will sign off. Please reconsult if needed. Kalpesh Velásquez M.D. Neuro-hospitalist Time with Patient: Less than 30
[2020-03-17 20:55] LABS: Glucose,Whole Blood 146 mg/dL (75-99)
[2020-03-17] MEDS: LATANOPROST 0.005% OPHTH DROPS 2.5 ML BTL BOTH EYES SCH (21:30)
[2020-03-18] MEDS: traMADol 50 MG TAB PO SCH ×4 (00:44→18:00)
[2020-03-18] MEDS: oxyCODONE-APAP 10-325MG 1 EACH TAB PO SCH ×4 (00:44→18:00)
[2020-03-18 06:29] LABS: Basophils % (A) 0 %; Eosinophils # (A) 0.1 k/uL (0-0.7); Eosinophils % (A) 2 %; HCT 39.9 % (34.0-46.0); HGB 12.4 gm/dL (11.4-16.0); Lymphocytes # (A) 2.7 k/uL (1.0-4.8); Lymphocytes % (A) 32 %; MCH 25.6 pg (25.0-35.0); MCV 82.8 fL (80.0-100.0); Mean Platelet Volume 6.6; Monocytes # (A) 0.6 k/uL (0-1.0); Monocytes % (A) 7 %; Neutrophils % (A) 58 %; Platelet Count 254 k/uL (150-450); RBC 4.82 m/uL (3.80-5.40); RDW 14.8 % (11.5-15.5); WBC 8.6 k/uL (3.8-10.6)
[2020-03-18 07:04] LABS: Glucose,Whole Blood 145 mg/dL (75-99)
[2020-03-18] MEDS: CLOPIDOGREL 75 MG TAB PO SCH (07:40)
[2020-03-18] MEDS: metFORMIN 500 MG TAB PO SCH ×2 (07:40→16:51)
[2020-03-18] MEDS: LOSARTAN 50 MG TAB PO SCH (07:40)
[2020-03-18] MEDS: PREGABALIN 50 MG CAP PO SCH ×2 (07:40→20:45)
[2020-03-18] MEDS: FUROSEMIDE 40 MG TAB PO SCH (07:40)
[2020-03-18] MEDS: hydrOXYzine pamoate 25 MG CAP PO SCH ×3 (07:41→20:45)
[2020-03-18] MEDS: PRAVASTATIN SODIUM 20 MG TAB PO SCH (07:41)
[2020-03-18] MEDS: hydrALAZINE HCL 25 MG TAB PO SCH ×3 (07:42→20:45)
[2020-03-18] MEDS: amLODIPine 10 MG TAB PO SCH (07:42)
[2020-03-18] MEDS: INSULN ASP PRT/INSULIN ASPART 100 UNIT/ML 10 ML VIAL SQ SCH ×2 (07:44→20:45)
[2020-03-18] MEDS: PANTOPRAZOLE 40 MG TABLET PO SCH (07:46)
[2020-03-18 09:43] LABS: African American GFR (CKD) 71.4 (60.0-200.0); Albumin/Globulin Ratio 1.43 (1.60-3.17); Anion Gap 8.3 mmol/L (4.00-12.00); Calcium 8.8 mg/dL (8.7-10.3); Carbon Dioxide 35.7 mmol/L (21.6-31.8); Globulin 2.8 g/dL (1.6-3.3); Non-African American GFR(CKD) 61.6 (60.0-200.0); Potassium 2.9 mmol/L (3.5-5.5); Total Bilirubin 0.3 mg/dL (0.3-1.2); Total Protein 6.8 g/dL (6.2-8.2)
--- NOTE | 2020-03-18 09:45 | P.PN ---
Subjective Progress Note Date: 03/18/20 Rika Quan, he is a 59-year-old female who presented to [facility] emergency room with a chief complaint of generalized weakness, patient was having difficulty standing and walking, she was evaluated in emergency room vital exam on presentation revealed a temperature of 98.7 pulse 89 respiration 18 left pressure 190/93 pulse ox 95% on room airher white blood count was 7.6 hemoglobin 11.7 potassium was 3.2 glucose 185, urine analysis revealed evidence of urinary tract infection, chest x-ray revealed no acute cardiopulmonary process, she was started on IV Rocephin and was admitted to medical floor. Patient has a known history of multiple sclerosis, she also has known history of bilateral lower extremity cellulitis with multiple ulcers, neurology consultation was requested in regard to multiple sclerosis was generalized weakness and gait disturbance. Past medical history significant for history of diabetes mellitus, history of hypertension, history of multiple sclerosis, history of COPD, history of recurrent bilateral lower extremity cellulitis was ulcers, history of anxiety disorder, history of peripheral vascular disease, history of hyperlipidemia, history of osteoarthritis with degenerative disc disease maintained on narcotics for pain management, history of gout, and history of morbid obesity. On review of systems patient is alert and oriented 3 she is complaining of generalized weakness with inability to stand and walk, she is complaining of bilateral lower extremity pain extending from the thigh all the way down to the feet, otherwise she denies any complaints there is no fever or chills no headache or dizziness no chest pain no shortness of breath no cough no nausea or vomiting no abdominal pain no diarrhea and no urinary symptoms On 03/17/2020 patient is alert and oriented 3. Patient is requesting Silvadene for lower extremities. She denies chest pain. Patient denies nausea vomiting or diarrhea. Patient denies any urinary burning or frequency. Dr. Christopher is consulted for possible inpatient rehab. [facility]. On 03/18/2020 patient was seen and examined on the medical floor she is alert and oriented 3 in no apparent distress she is complaining of worsening swelling and pain in bilateral lower extremity there is a new open ulcer in the left pretibial area otherwise no new complaints there is no fever or chills no headache or dizziness no chest pain no shortness of breath no cough no nausea or vomiting no abdominal pain no diarrhea blood in the stools no burning with urination no frequency or urgency and no hematuria. Blood pressure is elevated at not well controlled despite multiple blood pressure medications at this time will add Coreg 3.125 mg by mouth twice daily continue was losartan, amlodipine, and hydralazine. Will consult Dr. Majano infectious disease in regard to her lateral lower extremity cellulitis with ulcers. Objective - Vital Signs Vital signs: Vital Signs Temp 98.5 F 03/18/20 00:42 Pulse 87 03/18/20 00:42 Resp 16 03/18/20 00:42 BP 165/86 03/18/20 00:42 Pulse Ox 97 03/18/20 00:42 Intake & Output 03/17/20 03/17/20 03/18/20 06:59 18:59 06:59 Output Total 975 1800 3050 Balance -975 -1800 -3050 Output: Urine 975 1800 3050 Other: Voiding Method Bedside Commode - Exam in general patient is alert and oriented 3 in no distress HEENT head normocephalic and atraumatic Neck is supple no JVD no goiter no lymphadenopathy Chest exam reveals a few scattered rhonchi no wheezing Cardiac exam reveals regular heart sounds no murmurs Abdomen is soft nontender no organomegaly with normal bowel sounds Extremity exam reveals bilateral lower extremity edema with extensive stasis changes, there is scabbed ulcer on the bottom of the left foot, there is a new open ulcer in the left pretibial area Neurological examination reveals no gross focal deficit - Labs CBC & Chem 7: 03/18/20 05:53 03/17/20 09:23 Labs: Abnormal Lab Results - Last 24 Hours (Table) 03/17/20 03/17/20 03/17/20 Range/Units 06:50 09:23 11:45 Potassium 3.2 L (3.5-5.5) mmol/L Glucose 239 H (70-110) mg/dL POC Glucose (mg/dL) 208 H 230 H (75-99) mg/dL AST 11 L (13-35) U/L Albumin/Globulin Ratio 1.44 L (1.60-3.17) g/dL 03/17/20 03/17/20 Range/Units 17:11 20:54 Potassium (3.5-5.5) mmol/L Glucose (70-110) mg/dL POC Glucose (mg/dL) 122 H 146 H (75-99) mg/dL AST (13-35) U/L Albumin/Globulin Ratio (1.60-3.17) g/dL Microbiology - Last 24 Hours (Table) 03/16/20 14:00 Urine Culture - Preliminary Urine,Voided Gram Neg Bacilli Assessment and Plan Plan: 1. generalized weakness with inability to stand or walk 2. Urinary tract infection 3. Underlying history of multiple sclerosis with possible exacerbation 4. Underlying history of insulin-dependent diabetes mellitus 5. Underlying history of hypertension with evidence of hypertensive emergency on presentation, t this time will increase losartan from 50-100 mg daily Will continue to monitor blood pressure closely and adjust medications as needed 6. Underlying history of hyperlipidemia 7. Underlying history of gout 8. Underlying history of chronic pain syndrome maintained on narcotics as outpatient At this time medication and labs were reviewed Patient was started on IV Rocephin Neurology consultation was requested in regard to multiple sclerosis Discharge planning to possible inpatient rehab with Dr. Garza or F Will follow closely
[2020-03-18] MEDS: carvediloL 3.125 MG TAB PO SCH ×2 (10:09→16:51)
[2020-03-18] MEDS: MORPHINE SULFATE 4 MG/ML SYRINGE IVP PRN ×3 (11:04→20:44)
[2020-03-18 11:49] LABS: Glucose,Whole Blood 131 mg/dL (75-99)
[2020-03-18 17:13] LABS: Glucose,Whole Blood 116 mg/dL (75-99)
[2020-03-18 20:20] LABS: Glucose,Whole Blood 163 mg/dL (75-99)
[2020-03-18] MEDS: LATANOPROST 0.005% OPHTH DROPS 2.5 ML BTL BOTH EYES SCH (20:46)
--- NOTE | 2020-03-19 00:14 | P.CONS ---
History of Present Illness - Reason for Consult Consult date: 03/18/20 UTI and cellulitis Requesting physician: Mariely Bradford - Chief Complaint Weakness x few days - History of Present Illness Patient is a 59-year-old -[place] female presenting to the ER at [facility] for evaluation of generalized weakness patient was c omplaining of difficulty standing and walking. Patient was also complaining of some blister formation to the left lower extremity and also complaining of more pain and swelling to the left leg pain described to more dull aching 3-4 out of 10 and no radiation, patient on presentation did have low-grade fever of 99F patient did have a normal white count and no lymphopenia, patient was noticed to have mildly positive UA with urine culture subsequently did shows E. coli patient has been treated with Rocephin infectious disease was consulted today for further management of antibiotic therapy Review of Systems Positive point has been mentioned in the HPI rest of the systems are negative Past Medical History Past Medical History: Asthma, COPD, CVA/TIA, Diabetes Mellitus, Eye Disorder, GERD/Reflux, Hyperlipidemia, Hypertension, Neurologic Disorder, Osteoarthritis (OA), Pneumonia Additional Past Medical History / Comment(s): wounds rt leg,multiple sclerosis, glaucoma, cellulitis, 2 TIAs first one about 10 years ago the second in 2017 History of Any Multi-Drug Resistant Organisms: None Reported Past Surgical History: Section, Joint Replacement, Tubal Ligation Additional Past Surgical History / Comment(s): lt hip replacement,rectal surgery,eye proc Past Anesthesia/Blood Transfusion Reactions: No Reported Reaction Past Psychological History: Depression Additional Psychological History / Comment(s): Stop smoking Jan. No cigarette or alcohol use. Does not work outside of the home. No international travel. No experience. No animal exposures Smoking Status: Former smoker Past Alcohol Use History: None Reported Past Drug Use History: Marijuana Additional Drug Use History / Comment(s): daily - Past Family History Father Family Medical History: Cancer Medications and Allergies Home Medications Medication Instructions Recorded Confirmed Type amLODIPine [Norvasc] 10 mg PO DAILY 02/16/16 03/15/20 History Clopidogrel [Plavix] 75 mg PO DAILY 03/01/17 03/15/20 History Furosemide [Lasix] 40 mg PO DAILY 03/01/17 03/15/20 History Latanoprost [Xalatan 0.005%] 1 drop BOTH EYES HS 03/01/17 03/15/20 History metFORMIN HCL 1,000 mg PO AC-BID 05/20/17 03/15/20 History Ipratropium-Albuterol Nebulize 3 ml INHALATION RT-QID PRN 06/28/19 03/15/20 History [Duoneb 0.5 mg-3 mg/3 ml Soln] Pravastatin Sodium [Pravachol] 10 mg PO DAILY 06/28/19 03/15/20 History Pregabalin 150 mg PO BID 08/05/19 03/15/20 History oxyCODONE HCL/ACETAMINOPHEN 1 tab PO Q6H 08/05/19 03/15/20 History [Percocet 10-325 mg] Ergocalciferol [Vitamin D2 50,000 unit PO MO 09/06/19 03/15/20 History (DRISDOL)] hydrALAZINE HCL [Apresoline] 25 mg PO TID 09/06/19 03/15/20 History hydrOXYzine pamoate [hydrOXYzine 50 mg PO TID 09/06/19 03/15/20 History PAMOATE] Losartan Potassium [Cozaar] 50 mg PO DAILY 10/22/19 03/15/20 History traMADol HCl [Ultram] 50 mg PO Q6H 11/23/19 03/15/20 History Insulin Aspart Protam & Aspart 25 unit SQ HS 12/17/19 03/15/20 History [NovoLOG MIX 70-30 Flexpen] Insulin Aspart Protam & Aspart 35 unit SQ DAILY 12/17/19 03/15/20 History [NovoLOG MIX 70-30 Flexpen] Pantoprazole Sodium [Protonix] 40 mg PO DAILY 03/15/20 03/15/20 History SILVER sulfADIAZINE Cream 1 applic TOPICAL DAILY 03/15/20 03/15/20 History [Silvadene 1% Cream] Allergies Allergy/AdvReac Type Severity Reaction Status Date / Time methylprednisolone Allergy Anaphylaxis Verified 03/15/20 15:56 [From Solu-Medrol] venom-honey bee Allergy Anaphylaxis Verified 03/15/20 15:56 [bee venom (honey bee)] Physical Exam Vitals: Vital Signs Temp Pulse Resp BP Pulse Ox 03/18/20 10:12 83 167/77 03/18/20 07:25 98.5 F 80 17 180/93 92 L 11/07/20 00:42 98.5 F 87 16 165/86 97 03/17/20 20:43 98.3 F 84 15 168/90 93 L 03/17/20 19:22 98.4 F 86 19 179/97 94 L 03/17/20 14:44 98.3 F 85 18 160/80 92 L Intake and Output 03/17/20 03/18/20 03/18/20 22:59 06:59 14:59 Output Total 3000 850 1100 Balance -3000 -850 -1100 Output: Urine 3000 850 1100 GENERAL DESCRIPTION: Middle-aged female lying in bed, no distress. No tachypnea or accessory muscle of respiration use. HEENT: Shows Pallor , no scleral icterus. Oral mucous membrane is dry. No pharyngeal erythema or thrush NECK: Trachea central, no thyromegaly. LUNGS: Unlabored breathing. Clear to auscultation anteriorly. No wheeze or crackle. HEART: S1, S2, regular rate and rhythm. No loud murmur ABDOMEN: Soft, no tenderness , guarding or rigidity, no organomegaly EXTREMITIES: Left lower extremity with minimal warmth no ulceration or drainage SKIN: No rash, no masses palpable. NEUROLOGICAL: The patient is awake, alert, oriented x3, mood and affect normal. Results CBC & Chem 7: 03/18/20 05:53 03/18/20 05:53 Labs: Abnormal Lab Results - Last 24 Hours (Table) 03/17/20 03/17/20 03/17/20 Range/Units 09:23 17:11 20:54 Potassium 3.2 L (3.5-5.5) mmol/L Carbon Dioxide (21.6-31.8) mmol/L Glucose 239 H (70-110) mg/dL POC Glucose (mg/dL) 122 H 146 H (75-99) mg/dL AST 11 L (13-35) U/L Albumin/Globulin Ratio 1.44 L (1.60-3.17) g/dL 03/18/20 03/18/20 03/18/20 Range/Units 05:53 07:03 11:47 Potassium 2.9 L (3.5-5.5) mmol/L Carbon Dioxide 35.7 H (21.6-31.8) mmol/L Glucose 143 H (70-110) mg/dL POC Glucose (mg/dL) 145 H 131 H (75-99) mg/dL AST (13-35) U/L Albumin/Globulin Ratio 1.43 L (1.60-3.17) g/dL Microbiology - Last 24 Hours (Table) 03/16/20 14:00 Urine Culture - Preliminary Urine,Voided Gram Neg Bacilli Assessment and Plan Assessment: 1- patient presented to hospital with generalized weakness in this patient who did have low-grade fever source is likely urinary tract infection with a possible component of left lower extremity cellulitis but no evidence of any abscess or deeper infection, and this patient seemed to showing clinical improvement with the Rocephin (1) Left leg cellulitis Current Visit: Yes Status: Acute Code(s): L03.116 - CELLULITIS OF LEFT LOWER LIMB SNOMED Code(s): 413000917 (2) UTI (urinary tract infection) Current Visit: No Status: Acute Code(s): N39.0 - URINARY TRACT INFECTION, SITE NOT SPECIFIED SNOMED Code(s): 94251406 Plan: 1- patient continue with Rocephin 2 g daily while inpatient 2-transitioned to Ceftin 500 mg twice a day for another week on discharge We will follow on clinical condition and cultures to further adjust medication if needed Thank you for this consultation will follow this patient with you Time with Patient: Greater than 30
[2020-03-19] MEDS: oxyCODONE-APAP 10-325MG 1 EACH TAB PO SCH ×4 (00:30→18:15)
[2020-03-19] MEDS: traMADol 50 MG TAB PO SCH ×4 (00:30→18:15)
[2020-03-19 06:48] LABS: Basophils # (A) 0.1 k/uL (0-0.2); Basophils % (A) 1 %; Eosinophils # (A) 0.2 k/uL (0-0.7); Eosinophils % (A) 2 %; HCT 40.9 % (34.0-46.0); HGB 12.9 gm/dL (11.4-16.0); Hypochromasia Slight; Lymphocytes # (A) 2.6 k/uL (1.0-4.8); Lymphocytes % (A) 35 %; MCH 26.4 pg (25.0-35.0); MCHC 31.5 g/dL (31.0-37.0); MCV 83.7 fL (80.0-100.0); Mean Platelet Volume 6.7; Monocytes # (A) 0.5 k/uL (0-1.0); Monocytes % (A) 6 %; Neutrophils # (A) 3.9 k/uL (1.3-7.7); Neutrophils % (A) 54 %; Platelet Count 238 k/uL (150-450); RBC 4.89 m/uL (3.80-5.40); RDW 14.7 % (11.5-15.5); WBC 7.3 k/uL (3.8-10.6)
[2020-03-19 07:24] LABS: Glucose,Whole Blood 111 mg/dL (75-99)
[2020-03-19] MEDS: PREGABALIN 50 MG CAP PO SCH ×2 (07:35→20:46)
[2020-03-19] MEDS: hydrOXYzine pamoate 25 MG CAP PO SCH ×3 (07:35→20:46)
[2020-03-19] MEDS: amLODIPine 10 MG TAB PO SCH (07:36)
[2020-03-19] MEDS: LOSARTAN 50 MG TAB PO SCH (07:36)
[2020-03-19] MEDS: PRAVASTATIN SODIUM 20 MG TAB PO SCH (07:36)
[2020-03-19] MEDS: PANTOPRAZOLE 40 MG TABLET PO SCH (07:36)
[2020-03-19] MEDS: CLOPIDOGREL 75 MG TAB PO SCH (07:36)
[2020-03-19] MEDS: carvediloL 3.125 MG TAB PO SCH (07:36)
[2020-03-19] MEDS: metFORMIN 500 MG TAB PO SCH ×2 (07:36→17:15)
[2020-03-19] MEDS: FUROSEMIDE 40 MG TAB PO SCH (07:37)
[2020-03-19] MEDS: hydrALAZINE HCL 25 MG TAB PO SCH ×3 (07:37→20:46)
[2020-03-19] MEDS: INSULN ASP PRT/INSULIN ASPART 100 UNIT/ML 10 ML VIAL SQ SCH ×2 (09:05→20:47)
[2020-03-19 09:35] LABS: African American GFR (CKD) 81.1 (60.0-200.0); Albumin 3.7 g/dL (3.80-4.90); Albumin/Globulin Ratio 1.28 (1.60-3.17); Anion Gap 8.8 mmol/L (4.00-12.00); BUN/Creat Ratio 16.67 Ratio (12.00-20.00); Calcium 8.6 mg/dL (8.7-10.3); Carbon Dioxide 35.2 mmol/L (21.6-31.8); Globulin 2.9 g/dL (1.6-3.3); Potassium 2.9 mmol/L (3.5-5.5); Total Bilirubin 0.2 mg/dL (0.2-1.2); Total Protein 6.6 g/dL (6.2-8.2)
[2020-03-19] MEDS ORDERED: Potassium Replacement Protocol 1 EACH MISC MISCELLANE PRN (09:49)
[2020-03-19] MEDS: POTASSIUM CHLORIDE ER 20 MEQ TAB.ER PO SCH ×5 (09:54→16:20)
[2020-03-19] MEDS ORDERED: FUROSEMIDE 10 MG/ML 2 ML VIAL IV ONE (10:43)
--- NOTE | 2020-03-19 10:47 | P.PN ---
Subjective Progress Note Date: 03/19/20 Rika Quan, he is a 59-year-old female who presented to [facility] emergency room with a chief complaint of generalized weakness, patient was having difficulty standing and walking, she was evaluated in emergency room vital exam on presentation revealed a temperature of 98.7 pulse 89 respiration 18 left pressure 190/93 pulse ox 95% on room airher white blood count was 7.6 hemoglobin 11.7 potassium was 3.2 glucose 185, urine analysis revealed evidence of urinary tract infection, chest x-ray revealed no acute cardiopulmonary process, she was started on IV Rocephin and was admitted to medical floor. Patient has a known history of multiple sclerosis, she also has known history of bilateral lower extremity cellulitis with multiple ulcers, neurology consultation was requested in regard to multiple sclerosis was generalized weakness and gait disturbance. Past medical history significant for history of diabetes mellitus, history of hypertension, history of multiple sclerosis, history of COPD, history of recurrent bilateral lower extremity cellulitis was ulcers, history of anxiety disorder, history of peripheral vascular disease, history of hyperlipidemia, history of osteoarthritis with degenerative disc disease maintained on narcotics for pain management, history of gout, and history of morbid obesity. On review of systems patient is alert and oriented 3 she is complaining of generalized weakness with inability to stand and walk, she is complaining of bilateral lower extremity pain extending from the thigh all the way down to the feet, otherwise she denies any complaints there is no fever or chills no headache or dizziness no chest pain no shortness of breath no cough no nausea or vomiting no abdominal pain no diarrhea and no urinary symptoms On 03/17/2020 patient is alert and oriented 3. Patient is requesting Silvadene for lower extremities. She denies chest pain. Patient denies nausea vomiting or diarrhea. Patient denies any urinary burning or frequency. Dr. Christopher is consulted for possible inpatient rehab. [facility]. On 03/18/2020 patient was seen and examined on the medical floor she is alert and oriented 3 in no apparent distress she is complaining of worsening swelling and pain in bilateral lower extremity there is a new open ulcer in the left pretibial area otherwise no new complaints there is no fever or chills no headache or dizziness no chest pain no shortness of breath no cough no nausea or vomiting no abdominal pain no diarrhea blood in the stools no burning with urination no frequency or urgency and no hematuria. Blood pressure is elevated at not well controlled despite multiple blood pressure medications at this time will add Coreg 3.125 mg by mouth twice daily continue was losartan, amlodipine, and hydralazine. Will consult Dr. Majano infectious disease in regard to her lateral lower extremity cellulitis with ulcers. On 03/19/2020 patient's alert and oriented 3. Patient states she states she is overall feeling improved. Blood pressure elevated this a.m. in the 200s. Will increase Coreg and add dose of IV Lasix once. Patient also having low potassium likely due to Lasix. Will replace per protocol and will add potassium supplement daily. Infectious disease is following. Patient will likely be able to be discharged on oral antibiotic. Anticipate discharge in the next 24-48 hours likely to inpatient rehab for [facility] facility. This time patient denies chest pain or shortness breath. Patient denies nausea vomiting or diarrhea. Patient denies any urinary burning or frequency Objective - Vital Signs Vital signs: Vital Signs Temp 98.7 F 03/19/20 01:41 Pulse 79 03/19/20 01:41 Resp 16 03/19/20 04:53 BP 170/100 03/19/20 01:41 Pulse Ox 92 L 03/19/20 01:41 Intake & Output 03/18/20 03/18/20 03/19/20 06:59 18:59 06:59 Output Total 3050 1100 600 Balance -3050 -1100 -600 Output: Urine 3050 1100 600 Other: Voiding Method Bedside Commode # Bowel Movements 0 - Exam in general patient is alert and oriented 3 in no distress HEENT head normocephalic and atraumatic Neck is supple no JVD no goiter no lymphadenopathy Chest exam reveals a few scattered rhonchi no wheezing Cardiac exam reveals regular heart sounds no murmurs Abdomen is soft nontender no organomegaly with normal bowel sounds Extremity exam reveals bilateral lower extremity edema with extensive stasis changes, there is scabbed ulcer on the bottom of the left foot, there is a new open ulcer in the left pretibial area Neurological examination reveals no gross focal deficit - Labs CBC & Chem 7: 03/19/20 06:10 03/19/20 06:10 Labs: Abnormal Lab Results - Last 24 Hours (Table) 11/07/20 11/07/20 11/07/20 Range/Units 05:53 07:03 11:47 Potassium 2.9 L (3.5-5.5) mmol/L Carbon Dioxide 35.7 H (21.6-31.8) mmol/L Glucose 143 H (70-110) mg/dL POC Glucose (mg/dL) 145 H 131 H (75-99) mg/dL Albumin/Globulin Ratio 1.43 L (1.60-3.17) g/dL 03/18/20 03/18/20 Range/Units 17:12 20:12 Potassium (3.5-5.5) mmol/L Carbon Dioxide (21.6-31.8) mmol/L Glucose (70-110) mg/dL POC Glucose (mg/dL) 116 H 163 H (75-99) mg/dL Albumin/Globulin Ratio (1.60-3.17) g/dL Microbiology - Last 24 Hours (Table) 03/16/20 14:00 Urine Culture - Final Urine,Voided Escherichia coli Assessment and Plan Plan: 1. generalized weakness with inability to stand or walk 2. Urinary tract infection. He attained on Rocephin infectious disease is following 3. Underlying history of multiple sclerosis with possible exacerbation 4. Underlying history of insulin-dependent diabetes mellitus 5. Underlying history of hypertension with evidence of hypertensive emergency on presentation, t this time will increase losartan from 50-100 mg daily Will continue to monitor blood pressure closely and adjust medications as needed. Coreg added and increased due to elevated blood pressure. Patient also received 1 time dose of IV Lasix 6. Underlying history of hyperlipidemia 7. Underlying history of gout 8. Underlying history of chronic pain syndrome maintained on narcotics as outpatient 9. Left leg Cellulitis. Infectious disease is following. Patient most likely will be able to be transitioned to Ceftin 500 twice a day for 1 week upon discharge At this time medication and labs were reviewed Patient was started on IV Rocephin Neurology consultation was requested in regard to multiple sclerosis Discharge planning to possible inpatient rehab with Dr. Garza or ECF Will follow closely
[2020-03-19 11:39] LABS: Glucose,Whole Blood 130 mg/dL (75-99)
[2020-03-19] MEDS: ONDANSETRON 4 MG/2 ML VIAL IVP PRN (15:12)
[2020-03-19] MEDS: MORPHINE SULFATE 4 MG/ML SYRINGE IVP PRN ×2 (16:19→20:47)
[2020-03-19 16:25] LABS: Glucose,Whole Blood 160 mg/dL (75-99)
[2020-03-19] MEDS: carvediloL 6.25 MG TAB PO SCH (17:15)
[2020-03-19 20:45] LABS: Glucose,Whole Blood 172 mg/dL (75-99)
[2020-03-19] MEDS: LATANOPROST 0.005% OPHTH DROPS 2.5 ML BTL BOTH EYES SCH (20:49)
[2020-03-20] MEDS: oxyCODONE-APAP 10-325MG 1 EACH TAB PO SCH ×4 (01:28→17:19)
[2020-03-20] MEDS: traMADol 50 MG TAB PO SCH ×4 (01:29→17:20)
[2020-03-20 01:53] VITALS: PULSE 76
--- NOTE | 2020-03-20 06:12 | PN ---
PROGRESS NOTE DATE OF SERVICE: 03/19/2020 REASON FOR FOLLOWUP: Left leg cellulitis and E. Coli urinary tract infection. INTERVAL HISTORY: The patient is currently afebrile. The patient is breathing comfortably. The patient denies having any chest pain or shortness of breath or cough. Left leg overall swelling and pain has slightly decreased. PHYSICAL EXAMINATION: Blood pressure is 138/77 with a pulse of 83, temperature 98.2. She is 94% on room air. General description is a middle-aged female lying in bed in no distress. RESPIRATORY SYSTEM: Unlabored breathing, clear to auscultation anteriorly. HEART: S1, S2. Regular rate and rhythm. ABDOMEN: Soft, no tenderness. Left leg with minimal swelling slightly LABS: Potassium is 3.5. DIAGNOSTIC IMPRESSION AND PLAN: The patient admitted to the hospital with weakness, multifactorial in this patient who did have Escherichia coli urinary tract infection and left leg cellulitis, clinically responding to Rocephin. Plan to finish therapy with oral Ceftin 500 mg twice a day for about week and close outpatient followup. MMODL / IJN: [id number] /
[2020-03-20 06:39] LABS: Basophils % (A) 1 %; Eosinophils # (A) 0.2 k/uL (0-0.7); Eosinophils % (A) 2 %; HCT 39.8 % (34.0-46.0); HGB 12.8 gm/dL (11.4-16.0); Lymphocytes # (A) 2.3 k/uL (1.0-4.8); Lymphocytes % (A) 34 %; MCH 26.4 pg (25.0-35.0); MCHC 32.1 g/dL (31.0-37.0); MCV 82.4 fL (80.0-100.0); Mean Platelet Volume 6.7; Monocytes # (A) 0.4 k/uL (0-1.0); Monocytes % (A) 6 %; Neutrophils # (A) 3.7 k/uL (1.3-7.7); Neutrophils % (A) 56 %; Platelet Count 221 k/uL (150-450); RBC 4.83 m/uL (3.80-5.40); RDW 14.7 % (11.5-15.5); WBC 6.7 k/uL (3.8-10.6)
[2020-03-20 06:58] LABS: Glucose,Whole Blood 127 mg/dL (75-99)
[2020-03-20] MEDS: amLODIPine 10 MG TAB PO SCH (07:57)
[2020-03-20] MEDS: LOSARTAN 50 MG TAB PO SCH (07:57)
[2020-03-20] MEDS: hydrOXYzine pamoate 25 MG CAP PO SCH ×2 (07:57→17:19)
[2020-03-20] MEDS: CLOPIDOGREL 75 MG TAB PO SCH (07:57)
[2020-03-20] MEDS: PREGABALIN 50 MG CAP PO SCH (07:57)
[2020-03-20] MEDS: PRAVASTATIN SODIUM 20 MG TAB PO SCH (07:57)
[2020-03-20] MEDS: FUROSEMIDE 40 MG TAB PO SCH (07:57)
[2020-03-20] MEDS: carvediloL 6.25 MG TAB PO SCH ×2 (07:58→17:20)
[2020-03-20] MEDS: PANTOPRAZOLE 40 MG TABLET PO SCH (07:59)
[2020-03-20] MEDS: hydrALAZINE HCL 25 MG TAB PO SCH ×2 (07:59→17:20)
[2020-03-20] MEDS: metFORMIN 500 MG TAB PO SCH ×2 (07:59→17:19)
[2020-03-20] MEDS: INSULN ASP PRT/INSULIN ASPART 100 UNIT/ML 10 ML VIAL SQ SCH (08:05)
[2020-03-20 08:09] VITALS: BP 170/90; RESP 17; TEMP 98.1
[2020-03-20] MEDS ORDERED: ERGOCALCIFEROL 50,000 UNIT CAP PO SCH (09:00)
[2020-03-20] MEDS ORDERED: POTASSIUM CHLORIDE ER 10 MEQ TAB.ER.PRT PO SCH (09:00)
[2020-03-20 10:16] LABS: African American GFR (CKD) 71.4 (60.0-200.0); Albumin 3.6 g/dL (3.80-4.90); Albumin/Globulin Ratio 1.33 (1.60-3.17); Anion Gap 8.8 mmol/L (4.00-12.00); Calcium 8.5 mg/dL (8.7-10.3); Carbon Dioxide 31.2 mmol/L (21.6-31.8); Globulin 2.7 g/dL (1.6-3.3); Non-African American GFR(CKD) 61.6 (60.0-200.0); Potassium 3.5 mmol/L (3.5-5.5); Total Bilirubin 0.2 mg/dL (0.2-1.2); Total Protein 6.3 g/dL (6.2-8.2)
[2020-03-20 11:38] LABS: Glucose,Whole Blood 94 mg/dL (75-99)
--- NOTE | 2020-03-20 13:47 | P.DS ---
Providers Date of admission: 03/17/20 09:57 Expected date of discharge: 03/20/20 Attending physician: Mariely Bradford Consults: 03/15/20 16:08 Consult Physician Routine Consulting Provider: Kalpesh Velásquez Consult Reason/Comments: MS Do you want consulting provider notified?: Yes 03/16/20 12:22 Consult Physician Routine Consulting Provider: Grupo Christopher Consult Reason/Comments: weakness, physical debility Do you want consulting provider notified?: Yes 03/18/20 09:46 Consult Physician Routine Consulting Provider: Ishan Majano Consult Reason/Comments: lower extremities cellulitis Do you want consulting provider notified?: Yes Primary care physician: Marielyallison Bradford [facility] Course: Diagnoses on discharge: 1. generalized weakness with inability to stand or walk 2. Urinary tract infection 3. Underlying history of multiple sclerosis with possible exacerbation 4. Underlying history of insulin-dependent diabetes mellitus 5. Underlying history of hypertension with evidence of hypertensive emergency on presentation, t this time will increase losartan from 50-100 mg daily Will continue to monitor blood pressure closely and adjust medications as needed 6. Underlying history of hyperlipidemia 7. Underlying history of gout 8. Underlying history of chronic pain syndrome maintained on narcotics as outpatient Hospital Course: Rika Quan, he is a 59-year-old female who presented to [facility] emergency room with a chief complaint of generalized weakness, patient was having difficulty standing and walking, she was evaluated in emergency room vital exam on presentation revealed a temperature of 98.7 pulse 89 respiration 18 left pressure 190/93 pulse ox 95% on room airher white blood count was 7.6 hemoglobin 11.7 potassium was 3.2 glucose 185, urine analysis revealed evidence of urinary tract infection, chest x-ray revealed no acute cardiopulmonary process, she was started on IV Rocephin and was admitted to medical floor. Patient has a known history of multiple sclerosis, she also has known history of bilateral lower extremity cellulitis with multiple ulcers, neurology consultation was requested in regard to multiple sclerosis was generalized weakness and gait disturbance. Past medical history significant for history of diabetes mellitus, history of hypertension, history of multiple sclerosis, history of COPD, history of recurrent bilateral lower extremity cellulitis was ulcers, history of anxiety disorder, history of peripheral vascular disease, history of hyperlipidemia, history of osteoarthritis with degenerative disc disease maintained on narcotics for pain management, history of gout, and history of morbid obesity. On review of systems patient is alert and oriented 3 she is complaining of generalized weakness with inability to stand and walk, she is complaining of bilateral lower extremity pain extending from the thigh all the way down to the feet, otherwise she denies any complaints there is no fever or chills no headache or dizziness no chest pain no shortness of breath no cough no nausea or vomiting no abdominal pain no diarrhea and no urinary symptoms On 03/17/2020 patient is alert and oriented 3. Patient is requesting Silvadene for lower extremities. She denies chest pain. Patient denies nausea vomiting or diarrhea. Patient denies any urinary burning or frequency. Dr. Christopher is consulted for possible inpatient rehab. [facility]. On 03/18/2020 patient was seen and examined on the medical floor she is alert and oriented 3 in no apparent distress she is complaining of worsening swelling and pain in bilateral lower extremity there is a new open ulcer in the left pretibial area otherwise no new complaints there is no fever or chills no headache or dizziness no chest pain no shortness of breath no cough no nausea or vomiting no abdominal pain no diarrhea blood in the stools no burning with urination no frequency or urgency and no hematuria. Blood pressure is elevated at not well controlled despite multiple blood pressure medications at this time will add Coreg 3.125 mg by mouth twice daily continue was losartan, amlodipine, and hydralazine. Will consult Dr. Majano infectious disease in regard to her lateral lower extremity cellulitis with ulcers. On 03/19/2020 patient's alert and oriented 3. Patient states she states she is overall feeling improved. Blood pressure elevated this a.m. in the 200s. Will increase Coreg and add dose of IV Lasix once. Patient also having low potassium likely due to Lasix. Will replace per protocol and will add potassium supplement daily. Infectious disease is following. Patient will likely be able to be discharged on oral antibiotic. Anticipate discharge in the next 24-48 hours likely to inpatient rehab for [facility] facility. This time patient denies chest pain or shortness breath. Patient denies nausea vomiting or diarrhea. Patient denies any urinary burning or frequency On 03/20/2020 patient was seen and examined on the medical floor she is alert and oriented 3 in no distress there is no fever or chills no headache or dizziness no chest pain no shortness of breath no cough no nausea or vomiting no abdominal pain no diarrhea no blood in the stools no burning with urination no frequency or urgency no hematuria evaluated by Dr. Majano infectious disease and was clear to be discharged on oral antibiotic course of Ceftin patient will go to [facility] unit we will follow her for further evaluation and treatment Patient Condition at Discharge: Fair Plan - Discharge Summary Discharge Rx Participant: No New Discharge Prescriptions: New Carvedilol [Coreg] 12.5 mg PO BID 30 Days #60 tablet Losartan [Cozaar] 100 mg PO DAILY tab Potassium Chloride ER [K-Dur 10] 10 meq PO DAILY tab.er.prt Cefuroxime Axetil [Ceftin] 500 mg PO BID 10 Days #20 tab Continue amLODIPine [Norvasc] 10 mg PO DAILY Latanoprost [Xalatan 0.005%] 1 drop BOTH EYES HS Furosemide [Lasix] 40 mg PO DAILY Clopidogrel [Plavix] 75 mg PO DAILY metFORMIN HCL 1,000 mg PO AC-BID Ipratropium-Albuterol Nebulize [Duoneb 0.5 mg-3 mg/3 ml Soln] 3 ml INHALATION RT-QID PRN PRN Reason: Shortness Of Breath Pravastatin Sodium [Pravachol] 10 mg PO DAILY oxyCODONE HCL/ACETAMINOPHEN [Percocet 10-325 mg] 1 tab PO Q6H Pregabalin 150 mg PO BID Ergocalciferol [Vitamin D2 (DRISDOL)] 50,000 unit PO MO hydrALAZINE HCL [Apresoline] 25 mg PO TID hydrOXYzine pamoate [hydrOXYzine PAMOATE] 50 mg PO TID Insulin Aspart Protam & Aspart [NovoLOG MIX 70-30 Flexpen] 35 unit SQ DAILY Insulin Aspart Protam & Aspart [NovoLOG MIX 70-30 Flexpen] 25 unit SQ HS SILVER sulfADIAZINE Cream [Silvadene 1% Cream] 1 applic TOPICAL DAILY Pantoprazole Sodium [Protonix] 40 mg PO DAILY Discontinued Losartan Potassium [Cozaar] 50 mg PO DAILY traMADol HCl [Ultram] 50 mg PO Q6H Discharge Medication List amLODIPine [Norvasc] 10 mg PO DAILY 02/16/16 [History] Clopidogrel [Plavix] 75 mg PO DAILY 03/01/17 [History] Furosemide [Lasix] 40 mg PO DAILY 03/01/17 [History] Latanoprost [Xalatan 0.005%] 1 drop BOTH EYES HS 03/01/17 [History] metFORMIN HCL 1,000 mg PO AC-BID 05/20/17 [History] Ipratropium-Albuterol Nebulize [Duoneb 0.5 mg-3 mg/3 ml Soln] 3 ml INHALATION RT-QID PRN 06/28/19 [History] Pravastatin Sodium [Pravachol] 10 mg PO DAILY 06/28/19 [History] Pregabalin 150 mg PO BID 08/05/19 [History] oxyCODONE HCL/ACETAMINOPHEN [Percocet 10-325 mg] 1 tab PO Q6H 08/05/19 [History] Ergocalciferol [Vitamin D2 (DRISDOL)] 50,000 unit PO MO 09/06/19 [History] hydrALAZINE HCL [Apresoline] 25 mg PO TID 09/06/19 [History] hydrOXYzine pamoate [hydrOXYzine PAMOATE] 50 mg PO TID 09/06/19 [History] Insulin Aspart Protam & Aspart [NovoLOG MIX 70-30 Flexpen] 25 unit SQ HS 12/17/19 [History] Insulin Aspart Protam & Aspart [NovoLOG MIX 70-30 Flexpen] 35 unit SQ DAILY 12/17/19 [History] Pantoprazole Sodium [Protonix] 40 mg PO DAILY 03/15/20 [History] SILVER sulfADIAZINE Cream [Silvadene 1% Cream] 1 applic TOPICAL DAILY 03/15/20 [History] Carvedilol [Coreg] 12.5 mg PO BID 30 Days #60 tablet 03/20/20 [Rx] Cefuroxime Axetil [Ceftin] 500 mg PO BID 10 Days #20 tab 03/20/20 [Rx] Losartan [Cozaar] 100 mg PO DAILY tab 03/20/20 [Rx] Potassium Chloride ER [K-Dur 10] 10 meq PO DAILY tab.er.prt 03/20/20 [Rx] Follow up Appointment(s)/Referral(s): Mariely Bradford MD [Primary Care Provider] - 1-2 days
[2020-03-20] MEDS: MORPHINE SULFATE 4 MG/ML SYRINGE IVP PRN (14:37)
--- NOTE | 2020-03-20 16:36 | PN ---
PROGRESS NOTE DATE OF SERVICE: 03/20/2020 REASON FOR FOLLOWUP: Left leg cellulitis and UTI. INTERVAL HISTORY: The patient is currently afebrile. The patient is breathing comfortably. The patient denies having any chest pain or cough. No abdominal pain. PHYSICAL EXAMINATION: Blood pressure 130/90, with a pulse of 93, temperature is 98.1. She is 93% on room air. General description is a middle-aged female, up in the room in no distress. RESPIRATORY SYSTEM: Unlabored breathing, clear to auscultation anteriorly. HEART: S1, S2, regular rate and rhythm. ABDOMEN: Soft, no tenderness. Left leg swelling has improved. LABS: Hemoglobin is 12.1, white count of 6.2, creatinine is 1.0. DIAGNOSTIC IMPRESSION AND PLAN: Patient with weakness, multifactorial who did have E. coli urinary tract infection and left leg cellulitis, responding to Rocephin with a plan to finish therapy with oral Ceftin 500 mg for another week and close outpatient followup. MMODL / IJN: [id number] /
[2020-03-20 16:57] LABS: Glucose,Whole Blood 98 mg/dL (75-99)
--- NOTE | 2020-03-21 14:10 | CDI ---
Documentation Clarification Form Date: 03/21/20 From: Ingrid Chung Phone: If you have a question about this query, please contact Carri Adams, [employer] at [phone] between 8am and 5pm. Admit Date: 03/17/20 Discharge Date: 03/20/20 Patient Name: ELSA SNIDER Visit Number: [id number] ATTENTION: The Clinical Documentation Specialists (CDI) and [facility] Coding Staff appreciate your assistance in clarifying documentation. Please respond to the clarification below the line at the bottom and electronically sign. The CDI & [facility] Coding staff will review the response and follow-up if needed. Please note: Queries are made part of the Legal Health Record. If you have any questions, please contact the author of this message via ITS. Dear Dr. Mariely Bradford, Documentation states: Patient having low potassium likely due to Lasix. History/Risk Factors: bilateral lower extremity cellulitis, ulcer of lower extremity left leg, UTI, JENNIFER, DM, MS Clinical indicators: Potassium:-3.2, 3.2, 2.9, 2.9, 3.1 Treatment: Potassium oral Clinical significance of diagnostic testing and treatment CANNOT be assumed or coded without physician documentation of significance if any. Please clarify what abnormal laboratory signifies: Hypokalemia Unable to determine Other, please specify hypokalemia MTDD
== END 2020-03-20 17:23 | DRG 603 ==
LOC: EC 12:48 → 6NMEDSUR 16:08 → 4SSUR 22:23 → OBSVTOIN 03-17 09:57 → 4SSUR 03-20 08:07
PROVIDERS: ADMIT Internal Medicine; ATTEND Internal Medicine
PROC: 05HD33Z Insertion of Infusion Device into Right Cephalic Vein, Percutaneous Approach (ICD-10-PCS; principal; 2020-03-17 17:25)
DX: L03.116 Cellulitis of left lower limb (principal); L97.929 Non-pressure chronic ulcer of unspecified part of left lower leg with unspecified severity; N39.0 Urinary tract infection, site not specified; N17.9 Acute kidney failure, unspecified; I16.1 Hypertensive emergency; E11.51 Type 2 diabetes mellitus with diabetic peripheral angiopathy without gangrene; E11.39 Type 2 diabetes mellitus with other diabetic ophthalmic complication; B96.20 Unspecified Escherichia coli [E. coli] as the cause of diseases classified elsewhere; E66.01 Morbid (severe) obesity due to excess calories; G35 Multiple sclerosis; Z79.4 Long term (current) use of insulin; J44.9 Chronic obstructive pulmonary disease, unspecified; L03.115 Cellulitis of right lower limb; E87.6 Hypokalemia; H40.9 Unspecified glaucoma; Z68.38 Body mass index [BMI] 38.0-38.9, adult; H42 Glaucoma in diseases classified elsewhere; K21.9 Gastro-esophageal reflux disease without esophagitis; E78.5 Hyperlipidemia, unspecified; I10 Essential (primary) hypertension; G89.4 Chronic pain syndrome; R32 Unspecified urinary incontinence; R35.0 Frequency of micturition; T50.1X5A Adverse effect of loop [high-ceiling] diuretics, initial encounter; R53.81 Other malaise; R94.31 Abnormal electrocardiogram [ECG] [EKG]; R26.9 Unspecified abnormalities of gait and mobility; M19.90 Unspecified osteoarthritis, unspecified site; Z79.02 Long term (current) use of antithrombotics/antiplatelets; Z79.891 Long term (current) use of opiate analgesic; Z79.899 Other long term (current) drug therapy; Z87.891 Personal history of nicotine dependence; Z98.51 Tubal ligation status; Z96.642 Presence of left artificial hip joint; Z86.69 Personal history of other diseases of the nervous system and sense organs; Z87.19 Personal history of other diseases of the digestive system; Z98.891 History of uterine scar from previous surgery; Z98.890 Other specified postprocedural states; Z86.59 Personal history of other mental and behavioral disorders; Z87.39 Personal history of other diseases of the musculoskeletal system and connective tissue; Z87.01 Personal history of pneumonia (recurrent); Z86.73 Personal history of transient ischemic attack (TIA), and cerebral infarction without residual deficits; Z88.8 Allergy status to other drugs, medicaments and biological substances; Z91.030 Bee allergy status; Z82.49 Family history of ischemic heart disease and other diseases of the circulatory system
CPT/HCPCS: 36410; 36415; 71046; 76937; 80053; 81001; 82550; 83735; 83880; 84100; 84132; 84484; 85025; 85610; 85730; 87077; 87086; 87186; 93005; 94640; 96361; 96365; 96375; 99285

== ENCOUNTER 2020-03-22 04:48 | Emergency (ER) | payer MEDICARE, OTHER ==
[2020-03-22 04:55] VITALS: RESP 20; TEMP 98.9
[2020-03-22] MEDS ORDERED: MORPHINE SULFATE 4 MG/ML SYRINGE IM STA (05:28)
--- NOTE | 2020-03-22 05:32 | ED ---
General Adult HPI - General Chief complaint: Recheck/Abnormal Lab/Rx Stated complaint: Hip/Knee Pain Time Seen by Provider: 03/22/20 05:06 Source: patient, EMS Mode of arrival: EMS Limitations: no limitations - History of Present Illness Initial comments: this patient is a 59-year-old woman with history of chronic lower extremity pain and weakness, transferred from the [facility], to havetreatment of left knee pain. the patienthas history of taking Percocet for her chronic pains. She had been admitted here briefly and then was discharged to the rehabilitation facility, but her usual pain medication had not been ordered, and the staff at the [place] was not able to contact the physician yasmani. The patient denies any acute injury. -: days(s) Location: left, lower extremity Radiation: non-radiation Quality: aching Consistency: constant Improves with: none Worsens with: none Associated Symptoms: denies other symptoms - Related Data Home Medications Medication Instructions Recorded Confirmed amLODIPine [Norvasc] 10 mg PO DAILY 02/16/16 03/15/20 Clopidogrel [Plavix] 75 mg PO DAILY 03/01/17 03/15/20 Furosemide [Lasix] 40 mg PO DAILY 03/01/17 03/15/20 Latanoprost [Xalatan 0.005%] 1 drop BOTH EYES HS 03/01/17 03/15/20 metFORMIN HCL 1,000 mg PO AC-BID 05/20/17 03/15/20 Ipratropium-Albuterol Nebulize 3 ml INHALATION RT-QID PRN 06/28/19 03/15/20 [Duoneb 0.5 mg-3 mg/3 ml Soln] Pravastatin Sodium [Pravachol] 10 mg PO DAILY 06/28/19 03/15/20 Pregabalin 150 mg PO BID 08/05/19 03/15/20 oxyCODONE HCL/ACETAMINOPHEN 1 tab PO Q6H 08/05/19 03/15/20 [Percocet 10-325 mg] Ergocalciferol [Vitamin D2 50,000 unit PO MO 09/06/19 03/15/20 (DRISDOL)] hydrALAZINE HCL [Apresoline] 25 mg PO TID 09/06/19 03/15/20 hydrOXYzine pamoate [hydrOXYzine 50 mg PO TID 09/06/19 03/15/20 PAMOATE] Insulin Aspart Protam & Aspart 25 unit SQ HS 12/17/19 03/15/20 [NovoLOG MIX 70-30 Flexpen] Insulin Aspart Protam & Aspart 35 unit SQ DAILY 12/17/19 03/15/20 [NovoLOG MIX 70-30 Flexpen] Pantoprazole Sodium [Protonix] 40 mg PO DAILY 03/15/20 03/15/20 SILVER sulfADIAZINE Cream 1 applic TOPICAL DAILY 03/15/20 03/15/20 [Silvadene 1% Cream] Previous Rx's Medication Instructions Recorded Carvedilol [Coreg] 12.5 mg PO BID 30 Days #60 tablet 03/20/20 Cefuroxime Axetil [Ceftin] 500 mg PO BID 10 Days #20 tab 03/20/20 Losartan [Cozaar] 100 mg PO DAILY tab 03/20/20 Potassium Chloride ER [K-Dur 10] 10 meq PO DAILY tab.er.prt 03/20/20 oxyCODONE-APAP 10-325MG [Percocet 1 tab PO Q6HR PRN 3 Days #12 tab 03/22/20 10-325 mg] Allergies Allergy/AdvReac Type Severity Reaction Status Date / Time methylprednisolone Allergy Anaphylaxis Verified 03/22/20 04:55 [From Solu-Medrol] venom-honey bee Allergy Anaphylaxis Verified 03/22/20 04:55 [bee venom (honey bee)] Review of Systems ROS Statement: Those systems with pertinent positive or pertinent negative responses have been documented in the HPI. ROS Other: All systems not noted in ROS Statement are negative. Constitutional: Denies: fever, chills Respiratory: Denies: cough, dyspnea Cardiovascular: Reports: edema (chronic). Denies: chest pain, palpitations Gastrointestinal: Denies: abdominal pain, vomiting, diarrhea Genitourinary: Denies: dysuria, hematuria Musculoskeletal: Reports: as per HPI, arthralgia. Denies: back pain Skin: Denies: rash Neurological: Reports: weakness (chronic). Denies: headache, numbness, paresthesias Past Medical History Past Medical History: Asthma, COPD, CVA/TIA, Diabetes Mellitus, Eye Disorder, GERD/Reflux, Hyperlipidemia, Hypertension, Neurologic Disorder, Osteoarthritis (OA), Pneumonia Additional Past Medical History / Comment(s): wounds rt leg,multiple sclerosis, glaucoma, cellulitis, 2 TIAs first one about 10 years ago the second in 2017 History of Any Multi-Drug Resistant Organisms: None Reported Past Surgical History: Section, Joint Replacement, Tubal Ligation Additional Past Surgical History / Comment(s): lt hip replacement,rectal surgery,eye proc Past Anesthesia/Blood Transfusion Reactions: No Reported Reaction Past Psychological History: Depression Smoking Status: Former smoker Past Alcohol Use History: None Reported Past Drug Use History: Marijuana - Past Family History Father Family Medical History: Cancer General Exam Limitations: no limitations General appearance: alert, in no apparent distress Head exam: Present: atraumatic, normocephalic Eye exam: Present: normal appearance. Absent: scleral icterus, conjunctival injection Respiratory exam: Present: normal lung sounds bilaterally. Absent: respiratory distress, wheezes, rales, rhonchi, stridor Cardiovascular Exam: Present: regular rate, normal rhythm, normal heart sounds. Absent: systolic murmur, diastolic murmur, rubs, gallop GI/Abdominal exam: Present: soft. Absent: tenderness, guarding, rebound Extremities exam: Present: normal capillary refill, pedal edema. Absent: full ROM, calf tenderness Neurological exam: Present: alert. Absent: motor sensory deficit Skin exam: Present: warm, dry, intact, other (stasis changes to the bilateral lower extremities). Absent: rash Course Vital Signs 03/22/20 04:52 Temperature 98.9 F Pulse Rate 83 Respiratory 20 Rate Blood Pressure 182/85 O2 Sat by Pulse 95 Oximetry Disposition Clinical Impression: Knee pain Disposition: HOME SELF-CARE Condition: Fair Instructions (If sedation given, give patient instructions): Knee Pain (ED) Prescriptions: oxyCODONE-APAP 10-325MG [Percocet 10-325 mg] 1 tab PO Q6HR PRN 3 Days #12 tab PRN Reason: Pain Is patient prescribed a controlled substance at d/c from ED?: Yes When asked, does pt state using other controlled substances?: No If prescribed controlled substance>3 days was MAPS reviewed?: Prescribed <3 Days If opioid is for acute pain is fill amount 7 days or less?: Yes If Rx opioid, was Start Talking consent form obtained?: Yes Referrals: Mariely Bradford MD [Primary Care Provider] - 1-2 days
--- NOTE | 2020-03-22 06:05 | XR ---
EXAM: XR Left Knee, 3 Views CLINICAL HISTORY: Pain. TECHNIQUE: Three views of the left knee. COMPARISON: No relevant prior studies available. FINDINGS: Bones/joints: No acute fracture or dislocation. Advanced degenerative arthropathy, most pronounced in the lateral and patellofemoral compartments. Soft tissues: Unremarkable. IMPRESSION: No acute findings. Advanced degenerative changes.
[2020-03-22] MEDS ORDERED: oxyCODONE-APAP 10-325MG 1 EACH TAB PO PRN (07:05)
[2020-03-22 07:41] VITALS: BP 168/82; PULSE 91
== END 2020-03-22 07:47 | disposition home or self-care (01) ==
LOC: EC 04:48
DX: M25.562 Pain in left knee (principal); F32.9 Major depressive disorder, single episode, unspecified; J44.9 Chronic obstructive pulmonary disease, unspecified; E11.9 Type 2 diabetes mellitus without complications; K21.9 Gastro-esophageal reflux disease without esophagitis; E78.5 Hyperlipidemia, unspecified; I10 Essential (primary) hypertension; M19.90 Unspecified osteoarthritis, unspecified site; Z79.4 Long term (current) use of insulin; Z79.899 Other long term (current) drug therapy; Z79.02 Long term (current) use of antithrombotics/antiplatelets; Z88.8 Allergy status to other drugs, medicaments and biological substances; Z91.030 Bee allergy status; Z86.73 Personal history of transient ischemic attack (TIA), and cerebral infarction without residual deficits; Z96.641 Presence of right artificial hip joint; Z87.891 Personal history of nicotine dependence
CPT/HCPCS: 73562; 99283; 96372; J2270